=== PATIENT | male | born 1950 | race Caucasian/White ===

== ENCOUNTER → 2017-11-30 10:54 | Outpatient (CLI) | payer MEDICARE, SELFPAY ==
[2017-11-30 12:38] LABS: Valproic Acid (Depakene) Level 74 ug/mL (50-100)
[2017-12-01 11:38] LABS: Hep C Antibodies <0.1 s/co ratio (0.0-0.9)
== END ==
PROVIDERS: Family Provider Internal Medicine; PCP Internal Medicine; Visit Provider Internal Medicine
DX: Z11.59 Encounter for screening for other viral diseases (principal); Z12.5 Encounter for screening for malignant neoplasm of prostate; R56.9 Unspecified convulsions
CPT/HCPCS: 36415; 80164; 84153; 86803; G0103

== ENCOUNTER → 2017-12-30 10:21 | Outpatient (CLI) | payer MEDICARE, SELFPAY ==
[2017-12-30 12:03] LABS: Absolute Neutrophil Count 4.6 X10^3/uL (2.0-7.7); Basophil# 0.04 X10^3/uL; Basophil% 0.5 % (0-1); Eosinophils% 2.7 % (0-5); Hematocrit 40.5 % (40-54); Hemoglobin 13.4 g/dl (13.0-16.5); Lymphocyte % 21.4 % (19-41); Mean Corp Hgb Conc 33.1 g/gl (32-36); Mean Corpuscular Hgb 27.5 pg (27.0-32.0); Mean Corpuscular Volume 83.2 fL (80-94); Mean Platelet Vol. 10.2 fl (6.2-12.0); Monocyte# 1.04 X10^3/uL; Monocyte% 13.9 % (0-10); Neutrophil # 4.55 X10^3/uL (2.7-7.7); Neutrophil % 61.1 % (47-70); Platelet Count 245 K/mm3 (150-450); RBC Distribution Width CV 16.3 % (11.6-14.6); RBC Distribution Width SD 49.4 fl (35.1-43.9); Red Blood Count 4.87 M/mm3 (4.6-6.2); White Blood Count 7.5 K/mm3 (4.4-11.0)
[2017-12-30 12:06] LABS: ALB/GLOB Ratio 0.8 RATIO (0.9-2.4); AST(SGOT) 23 U/L (15-37); Alanine Aminotransfer ALT/SGPT 28 U/L (16-61); Albumin, Serum 3.4 g/dL (3.2-5.0); Alkaline Phosphatase 91 U/L (45-117); Anion Gap 9 (5-15); BUN 27 mg/dL (7-18); BUN/Creat Ratio 20.9 RATIO (10-20); Calcium,Total 8.9 mg/dL (8.5-10.1); Chloride 100 mmol/L (98-107); Creatinine, Serum 1.29 mg/dL (0.70-1.30); EST Glomerular Filtration Rate 59 mL/min (>60); Est Glom Filt Rate - Afr Amer 71 mL/min (>60); Globulin 4.1 g/dL (2.2-4.2); Glucose 94 mg/dL (74-106); Potassium 4.9 mmol/L (3.5-5.1); Protein, Total 7.5 g/dL (6.4-8.2); Sodium Level 136 mmol/L (136-145)
[2017-12-30 12:16] LABS: POSITIVE COUNT NO; POSITIVE DIFFERENTIAL NO; POSITIVE MORPHOLOGY NO; Valproic Acid (Depakene) Level 68 ug/mL (50-100)
== END ==
PROVIDERS: Family Provider Internal Medicine; PCP Internal Medicine; Visit Provider Psychiatry & Neurology Neurology
DX: G40.009 Localization-related (focal) (partial) idiopathic epilepsy and epileptic syndromes with seizures of localized onset, not intractable, without status epilepticus (principal)
CPT/HCPCS: 36415; 80053; 80164; 85025

== ENCOUNTER → 2018-08-25 08:40 | Outpatient (CLI) | payer MEDICARE, BC, SELFPAY ==
[2018-08-25 10:27] LABS: Hematocrit 43.7 % (40-54); Hemoglobin 14.5 g/dl (13.0-16.5); Mean Corp Hgb Conc 33.2 g/gl (32-36); Mean Corpuscular Hgb 27.7 pg (27.0-32.0); Mean Corpuscular Volume 83.4 fL (80-94); Mean Platelet Vol. 10.2 fl (6.2-12.0); Platelet Count 207 K/mm3 (150-450); RBC Distribution Width CV 15.9 % (11.6-14.6); RBC Distribution Width SD 48.8 fl (35.1-43.9); Red Blood Count 5.24 M/mm3 (4.6-6.2); Scan Indicated on CBC? Y/N NO; White Blood Count 8.3 K/mm3 (4.4-11.0)
[2018-08-25 10:57] LABS: Vitamin D,25 Hydroxy 34.8 ng/mL (29.95-100.01)
[2018-08-25 11:00] LABS: ALB/GLOB Ratio 0.8 RATIO (0.9-2.4); AST(SGOT) 13 U/L (15-37); Alanine Aminotransfer ALT/SGPT 22 U/L (16-61); Albumin, Serum 3.4 g/dL (3.2-5.0); Alkaline Phosphatase 87 U/L (45-117); Anion Gap 11 (5-15); BUN 30 mg/dL (7-18); BUN/Creat Ratio 22.1 RATIO (10-20); Bilirubin, Direct 0.07 mg/dL (0.00-0.30); Calcium,Total 9.2 mg/dL (8.5-10.1); Chloride 103 mmol/L (98-107); Creatinine, Serum 1.36 mg/dL (0.70-1.30); EST Glomerular Filtration Rate 55 mL/min (>60); Est Glom Filt Rate - Afr Amer 67 mL/min (>60); Glucose 98 mg/dL (74-106); Phosphorus 4.1 mg/dL (2.5-4.9); Protein, Total 7.4 g/dL (6.4-8.2); Sodium Level 138 mmol/L (136-145)
[2018-08-27 12:07] LABS: CHOLESTEROL TOTAL 165 mg/dL (100-199); HDL-C 40 mg/dL (>39); HDL-P TOTAL 30.3 umol/L (>=30.5); SMALL LDL-P 463 nmol/L (<=527); TRIGLYCERIDES 179 mg/dL (0-149)
[2018-08-27 20:28] LABS: LDL SIZE 20.5 nm (>20.5); LDL-C 89 mg/dL (0-99); LDL-P 1038 nmol/L (<1000); LP-IR SCORE ** 56 (<=45)
== END ==
PROVIDERS: Family Provider Internal Medicine; PCP Internal Medicine; Referring Provider Internal Medicine; Visit Provider Internal Medicine
DX: N18.3 Chronic kidney disease, stage 3 (moderate) (principal); E55.9 Vitamin D deficiency, unspecified
CPT/HCPCS: 36415; 80053; 80061; 82248; 82306; 83704; 84100; 85027

== ENCOUNTER → 2018-10-17 08:42 | Outpatient (CLI) | payer MEDICARE, BC, SELFPAY ==
[2018-10-17 10:09] LABS: Absolute Lymphocyte Count 2.21 X10^3/ul (0.83-4.51); Absolute Neutrophil Count 4.5 X10^3/uL (2.0-7.7); Basophil# 0.03 X10^3/uL; Basophil% 0.4 % (0-1); Eosinophil# 0.14 X10^3/uL; Eosinophils% 1.8 % (0-5); Hematocrit 44.3 % (40-54); Lymphocyte # 2.21 X10^3/ul (4.0); Lymphocyte % 28.2 % (19-41); Mean Corp Hgb Conc 31.6 g/gl (32-36); Mean Corpuscular Hgb 27.1 pg (27.0-32.0); Mean Corpuscular Volume 85.7 fL (80-94); Mean Platelet Vol. 10.1 fl (6.2-12.0); Monocyte# 0.96 X10^3/uL; Monocyte% 12.2 % (0-10); Neutrophil # 4.48 X10^3/uL (2.7-7.7); Platelet Count 208 K/mm3 (150-450); RBC Distribution Width CV 15.8 % (11.6-14.6); RBC Distribution Width SD 49.4 fl (35.1-43.9); Red Blood Count 5.17 M/mm3 (4.6-6.2); White Blood Count 7.9 K/mm3 (4.4-11.0)
[2018-10-17 10:10] LABS: POSITIVE COUNT NO; POSITIVE DIFFERENTIAL NO; POSITIVE MORPHOLOGY NO
[2018-10-17 10:39] LABS: Valproic Acid (Depakene) Level 78 ug/mL (50-100)
[2018-10-17 10:59] LABS: ALB/GLOB Ratio 0.9 RATIO (0.9-2.4); AST(SGOT) 18 U/L (15-37); Alanine Aminotransfer ALT/SGPT 25 U/L (16-61); Albumin, Serum 3.5 g/dL (3.2-5.0); Alkaline Phosphatase 90 U/L (45-117); Anion Gap 10 (5-15); BUN 30 mg/dL (7-18); Calcium,Total 9.1 mg/dL (8.5-10.1); Chloride 106 mmol/L (98-107); Creatinine, Serum 1.43 mg/dL (0.70-1.30); EST Glomerular Filtration Rate 52 mL/min (>60); Est Glom Filt Rate - Afr Amer 63 mL/min (>60); Glucose 106 mg/dL (74-106); Potassium 4.7 mmol/L (3.5-5.1); Protein, Total 7.5 g/dL (6.4-8.2); Sodium Level 139 mmol/L (136-145)
== END ==
PROVIDERS: Family Provider Internal Medicine; PCP Internal Medicine; Referring Provider Psychiatry & Neurology Neurology; Visit Provider Psychiatry & Neurology Neurology
DX: G40.009 Localization-related (focal) (partial) idiopathic epilepsy and epileptic syndromes with seizures of localized onset, not intractable, without status epilepticus (principal)
CPT/HCPCS: 36415; 80053; 80164; 85025

== ENCOUNTER → 2019-06-08 08:43 | Outpatient (CLI) | payer MEDICARE, BC, SELFPAY ==
[2019-06-08 08:51] VITALS: BP 135/70; PULSE 71; RESP 18; TEMP 36.2; O2SAT 95; BMI 30.8
[2019-06-08] MEDS: Cosyntropin 0.25 MG Vial IM (09:20)
== END ==
PROVIDERS: Family Provider Internal Medicine; PCP Internal Medicine; Referring Provider Internal Medicine; Visit Provider Internal Medicine
DX: E87.1 Hypo-osmolality and hyponatremia (principal); E87.5 Hyperkalemia
CPT/HCPCS: 36415; 82533; 96372; J0834

== ENCOUNTER → 2019-08-17 08:51 | Outpatient (CLI) | payer MEDICARE, BC, SELFPAY ==
[2019-06-08 08:51] VITALS: BMI 30.8
[2019-08-17 10:16] LABS: Anion Gap 5 (5-15); BUN 42 mg/dL (7-18); BUN/Creat Ratio 23.9 RATIO (10-20); Calcium,Total 9.3 mg/dL (8.5-10.1); Chloride 103 mmol/L (98-107); Creatinine, Serum 1.76 mg/dL (0.70-1.30); EST Glomerular Filtration Rate 41 mL/min (>60); Est Glom Filt Rate - Afr Amer 49 mL/min (>60); Glucose 106 mg/dL (74-106); Potassium 4.5 mmol/L (3.5-5.1); Sodium Level 137 mmol/L (136-145)
== END ==
PROVIDERS: Family Provider Internal Medicine; PCP Internal Medicine; Referring Provider Internal Medicine; Visit Provider Internal Medicine
DX: N18.3 Chronic kidney disease, stage 3 (moderate) (principal)
CPT/HCPCS: 36415; 80048

== ENCOUNTER → 2019-11-08 07:43 | Outpatient (CLI) | payer MEDICARE, BC, SELFPAY ==
[2019-06-08 08:51] VITALS: BMI 30.8
--- NOTE | 2019-11-08 07:45 | CT_ITS ---
STUDY: CT LUMBAR SPINE WITHOUT CONTRAST REASON FOR EXAM: Male, 69 years old. PT STATED LOW BACK PAIN, HX OF MULTIPLE SURGISET WITH HARDWARE RADIATION DOSAGE (If Supplied By Facility): CTDIvol = ( 16.79 ) mGy, DLP = ( 576.25 ) mGycm TECHNIQUE: The patient was scanned in a multi detector CT scanner. High resolution transaxial imaging was performed. Images were obtained from T12 vertebrae to S1 vertebrae. Sagittal and coronal images were reconstructed. Individualized dose optimization techniques were used for this CT. COMPARISON: Comparison is made with prior examination in May 30, 2014. FINDINGS: Normal lumbar lordosis. Mild levoscoliosis. The patient is status post laminectomy and interpedicular screw fixation at the L2-L3, L3-L4, L4 4 L5 and L5-S1. L1-2: Moderate degree of disc space narrowing and spondylosis. There is retrolisthesis of L1 on L2 of approximately 7.1 mm. Mild degree of diffuse posterior disc bulge. There is a moderate degree of bilateral neural foraminal stenosis. L2-3: Status post laminectomy and interpedicular screw fixation on the right side. Anterior spondylosis. No significant stenosis seen. There is a 6 mm retrolisthesis of L2 on L3. Diffuse posterior disc bulge. Hypertrophy of the ligamenta flava. Moderate degree of bilateral neural foraminal stenosis. L3-4: The patient is status post laminectomy and intertubercular screw fixation bilaterally. There is evidence of spondylolysis. No evidence of a spinal stenosis. Mild to moderate degree of bilateral neural foraminal stenosis. L4-5: Status post laminectomy and interpedicular screw fixation bilaterally. Spondylosis. Minimal anterior listhesis of L4 on L5. Mild narrowing of the intervertebral foramen bilaterally slightly worse on the right side. L5-S1: Grade 2 anterolisthesis of L5 on S1 measuring 12.6 mm. The patient is status post laminectomy and interpedicular screw fixation. There is evidence of a disc space narrowing and disc degeneration. No stenosis is seen. Moderate narrowing of the intervertebral foramen bilaterally. Normal visualized paraspinous soft tissue structures. CT/Spine Lumbar without Contrast IMPRESSION: Multilevel degenerative changes, as described above. Status post posterior laminectomy and interpedicular screw fixation. Multiple levels of neural foraminal stenosis as well as anterior and posterior listhesis. Electronically Signed: Farhan Veliz, at 8:35 EDT , Service support ,
== END ==
PROVIDERS: PCP Internal Medicine; Referring Provider Psychiatry & Neurology Neurology; Visit Provider Psychiatry & Neurology Neurology
DX: M48.062 Spinal stenosis, lumbar region with neurogenic claudication (principal)
CPT/HCPCS: 72131

== ENCOUNTER → 2020-01-03 09:26 | Outpatient (CLI) | payer MEDICARE, BC, SELFPAY ==
[2019-06-08 08:51] VITALS: BMI 30.8
[2020-01-03 10:43] LABS: Absolute Lymphocyte Count 2.03 X10^3/uL (0.83-4.51); Basophil# 0.04 X10^3/uL; Basophil% 0.5 % (0-1); Eosinophil# 0.15 X10^3/uL; Eosinophils% 1.8 % (0-5); Hematocrit 40.8 % (40-54); Lymphocyte # 2.03 X10^3/ul (4.0); Lymphocyte % 24.5 % (19-41); Mean Corp Hgb Conc 31.9 g/dL (32-36); Mean Corpuscular Hgb 27.3 pg (27.0-32.0); Mean Corpuscular Volume 85.5 fL (80-94); Mean Platelet Vol. 10.2 fl (6.2-12.0); Monocyte# 1.01 X10^3/uL; Monocyte% 12.2 % (0-10); NRBC Flagged by Analyzer 0 % (0-5); Neutrophil # 5.01 X10^3/uL (2.7-7.7); Neutrophil % 60.4 % (47-70); Platelet Count 260 K/mm3 (150-450); RBC Distribution Width CV 15.3 % (11.6-14.6); RBC Distribution Width SD 47.3 fl (35.1-43.9); Red Blood Count 4.77 M/mm3 (4.6-6.2); White Blood Count 8.3 K/mm3 (4.4-11.0)
[2020-01-03 11:16] LABS: Valproic Acid (Depakene) Level 70 ug/mL (50-100)
[2020-01-03 11:17] LABS: ALB/GLOB Ratio 0.7 RATIO (0.9-2.4); AST(SGOT) 15 U/L (15-37); Alanine Aminotransfer ALT/SGPT 17 U/L (16-61); Albumin, Serum 3.2 g/dL (3.2-5.0); Alkaline Phosphatase 92 U/L (45-117); Anion Gap 4 (5-15); BUN 36 mg/dL (7-18); BUN/Creat Ratio 23.8 RATIO (10-20); Calcium,Total 9.5 mg/dL (8.5-10.1); Chloride 100 mmol/L (98-107); Creatinine, Serum 1.51 mg/dL (0.70-1.30); EST Glomerular Filtration Rate 49 mL/min (>60); Est Glom Filt Rate - Afr Amer 59 mL/min (>60); Globulin 4.3 g/dL (2.2-4.2); Glucose 101 mg/dL (74-106); Protein, Total 7.5 g/dL (6.4-8.2); Sodium Level 133 mmol/L (136-145)
== END ==
PROVIDERS: PCP Internal Medicine; Referring Provider Psychiatry & Neurology Neurology; Visit Provider Psychiatry & Neurology Neurology
DX: G40.009 Localization-related (focal) (partial) idiopathic epilepsy and epileptic syndromes with seizures of localized onset, not intractable, without status epilepticus (principal)
CPT/HCPCS: 36415; 80053; 80164; 85025

== ENCOUNTER 2020-01-05 11:30 | Outpatient (RCR) | payer MEDICARE, BC, SELFPAY ==
[2019-06-08 08:51] VITALS: BMI 30.8
--- NOTE | 2019-10-31 09:57 | HP.PTEVAL_ITS ---
Patient's Visit Information KATIE HOLMAN is a 69 year old M referred to Physical Therapy by Buck Babb MD with a diagnosis of SPINAL STENOSIS WITH NEUROGENIC CLAUDICATION. Date of Evaluation: 10/31/19 Physical Therapist: Ivet Kahn PT, Cert MDT - Visit Plan Frequency: 2x /Week Duration: 2 Months Plan: LOW BACK US. MH/CP NEEDED. POSTURE CORRECTION/STRENGTHENING, INSTRUCTION IN APPROPRIATE BODY MECHANICS AND ACTIVITY MODIFICATIONS. DLS WITH A NEUTRAL SPINE TOLERATED. DOMO LE ROM, STRETCHING AND STRENGTHENING. HEP INSTRUCTION. - Subjective Subjective: Work/Leisure: RETIRED. Present symptoms: MY LEGS GET REAL WEAK ON ME. BACK WEAKNESS. BACK ACHE. DOMO LE PAIN, NUMBNESS AND TINGLING. Present since: YEARS. Pain Scale: WORST 9/10, LEAST 0/10. Currently: 09/25. Commenced as a result of: PATIENT RELATES HIS BACK CONDITION TO WORK - OTHERWISE - NO APPARENT REASON. Symptoms at onset: BENT OVER AND COULDN'T STRAIGHTEN BACK UP ONE DAY - AT HOME. 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 Better: SITTING, TYLONOL, LYING DOWN. Disturbed sleep: NO. Previous history/Previous treatment: 4 BACK SURGERIES STARTING IN 1997 WITH A DISKECTOMY FOR SCIATICA. NOW HAS A EDNA IN HIS BACK. SOME INJECTIONS BEFORE SURGERY. PT SEVERAL TIMES. PATIENT REPORTS HE TOLD DR. BABB ABOUT HIS LEGS GETTING WEAKER AND HIS FEET GOING NUMB AND HE REFERRED HIM TO PT. Coughing/sneezing/straining: NEGATIVE. Gait: PATIENT REPORTS THAT WHEN HE WALKS HIS THIGHS GET TO ACHING AND HE STARTS TO LIMP ON HIS RIGHT LEG BECAUSE THAT ONE IS THE WORST. NO ASSISTIVE DEVICES. Difficulty initiating urinatin: NO. Accidents: NO. Unexplained weight loss: NO. Imaging: NONE RECENT. CAT SCAN PENDING 11/08/19. PMH: SIEZURES, HTN, HIGH CHOLESTEROL. Recent major surgery: 4 BACK SURGERIES, R CTR - Objective Sitting/Standing Posture: POOR. DECREASED LORDOSIS. INCREASED KYPHOSIS. FORWARD HEAD AND ROUNDED SHOULDERS. Active Correction of posture: WORSE. Other Observations: THIS PATIENT AMBULATES INDEP'LY INTO PT WITHOUT ANY ASSISTIVE DEVICES. DECREASED CADANCE. DECREASED DOMO STRIDE LENGTH. INDEP TRANSFER SIT TO STAND WITHOUT UE ASSIST. Motor deficit: DOMO LE STRENGTH 5/5 WITH MMT'ING EXCEPT HIPS 4/5. Sensory deficit: DOMO LE LIGHT TOUCH SENSATION INTACT AND SYMMETRICAL (FEET NT). ROM deficit: VERY TIGHT DOMO HIP EXT ROTATORS, HIP FLEXORS, HS'S AND GASTROC SOLEUS COMPLEX'S. Reflexes: UNABLE TO ELICIT DOMO LE DTR'S. Dural Signs: NEGATIVE DOMO LE'S. Lumbar mvmt loss: flex - MOD - INCREASES THE PAIN. ext - NIMO - RELIEVES THE PAIN. R SG - NIMO. L SG - NIMO - PUTS STRAIN ON LOWER BACK. Core strength: POOR. Palpation: NO ACUTE LUMBAR TENDERNESS. TREATMENT: NEUROMUSCULAR REEDUCATION - RETRAINING OF MVMT AND POSTURE FOR SITTING, LYING AND STANDING ACTIVITIES. - Goals Goal 1:: DECREASE C/O BACK AND DOMO LE SX'S. Goal Time Frame: 4-6 Weeks Goal 2:: IMPROVE STANDING, WALKING, LIFTING, SOCIAL LIFE AND HOMEMAKING FUNCTION Goal Time Frame: 4-6 Weeks Goal 3:: INSTRUCT IN PROPHYLAXIS Goal Time Frame: 4-6 Weeks - Rehabilitation Potential Rehabilitation Potential: Fair - Anticipated Interventions Patient/Client Instruction: Educate patient on: Condition, Plan of Care, Risk Factors, Benefits of Fitness Program For the Purpose of:: To improve self management Therapeutic Exercise to Include: Strength training, Body mechanics, Postural training, Flexibilty training, Dynamic Lumbar Stabilization For the Purpose of:: To decrease pain, To increase ROM, To improve muscle performance and motor function, To increase tolerance to activity/condition/position, To improve ability of physical actions for home/community/work/leisure, To improve gait and locomotor functions Cryotherapy (ice pack, ice massage): Yes Thermo therapy (hot pack): Yes Ultrasound (thermal/non thermal): Yes For the Purpose of:: To decrease pain, To improve nutrient delivery to tissue Thank you for the opportunity to evaluate your patient. For Medicare and Medicare HMO plans, please review the plan of care and approve it. It will need to be FAXED BACK to us at [phone] for Medicare purposes. For Medicare only, by signing this I certify the plan of care. Please let me know if there are questions or concerns regarding this plan of care. Physician Signature: Date:
--- NOTE | 2019-12-11 10:42 | HP.PTREVAL_ITS ---
Buck Babb MD, It has been my pleasure to treat KATIE HOLMAN over the last 10 visits for SPINAL STENOSIS WITH NEUROGENIC CLAUDICATION. Please see the progress note below for an update on the physical therapy plan of care! Subjective: PATIENT REPORTS HE CAN DO MORE NOW THAN BEFORE HE STARTED THERAPY BUT HIS LOW BACK PAIN AND LEG WEAKNESS IS STILL THERE. PATIENT REPORTS HE HAS RIDE MOWED HIS 2 ACERS TWICE NOW. STATES HE HASN'T STARTED A HOME EX PROGRAM. PATIENT REPORTS HE HAD THE CAT SCAN (SEE RESULTS BELOW) AND FOLLOW UP IS SCHEDULED WITH DR. BABB 12/24/19. CAT SCAN FINDINGS: Normal lumbar lordosis. Mild levoscoliosis. The patient is status post laminectomy and interpedicular screw fixation at. the L2-L3, L3-L4, L4 4 L5 and L5-S1. L1-2: Moderate degree of disc space narrowing and spondylosis. There is. retrolisthesis of L1 on L2 of approximately 7.1 mm. Mild degree of diffuse. posterior disc bulge. There is a moderate degree of bilateral neural. foraminal stenosis. L2-3: Status post laminectomy and interpedicular screw fixation on the. right side. Anterior spondylosis. No significant stenosis seen. There is. a 6 mm retrolisthesis of L2 on L3. Diffuse posterior disc bulge. Hypertrophy of the ligamenta flava. Moderate degree of bilateral neural. foraminal stenosis. L3- 4: The patient is status post laminectomy and intertubercular screw. fixation bilaterally. There is evidence of spondylolysis. No evidence of. a spinal stenosis. Mild to moderate degree of bilateral neural foraminal. stenosis. L4-5: Status post laminectomy and interpedicular screw fixation. bilaterally. Spondylosis. Minimal anterior listhesis of L4 on L5. Mild. narrowing of the intervertebral foramen bilaterally slightly worse on the. right side. L5-S1: Grade 2 anterolisthesis of L5 on S1 measuring 12.6 mm. The patient. is status post laminectomy and interpedicular screw fixation. There is. evidence of a disc space narrowing and disc degeneration. No stenosis is. seen. Moderate narrowing of the intervertebral foramen bilaterally. Normal visualized paraspinous soft tissue structures. . CT/Spine Lumbar without Contrast. IMPRESSION: Multilevel degenerative changes, as described above. . Status post posterior laminectomy and interpedicular screw fixation. Multiple levels of neural foraminal stenosis as well as anterior and. posterior listhesis. . Electronically Signed: Farhan Bertinchididoris,. at 8:35 EDT Objective/Function: PATIENT WAS SEEN TODAY FOR RE-ASSESSMENT OF PROGRESS TOWARD THE SET PT GOALS AND THE NEED FOR FURTHER PHYSICAL THERAPY VS READINESS FOR DISCHARGE. UPON EXAM TODAY: PATIENT HAS MADE A. LITTLE BIT OF IMPROVEMENT WITH INCREASED EX VOLUME OVER THE LAST MONTH AND IS A GOOD CANDIDATE TO CONTINUE TO TRY TO PROGRESS. HE IS AGREEABLE. UPON EXAM TODAY: THIS PATIENT AMBULATES INDEP'LY INTO PT WITHOUT ANY ASSISTIVE DEVICES. DECREASED CADANCE. DECREASED DOMO STRIDE LENGTH. INDEP TRANSFER SIT TO STAND WITHOUT UE ASSIST. Motor deficit: DOMO LE STRENGTH 5/5 WITH MMT. Sensory deficit: DOMO LE LIGHT TOUCH SENSATION INTACT AND SYMMETRICAL (FEET NT). ROM deficit: VERY TIGHT DOMO HIP EXT ROTATORS, HIP FLEXORS, HS'S AND GASTROC SOLEUS COMPLEX'S. Dural Signs: NEGATIVE DOMO LE'S. Lumbar mvmt loss: flex - MOD - INCREASES LBP. ext - NIMO - RELIEVES THE PAIN - I DO THAT A LOT. R SG - NIMO - INCREASES RIGHT THIGH PAIN. L SG - NIMO - INCREASES RIGHT LBP. Core strength: POOR. Palpation: NO ACUTE LUMBAR TENDERNESS. PATIENT DID GOOD WITH HEP INST TODAY. INCREASED COMMUNICATION DIFFICULTY TODAY WITH PATIENT DUE TO HIM REMOVING HIS HEARING AIDS TO ACCOMODATE MASK USE. Plan Plan: ADD ONE TO TWO EX'S TO HEP PER VISIT WITH WRITTEN INSTRUCTIONS. MH/CP NEEDED. POSTURE CORRECTION/STRENGTHENING, INSTRUCTION IN APPROPRIATE BODY MECHANICS AND ACTIVITY MODIFICATIONS. DLS WITH A NEUTRAL SPINE TOLERATED. DOMO LE ROM, STRETCHING AND STRENGTHENING. HEP INSTRUCTION. Goals Goal 1:: DECREASE C/O BACK AND DOMO LE SX'S. Goal Time Frame: 4-6 Weeks Goal Progress: Not Progressing Goal 2:: IMPROVE STANDING, WALKING, LIFTING, SOCIAL LIFE AND HOMEMAKING FUNCTION Goal Time Frame: 4-6 Weeks Goal Progress: Progressing Goal 3:: INSTRUCT IN PROPHYLAXIS Goal Time Frame: 4-6 Weeks Goal Progress: Progressing Anticipated Interventions Patient/Client Instruction: Educate patient on: Condition, Plan of Care, Risk Factors, Benefits of Fitness Program For the Purpose of:: To improve self management Therapeutic Exercise to Include: Strength training, Body mechanics, Postural training, Flexibilty training, Dynamic Lumbar Stabilization For the Purpose of:: To decrease pain, To increase ROM, To improve muscle performance and motor function, To increase tolerance to activity/condition/position, To improve ability of physical actions for home/community/work/leisure, To improve gait and locomotor functions Cryotherapy (ice pack, ice massage): Yes Thermo therapy (hot pack): Yes Ultrasound (thermal/non thermal): Yes For the Purpose of:: To decrease pain, To improve nutrient delivery to tissue Please do not hesitate to contact me at [phone] by phone or if you have questions or concerns regarding this new plan of care! Sincerely, Ivet Kahn, PT, Cert MDT
--- NOTE | 2020-01-05 12:00 | HP.PTDCSUM ---
It has been my pleasure to treat KATIE HOLMAN referred by Dr. Buck Babb MD, with the diagnosis of SPINAL STENOSIS WITH NEUROGENIC CLAUDICATION for a total of 16 visit(s). Discharge Date: Please see the following information for a summary of their discharge status. Subjective: PATIENT REPORTS HIS BACK HURTS, HIS LEGS GET WEAK AND HIS FEET GET NUMB. THE MORE HE DOES THE MORE SX'S HE GETS. STATES HE TRIES TO DO THE HOME EX'S WHEN HE CAN REMEMBER. BACK Pain Intensity (Out of 10): 4 LEGS Pain Intensity (Out of 10): 0 FEET Pain Intensity (Out of 10): 0 % Improvement: 0 Objective/Function: PATIENT WAS SEEN TODAY FOR RE-ASSESSMENT OF PROGRESS TOWARD THE SET PT GOALS AND THE NEED FOR FURTHER PHYSICAL THERAPY VS READINESS FOR DISCHARGE. UPON EXAM TODAY: PATIENT HAS MADE A. LITTLE BIT OF IMPROVEMENT WITH INCREASED EX VOLUME OVER THE LAST 2 MONTH BUT HE DOES NOT WANT TO CONTINUE PT. HE IS REALLY NOT COMPLIANT WITH HOME EX'S. UPON EXAM TODAY: THIS PATIENT AMBULATES INDEP'LY INTO PT WITHOUT ANY ASSISTIVE DEVICES. DECREASED CADANCE. DECREASED DOMO STRIDE LENGTH. INDEP TRANSFER SIT TO STAND WITHOUT UE ASSIST. Motor deficit: DOMO LE STRENGTH 5/5 WITH MMT. Sensory deficit: DOMO LE LIGHT TOUCH SENSATION INTACT AND SYMMETRICAL (FEET NT). ROM deficit: VERY TIGHT DOMO HIP EXT ROTATORS, HIP FLEXORS, HS'S AND GASTROC SOLEUS COMPLEX'S. Dural Signs: NEGATIVE DOMO LE'S. Lumbar mvmt loss: flex - MOD - INCREASES LBP. ext - NIMO - RELIEVES THE PAIN - I DO THAT A LOT. R SG - NIMO. L SG - NIMO. Core strength: POOR Goal 1:: DECREASE C/O BACK AND DOMO LE SX'S. Goal Progress: Not Progressing Goal 2:: IMPROVE STANDING, WALKING, LIFTING, SOCIAL LIFE AND HOMEMAKING FUNCTION Goal Progress: Not Progressing Goal 3:: INSTRUCT IN PROPHYLAXIS Goal Progress: Not Progressing Plan: D/C. PATIENT AGREEABLE. If there are questions or concerns regarding this patient's physical therapy, please feel free to call me at [phone]. Thank you for the referral of this patient. Sincerely, Ivet Kahn, PT, Cert MDT
== END 2020-01-05 19:00 | disposition home or self-care (01) ==
LOC: PT 11:30
PROVIDERS: PCP Internal Medicine; Referring Provider Psychiatry & Neurology Neurology; Visit Provider Psychiatry & Neurology Neurology
DX: M48.00 Spinal stenosis, site unspecified (principal)
CPT/HCPCS: 97035; 97110; 97112; 97162; 97164; 97530

== ENCOUNTER → 2020-02-27 08:46 | Outpatient (CLI) | payer MEDICARE, BC, SELFPAY ==
[2019-06-08 08:51] VITALS: BMI 30.8
--- NOTE | 2020-02-27 08:57 | RAD_ITS ---
STUDY: X-RAY CHEST REASON FOR EXAM: Male, 69 years old. patient complains of chronic cough TECHNIQUE: PA and lateral views of the chest. COMPARISON: Prior study 02/07/2017 FINDINGS: There are streaky fibrotic changes of the upper lobes, not previously seen. There is no demonstrated pleural abnormality. Normal size heart. Normal mediastinum and tawanda. Normal visualized pulmonary arteries. There are calcified plaques of the aortic arch. There are diffuse degenerative changes of the visualized thoracic spine. Normal visualized ribs, clavicles, and shoulders. There is no demonstrated abnormality of the visualized soft tissue structures of the upper abdomen. RAD/Chest PA and Lateral IMPRESSION: Mild streaky fibrotic changes of the upper lobes, new in the interval. Calcified plaques of the aortic arch. Degenerative changes of the thoracic spine. Electronically Signed: Sohan Ford MD at 18:18 EDT , Service support ,
== END ==
PROVIDERS: PCP Internal Medicine; Referring Provider Internal Medicine; Visit Provider Internal Medicine
DX: R05 Cough (principal)
CPT/HCPCS: 71046

== ENCOUNTER → 2020-03-06 14:12 | Outpatient (CLI) | payer MEDICARE, BC, SELFPAY ==
[2019-06-08 08:51] VITALS: BMI 30.8
--- NOTE | 2020-03-06 14:17 | CT_ITS ---
STUDY: CT CHEST WITHOUT CONTRAST REASON FOR EXAM: Male, 69 years old. ABN CXR. Hx of emphysema and HTN-rx controlled. RADIATION DOSAGE (If Supplied By Facility): CTDIvol = ( 15.52 ) mGy, DLP = ( 581.68 ) mGycm TECHNIQUE: Transaxial imaging was performed without the administration of intravenous contrast material. Individualized dose optimization techniques were used for this CT. COMPARISON: Chest x-ray 02/27/2020, CT scan 02/07/2017. FINDINGS: Marked hyperexpansion of the lungs, severe centrilobular emphysema. Widespread interstitial and septal thickening. Mild fibrotic changes along the periphery of both lungs especially in the posterior lung bases. No infiltrates. No effusions. Normal heart and pericardium. There are calcifications of the coronary arteries. Normal mediastinum. Normal hilar regions. Normal unenhanced pulmonary arteries. There is atherosclerotic calcification of the aortic arch with tortuosity and elongation of the aortic arch and descending thoracic aorta. There are multi-level degenerative changes of the thoracic spine. Several partial compression fractures, stable. There is no demonstrated abnormality of the visualized upper abdomen. CT/Chest without Contrast IMPRESSION: Marked COPD with no definite acute chest disease. Electronically Signed: Simon Varela MD at 20:08 EDT , Service support ,
== END ==
PROVIDERS: PCP Internal Medicine; Referring Provider Internal Medicine; Visit Provider Internal Medicine
DX: R93.89 Abnormal findings on diagnostic imaging of other specified body structures (principal)
CPT/HCPCS: 71250

== ENCOUNTER 2021-09-07 10:55 | Emergency (ER) | payer OTHER, MEDICARE, BC, SELFPAY ==
[2021-09-07 10:56] VITALS: BP 129/75; PULSE 74; RESP 18; TEMP 36.6; O2SAT 99; BMI 30.8
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
--- NOTE | 2021-09-07 11:17 | RAD_ITS ---
STUDY: X-RAY - RIGHT FOOT CLINICAL: Male, 71 years old. injury TECHNIQUE: 3 view(s) of the foot. COMPARISON: None. FINDINGS: Normal talus, calcaneus, and tarsal bones. Normal visualized subtalar, talonavicular, calcaneocuboid, tarsal and tarsometatarsal articulations. Normal metatarsi. Normal metatarsophalangeal joint of the great toe. Normal tibial and fibular sesamoid bones. Normal interphalangeal joint of the great toe. Normal phalanges of the great toe. Normal second through fifth metatarsophalangeal joints. Normal interphalangeal joints and phalanges of the lesser toes. The soft tissue structures are unremarkable. RAD/Foot min 3 Views IMPRESSION: Normal x-ray examination of the foot. Electronically Signed: Khai Bartlett MD at 11:56 EST Tel , Service support ,
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
[2021-09-07 12:12] VITALS: BP 131/76; PULSE 80; RESP 16; TEMP 36.7; O2SAT 96
[2021-09-07] MEDS: Ondansetron ODT 4 MG Tablet PO (12:57)
[2021-09-07] MEDS: HYDROcodone Bitartrate/Apap 5/325 Tablet PO (12:57)
[2021-09-07 13:00] VITALS: BP 138/72; PULSE 711; RESP 14; O2SAT 92
[2021-09-07 14:06] VITALS: BP 145/100; PULSE 71; RESP 16; O2SAT 96
== END 2021-09-07 14:15 | disposition home or self-care (01) ==
PROVIDERS: Emergency Provider Emergency Medicine; PCP Internal Medicine; Visit Provider Emergency Medicine
DX: S40.012A Contusion of left shoulder, initial encounter (principal); F17.210 Nicotine dependence, cigarettes, uncomplicated; I10 Essential (primary) hypertension; N40.0 Benign prostatic hyperplasia without lower urinary tract symptoms; K21.9 Gastro-esophageal reflux disease without esophagitis; V43.52XA Car driver injured in collision with other type car in traffic accident, initial encounter; Y92.410 Unspecified street and highway as the place of occurrence of the external cause; Z79.82 Long term (current) use of aspirin; Z79.899 Other long term (current) drug therapy
CPT/HCPCS: 70450; 71045; 72125; 73030; 73630; 99284

== ENCOUNTER 2021-09-16 16:30 | Outpatient (CLI) | payer MEDICARE, BC, SELFPAY ==
--- NOTE | 2021-09-16 16:33 | RAD_ITS ---
STUDY: X-RAY - THORACIC SPINE REASON FOR EXAM: Male, 71 years old. Spine pain TECHNIQUE: 3 view(s) of the thoracic spine were obtained. COMPARISON: CT chest 02/05/2020 FINDINGS: Normal kyphosis of the thoracic spine. There is no substantial scoliosis. There is multilevel endplate spondylosis of the thoracic vertebrae. There is multilevel disc space narrowing of the thoracic spine. Stable compression deformity thoracic spine. There are atherosclerotic vascular calcifications. RAD/Thoracic Spine 3 Views IMPRESSION: There are degenerative changes as noted above. Electronically Signed: Dom Yao MD at 20:23 EST ,
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
== END 2021-09-16 23:59 | disposition short-term general hospital (02) ==
LOC: MTRAD 16:32
PROVIDERS: PCP Internal Medicine; Referring Provider Internal Medicine; Visit Provider Internal Medicine
DX: M79.671 Pain in right foot (principal); M54.6 Pain in thoracic spine
CPT/HCPCS: 72072; 73630

== ENCOUNTER 2022-09-23 01:28 | Inpatient (IN) | payer MEDICARE, BC, SELFPAY ==
[2022-09-23] VITALS (32 sets, daily range): BP systolic 56–165; BP diastolic 39–107; PULSE 31–100; RESP 15–27; TEMP 35.7–37.5; O2SAT 88–100; BMI 26.7; BMI 26.2
--- NOTE | 2022-09-23 01:41 | RAD_ITS ---
INDICATION: chest pain EXAMINATION/TECHNIQUE: X-RAY - XR Chest 1 View COMPARISON: 09/07/2021. FINDINGS: LINES/DEVICES: None. LUNGS: No consolidation, edema or effusion. No pneumothorax. MEDIASTINUM AND CARDIOVASCULAR STRUCTURES: Cardiac silhouette not enlarged. Mild aortic atherosclerosis. BONES AND SOFT TISSUES: Unremarkable. RAD/Chest 1 View (Portable) IMPRESSION: No radiographic evidence of acute cardiopulmonary disease. Electronically Signed: Rosales Ferrell MD at 2:19 EST ,
--- NOTE | 2022-09-23 01:41 | EKG12_ITS ---
Test Reason : CP Blood Pressure : / mmHG Vent. Rate : 044 BPM Atrial Rate : 125 BPM P-R Int : 000 ms QRS Dur : 136 ms QT Int : 476 ms P-R-T Axes : 000 094 270 degrees QTc Int : 406 ms Atrial tachycardia with AV block Non-specific intra-ventricular conduction block Marked T-wave abnormality, consider inferolateral ischemia Abnormal ECG Confirmed by ANGELA TAVAREZ, LISET ([id number]), continuity editor BIB VUONG ([id number]) on 09/25/2022 10:04:33 AM Referred By: BB Confirmed By:LISET MILLER MD
--- NOTE | 2022-09-23 01:42 | EDS_ITS ---
HPI History of Present Illness Chief Complaint: Chest Pain Informant: patient Onset/Context/Timing Onset: Hours (8 or so) Timing: Intermittent Quality: Positive for Aching Location: Substernal Current Severity: Mild Maximum Severity: Moderate Worsened By: Exertion (And light activity) Relieved By: Rest Associated Symptoms: Positive for Dyspnea and Lightheadedness; Negative for Nausea, Vomiting, Diaphoresis, Cough, Fever or Palpitations Narrative Narrative: Past afternoon and all evening patient has been feeling lightheaded whenever he would stand up or do light activity, intermittent chest discomfort with dyspnea, checking his blood pressure it was low, he called EMS tonight. They detected bradycardia and hypotension with the patient awake, they tried atropine 1 mg x 2, it did not affect his heart rate at all, but blood his blood pressure up a little. He does not have a known cardiac history nor does he see a combat systems engineer for any reason. He is on medications, he did not bring a list and does not know them, and refers us to the EMR. He states he has been taking his medicines as prescribed lately and has not accidentally overdosed on any of them. PFSH PFS Medical History Back pain with history of spinal surgery BPH (benign prostatic hyperplasia) Cataract Emphysema lung GERD (gastroesophageal reflux disease) Hypertension Neuropathy Seizures Smoker Home Medications Omeprazole [Prilosec] 40 mg PO DAILY 05/28/16 [History Last Taken 08/31/16 07:00] atorvastatin 10 mg tablet 10 mg PO QHS 05/28/16 [History Last Taken Unknown] budesonide-formoterol HFA 160 mcg-4.5 mcg/actuation aerosol inhaler (Symbicort) 1 puff inhalation BID 05/28/16 [History Last Taken 08/31/16 07:00] divalproex 250 mg tablet,extended release 24 hr 500 mg PO BID 05/28/16 [History Last Taken 07/06/16 08:30] losartan 50 mg tablet 50 mg PO QHS 05/28/16 [History Last Taken 08/31/16 07:00] tamsulosin 0.4 mg capsule 0.8 mg PO QHS 05/28/16 [History Last Taken Unknown] tiotropium bromide 18 mcg capsule with inhalation device (Spiriva with HandiHaler) 1 puff inhalation QHS 05/28/16 [History Last Taken 06/01/16 08:00] aspirin 81 mg chewable tablet 81 mg PO DAILY@0800 07/06/16 [History Last Taken Unknown] cholecalciferol (vitamin D3) 25 mcg (1,000 unit) tablet (Vitamin D3) 2,000 unit PO DAILY 07/06/16 [History Last Taken Unknown] L.acidoph, paracasei,B. lactis 10 billion cell capsule 1 ea PO DAILY 02/07/17 [History Last Taken Unknown] carvedilol 6.25 mg tablet 6.25 mg PO BID #60 tabs 02/08/17 [Rx Last Taken Unknown] Allergy/AdvReac Type Severity Reaction Status Date / Time ethotoin [From Peganone] Allergy Mild Rash Verified 09/07/21 11:01 Family History Other Cancer Heart disease Osteoporosis Surgical History History of appendectomy History of back surgery S/P appy Social History Smoking Status: Current every day smoker tobacco type: cigarettes ROS ROS ED Constitutional Constitutional ED: Reports malaise; Denies chills or fever(s) Eyes Eyes: Denies change in vision or diplopia ENT ENT ED: Denies rhinorrhea or sore throat Cardiovascular Cardiovascular: Reports chest pain and lightheadedness; Denies palpitations or syncope Respiratory/Chest Respiratory/Chest: Reports dyspnea; Denies cough Gastrointestinal Gastrointestinal: Denies abdominal pain, diarrhea, nausea or vomiting Genitourinary Genitourinary ED: Denies dysuria or hematuria Musculoskeletal Musculoskeletal: Denies back pain or neck pain Integumentary Denies abscess or rash Neurologic Neurologic: Denies headache(s), paresthesias or weakness Psychiatric Psychiatric: Denies anxiety or suicidal thoughts EXAM Physical Exam Const Vital Signs: 09/23/22 01:30 09/23/22 01:41 09/23/22 01:55 Temperature 96.2 F L Temperature Source Temporal Pulse Rate 36 L Respiratory Rate 15 Respiratory Effort Non-Labored Respiratory Pattern Blood Pressure 113/57 L Blood Pressure Mean 75 Pulse Ox 94 95 Oxygen Delivery Method Room Air Room Air Oxygen Flow Rate (L/min) 09/23/22 02:38 09/23/22 02:46 09/23/22 03:00 Temperature Temperature Source Pulse Rate 47 L 34 L 31 L Respiratory Rate 25 H 26 H 19 H Respiratory Effort Respiratory Pattern Tachypnea Blood Pressure 88/61 L 106/48 L Blood Pressure Mean 70 67 Pulse Ox 98 88 Oxygen Delivery Method Room Air Nasal Cannula Oxygen Flow Rate (L/min) 6 Positive well nourished and well developed General Appearance ED: well developed and NAD HEENT Reports moist mucous membranes normocephalic and atraumatic Eyes PERRL and EOMs intact bilaterally Neck full ROM and supple Resp normal respiratory effort and clear to auscultation bilaterally Effort and Inspection: able to speak in complete sentences Cardio regular rate, regular rhythm and peripheral pulses 2+ throughout Cardio Narrative: Very faint heart sounds Rate: bradycardia GI non-tender and non-distended Auscultation: normoactive bowel sounds Palpation: soft Back/Spine no CVA tenderness General Back: other FROM Extremity normal to inspection General Extremety ED: Negative for edema, pulses abnormal or tenderness General Extremity: Negative for edema or pulses abnormal Neuro oriented x3, CN's II-XII intact bilaterally and no sensory deficits noted Sensorium / Orientation: awake and alert Motor Exam: strength 5/5 throughout Psych mental status grossly normal Skin no rashes or lesions noted and no wounds Heart Score History: Highly Suspicious ECG: Nonspecific Repolarization Age: >/= 65 years Risk Factors: >/= 3 Risk Factors or History of CAD (smoking, htn, hyperlipid) Score: 7 MDM MDM MDM Narrative Medical decision making narrative: Patient appears to be in a complete heart block, with a ventricular escape rhythm in the high 30s. He is keenly alert, his blood pressure is good, he was given fluids and this maintained. He tolerates this at rest, pacer pads are on his chest as a backup but I am not using them currently. His labs show acute kidney injury and hyperkalemia. This is a big change for him on his EKG, but he does not have a STEMI/acute injury pattern. His troponin is elevated. Aspirin was given. He is clinically and hemodynamically stable. I am treating the hyperkalemia, I discussed with cardiology Dr. Bui and we we can admit him to this hospital. We will also discussed with hospitalist Dr. Ríos. While in the ED, he did drop his BP, so we bolused him w/ IVF and I applied demand transthoracic pacing, both of which helped his blood pressure. Will admit to the ICU. I repeated his potassium after the hyperkalemia treatments he received, and his level is now down to the normal range, 4.7. Seen by hospitalist but subsequently, patient started dropping his pressure again, and despite giving the patient fentanyl for the pacing, and turning up the amperage, there was no capture and he was still hypotensive. I then made the decision to place a transvenous pacemaker, the patient was conscious/awake and able to make a decision concerning benefits and risks here, and he consented to it verbally. However, he was getting disoriented and grabbing at things and had trouble staying still so he was given Versed 3 mg for anxiolysis, which he tolerated well without complication and made is able to provide the needed care. See the procedure note. As we were finishing up, discussed again with cardiology, and they took him up to the Chiropractic Doctor. Lab Data Attestation: I reviewed the patient's lab results. Labs: Laboratory Results - last 24 hr 09/23/22 09/23/22 09/23/22 01:52 01:52 03:50 WBC 12.6 H RBC 4.07 L Hgb 11.5 L Hct 38.1 L MCV 93.6 MCH 28.3 MCHC 30.2 L RDW Std Deviation 52.8 H RDW Coeff of Edinson 15.4 H Plt Count 168 MPV 11.1 Immature Gran % (Auto) 1.800 H Neut % (Auto) 61.2 Lymph % (Auto) 23.4 [place] % (Auto) 12.2 H Eos % (Auto) 0.8 Baso % (Auto) 0.6 Absolute Neuts (auto) 7.7 Absolute Lymphs (auto) 2.94 Nucleated RBC % 0 Diff Path Review May foll Anisocytosis 1+ Sodium 139 Potassium 5.9 H 4.7 Chloride 107 Carbon Dioxide 19.0 L Anion Gap 13 BUN 41 H Creatinine 2.49 H Estim Creat Clear Calc 26.03 Est GFR (MDRD) Af Amer 33 L Est GFR (MDRD) Non-Af 27 L BUN/Creatinine Ratio 16.5 Glucose 107 H Calcium 8.9 Magnesium Troponin I High Sens 197 H* 09/23/22 09/23/22 03:50 03:50 WBC RBC Hgb Hct MCV MCH MCHC RDW Std Deviation RDW Coeff of Edinson Plt Count MPV Immature Gran % (Auto) Neut % (Auto) Lymph % (Auto) [place] % (Auto) Eos % (Auto) Baso % (Auto) Absolute Neuts (auto) Absolute Lymphs (auto) Nucleated RBC % Diff Path Review Anisocytosis Sodium Potassium Chloride Carbon Dioxide Anion Gap BUN Creatinine Estim Creat Clear Calc Est GFR (MDRD) Af Amer Est GFR (MDRD) Non-Af BUN/Creatinine Ratio Glucose Calcium Magnesium 1.9 Troponin I High Sens 184 H* Radiography Chest X-Ray - ED: 1 View, Read by ED Physician, No Acute Disease and No Infiltrates Diagnostic Testing: Clinical Impression(s) from Imaging Studies Chest X-Ray 09/23/22 01:41 IMPRESSION: No radiographic evidence of acute cardiopulmonary disease. Electronically Signed: Rosales Ferrell MD at 2:19 EST Reading Location ID and State: On license of [facility] / [place] Tel , Service support , Rhythm Strip Rhythm Strip: wide-complex bradycardia Rate: 38 Ectopy: None EKG Initial EKG: Interpretation: No Acute Injury Pattern Comments: Suspect third-degree heart block with ventricular escape rhythm Prior EKG tracings: available for review (2017) Prior: Changed Follow-up EKG: Attestation: I personally reviewed and interpreted this EKG as follows: Interpretation: No Acute Injury Pattern Comments: ? accelerated idioventricular rhythm w/ complete heart block Procedures Other Procedures Procedure(s): Transvenous pacemaker placement: Initially right IJ introducer line placed under sterile prep and drape, 2 cc plain 1% lidocaine locally, ultrasound guidance visualized the internal jugular vein and the nearby pulsatile carotid, using finder needle at the internal jugular under guidance, visualizing the needle entering the vein and drawing back dark red nonpulsatile blood, the introducer was placed via modified Seldinger technique without complication. Both the introducer port and the sideport chris back dark red nonpulsatile blood and flushed easily. It was sutured in place with a chlorhexidine disc and Tegaderm dressing. The transvenous pacemaker distance was estimated outside of the patient, and then placed within the introducer with the cuff maintaining sterility. The 1.5 cc balloon patency was verified prior to introducing it into the introducer. We were getting intermittent pacing with floating the balloon into the heart, so I obtained a portable chest x-ray, showing that it was beyond the ventricle. Then with the balloon down, the pacemaker was withdrawn about 5 cm, at which point it began pacing reliably, and I dialed down the voltage as well as a sensitivity, maintaining a heart rate of about 100, repeat x-ray shows good placement of the end of the pacemaker within the RV. Tolerated well with no complications. Critical Care Time Critical Care Time: Yes Critical care time (excluding procedures): 30-74 minutes (50 min, not including procedures), Including time spent:, Discussing w/Patient &/or Family/Jewelry Technician, Discussing w/Consultants, Arranging Admission or Transfer and Performing Direct Patient Care at Bedside Discharge Plan Dx/Rx/DC Orders Clinical Impression: Third degree heart block, PENELOPE (acute kidney injury), Hyperkalemia, Chest pain, Elevated troponin, Acute hypotension Disposition Disposition: Acute Care [facility] Discharge Date/Time: 09/23/22 07:27
[2022-09-23] MEDS: 0.9% Normal Saline 1,000 ML 1000 ML IV (01:50)
[2022-09-23] MEDS: Aspirin 81 MG TAB.CHEW 162 MG PO (01:52)
[2022-09-23 01:54] LABS: Absolute Lymphocyte Count 2.94 X10^3/uL (0.83-4.51); Absolute Neutrophil Count 7.7 X10^3/uL (2.0-7.7); Basophil# 0.07 X10^3/uL; Basophil% 0.6 % (0-1); Eosinophils% 0.8 % (0-5); Hematocrit 38.1 % (40-54); Hemoglobin 11.5 g/dL (13.0-16.5); Lymphocyte # 2.94 X10^3/ul (0.83-4.51); Lymphocyte % 23.4 % (19-41); Mean Corp Hgb Conc 30.2 g/dL (32-36); Mean Corpuscular Hgb 28.3 pg (27.0-32.0); Mean Corpuscular Volume 93.6 fL (80-94); Mean Platelet Vol. 11.1 fl (6.2-12.0); Monocyte# 1.53 X10^3/uL; Monocyte% 12.2 % (0-10); NRBC Flagged by Analyzer 0 % (0-5); Neutrophil # 7.71 X10^3/uL (2.7-7.7); Neutrophil % 61.2 % (47-70); POSITIVE DIFFERENTIAL YES; Platelet Count 168 K/mm3 (150-450); RBC Distribution Width CV 15.4 % (11.6-14.6); RBC Distribution Width SD 52.8 fl (35.1-43.9); Red Blood Count 4.07 M/mm3 (4.6-6.2); White Blood Count 12.6 K/mm3 (4.4-11.0)
[2022-09-23 01:59] LABS: Differential Indicated SCAN CRITERIA MET
[2022-09-23 02:08] LABS: Anisocytosis 1+
[2022-09-23 02:22] LABS: Anion Gap 13 (5-15); BUN 41 mg/dL (7-18); BUN/Creat Ratio 16.5 RATIO (10-20); Calcium,Total 8.9 mg/dL (8.5-10.1); Chloride 107 mmol/L (98-107); Creatinine, Serum 2.49 mg/dL (0.70-1.30); EST Glomerular Filtration Rate 27 mL/min (>60); Est Glom Filt Rate - Afr Amer 33 mL/min (>60); Estimated Creatinine Clearance 26.03 ml/min; Glucose 107 mg/dL (74-106); Potassium 5.9 mmol/L (3.5-5.1); Sodium Level 139 mmol/L (136-145); Troponin-I HS (w/2H Reflex) 197 pg/mL (3.0-78.0)
[2022-09-23] MEDS: Albuterol 2.5 MG/3 ML VIAL.NEB. INHALATION ×4 (02:46→03:00)
[2022-09-23] MEDS: Insulin Lispro 10 UNIT in Syringe 0 ML 6 UNIT IV (02:51)
[2022-09-23] MEDS: Dextrose 50%-Water 25 GM/50 ML DISP.SYRIN IV (02:51)
[2022-09-23] MEDS: Calcium Gluconate IV 3 GM in Syringe 1 EACH IV (02:57)
--- NOTE | 2022-09-23 03:12 | CPS ---
x4 Albuterol given to pt. (Hyperkalemia)
--- NOTE | 2022-09-23 03:43 | EKG12_ITS ---
Test Reason : REPEAT EKG Blood Pressure : / mmHG Vent. Rate : 064 BPM Atrial Rate : 062 BPM P-R Int : 000 ms QRS Dur : 152 ms QT Int : 420 ms P-R-T Axes : 000 093 267 degrees QTc Int : 433 ms Atrial fibrillation with ventricular pacing Non-specific intra-ventricular conduction block Abnormal ECG Confirmed by ANGELA TAVAREZ, LISET ([id number]), electronic news gathering editor BIB VUONG ([id number]) on 09/25/2022 11:17:04 AM Referred By: BB Confirmed By:LISET MILLER MD
[2022-09-23 03:52] LABS: Reflex Troponin-HS? (from REC) Y
[2022-09-23 04:14] LABS: Potassium 4.7 mmol/L (3.5-5.1)
--- NOTE | 2022-09-23 04:25 | HP.PCM.HOS_ITS ---
HPI - General General Date of Admission: 09/23/22 Date of Service: 09/23/22 Chief Complaint: Lightheadedness HPI Narrative KATIE HOLMAN, is a 72 M with a significant history of hypertension; COPD; BPH and tobacco abuse who presents to the emergency department with lightheaded that started several hours before presentation. Patient was too lightheaded that he fell. Associated with his symptoms is substernal dull chest pain. He admits to poor fluid intake. Patient's systolic blood pressure was in the 70s and his heart rate was in the 30s so patient received atropine from the paramedics. EKG showed complete heart block. [facility] Medical History Back pain with history of spinal surgery BPH (benign prostatic hyperplasia) Cataract Emphysema lung GERD (gastroesophageal reflux disease) Hypertension Neuropathy Seizures Smoker Home Medications Omeprazole [Prilosec] 40 mg PO DAILY 05/28/16 [History Last Taken 08/31/16 07:00] atorvastatin 10 mg tablet 10 mg PO QHS 05/28/16 [History Last Taken Unknown] budesonide-formoterol HFA 160 mcg-4.5 mcg/actuation aerosol inhaler (Symbicort) 1 puff inhalation BID 05/28/16 [History Last Taken 08/31/16 07:00] divalproex 250 mg tablet,extended release 24 hr 500 mg PO BID 05/28/16 [History Last Taken 07/06/16 08:30] losartan 50 mg tablet 50 mg PO QHS 05/28/16 [History Last Taken 08/31/16 07:00] tamsulosin 0.4 mg capsule 0.8 mg PO QHS 05/28/16 [History Last Taken Unknown] tiotropium bromide 18 mcg capsule with inhalation device (Spiriva with HandiHaler) 1 puff inhalation QHS 05/28/16 [History Last Taken 06/01/16 08:00] aspirin 81 mg chewable tablet 81 mg PO DAILY@0800 07/06/16 [History Last Taken Unknown] cholecalciferol (vitamin D3) 25 mcg (1,000 unit) tablet (Vitamin D3) 2,000 unit PO DAILY 07/06/16 [History Last Taken Unknown] L.acidoph, paracasei,B. lactis 10 billion cell capsule 1 ea PO DAILY 02/07/17 [History Last Taken Unknown] carvedilol 6.25 mg tablet 6.25 mg PO BID #60 tabs 02/08/17 [Rx Last Taken Unknown] Allergy/AdvReac Type Severity Reaction Status Date / Time ethotoin [From Peganone] Allergy Mild Rash Verified 09/07/21 11:01 Family History Other Cancer Heart disease Osteoporosis Surgical History History of appendectomy History of back surgery S/P appy Social History Smoking Status: Current every day smoker tobacco type: cigarettes ROS ROS Narrative Pertinent positives and pertinent negatives as noted in HPI. All other systems were reviewed and are negative Vital Signs Vital Signs Vital Signs: 09/23/22 01:30 09/23/22 01:41 09/23/22 01:55 Temperature 96.2 F L Temperature Source Temporal Pulse Rate 36 L Respiratory Rate 15 Respiratory Effort Non-Labored Respiratory Pattern Blood Pressure 113/57 L Blood Pressure Mean 75 Pulse Ox 94 95 Oxygen Delivery Method Room Air Room Air 09/23/22 02:38 09/23/22 02:46 Temperature Temperature Source Pulse Rate 47 L 34 L Respiratory Rate 25 H 26 H Respiratory Effort Respiratory Pattern Tachypnea Blood Pressure 88/61 L Blood Pressure Mean 70 Pulse Ox 98 Oxygen Delivery Method Room Air Weight Weight: 82.1 kg Body Mass Index (BMI) 26.7 Physical Exam Narrative Physical exam: General: Well-nourished, well-developed. Head: Normocephalic, atraumatic, no tenderness Eyes: Vision is grossly intact. EOMI ENT, no trauma, dry mucous membranes, no rhinorrhea Neck: Nontender, No thyromegaly. CVS: Bradycardia. S1-S2 present. Respiratory : Right basilar rales. Some audible wheezes. Abdomen: Soft, nontender, nondistended, normal bowel sounds, no masses : Deferred Back: Nontender, no CVA tenderness, no midline spinal tenderness, deformities, step-offs Extremities: Nontender full range of motion, no trauma Skin: Normal color, no trauma, abrasions Neuro: Alert, oriented, cranial nerves II through XII grossly intact. Psychiatry: Normal mood. Normal affect. Not depressed. Not anxious. Results Lab / Micro Data Result Diagrams: 09/23/22 01:52 09/23/22 03:50 Labs: Laboratory Results - last 24 hr 09/23/22 01:52: WBC 12.6 H, RBC 4.07 L, Hgb 11.5 L, Hct 38.1 L, MCV 93.6, MCH 28.3, MCHC 30.2 L, RDW Std Deviation 52.8 H, RDW Coeff of Edinson 15.4 H, Plt Count 168, MPV 11.1, Immature Gran % (Auto) 1.800 H, Neut % (Auto) 61.2, Lymph % (Auto) 23.4, [place] % (Auto) 12.2 H, Eos % (Auto) 0.8, Baso % (Auto) 0.6, Absolute Neuts (auto) 7.7, Absolute Lymphs (auto) 2.94, Nucleated RBC % 0, Diff Path Review May foll, Anisocytosis 1+ 09/23/22 01:52: Sodium 139, Potassium 5.9 H, Chloride 107, Carbon Dioxide 19.0 L , Anion Gap 13, BUN 41 H, Creatinine 2.49 H, Estim Creat Clear Calc 26.03, Est GFR (MDRD) Af Amer 33 L, Est GFR (MDRD) Non-Af 27 L, BUN/Creatinine Ratio 16.5, Glucose 107 H, Calcium 8.9, Troponin I High Sens 197 H* 09/23/22 03:50: Potassium 4.7 Rhythm Strip Rhythm Strip: wide-complex bradycardia Rate: 38 Ectopy: None Radiology Impression Chest X-Ray 09/23/22 01:41 IMPRESSION: No radiographic evidence of acute cardiopulmonary disease. Electronically Signed: Rosales Ferrell MD at 2:19 EST , Assessment & Plan Assessment/Plan (1) Complete heart block by electrocardiogram: (2) Hyperkalemia: PLAN: Plan Hyperkalemia and complete heart block Potassium of 5.9 presentation, bicarbonate of 19. EKG showed complete heart block. At the ED patient received temporal hyperkalemic treatment to shift potassium. Also calcium gluconate was given emergency department. Also patient received IV fluid bolus. Will give Kayexalate and MiraLAX. Normal saline and bicarbonate drip ordered. Trend BMP. Temporary pacemaker started at the emergency department, continued. Emergency department doctor discussed the case with cardiology. Cardiology consult. Type II [place] High sensitive troponin with troponin level of 197, likely demand ischemia. Repeat 184. Trend. History of hypertension Patient found to be hypotensive on presentation. Like secondary to hyperkalemia. Hold antihypertensive medications including losartan. Hyperkalemia treatment as above. Trend blood pressures. PENELOPE on CKD stage IIIa His creatinine presentation was 2.49. His creatinine on 01/03/2020 was 1.51 and on 08/17/2019 was 1.76. No other recent creatinine community records ([facility]). BUN presentation was 41. BUN over creatinine is 16.5. IV fluid hydration as above. Trend BMP. Avoid nephrotoxic's. Leukocytosis White count of 12.6 with 1.8% bandemia. Likely reactive. Trend CBC. Wheezes. As needed albuterol and [id number] DuoNeb ordered. DVT prophylaxis: Patient may be a candidate of permanent pacemaker so we hold off chemical thromboprophylaxis at this time. SCDs ordered. Charges/Coding Visit Charges Inpatient E&M: 48004 Init Hosp L3
[2022-09-23 04:39] LABS: Troponin-I HS 184 pg/mL (3.0-78.0)
[2022-09-23 04:43] LABS: Magnesium 1.9 mg/dL (1.6-2.6)
[2022-09-23] MEDS: fentaNYL 100 MCG/2 ML Ampul 50 MCG IV (05:16)
[2022-09-23] MEDS: Ipratropium/Albuterol Sulfate 3 ML AMPUL.NEB INHALATION ×3 (05:20→19:26)
--- NOTE | 2022-09-23 05:50 | NURSING ---
Called and went straight to but the mailbox was full
--- NOTE | 2022-09-23 05:52 | ED.RN ---
Working on contacting the family to update them and vm full - lmom with daughter to call and talk to the charge nurse for an update.
--- NOTE | 2022-09-23 05:58 | CCN.REFER ---
Daughter is at work and working on coming in. The has dementia and is home per the daughter - she will be here elli.
[2022-09-23] MEDS: Midazolam 5 MG/ML Syringe IV (06:25)
--- NOTE | 2022-09-23 06:40 | NURSING ---
CV ICU 202 AGYEPONG SYMPTOMATIC BRADYCARDIA, PENELOPE, HYPERKALEMIA
--- NOTE | 2022-09-23 07:00 | RAD_ITS ---
INDICATION: pacer placement EXAMINATION/TECHNIQUE: X-RAY - XR Chest 1 View COMPARISON: 09/23/22. FINDINGS: LINES/DEVICES: Right internal jugular line tip projects at the superior cavoatrial junction.. LUNGS: No consolidation or effusion. Mild bilateral interstitial thickening and interstitial coarsening. No pneumothorax. MEDIASTINUM AND CARDIOVASCULAR STRUCTURES: Cardiac silhouette not enlarged. Mild aortic atherosclerosis. BONES AND SOFT TISSUES: Unremarkable. RAD/Chest 1 View (Portable) IMPRESSION: Right internal jugular line placement with tip at the superior cavoatrial junction. Electronically Signed: Rosales Ferrell MD at 7:24 EST ,
--- NOTE | 2022-09-23 07:02 | PCM.PN.HOSP ---
Reason for Visit Reason for Visit: Diagnoses Hyperkalemia (09/23/22) Atrioventricular block, complete (09/23/22) Subjective Subjective Mr. Govea is a 72-year-old white male who presented to the emergency department early this morning complaining of lightheadedness that had been ongoing since the previous afternoon and all evening when he would stand up or do light activity he had he had associated chest discomfort and dyspnea. He checked his blood pressure and was found to be low so he called EMS. They detected bradycardia and hypotension with the patient awake. They gave him atropine 1 mg x 2 doses. There is really no effect on his heart rate. 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 He is on Coreg 6.25 mg daily and states he takes his medicines as prescribed and has not accidentally taken any surplus of them. On arrival his temperature was 96.2, heart rate was 36, blood pressure was 113/57, respiratory rate was 15 and his oxygen saturations were 94% on room air. His heart rate has maintained in the low 30s to 40 range throughout his entire hospital course. EKG was noted to have third-degree heart block with a ventricular escape rhythm. His chemistry panel showed hyperkalemia with potassium of 5.9 so he was treated for this thing then this would likely contribute to his bradycardia however I am not sure its the entire etiology. He does have an elevated BUN and creatinine from his baseline. BUN was 41 and creatinine was 2.49 on presentation (baseline serum creatinine appears to be between 1.4 and 1.7 however the most recent data we have is from 2019). His initial troponin was up at 197 with a subsequent troponin at 184. His chemistry panel showed a mild leukocytosis at 12.6 with no left shift and a very mild anemia with a hemoglobin of 11.5. He is currently being transvenously paced and cardiology has been consulted for further evaluation. Objective Data Objective Data Vital Signs: Vital Signs Temp Pulse Resp BP Pulse Ox O2 Del Method O2 Flow Rate 96.2 F L 37 L 20 H 73/46 L 91 Nasal Cannula 6 09/23/22 01:30 09/23/22 05:30 09/23/22 05:30 09/23/22 05:30 09/23/22 05:30 09/23/22 05:30 09/23/22 05:30 Oxygen Flow Rate (L/min) 6 Oxygen Delivery Method Nasal Cannula Weight: 82.1 kg Body Mass Index (BMI) 26.7 Intake & Output: Intake and Output for Last 24 Hours 09/21/22 09/22/22 09/23/22 23:59 23:59 23:59 Intake Total 2029 Balance 2029 Lab / Micro Data Result Diagrams: 09/23/22 01:52 09/23/22 03:50 Labs: Laboratory Results - last 24 hr 09/23/22 01:52: WBC 12.6 H, RBC 4.07 L, Hgb 11.5 L, Hct 38.1 L, MCV 93.6, MCH 28.3, MCHC 30.2 L, RDW Std Deviation 52.8 H, RDW Coeff of Edinson 15.4 H, Plt Count 168, MPV 11.1, Immature Gran % (Auto) 1.800 H, Neut % (Auto) 61.2, Lymph % (Auto) 23.4, [place] % (Auto) 12.2 H, Eos % (Auto) 0.8, Baso % (Auto) 0.6, Absolute Neuts (auto) 7.7, Absolute Lymphs (auto) 2.94, Nucleated RBC % 0, Diff Path Review May foll, Anisocytosis 1+ 09/23/22 01:52: Sodium 139, Potassium 5.9 H, Chloride 107, Carbon Dioxide 19.0 L, Anion Gap 13, BUN 41 H, Creatinine 2.49 H, Estim Creat Clear Calc 26.03, Est GFR (MDRD) Af Amer 33 L, Est GFR (MDRD) Non-Af 27 L, BUN/Creatinine Ratio 16.5, Glucose 107 H, Calcium 8.9, Troponin I High Sens 197 H* 09/23/22 03:50: Potassium 4.7 09/23/22 03:50: Troponin I High Sens 184 H* 09/23/22 03:50: Magnesium 1.9 Radiography Diagnostic Testing: Radiology Impression Chest X-Ray 09/23/22 01:41 IMPRESSION: No radiographic evidence of acute cardiopulmonary disease. Electronically Signed: Rosales Ferrell MD at 2:19 EST , Rhythm Strip Rhythm Strip: wide-complex bradycardia Rate: 38 Ectopy: None Assessment & Plan Assessment/Plan (1) Hyperkalemia: (2) Chest pain: (3) Elevated troponin: (4) Third degree heart block: (5) Elevated serum creatinine: PLAN: Plan Bradycardia with new third-degree heart block -Hold Coreg -Correct hyperkalemia -Continue transvenous pacing -Check TSH -Check echocardiogram -Consulted for ongoing management Hyperkalemia -5.9 on admission -Patient was treated the emergency department with calcium gluconate, insulin, D5W and sodium bicarb -He was also given 1 dose of Kayexalate -Repeat potassium this morning is 4.7 -Discontinue bicarb drip -Stop home losartan Troponin elevation -Etiology is unclear at this time -Cycle cardiac enzymes -Already trended down from initial -Check echocardiogram -Cardiology consult pending -Continue home aspirin -Check lipid panel Hypertension -Blood pressures are currently low -Hold carvedilol with bradycardia -Hold losartan with serum creatinine elevation -As needed hydralazine for systolic blood pressure greater than 160 Hyperlipidemia -Continue home statin with Lipitor 10 mg at bedtime -Check lipids COPD -Continue home inhalers Seizure disorder -Continue valproic acid 500 mg p.o. twice daily -No acute issues GERD -Continue PPI Tobacco abuse -Recommend cessation -Nicotine replacement if needed next DVT prophylaxis -Heparin twice daily -SCDs CODE STATUS -DNR CCA okay for intubation
--- NOTE | 2022-09-23 07:03 | NURSING ---
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
--- NOTE | 2022-09-23 08:15 | PCM.CONS.C ---
Assessment & Plan Assessment/Plan (1) Complete heart block by electrocardiogram: PLAN: He appears to have complete heart block by echocardiogram. There appears to be underlying atrial fibrillation. My recommendation at this time will be to put in a temporary pacemaker and correct his electrolyte abnormalities. We will continue to observe him and depending on the results further recommendations will be made. An echocardiogram to be performed to assess his ventricular function (2) Acute hypotension: PLAN: He does have a history of hypertension. He is however hypotensive at this time. The plan would be to hold his antihypertensive medications and correct his electrolyte abnormalities and then further recommendations made. HPI Consult Data Date of Consult: 09/23/22 HPI Narrative HPI Narrative: KATIE HOLMAN, is a 72 M who presents to the emergency room complaining of weakness and fatigue and was noted to have low blood pressure together with a slow heart rate. EKG was done which determined that the patient was in atrial fibrillation with complete heart block with rates in the 30s. Transcutaneous pacing was started then an IJ was placed with intravenous pacing started. Cardiology was consulted and the decision was made to bring him to the Client Development Manager and reposition the pacemaker. He appears to have a history of hypertension and hyperlipidemia and has been on a beta-kaycee as well as an ARB. FORMERLY [facility], [facility]1983 Medical History Back pain with history of spinal surgery BPH (benign prostatic hyperplasia) Cataract Emphysema lung GERD (gastroesophageal reflux disease) Hypertension Neuropathy Seizures Smoker Home Medications Omeprazole [Prilosec] 40 mg PO DAILY 05/28/16 [History Last Taken 08/31/16 07:00] atorvastatin 10 mg tablet 10 mg PO QHS 05/28/16 [History Last Taken Unknown] budesonide-formoterol HFA 160 mcg-4.5 mcg/actuation aerosol inhaler (Symbicort) 1 puff inhalation BID 05/28/16 [History Last Taken 08/31/16 07:00] divalproex 250 mg tablet,extended release 24 hr 500 mg PO BID 05/28/16 [History Last Taken 07/06/16 08:30] losartan 50 mg tablet 50 mg PO QHS 05/28/16 [History Last Taken 08/31/16 07:00] tamsulosin 0.4 mg capsule 0.8 mg PO QHS 05/28/16 [History Last Taken Unknown] tiotropium bromide 18 mcg capsule with inhalation device (Spiriva with HandiHaler) 1 puff inhalation QHS 05/28/16 [History Last Taken 06/01/16 08:00] aspirin 81 mg chewable tablet 81 mg PO DAILY@0800 07/06/16 [History Last Taken Unknown] cholecalciferol (vitamin D3) 25 mcg (1,000 unit) tablet (Vitamin D3) 2,000 unit PO DAILY 07/06/16 [History Last Taken Unknown] L.acidoph, paracasei,B. lactis 10 billion cell capsule 1 ea PO DAILY 02/07/17 [History Last Taken Unknown] carvedilol 6.25 mg tablet 6.25 mg PO BID #60 tabs 02/08/17 [Rx Last Taken Unknown] Allergy/AdvReac Type Severity Reaction Status Date / Time ethotoin [From Peganone] Allergy Mild Rash Verified 09/07/21 11:01 Family History Other Cancer Heart disease Osteoporosis Surgical History History of appendectomy History of back surgery S/P appy Social History Smoking Status: Current every day smoker tobacco type: cigarettes ROS Constitutional Constitutional: Denies fever(s) or weight loss Eyes Eyes: Reports systems reviewed and no addt'l complaints, except as documented ENT HEENT: Reports systems reviewed and no addt'l complaints, except as documented Cardiovascular Cardiovascular: Denies chest pain at rest, chest pain with activity, dyspnea at rest, dyspnea on exertion, edema, palpitations or paroxysmal nocturnal dyspnea Respiratory/Chest Respiratory/Chest: Reports shortness of breath at rest and shortness of breath with exertion; Denies dyspnea on exertion or productive cough Gastrointestinal Gastrointestinal: Denies change in bowel habits, nausea, vomiting or weight changes Genitourinary Genitourinary: Denies difficulty urinating Musculoskeletal Musculoskeletal: Denies joint stiffness or muscle weakness Integumentary Integumentary: Denies lesions Neurologic Neurologic: Denies dizziness or syncope Psychiatric Psychiatric: Denies anxiety Endocrine Endocrinology: Denies excessive sweating or fatigue Hematologic/Lymphatic Hematologic/Lymphatic: Denies anemia Allergic/Immunologic Allergic/Immunologic: Denies seasonal rhinorrhea Physical Exam Const alert, oriented x3 and no apparent distress General Appearance: cooperative HEENT hearing grossly normal bilaterally Head and Scalp: atraumatic Eyes EOMs intact bilaterally Neck General: normal visual inspection Chest inspection of chest normal and palpation of chest normal Resp normal respiratory effort Auscultation: clear to auscultation bilaterally Cardio regular rate, regular rhythm, S1 normal heart sound and S2 normal heart sound Jugular Venous Distention: JVD GI normal to inspection, nondistended, normoactive bowel sounds Extremity normal capillary refill and no pedal edema Peripheral Pulses: Yes pulses 2+ throughout and femoral pulses present Skin no rashes or lesions noted Neuro oriented x3 and CN's II-XII intact bilaterally Psych Appearance: grossly normal and appropriate Risk Stratification Risk Stratification Applicable: No Objective Data Vital Signs: Vital Signs Temp Pulse Resp BP Pulse Ox O2 Del Method O2 Flow Rate 97.6 F L 100 27 H 79/52 L 94 Nasal Cannula 6 09/23/22 07:25 09/23/22 07:25 09/23/22 07:25 09/23/22 07:25 09/23/22 07:25 09/23/22 07:25 09/23/22 07:25 Oxygen Flow Rate (L/min) 6 Oxygen Delivery Method Nasal Cannula Weight: 180 lb 15.992 oz Body Mass Index (BMI) 26.7 Intake & Output: Intake and Output for Last 24 Hours 09/21/22 09/22/22 09/23/22 23:59 23:59 23:59 Intake Total 2029 Balance 2029 Lab / Micro Data Result Diagrams: 09/23/22 01:52 09/23/22 03:50 Labs: Laboratory Results - last 24 hr 09/23/22 01:52: WBC 12.6 H, RBC 4.07 L, Hgb 11.5 L, Hct 38.1 L, MCV 93.6, MCH 28.3, MCHC 30.2 L, RDW Std Deviation 52.8 H, RDW Coeff of Edinson 15.4 H, Plt Count 168, MPV 11.1, Immature Gran % (Auto) 1.800 H, Neut % (Auto) 61.2, Lymph % (Auto) 23.4, [place] % (Auto) 12.2 H, Eos % (Auto) 0.8, Baso % (Auto) 0.6, Absolute Neuts (auto) 7.7, Absolute Lymphs (auto) 2.94, Nucleated RBC % 0, Diff Path Review May foll, Anisocytosis 1+ 09/23/22 01:52: Sodium 139, Potassium 5.9 H, Chloride 107, Carbon Dioxide 19.0 L, Anion Gap 13, BUN 41 H, Creatinine 2.49 H, Estim Creat Clear Calc 26.03, Est GFR (MDRD) Af Amer 33 L, Est GFR (MDRD) Non-Af 27 L, BUN/Creatinine Ratio 16.5, Glucose 107 H, Calcium 8.9, Troponin I High Sens 197 H* 09/23/22 03:50: Potassium 4.7 09/23/22 03:50: Troponin I High Sens 184 H* 09/23/22 03:50: Magnesium 1.9 Rhythm Strip Rhythm Strip: wide-complex bradycardia Rate: 38 Ectopy: None Cardiology Labs/Tests 09/23/22 01:52: WBC 12.6 H, RBC 4.07 L, Hgb 11.5 L, Hct 38.1 L, MCV 93.6, MCH 28.3, MCHC 30.2 L, Plt Count 168, MPV 11.1, Immature Gran % (Auto) 1.800 H, Neut % (Auto) 61.2, Lymph % (Auto) 23.4, [place] % (Auto) 12.2 H, Eos % (Auto) 0.8, Baso % (Auto) 0.6, Absolute Neuts (auto) 7.7, Nucleated RBC % 0 09/23/22 01:52: Sodium 139, Potassium 5.9 H, Chloride 107, Carbon Dioxide 19.0 L, Anion Gap 13, BUN 41 H, Creatinine 2.49 H, Est GFR (MDRD) Af Amer 33 L, Est GFR (MDRD) Non-Af 27 L, BUN/Creatinine Ratio 16.5, Glucose 107 H, Calcium 8.9 09/23/22 03:50: Potassium 4.7 09/23/22 03:50: Magnesium 1.9 Rhythm: EKG: ECHO: Stress Test: Cardiac Cath: PCI: CT Surgery: Holter monitor: EPS: PPM: CXR: Chest CT Scan: Radiography Diagnostic Testing: Radiology Impression Chest X-Ray 09/23/22 01:41 IMPRESSION: No radiographic evidence of acute cardiopulmonary disease. Electronically Signed: Rosales Ferrell MD at 2:19 EST , Chest X-Ray 09/23/22 07:00 IMPRESSION: Right internal jugular line placement with tip at the superior cavoatrial junction. Electronically Signed: Rosales Ferrell MD at 7:24 EST ,
--- NOTE | 2022-09-23 08:20 | CL.IE_ITS ---
Patient: KATIE HOLMAN Study Date: 09/23/2022 Performing: Andrew Bui MD : 1950 Age: 72 Gender: male PROCEDURES PERFORMED LP13-([id number])TEMPORARY INTRAVENTRICULAR PACING INDICATIONS Atrial fibrillation and complete heart block PROCEDURE DETAILS The patient was brought to the Catheterization Lab in the postabsorptive nonsedated state. Informed consent was obtained prior to the procedure. Temporary pacemaker was inserted into the right femoral vein and advanced to the RV apex, settings were placed at a rate of 80 ppm , 5 volts , demand mode, Temporary pacemaker turned on, Temporary pacemaker was secured and left in place. . The patient tolerated the procedure well. Estimated Blood Loss: < 10 mls IMPLANTED / EX-PLANTED DEVICES DEVICE PARAMETERS 80 ppm, 5volts. CONCLUSIONS / RECOMMENDATIONS Device Conclusions: Successful insertion of a temporary pacemaker PROCEDURE MEDICATIONS Versed 1 mg IV Versed 1 mg IV Oxygen: 6 L/min via nasal cannula Signed By Andrew Bui MD On 09/23/2022 08:19:58 Andrew Bui MD
--- NOTE | 2022-09-23 08:26 | ECHOD_ITS ---
Reason For Study: Arrhythmia Procedure This was a 2D Doppler, Color Flow transthoracic echocardiogram. Exam performed portable in ICU/CCU. Left Ventricle Normal left ventricle. Left ventricular systolic function is normal. The estimated ejection fraction is 70 %. No regional wall motion abnormalities noted. Right Ventricle Normal RV size. Normal systolic function. Atria Normal left atrium. Normal right atrium. Mitral Valve Normal mitral valve. Tricuspid Valve Normal tricuspid valve. Aortic Valve Trisinus/trileaflet aortic valve. Mild focal aortic valve thickening. Pulmonic Valve The pulmonic valve is not well visualized. Great Vessels Normal aortic root. The pulmonary artery is normal size. Normal inferior vena cava. Pericardium/Pleural No pericardial effusion. MMode/2D Measurements & Calculations LVIDd: 4.1 cm IVSd: 1.2 cm Ao root diam: 3.1 cm LVIDs: 2.2 cm LVPWd: 1.3 cm RVDd: 3.9 cm FS: 47.9 % LAV(MOD-bp): 28.3 ml LVAd ap4: 17.5 cm2 SV(MOD-sp4): 27.5 ml LAV(MOD-bp) Indexed: 14.3 ml/m2 LVLd ap4: 6.9 cm LAV(MOD-sp2): 28.6 ml EDV(MOD-sp4): 36.9 ml LAV(MOD-sp4): 27.4 ml EDV(sp4-el): 37.8 ml LVAs ap4: 8.3 cm2 LVLs ap4: 6.1 cm ESV(MOD-sp4): 9.4 ml ESV(sp4-el): 9.6 ml EF(MOD-sp4): 74.6 % EF(sp4-el): 74.6 % SV(sp4-el): 28.2 ml LA A4 area: 12.6 cm2 LA dimension(2D): 4.4 cm RA A4 area: 14.7 cm2 Doppler Measurements & Calculations MV E max jadon: 75.4 cm/sec Lat Peak E' Jadon: 6.0 cm/sec Med Peak E' Jadon: 5.4 cm/sec MV A max jadon: 80.8 cm/sec E/E' lat: 12.7 E/E' med: 13.9 MV E/A: 0.93 Ao V2 max: 144.6 cm/sec LV V1 max: 135.9 cm/sec PA V2 max: 105.2 cm/sec Ao max P.4 mmHg LV V1 max P.4 mmHg Ao V2 mean: 109.9 cm/sec Ao mean P.2 mmHg Ao V2 VTI: 28.5 cm ECHO/Echo Complete Interpretation Summary Normal left ventricle. Left ventricular systolic function is normal. The estimated ejection fraction is 70 %. The study was technically limited. Ordering Physician: Yecenia Clarke Referring Physician: Iris Clancy Performed By: Dee Schwartz, ANDRE, RVT
[2022-09-23 09:15] LABS: Allen Test Positive; Base Excess -8 mmol/L (-2 to +2); Bicarbonate 17.5 mmol/L (22-26); Blood Gas Specimen Type ART; FI02 100; O2 Delivery Device NRB; PO2 65 mmHG (75-100); SITE L Radial; SO2 92 % (95-99); Total Carbon Dioxide 18 mmol/L; pCO2 31.1 mmHg (35-45); pH 7.36 (7.35-7.45)
[2022-09-23] MEDS: 0.9% Normal Saline 1,000 ML 75 ML IV ×2 (09:20→19:20)
--- NOTE | 2022-09-23 09:24 | EX.PCM.CONCC ---
Assessment & Plan Assessment/Plan (1) Complete heart block by electrocardiogram: PLAN: Plan RECOMMENDATIONS: 1. Transition patient to Airvo heated high flow and wean FiO2 for saturations greater than 90%. 2. Stop continuous IV fluids. 3. Precedex to address sedation. 4. Continue bronchodilators as ordered. 5. Await results of echocardiogram. IMPRESSIONS: 1. Symptomatic bradycardia with complete heart block The patient is status post temporary pacemaker placement with further recommendations per cardiology. Echocardiogram is pending. Continues current supportive measures. 2. Acute hypoxemic respiratory failure Unclear precipitating etiology for the patient's respiratory failure. There is a possibility for fluid overload given the patient has received multiple liters of supplemental IV fluids. He does have mild obstructive lung disease noted on PFTs from 2017. Therefore, his acute presentation could have triggered an exacerbation. Accordingly, he will be continued on scheduled bronchodilators and inhaled corticosteroids. The patient will be placed on heated high flow oxygen with a goal to maintain oxygen saturations at or above 90%. 3. Acute on chronic kidney disease/hyperkalemia/nongap metabolic acidosis Most likely prerenal in etiology. Continue to monitor urine output for now. No current indication for renal replacement therapy. 4. Hypertension/hyperlipidemia/GERD Complicates care, management, recovery and prognosis. Continue to hold home beta-kaycee therapy. This note was generated with [employer] dictation software. It may contain incorrect words, spelling, and punctuation that were not noted in checking the note before signing. HPI Consult Data Date of Consult: 09/23/22 HPI Narrative Reason for Consultation: Respiratory failure HPI Narrative: The patient is a 72-year-old male, with a history as outlined below, who presented to the emergency department via EMS on September 23 with chest pain, dizziness and lightheadedness. The patient does have a history of mild obstructive lung disease noted on PFTs from 2017. The patient's daughter did confirm ongoing tobacco dependency. She reported that the patient does not utilize supplemental oxygen at his baseline. He is normally alert and oriented and not confused at his baseline. He does apparently utilize Symbicort on an outpatient basis. On presentation to the emergency department, the patient was noted to be bradycardic with tenuous hemodynamics. Initial laboratory evaluation revealed a white blood cell count of 12,000. Chemistry profile was notable for a potassium of 5.9, bicarbonate of 19 and creatinine of 2.49. Troponin was elevated at 197. Initial chest x-ray demonstrated no acute cardiopulmonary process. In the emergency department, the patient was noted to be in complete heart block. He was given supplemental IV fluid hydration. Attempts to pace the patient transcutaneously was unsuccessful. Therefore, the patient was taken by cardiology to the [facility], where he ultimately underwent temporary pacemaker insertion. Postprocedure, the patient was transferred to the medical intensive care unit for further management. [facility] Medical History Back pain with history of spinal surgery BPH (benign prostatic hyperplasia) Cataract Emphysema lung GERD (gastroesophageal reflux disease) Hypertension Neuropathy Seizures Smoker Home Medications Omeprazole [Prilosec] 40 mg PO DAILY 05/28/16 [History Last Taken 08/31/16 07:00] atorvastatin 10 mg tablet 10 mg PO QHS 05/28/16 [History Last Taken Unknown] budesonide-formoterol HFA 160 mcg-4.5 mcg/actuation aerosol inhaler (Symbicort) 1 puff inhalation BID 05/28/16 [History Last Taken 08/31/16 07:00] divalproex 250 mg tablet,extended release 24 hr 500 mg PO BID 05/28/16 [History Last Taken 07/06/16 08:30] losartan 50 mg tablet 50 mg PO QHS 05/28/16 [History Last Taken 08/31/16 07:00] tamsulosin 0.4 mg capsule 0.8 mg PO QHS 05/28/16 [History Last Taken Unknown] tiotropium bromide 18 mcg capsule with inhalation device (Spiriva with HandiHaler) 1 puff inhalation QHS 05/28/16 [History Last Taken 06/01/16 08:00] aspirin 81 mg chewable tablet 81 mg PO DAILY@0800 07/06/16 [History Last Taken Unknown] cholecalciferol (vitamin D3) 25 mcg (1,000 unit) tablet (Vitamin D3) 2,000 unit PO DAILY 07/06/16 [History Last Taken Unknown] L.acidoph, paracasei,B. lactis 10 billion cell capsule 1 ea PO DAILY 02/07/17 [History Last Taken Unknown] carvedilol 6.25 mg tablet 6.25 mg PO BID #60 tabs 02/08/17 [Rx Last Taken Unknown] Allergy/AdvReac Type Severity Reaction Status Date / Time ethotoin [From Peganone] Allergy Mild Rash Verified 09/07/21 11:01 Family History Other Cancer Heart disease Osteoporosis Surgical History History of appendectomy History of back surgery S/P appy Social History Smoking Status: Current every day smoker tobacco type: cigarettes ROS Review of Systems ROS Unobtainable: due to mental status Physical Exam Const alert General Appearance: ill appearing Orientation / Consciousness: confused and disoriented HEENT normocephalic and head/scalp atraumatic Eyes PERRL, EOMs intact bilaterally and conjunctivae normal Neck supple General: trachea midline Chest inspection of chest normal Resp Effort and Inspection: tachypneic; Negative for uses accessory muscles Auscultation: wheezes and diminished lung sounds Cardio regular rate, S1 normal heart sound and S2 normal heart sound Cardio Narrative: Paced rhythm. GI normal to inspection, nondistended, normoactive bowel sounds Extremity no clubbing, cyanosis or edema Skin no rashes or lesions noted Neuro moves all extremities and no focal motor deficits Psych Activity / Motor Behavior: restless Lab / Micro Data Result Diagrams: 09/23/22 01:52 09/23/22 12:20 Labs: Laboratory Results - last 24 hr 09/23/22 01:52: WBC 12.6 H, RBC 4.07 L, Hgb 11.5 L, Hct 38.1 L, MCV 93.6, MCH 28.3, MCHC 30.2 L, RDW Std Deviation 52.8 H, RDW Coeff of Edinson 15.4 H, Plt Count 168, MPV 11.1, Immature Gran % (Auto) 1.800 H, Neut % (Auto) 61.2, Lymph % (Auto) 23.4, [place] % (Auto) 12.2 H, Eos % (Auto) 0.8, Baso % (Auto) 0.6, Absolute Neuts (auto) 7.7, Absolute Lymphs (auto) 2.94, Nucleated RBC % 0, Diff Path Review May foll, Anisocytosis 1+ 09/23/22 01:52: Sodium 139, Potassium 5.9 H, Chloride 107, Carbon Dioxide 19.0 L, Anion Gap 13, BUN 41 H, Creatinine 2.49 H, Estim Creat Clear Calc 26.03, Est GFR (MDRD) Af Amer 33 L, Est GFR (MDRD) Non-Af 27 L, BUN/Creatinine Ratio 16.5, Glucose 107 H, Calcium 8.9, Troponin I High Sens 197 H* 09/23/22 03:50: Potassium 4.7 09/23/22 03:50: Troponin I High Sens 184 H* 09/23/22 03:50: Magnesium 1.9 ABG Data ABG results: ABG 09/23/22 09:10 Specimen Type ART Sample Site L Radial pH 7.36 Bicarbonate Actual 17.5 L Total CO2 18 Base Excess -8 L O2 Saturation 92 L O2 % 100 ABG pCO2 31.1 L ABG pO2 65 L Rosendo Test Positive O2 Delivery Device NRB Rhythm Strip Rhythm Strip: wide-complex bradycardia Rate: 38 Ectopy: None Radiology Impression Chest X-Ray 09/23/22 01:41 IMPRESSION: No radiographic evidence of acute cardiopulmonary disease. Electronically Signed: Rosales Ferrell MD at 2:19 EST , Chest X-Ray 09/23/22 07:00 IMPRESSION: Right internal jugular line placement with tip at the superior cavoatrial junction. Electronically Signed: Rosales Ferrell MD at 7:24 EST , Charges/Coding Visit Charges Inpatient E&M: 39423 Init Hosp L3
[2022-09-23 09:52] LABS: Anion Gap 10 (5-15); BUN 44 mg/dL (7-18); BUN/Creat Ratio 16.9 RATIO (10-20); Chloride 111 mmol/L (98-107); Cholesterol 129 mg/dL (200); EST Glomerular Filtration Rate 26 mL/min (>60); Est Glom Filt Rate - Afr Amer 31 mL/min (>60); Estimated Creatinine Clearance 24.93 ml/min; Glucose 98 mg/dL (74-106); High Density Lipoprotein 41 mg/dL; Potassium 5.4 mmol/L (3.5-5.1); Sodium Level 140 mmol/L (136-145); Thyroid Stim Hormone (TSH) 4.69 uIU/mL (0.358-3.74); Triglycerides 188 mg/dL; Very Low Density Lipoprotein 38 mg/dL (5-40)
[2022-09-23 09:55] LABS: Troponin-I HS 495 pg/mL (3.0-78.0)
[2022-09-23] MEDS: Cefazolin 1 GM/50 ML BAG IV ×2 (10:10→20:46)
[2022-09-23] MEDS: Budesonide Respules 0.5 MG/2 ML AMPUL.NEB. INHALATION ×2 (10:20→19:26)
[2022-09-23 10:41] LABS: BNP,B-Type NATRIURETIC PEPTIDE 210.4 pg/mL (0-100)
[2022-09-23 11:02] LABS: Amphetamine Urine VISTA NEGATIVE (<1000 ng/mL); Barbiturate Urine VISTA NEGATIVE (< 200 ng/mL); Benzodiazepine Urine VISTA POSITIVE (< 200 ng/mL); Cocaine Urine VISTA NEGATIVE (< 300 ng/mL); Ecstacy Urine VISTA NEGATIVE (< 500 ng/mL); Methadone Urine VISTA NEGATIVE (< 300 ng/mL); PCP Urine VISTA NEGATIVE (< 25 ng/mL); THC Urine VISTA NEGATIVE (< 50 ng/mL); Vista UDS pH Range 5
--- NOTE | 2022-09-23 11:41 | NURSING ---
TPM reduced from rate of 80 BPM to 70BPM per Dr. Bui. Good electrical and mechanical captured obtained. ICU nurse aware of changes made to TPM.
[2022-09-23] MEDS: Heparin Injection (Vial) 5,000 UNIT/ML VIAL 5000 UNIT SC ×2 (12:10→20:48)
[2022-09-23] MEDS: 0.9% Saline Lock 10 ML Syringe IV (12:10)
[2022-09-23 12:51] LABS: Anion Gap 7 (5-15); BUN 45 mg/dL (7-18); Calcium,Total 8.7 mg/dL (8.5-10.1); Chloride 112 mmol/L (98-107); Creatinine, Serum 2.37 mg/dL (0.70-1.30); EST Glomerular Filtration Rate 29 mL/min (>60); Est Glom Filt Rate - Afr Amer 35 mL/min (>60); Estimated Creatinine Clearance 28.23 ml/min; Glucose 105 mg/dL (74-106); Potassium 5.8 mmol/L (3.5-5.1); Sodium Level 139 mmol/L (136-145)
[2022-09-23 13:00] LABS: T4 Free Direct 0.94 ng/dL (0.76-1.46)
[2022-09-23] MEDS: Sodium Polystyrene Sulfonate 15 GM/60 ML UDC 30 GM RC ×2 (15:13→19:49)
[2022-09-23 18:04] LABS: Anion Gap 6 (5-15); BUN 45 mg/dL (7-18); BUN/Creat Ratio 20.2 RATIO (10-20); Calcium,Total 8.9 mg/dL (8.5-10.1); Chloride 113 mmol/L (98-107); Creatinine, Serum 2.23 mg/dL (0.70-1.30); EST Glomerular Filtration Rate 31 mL/min (>60); Est Glom Filt Rate - Afr Amer 37 mL/min (>60); Estimated Creatinine Clearance 30.01 ml/min; Glucose 111 mg/dL (74-106); Potassium 5.8 mmol/L (3.5-5.1); Sodium Level 140 mmol/L (136-145)
[2022-09-23] MEDS: Tamsulosin HCl 0.4 MG Capsule 0.8 MG PO (20:49)
[2022-09-23] MEDS: Atorvastatin Calcium 10 MG Tablet PO (20:49)
[2022-09-24] VITALS (30 sets, daily range): BP systolic 95–157; BP diastolic 41–125; PULSE 50–102; RESP 16–29; TEMP 37.1–38.1; O2SAT 90–99
[2022-09-24 03:28] LABS: Absolute Lymphocyte Count 1.19 X10^3/uL (0.83-4.51); Absolute Neutrophil Count 9.5 X10^3/uL (2.0-7.7); Basophil# 0.03 X10^3/uL; Basophil% 0.2 % (0-1); Hematocrit 35.6 % (40-54); Hemoglobin 11.3 g/dL (13.0-16.5); Lymphocyte # 1.19 X10^3/ul (0.83-4.51); Lymphocyte % 9.6 % (19-41); Mean Corp Hgb Conc 31.7 g/dL (32-36); Mean Corpuscular Hgb 28.5 pg (27.0-32.0); Mean Corpuscular Volume 89.9 fL (80-94); Monocyte# 1.67 X10^3/uL; Monocyte% 13.4 % (0-10); NRBC Flagged by Analyzer 0 % (0-5); Neutrophil # 9.53 X10^3/uL (2.7-7.7); Neutrophil % 76.5 % (47-70); POSITIVE DIFFERENTIAL YES; Platelet Count 129 K/mm3 (150-450); RBC Distribution Width CV 15.4 % (11.6-14.6); RBC Distribution Width SD 51.1 fl (35.1-43.9); Red Blood Count 3.96 M/mm3 (4.6-6.2); White Blood Count 12.5 K/mm3 (4.4-11.0)
[2022-09-24 03:29] LABS: Differential Indicated SCAN CRITERIA MET
[2022-09-24 03:41] LABS: Anion Gap 8 (5-15); BUN 45 mg/dL (7-18); BUN/Creat Ratio 25.9 RATIO (10-20); Calcium,Total 8.4 mg/dL (8.5-10.1); Chloride 113 mmol/L (98-107); Creatinine, Serum 1.74 mg/dL (0.70-1.30); EST Glomerular Filtration Rate 41 mL/min (>60); Est Glom Filt Rate - Afr Amer 50 mL/min (>60); Estimated Creatinine Clearance 38.46 ml/min; Glucose 125 mg/dL (74-106); Potassium 4.3 mmol/L (3.5-5.1); Sodium Level 142 mmol/L (136-145)
[2022-09-24 03:51] LABS: Anisocytosis 1+; Platelet Estimate SLT DEC (ADEQ)
--- NOTE | 2022-09-24 05:51 | PCM.PN.INT ---
Assessment & Plan Assessment/Plan (1) Complete heart block by electrocardiogram: PLAN: Plan RECOMMENDATIONS: 1. Continue to wean supplemental oxygen to maintain saturations at or above 90%. 2. Continue scheduled bronchodilators and inhaled corticosteroid. 3. Encourage incentive spirometer use and mobilize patient as tolerated. 4. Tentative plans for permanent pacemaker placement. IMPRESSIONS: 1. Symptomatic bradycardia with complete heart block The patient is status post temporary pacemaker placement with tentative plans for permanent pacemaker placement per cardiology. Echocardiogram was unrevealing. Continue current supportive measures. 2. Acute hypoxemic respiratory failure Suspect that this was related to increased metabolic demand in the setting of #1. Although the patient did receive supplemental IV fluid hydration, he did not appear to be significantly volume overloaded. He does have mild obstructive lung disease noted on PFTs from 2017. Therefore, his acute presentation could have triggered an exacerbation. Accordingly, he will be continued on scheduled bronchodilators and inhaled corticosteroids. The patient's oxygenation status has improved over the last 24 hours. Plan to continue to wean supplemental oxygen to maintain saturations at or above 90%. 3. Acute on chronic kidney disease/hyperkalemia/nongap metabolic acidosis Most likely prerenal in etiology. Continue to monitor urine output for now. No current indication for renal replacement therapy. 4. Hypertension/hyperlipidemia/GERD Complicates care, management, recovery and prognosis. Continue to hold home beta-kaycee therapy. This note was generated with [employer] dictation software. It may contain incorrect words, spelling, and punctuation that were not noted in checking the note before signing. Subjective Subjective The patient was seen and examined at the bedside this morning. Events from the last 24 hours have been reviewed. The patient is currently afebrile, hemodynamically stable and maintaining appropriate oxygen saturations on 4 L/min via nasal cannula the patient is currently documented to be overall net +2.2 L for the hospitalization. Creatinine has improved to 1.74. The patient is much improved from a clinical and respiratory perspective this morning. Objective Data Objective Data The patient's most recent lab work, culture data and imaging studies have all been personally reviewed. Surface echocardiogram demonstrated normal LV size and function with an ejection fraction of 70%. Vital Signs: Vital Signs Temp Pulse Resp BP Pulse Ox O2 Del Method O2 Flow Rate 99.4 F H 71 21 H 112/62 95 Airvo 50 09/24/22 05:00 09/24/22 05:00 09/24/22 05:00 09/24/22 05:00 09/24/22 05:00 09/24/22 05:00 09/24/22 05:00 FiO2 40 09/24/22 05:00 Oxygen Flow Rate (L/min) 50 Oxygen Delivery Method Airvo Weight: 182 lb 8.684 oz Body Mass Index (BMI) 26.2 Intake & Output: Intake and Output for Last 24 Hours 09/22/22 09/23/22 09/24/22 23:59 23:59 23:59 Intake Total 3333.11 / 3339.31 32.07 / 32.07 Output Total 730 / 730 350 / 350 Balance 2603.11 / 2609.31 -317.93 / -317.93 Lab / Micro Data Attestation: I reviewed the patient's lab results. Result Diagrams: 09/24/22 03:20 09/24/22 03:20 Labs: Laboratory Results - last 24 hr 09/23/22 01:52: B-Natriuretic Peptide 210.4 H 09/23/22 09:05: Sodium 140, Potassium 5.4 H, Chloride 111 H, Carbon Dioxide 19.0 L, Anion Gap 10, BUN 44 H, Creatinine 2.60 H, Estim Creat Clear Calc 24.93, Est GFR (MDRD) Af Amer 31 L, Est GFR (MDRD) Non-Af 26 L, BUN/Creatinine Ratio 16.9, Glucose 98, Calcium 9.0, Triglycerides 188, Cholesterol 129, LDL Cholesterol 50, VLDL Cholesterol 38, HDL Cholesterol 41, TSH 4.69 H 09/23/22 09:05: Troponin I High Sens 495 H* 09/23/22 09:05: Free T4 0.94 09/23/22 10:40: Urine Opiates Screen NEGATIVE, Urine Methadone Screen NEGATIVE, Ur Barbiturates Screen NEGATIVE, Ur Phencyclidine Scrn NEGATIVE, Ur Amphetamines Screen NEGATIVE, MDMA (Ecstasy) Screen NEGATIVE, U Benzodiazepines Scrn POSITIVE H, Urine Cocaine Screen NEGATIVE, U Cannabinoids Screen NEGATIVE, Ur Drug Screen Comment 09/23/22 12:20: Sodium 139, Potassium 5.8 H, Chloride 112 H, Carbon Dioxide 20.0 L, Anion Gap 7, BUN 45 H, Creatinine 2.37 H, Estim Creat Clear Calc 28.23, Est GFR (MDRD) Af Amer 35 L, Est GFR (MDRD) Non-Af 29 L, BUN/Creatinine Ratio 19.0, Glucose 105, Calcium 8.7 09/23/22 17:35: Sodium 140, Potassium 5.8 H, Chloride 113 H, Carbon Dioxide 21.0, Anion Gap 6, BUN 45 H, Creatinine 2.23 H, Estim Creat Clear Calc 30.01, Est GFR (MDRD) Af Amer 37 L, Est GFR (MDRD) Non-Af 31 L, BUN/Creatinine Ratio 20.2 H, Glucose 111 H, Calcium 8.9 09/24/22 03:20: WBC 12.5 H, RBC 3.96 L, Hgb 11.3 L, Hct 35.6 L, MCV 89.9, MCH 28.5, MCHC 31.7 L, RDW Std Deviation 51.1 H, RDW Coeff of Edinson 15.4 H, Plt Count 129 L, MPV 11.0, Immature Gran % (Auto) 0.300, Neut % (Auto) 76.5 H, Lymph % (Auto) 9.6 L, [place] % (Auto) 13.4 H, Eos % (Auto) 0.0, Baso % (Auto) 0.2, Absolute Neuts (auto) 9.5 H, Absolute Lymphs (auto) 1.19, Nucleated RBC % 0, Diff Path Review December, Platelet Estimate SLT DEC, Anisocytosis 1+ 09/24/22 03:20: Sodium 142, Potassium 4.3, Chloride 113 H, Carbon Dioxide 21.0, Anion Gap 8, BUN 45 H, Creatinine 1.74 H, Estim Creat Clear Calc 38.46, Est GFR (MDRD) Af Amer 50 L, Est GFR (MDRD) Non-Af 41 L, BUN/Creatinine Ratio 25.9 H, Glucose 125 H, Calcium 8.4 L Micro: Microbiology 09/23/22 Unknown Mucosa - Nasopharyngeal Respiratory Panel (PCR) - Final 09/23/22 16:05 Nasal Secretion SARS-CoV-2 & FLU Antigen (Rapid) - Final ABG Data ABG results: ABG 09/23/22 09:10 Specimen Type ART Sample Site L Radial pH 7.36 Bicarbonate Actual 17.5 L Total CO2 18 Base Excess -8 L O2 Saturation 92 L O2 % 100 ABG pCO2 31.1 L ABG pO2 65 L Rosendo Test Positive O2 Delivery Device NRB Radiography Diagnostic Testing: Radiology Impression Chest X-Ray 09/23/22 07:00 IMPRESSION: Right internal jugular line placement with tip at the superior cavoatrial junction. Electronically Signed: Rosales Ferrell MD at 7:24 EST Reading Location ID and State: [facility] / [place] Tel , Service support , Echocardiogram 09/23/22 08:26 Interpretation Summary Normal left ventricle. Left ventricular systolic function is normal. The estimated ejection fraction is 70 %. The study was technically limited. Ordering Physician: Yecenia Clarke Referring Physician: Iris Clancy Performed By: Dee Schwartz, ANDRE, RVT Rhythm Strip Rhythm Strip: wide-complex bradycardia Rate: 38 Ectopy: None Physical Exam Const alert and no apparent distress General Appearance: cooperative HEENT normocephalic and head/scalp atraumatic Eyes PERRL, EOMs intact bilaterally and conjunctivae normal Neck supple General: trachea midline Chest inspection of chest normal Resp Effort and Inspection: tachypneic; Negative for uses accessory muscles Auscultation: diminished lung sounds; Negative for rales, rhonchi or wheezes Cardio S1 normal heart sound and S2 normal heart sound Cardio Narrative: Paced rhythm. Rate: bradycardia GI normal to inspection, nondistended, normoactive bowel sounds Extremity no clubbing, cyanosis or edema Skin no rashes or lesions noted Neuro moves all extremities and no focal motor deficits Psych cooperative and affect normal Charges/Coding Visit Charges Inpatient E&M: 42858 Subs Hosp L2
[2022-09-24] MEDS: Budesonide Respules 0.5 MG/2 ML AMPUL.NEB. INHALATION ×2 (07:27→19:29)
[2022-09-24] MEDS: Ipratropium/Albuterol Sulfate 3 ML AMPUL.NEB INHALATION ×2 (07:27→19:29)
[2022-09-24] MEDS: 0.9% Normal Saline 1,000 ML 75 ML IV ×2 (07:56→23:19)
[2022-09-24] MEDS: Aspirin 81 MG TAB.CHEW PO (07:57)
[2022-09-24] MEDS: Pantoprazole Sodium 40 MG Tablet PO (07:57)
[2022-09-24] MEDS: Cholecalciferol (VIT D3) 25 MCG TABLET (1,000 UNITS) 50 MCG PO (07:57)
[2022-09-24] MEDS: Cefazolin 1 GM/50 ML BAG IV ×2 (09:47→21:20)
--- NOTE | 2022-09-24 10:30 | CASEMGMT ---
JERRY TRIMBLE Face to Face with patient for initial transition planning/care coordination assessment. RN CM introduced self and role at [facility]. Patient lying in bed, alert and oriented. Patient willing to participate in assessment and is able to answer all questions appropriately. Care providers, pharmacy, and demographics verified. Patient wishes to discharge home will monitor progress with therapy for needs at discharge. Patient states he has no further needs or concerns at this time. CM to follow for discharge planning needs that may arise. PCP: [facility] Specialists: None Preferred Pharmacy: [facility] Insurance: [place] [employer] Prescription Benefit: yes Living Will/HPOA: none LNOK: , daughter Living Arrangements: Patient lives with in a single story home with 2 steps and railing to enter the home. Patient states he is independent at home and care for his who has suffered a stroke and dementia. Daughter is currently caring for patient's Transportation: self, daughter DME/HHC: Patient has walker and shower chair at home. No previous HHC or SNF. Will monitor progress with therapy for safe discharge. Disposition Plan: TBD by course of treatment and progress with therapy. Anticipate HHC vs SNF Inna OAKLEY, RN, CM
--- NOTE | 2022-09-24 10:35 | PN.HOSP_ITS ---
Reason for Visit Reason for Visit: Diagnoses Hyperkalemia (09/23/22) Atrioventricular block, complete (09/23/22) Hypotension, unspecified (09/23/22) Chest pain, unspecified (09/23/22) Other specified abnormalities of plasma proteins (09/23/22) Other specified abnormal findings of blood chemistry (09/23/22) Subjective Subjective Mental status is much better and patient is off Precedex. He is also off Airvo and down to nasal cannula at 4 L. Patient remains bradycardic despite being off beta-kaycee and correction of his potassium. Per discussion with cardiology the plan is for pacemaker placement probably tomorrow but possibly later today depending on the [facility] schedule. Patient has no complaints at this time. States he is feeling much better overall. Objective Data Objective Data Vital Signs: Vital Signs Temp Pulse Resp BP Pulse Ox O2 Del Method O2 Flow Rate 99.8 F H 53 L 26 H 105/41 L 93 Nasal Cannula 4 09/24/22 10:00 09/24/22 10:00 09/24/22 10:00 09/24/22 10:00 09/24/22 10:00 09/24/22 10:00 09/24/22 10:00 FiO2 40 09/24/22 07:24 Oxygen Flow Rate (L/min) 4 Oxygen Delivery Method Nasal Cannula Weight: 82.8 kg Body Mass Index (BMI) 26.2 Intake & Output: Intake and Output for Last 24 Hours 09/22/22 09/23/22 09/24/22 23:59 23:59 23:59 Intake Total 3333.11 / 3339.31 1027.07 / 1027.07 Output Total 730 / 730 350 / 350 Balance 2603.11 / 2609.31 677.07 / 677.07 Lab / Micro Data Result Diagrams: 09/24/22 03:20 09/24/22 03:20 Labs: Laboratory Results - last 24 hr 09/23/22 01:52: B-Natriuretic Peptide 210.4 H 09/23/22 09:05: Free T4 0.94 09/23/22 10:40: Urine Opiates Screen NEGATIVE, Urine Methadone Screen NEGATIVE, Ur Barbiturates Screen NEGATIVE, Ur Phencyclidine Scrn NEGATIVE, Ur Amphetamines Screen NEGATIVE, MDMA (Ecstasy) Screen NEGATIVE, U Benzodiazepines Scrn POSITIVE H, Urine Cocaine Screen NEGATIVE, U Cannabinoids Screen NEGATIVE, Ur Drug Screen Comment 09/23/22 12:20: Sodium 139, Potassium 5.8 H, Chloride 112 H, Carbon Dioxide 20.0 L, Anion Gap 7, BUN 45 H, Creatinine 2.37 H, Estim Creat Clear Calc 28.23, Est GFR (MDRD) Af Amer 35 L, Est GFR (MDRD) Non-Af 29 L, BUN/Creatinine Ratio 19.0, Glucose 105, Calcium 8.7 09/23/22 17:35: Sodium 140, Potassium 5.8 H, Chloride 113 H, Carbon Dioxide 21.0, Anion Gap 6, BUN 45 H, Creatinine 2.23 H, Estim Creat Clear Calc 30.01, Est GFR (MDRD) Af Amer 37 L, Est GFR (MDRD) Non-Af 31 L, BUN/Creatinine Ratio 20.2 H, Glucose 111 H, Calcium 8.9 09/24/22 03:20: WBC 12.5 H, RBC 3.96 L, Hgb 11.3 L, Hct 35.6 L, MCV 89.9, MCH 28.5, MCHC 31.7 L, RDW Std Deviation 51.1 H, RDW Coeff of Edinson 15.4 H, Plt Count 129 L, MPV 11.0, Immature Gran % (Auto) 0.300, Neut % (Auto) 76.5 H, Lymph % (Auto) 9.6 L, [place] % (Auto) 13.4 H, Eos % (Auto) 0.0, Baso % (Auto) 0.2, Absolute Neuts (auto) 9.5 H, Absolute Lymphs (auto) 1.19, Nucleated RBC % 0, Diff Path Review May foll, Platelet Estimate SLT DEC, Anisocytosis 1+ 09/24/22 03:20: Sodium 142, Potassium 4.3, Chloride 113 H, Carbon Dioxide 21.0, Anion Gap 8, BUN 45 H, Creatinine 1.74 H, Estim Creat Clear Calc 38.46, Est GFR (MDRD) Af Amer 50 L, Est GFR (MDRD) Non-Af 41 L, BUN/Creatinine Ratio 25.9 H, Glucose 125 H, Calcium 8.4 L Micro: Microbiology 09/23/22 Unknown Mucosa - Nasopharyngeal Respiratory Panel (PCR) - Final 09/23/22 16:05 Nasal Secretion SARS-CoV-2 & FLU Antigen (Rapid) - Final Radiography Diagnostic Testing: Radiology Impression Echocardiogram 09/23/22 08:26 Interpretation Summary Normal left ventricle. Left ventricular systolic function is normal. The estimated ejection fraction is 70 %. The study was technically limited. Ordering Physician: Yecenia Clarke Referring Physician: Iris Clancy Performed By: Dee Schwartz, ANDRE, RVT Rhythm Strip Rhythm Strip: wide-complex bradycardia Rate: 38 Ectopy: None Physical Exam Narrative Physical exam: General: Well-nourished, well-developed. Head: Normocephalic, atraumatic, no tenderness Eyes: Vision is grossly intact. EOMI ENT, no trauma, dry mucous membranes, no rhinorrhea Neck: Nontender, No thyromegaly. CVS: Bradycardia. S1-S2 present. Respiratory : Right basilar rales. Some audible wheezes. Abdomen: Soft, nontender, nondistended, normal bowel sounds, no masses : Deferred Back: Nontender, no CVA tenderness, no midline spinal tenderness, deformities, step-offs Extremities: Nontender full range of motion, no trauma Skin: Normal color, no trauma, abrasions Neuro: Alert, oriented, cranial nerves II through XII grossly intact. Psychiatry: Normal mood. Normal affect. Not depressed. Not anxious. Const alert, oriented x3, no apparent distress and well nourished Constitutional Narrative: Older white male sitting up in bed on nasal cannula, appears comfortable and nontoxic, watching television, and appears nontoxic HEENT head/scalp atraumatic and moist oral mucous membranes Head and Scalp: normocephalic Resp no retractions and no use of accessory muscles Resp Narrative: Diffusely diminished with few scattered wheezes, mild tachypnea Auscultation: wheezes; Negative for rales or rhonchi Cardio S1 normal heart sound, S2 normal heart sound, no murmurs, no rub, no gallops, no clicks and no JVD Cardio Narrative: Paced and bradycardic with the pacer set at 50 GI normal to inspection, nondistended, normoactive bowel sounds, soft to palpation and non-tender Extremity no clubbing, cyanosis or edema Extremity Narrative: 2+ pedal pulses/2+ radial pulses Skin Skin Narrative: Transvenous pacer in right groin area is soft without any significant ecchymosis Neuro oriented x3, moves all extremities and no focal motor deficits Neuro Narrative: Decreased mobility right lower extremity secondary to venous pacer placement however no focal deficits Speech: speech normal Psych Psych Narrative: Affect is slightly flat however eye contact is good and mood seems stable Assessment & Plan Assessment/Plan (1) Hyperkalemia: (2) Chest pain: (3) Elevated troponin: (4) Third degree heart block: (5) Elevated serum creatinine: (6) Acute respiratory failure with hypoxia: (7) Acute hypotension: (8) PENELOPE (acute kidney injury): PLAN: Plan Bradycardia with new third-degree heart block -Continue to hold Coreg -Potassium is now corrected -Continue transvenous pacing--> rate was turned down to 50 and patient is still pacer dependent -TSH was 4.69 being slightly elevated however free T4 is normal indicating euthyroid sick syndrome -Echo--> EF 70% with no valvular abnormalities -Consulted for ongoing management Acute hypoxic respiratory failure -Patient ended up requiring Airvo yesterday and Precedex for sedation as he was dramatically confused -Suspect this was related to decreased perfusion with his arrest and his COPD at baseline -Has been weaned to 4 L nasal cannula today -Continue to wean -Continue scheduled bronchodilators -Continue inhaled steroids -I-S and Acapella -Patient does have PFTs that noted mild obstructive lung disease from 2017 -No need for systemic steroids at this point PENELOPE on CKD stage IIIb -Baseline serum creatinine previously appears to be between 1.5 and 1.8--> the data I have available is from 2019 and 2020 -Serum creatinine does continue improved from admission and is down to 2.37 with a peak of 2.6 -Continue IV fluids and continue to hold losartan -It is unclear what his current baseline it is and he may have CKD stage IV however I will be better determine exact stage closer to discharge Hyperkalemia -resolved -Continue to hold losartan Troponin elevation -Likely related to acute events -Echocardiogram is unremarkable -Cardiology is following -Continue home aspirin Hypertension -Blood pressures are still tenuous however improved with the most recent being 105/41 -Continue to hold carvedilol -Continue to hold losartan with serum creatinine elevation -As needed hydralazine for systolic blood pressure greater than 160 Hyperlipidemia -Continue home statin with Lipitor 10 mg at bedtime -Lipid panel shows a total cholesterol 129/LDL of 50/HDL 41 COPD -Continue home inhalers Seizure disorder -Continue valproic acid 500 mg p.o. twice daily -No acute issues GERD -Continue PPI Tobacco abuse -Recommend cessation -Nicotine replacement if needed next DVT prophylaxis -Heparin twice daily -SCDs CODE STATUS -DNR CCA okay for intubation Charges/Coding Visit Charges Inpatient E&M: 87146 Subs Hosp L2
[2022-09-24 14:07] LABS: Pathologist Review Reviewed
[2022-09-24 14:10] LABS: Pathologist Review Reviewed
--- NOTE | 2022-09-24 15:17 | CL.IE_ITS ---
Patient: KATIE HOLMAN Study Date: 09/24/2022 Performing: Andrew Bui MD : 1950 Age: 72 Gender: male PROCEDURES PERFORMED LP04-([id number])INITIAL PACER INSERT+DUAL LEADS INDICATIONS Atrioventricular (AV) block PROCEDURE DETAILS The patient was brought to the Catheterization Lab in the postabsorptive nonsedated state. Informed consent was obtained prior to the procedure. Local anesthetic was given subcutaneously to the right upper chest area with Lidocaine 2%. Access was achieved and a guidewire was advanced into the right subclavian vein. Incision was made to the left upper chest. PPM ventricular lead was inserted / positioned to right ventricular apex. PPM ventricular lead testing performed. PPM ventricular lead testing performed. PPM atrial lead was inserted / positioned to the right atrial appendage. PPM atrial lead testing performed. Device pocket was irrigated with antibiotic. PPM generator was attached to the lead(s) and inserted into the pocket. Subcutaneous closure was completed. Skin closure was completed. Steri-strips applied to Lt chest area. Instrument, sponge, and needle counts were noted to be normal. The patient tolerated the procedure well. Estimated Blood Loss: < 10 mls IMPLANTED / EX-PLANTED DEVICES IMPLANTED DEVICE(S): PPM Ventricular lead - Supervisor [employer]: [employer], Model # [id number] , Serial # [id number] PPM Generator - Supervisor [employer]: [employer], Model # [id number] , Serial # [id number] PPM Generator - Supervisor [employer]: [employer], Model # [id number] , Serial # [id number] DEVICE PARAMETERS ATRIAL LEAD PARAMETERS: P wave (mV) - 3.3 Current (mA) - 2.9 threshold (V) - 1.0 impedence (OHMS) - 656 VENTRICULAR LEAD PARAMETERS: R wave (mV) - 11.4 current (mA) - 1.4 threshold (V) - 1.2 impedence (OHMS) - 710 DEVICE PARAMETERS: Mode - ddd lower rate - 60 upper rate - 120 rate response off CONCLUSIONS / RECOMMENDATIONS Device Conclusions: Successful implantation of a dual chamber pacemaker Device Recommendations: Follow up with Primary Care Physician PROCEDURE MEDICATIONS Versed 1 mg IV Oxygen: 10 L/min via nasal cannula Ancef 2 Gm IV @ 09/24/2022 13:21:41 Signed By Andrew Bui MD On 09/24/2022 15:17:09 Andrew Bui MD
[2022-09-24] MEDS: Acetaminophen 325 MG Tablet 650 MG PO (15:59)
[2022-09-24] MEDS: Tamsulosin HCl 0.4 MG Capsule 0.8 MG PO (21:20)
[2022-09-24] MEDS: Atorvastatin Calcium 10 MG Tablet PO (21:20)
[2022-09-24] MEDS: Heparin Injection (Vial) 5,000 UNIT/ML VIAL 5000 UNIT SC (21:20)
[2022-09-25] VITALS (18 sets, daily range): BP systolic 108–170; BP diastolic 58–96; PULSE 69–91; RESP 18–26; TEMP 36.6–37.3; O2SAT 90–96
[2022-09-25] MEDS: Acetaminophen 325 MG Tablet 650 MG PO (03:26)
[2022-09-25 03:30] LABS: Absolute Lymphocyte Count 1.63 X10^3/uL (0.83-4.51); Absolute Neutrophil Count 7.1 X10^3/uL (2.0-7.7); Basophil# 0.04 X10^3/uL; Basophil% 0.4 % (0-1); Eosinophil# 0.04 X10^3/uL; Eosinophils% 0.4 % (0-5); Hematocrit 31.9 % (40-54); Hemoglobin 10.1 g/dL (13.0-16.5); Lymphocyte # 1.63 X10^3/ul (0.83-4.51); Lymphocyte % 15.8 % (19-41); Mean Corp Hgb Conc 31.7 g/dL (32-36); Mean Corpuscular Hgb 28.2 pg (27.0-32.0); Mean Corpuscular Volume 89.1 fL (80-94); Mean Platelet Vol. 11.6 fl (6.2-12.0); Monocyte% 14.5 % (0-10); NRBC Flagged by Analyzer 0 % (0-5); Neutrophil # 7.05 X10^3/uL (2.7-7.7); Neutrophil % 68.2 % (47-70); Platelet Count 105 K/mm3 (150-450); RBC Distribution Width CV 15.6 % (11.6-14.6); RBC Distribution Width SD 51.2 fl (35.1-43.9); Red Blood Count 3.58 M/mm3 (4.6-6.2); White Blood Count 10.3 K/mm3 (4.4-11.0)
[2022-09-25 03:49] LABS: Anion Gap 8 (5-15); BUN 40 mg/dL (7-18); BUN/Creat Ratio 30.1 RATIO (10-20); Calcium,Total 8.3 mg/dL (8.5-10.1); Chloride 108 mmol/L (98-107); Creatinine, Serum 1.33 mg/dL (0.70-1.30); EST Glomerular Filtration Rate 56 mL/min (>60); Est Glom Filt Rate - Afr Amer 68 mL/min (>60); Estimated Creatinine Clearance 50.31 ml/min; Glucose 93 mg/dL (74-106); Magnesium 1.8 mg/dL (1.6-2.6); Phosphorus 2.7 mg/dL (2.5-4.9); Potassium 3.5 mmol/L (3.5-5.1); Sodium Level 139 mmol/L (136-145)
--- NOTE | 2022-09-25 05:55 | RAD_ITS ---
INDICATION: Post permanant ICD/Pacemaker -- inspiration/expiration. Arms Down. Wet read to MD EXAMINATION/TECHNIQUE: X-RAY - frontal views of chest during inspiration and expiration, including lateral view. COMPARISON: Chest x-ray from 09/23/2022 FINDINGS: LINES/DEVICES: Left AICD in place. LUNGS: Multifocal scattered, hazy bilateral pulmonary opacities again noted. No sizable pleural effusion. No detectable pneumothorax. MEDIASTINUM AND CARDIOVASCULAR STRUCTURES: Heart size within normal limits for imaging technique. Atherosclerotic calcifications along aorta. BONES AND SOFT TISSUES: Skeletal degenerative changes with incompletely imaged lumbar spinal hardware. RAD/Chest 3 View IMPRESSION: Bilateral pulmonary opacity changes with no detectable pneumothorax. Electronically Signed: Daniel Arias MD at 5:11 EST ,
--- NOTE | 2022-09-25 07:32 | PCM.PN.INT ---
Assessment & Plan Assessment/Plan (1) COPD (chronic obstructive pulmonary disease): QUALIFIERS: COPD type: unspecified COPD Qualified Code(s): J44.9 - Chronic obstructive pulmonary disease, unspecified (2) Acute respiratory failure with hypoxia: PLAN: Plan Symptomatic bradycardia, status post successful dual-chamber pacemaker placement yesterday with paced rhythm by Dr. Bui. Echocardiogram 2 8 showed normal LV RV and ejection fraction of 70%. Acute CHF was likely due to the patient's arrhythmia. - Managed by cardiology, patient is stepdown status today. COPD, hypoxic respiratory failure secondary to CHF from symptomatic bradycardia, improved after permanent pacemaker placement yesterday. He is not on his home inhaled medications for COPD, and his wheezing The patient had worsening respiratory failure on admission due to his CHF from bradycardia. This is improved radiographically but he still has hand edema and wheezing with rales on exam today. -Lasix 20 mg IV x1 to help with leg edema and crackles on exam, and help him wean off oxygen prior to discharge -Restart Breztri and Spiriva as soon as possible, preferably prior to discharge - chest x-ray improved, oxygen weaned from 4 L to 2 L/min. Reassessment for home O2 prior to discharge, and instituted if necessary, recommend considering outpatient pulmonary consultation CKD 3, BUN 40 creatinine 1.3 today, other electrolytes normal except calcium 8.3 - Monitor, avoid nephrotoxins, maintain MAP greater than 65 - Consider diuresis to his baseline weight, monitor BUN/creatinine Altered mental status - Expect improvement with uatsdin of paced rhythm at normal rate Current smoker, - smoking cessation counseling of less than 10 minutes was done today, the patient declined smoking cessation medications but is ready to quit for good. He wishes to quit cold turkey. Recommended. Other stable, chronic and inactive medical problems include BPH, cataract, chronic back pain, GERD, hypertension, neuropathy, history of seizure. The patient is transferring to the floor, therefore the floriculture professor team will sign off at this time. Please call for further questions. Thank you for referring him to [facility]. Subjective Subjective Patient feels better after dual chamber PPM placement yesterday. He has minimal cough productive of scant sputum, which he swallows. Has occasional wheezing, improved leg edema, no chest pains, palpitations or dizziness. We discussed his COPD, his last cigarette was last week, and he currently smokes a half a pack a day of cigarettes. However, he is interested in quitting for good, when asked whether he needs help to quit, he declined medications and stated he quit successfully for 4 years cold turkey. He is on 2 L/min oxygen with saturation in the 90s. He uses Spiriva and Breztri at home, thinks that his albuterol nebulizer has helped. He has not received Spiriva or Breztri here. Objective Data Objective Data Vital Signs: Vital Signs Temp Pulse Resp BP Pulse Ox O2 Del Method O2 Flow Rate 99.1 F 69 20 H 129/59 H 94 Nasal Cannula 2 09/25/22 04:00 09/25/22 06:00 09/25/22 06:00 09/25/22 06:00 09/25/22 06:00 09/25/22 06:00 09/25/22 06:00 FiO2 40 09/24/22 07:24 Oxygen Flow Rate (L/min) 2 Oxygen Delivery Method Nasal Cannula Weight: 182 lb 8.684 oz Body Mass Index (BMI) 26.2 COVID PCR and respiratory PCR were negative. Echo September 23 showed ejection fraction of 70%, normal left ventricle, right ventricle, I's and O's yesterday were +1760. His ABG on admission had a PCO2 of 31 and a PO2 of 65. His weight is 182. His chest x-ray images were personally reviewed, has bilateral interstitial infiltrates consistent with CHF, improved on the follow-up chest x-ray. Intake & Output: Intake and Output for Last 24 Hours 09/23/22 09/24/22 09/25/22 23:59 23:59 23:59 Intake Total 3333.11 / 3339.31 2527.07 / 2527.07 240 / 240 Output Total 730 / 730 900 / 900 425 / 425 Balance 2603.11 / 2609.31 1627.07 / 1627.07 -185 / -185 Lab / Micro Data Attestation: I reviewed the patient's lab results. Result Diagrams: 09/25/22 03:20 09/25/22 03:20 Labs: Laboratory Results - last 24 hr 09/23/22 01:52: Diff Path Review Reviewed 09/24/22 03:20: Diff Path Review Reviewed 09/25/22 03:20: WBC 10.3, RBC 3.58 L, Hgb 10.1 L, Hct 31.9 L, MCV 89.1, MCH 28.2, MCHC 31.7 L, RDW Std Deviation 51.2 H, RDW Coeff of [place] 15.6 H, Plt Count 105 L, MPV 11.6, Immature Gran % (Auto) 0.700, Neut % (Auto) 68.2, Lymph % (Auto) 15.8 L, [place] % (Auto) 14.5 H, Eos % (Auto) 0.4, Baso % (Auto) 0.4, Absolute Neuts (auto) 7.1, Absolute Lymphs (auto) 1.63, Nucleated RBC % 0 09/25/22 03:20: Sodium 139, Potassium 3.5, Chloride 108 H, Carbon Dioxide 23.0, Anion Gap 8, BUN 40 H, Creatinine 1.33 H, Estim Creat Clear Calc 50.31, Est GFR (MDRD) Af Amer 68, Est GFR (MDRD) Non-Af 56 L, BUN/Creatinine Ratio 30.1 H, Glucose 93, Calcium 8.3 L, Phosphorus 2.7, Magnesium 1.8 Micro: Microbiology 09/23/22 Unknown Mucosa - Nasopharyngeal Respiratory Panel (PCR) - Final 09/23/22 16:05 Nasal Secretion SARS-CoV-2 & FLU Antigen (Rapid) - Final ABG Data Interpretation: Adequate oxygenation, no CO2 retention. Radiography Diagnostic Testing: Radiology Impression Chest X-Ray 09/25/22 05:55 IMPRESSION: Bilateral pulmonary opacity changes with no detectable pneumothorax. Electronically Signed: Daniel Arias MD at 5:11 EST , Image personally reviewed, improved CHF compared to 09/23/2022. Rhythm Strip Rhythm Strip: wide-complex bradycardia Rate: 38 Ectopy: None Physical Exam Const alert, oriented x3 and no apparent distress General Appearance: cooperative and well developed HEENT normocephalic HEENT Narrative: Oxygen cannula is on at 2 L/min General Ear: hearing grossly impaired Eyes EOMs intact bilaterally Chest inspection of chest normal Chest Narrative: No use of accessory muscles Resp Resp Narrative: Patient has bibasilar crackles, bilateral wheezes on expiration which are faint but present in all lung huerta. He did not cough during today's visit. Effort and Inspection: able to speak in complete sentences Cardio regular rate, regular rhythm, S1 normal heart sound and S2 normal heart sound Cardio Narrative: Paced rhythm on monitor, complete capture. GI GI Narrative: Nondistended Extremity Extremity Narrative: Patient has bilateral edema of the hands, which she does not have at home. Ankles, which are in bed and elevated, have trace edema. Neuro no focal motor deficits Psych affect normal Psych Narrative: Good insight, is motivated to quit smoking, understands the consequences of smoking on his cardiac condition and COPD. Charges/Coding Visit Charges Inpatient E&M: 59296 Subs Hosp L3
[2022-09-25] MEDS: Budesonide Respules 0.5 MG/2 ML AMPUL.NEB. INHALATION (07:37)
[2022-09-25] MEDS: Ipratropium/Albuterol Sulfate 3 ML AMPUL.NEB INHALATION ×3 (07:37→19:46)
--- NOTE | 2022-09-25 07:55 | PN.CARD_ITS ---
Subjective Subjective Patient seen and evaluated. Appears to be doing well. Objective Data Vital Signs: Vital Signs Temp Pulse Resp BP Pulse Ox O2 Del Method O2 Flow Rate 99.1 F 69 20 H 129/59 H 94 Nasal Cannula 2 09/25/22 04:00 09/25/22 06:00 09/25/22 06:00 09/25/22 06:00 09/25/22 06:00 09/25/22 06:00 09/25/22 06:00 FiO2 40 09/24/22 07:24 Oxygen Flow Rate (L/min) 2 Oxygen Delivery Method Nasal Cannula Weight: 182 lb 8.684 oz Body Mass Index (BMI) 26.2 Intake & Output: Intake and Output for Last 24 Hours 09/23/22 09/24/22 09/25/22 23:59 23:59 23:59 Intake Total 3333.11 / 3339.31 2527.07 / 2527.07 240 / 240 Output Total 730 / 730 900 / 900 425 / 425 Balance 2603.11 / 2609.31 1627.07 / 1627.07 -185 / -185 Lab / Micro Data Result Diagrams: 09/25/22 03:20 09/25/22 03:20 Labs: Laboratory Results - last 24 hr 09/23/22 01:52: Diff Path Review Reviewed 09/24/22 03:20: Diff Path Review Reviewed 09/25/22 03:20: WBC 10.3, RBC 3.58 L, Hgb 10.1 L, Hct 31.9 L, MCV 89.1, MCH 28.2, MCHC 31.7 L, RDW Std Deviation 51.2 H, RDW Coeff of [place] 15.6 H, Plt Count 105 L, MPV 11.6, Immature Gran % (Auto) 0.700, Neut % (Auto) 68.2, Lymph % (Auto) 15.8 L, [place] % (Auto) 14.5 H, Eos % (Auto) 0.4, Baso % (Auto) 0.4, Absolute Neuts (auto) 7.1, Absolute Lymphs (auto) 1.63, Nucleated RBC % 0 09/25/22 03:20: Sodium 139, Potassium 3.5, Chloride 108 H, Carbon Dioxide 23.0, Anion Gap 8, BUN 40 H, Creatinine 1.33 H, Estim Creat Clear Calc 50.31, Est GFR (MDRD) Af Amer 68, Est GFR (MDRD) Non-Af 56 L, BUN/Creatinine Ratio 30.1 H, Glucose 93, Calcium 8.3 L, Phosphorus 2.7, Magnesium 1.8 Rhythm Strip Rhythm Strip: wide-complex bradycardia Rate: 38 Ectopy: None Cardiology Labs/Tests 09/25/22 03:20: WBC 10.3, RBC 3.58 L, Hgb 10.1 L, Hct 31.9 L, MCV 89.1, MCH 28.2, MCHC 31.7 L, Plt Count 105 L, MPV 11.6, Immature Gran % (Auto) 0.700, Neut % (Auto) 68.2, Lymph % (Auto) 15.8 L, [place] % (Auto) 14.5 H, Eos % (Auto) 0.4, Baso % (Auto) 0.4, Absolute Neuts (auto) 7.1, Nucleated RBC % 0 09/25/22 03:20: Sodium 139, Potassium 3.5, Chloride 108 H, Carbon Dioxide 23.0, Anion Gap 8, BUN 40 H, Creatinine 1.33 H, Est GFR (MDRD) Af Amer 68, Est GFR (MDRD) Non-Af 56 L, BUN/Creatinine Ratio 30.1 H, Glucose 93, Calcium 8.3 L, Phosphorus 2.7, Magnesium 1.8 Rhythm: EKG: ECHO: Stress Test: Cardiac Cath: PCI: CT Surgery: Holter monitor: EPS: PPM: CXR: Chest CT Scan: Radiography Diagnostic Testing: Radiology Impression Chest X-Ray 09/25/22 05:55 IMPRESSION: Bilateral pulmonary opacity changes with no detectable pneumothorax. Electronically Signed: Daniel Arias MD at 5:11 EST , Physical Exam Const alert, oriented x3 and no apparent distress General Appearance: cooperative HEENT hearing grossly normal bilaterally Head and Scalp: atraumatic Eyes EOMs intact bilaterally Neck General: normal visual inspection Chest inspection of chest normal and palpation of chest normal Resp normal respiratory effort Auscultation: clear to auscultation bilaterally Cardio regular rate, regular rhythm, S1 normal heart sound and S2 normal heart sound Jugular Venous Distention: JVD GI normal to inspection, nondistended, normoactive bowel sounds Extremity normal capillary refill and no pedal edema Peripheral Pulses: Yes pulses 2+ throughout and femoral pulses present Skin no rashes or lesions noted Neuro oriented x3 and CN's II-XII intact bilaterally Psych Appearance: grossly normal and appropriate Assessment & Plan Assessment/Plan (1) Complete heart block by electrocardiogram: PLAN: He appears to have complete heart block by electro cardiogram. He underwent implantation of a dual-chamber permanent pacemaker yesterday. Chest x-ray demonstrates adequate placement. Will be interrogated this morning and if stable will recommend discharge for outpatient follow-up. (2) Acute hypotension: PLAN: He does have a history of hypertension. The plan to be to continue current antihypertensive medications. Thank you for allowing me to participate in the care of your patient. Please don't hesitate to call if any issues arise.
--- NOTE | 2022-09-25 08:14 | DCINST_ITS ---
Discharge Instructions Diet Discharge Diet: No restrictions Activity Discharge Activity: May Not Drive Additional Activity Instructions:: May shower or bathe on [day 3]. Do not scrub the incision or soak in the tub. Just wash with soap and let the water run over the incision. Gently pat dry with towel. Medications: Take your pain medication as directed. Refer to your discharge instruction sheet for a list of medications you are to take. Dressing / Incision Call your doctor if your incision/area has: Continuous Slow Oozing, Sudden Increased Bleeding, Increased Pain/ Swelling, Increased Redness, Foul Smelling Discharge and Swelling at the incision site Call your doctor if you observe: Fever of 101 or Higher, Shortness of breath, Dizziness, Fainting spells, Swelling in the ankles, Chest pain, Prolonged hiccupping and Increased palpitations (irregular heartbeat) Suture Line Care: Avoid Pulling/Pushing and Avoid Pinching/Bending Change Dressing in: 3 days Remove Dressing in: 3 days Additional Dressing/Incision Instructions:: When dressing is removed, wash and dry incision. Keep covered with a light bandage if it is rubbing against your clothing. Do not cover the incision with an airtight bandage. Change the bandage daily. Do not remove steri strips. The strips will fall off on their own. Follow Up Care Please Follow Up With: Andrew Bui MD When: Pacer follow up on October 01 at 10 AM [facility] Test Results: Test results from this visit will be discussed in further detail at your follow- up appointment, if applicable. Discharge Plan Admission Admit Date/Time: 09/23/22 03:57 Attending Provider: Yecenia Clarke Primary Care Provider: Iris Clancy Consulting Providers: Luís Leslie ; nAdrew Bui ; Humberto Rahman ; Jesus Lawrence ; Vince Albright ; Castillo Singh ; Disha Marinelli NP Discharge Orders/Prescriptions Prescriptions: No Action losartan 50 MG tablet 50 mg PO QHS atorvastatin 10 MG tablet 10 mg PO QHS tamsulosin 0.4 MG capsule 0.8 mg PO QHS divalproex 250 MG tablet 500 mg PO BID Spiriva with HandiHaler 1 PUFF inhaler 1 puff inhalation QHS budesonide-formoterol [Symbicort] 1 INHALER inhaler 1 puff inhalation BID Omeprazole [Prilosec] 40 MG capsule 40 mg PO DAILY aspirin 81 MG tablet,chewable 81 mg PO DAILY@0800 cholecalciferol (vitamin D3) [Vitamin D3] 1,000 UNIT tablet 2,000 unit PO DAILY Brandonacidjoanne, emre,B. lactis 1 EACH capsule 1 ea PO DAILY carvedilol 6.25 MG tablet 6.25 mg PO BID Qty: 60 0RF Referrals / Follow Up: Iris Clancy MD [Primary Care Provider] -
[2022-09-25] MEDS: Cholecalciferol (VIT D3) 25 MCG TABLET (1,000 UNITS) 50 MCG PO (08:28)
[2022-09-25] MEDS: Aspirin 81 MG TAB.CHEW PO (08:28)
[2022-09-25] MEDS: Divalproex Sodium 250 MG Tablet 500 MG PO ×2 (08:28→16:48)
[2022-09-25] MEDS: Pantoprazole Sodium 40 MG Tablet PO (09:39)
[2022-09-25] MEDS: Carvedilol 6.25 MG Tablet PO ×2 (09:39→22:12)
[2022-09-25] MEDS: Furosemide 20 MG/2 ML VIAL IV ×2 (09:39→15:29)
[2022-09-25] MEDS: Cefazolin 1 GM/50 ML BAG IV ×2 (09:39→22:13)
[2022-09-25] MEDS: Heparin Injection (Vial) 5,000 UNIT/ML VIAL 5000 UNIT SC ×2 (09:39→22:13)
--- NOTE | 2022-09-25 10:49 | PCM.PN.HOSP ---
Reason for Visit Reason for Visit: Diagnoses Hyperkalemia (09/23/22) Atrioventricular block, complete (09/23/22) Hypotension, unspecified (09/23/22) Acute respiratory failure with hypoxia (09/23/22) Acute kidney failure, unspecified (09/23/22) Chest pain, unspecified (09/23/22) Other specified abnormalities of plasma proteins (09/23/22) Other specified abnormal findings of blood chemistry (09/23/22) Subjective Subjective Patient has yet to get out of bed at the time of my evaluation however he did following with physical and Occupational Therapy and was quite wobbly on his legs. He also was requiring 2 L of oxygen with exertion which is not his baseline. We do suspect that his overall presentation precipitated an acute exacerbation of COPD. From a cardiology standpoint he has been cleared for discharge and okay to restart Coreg. Objective Data Objective Data Vital Signs: Vital Signs Temp Pulse Resp BP Pulse Ox O2 Del Method O2 Flow Rate 98.1 F 76 19 H 170/69 H 95 Nasal Cannula 1 09/25/22 08:29 09/25/22 08:29 09/25/22 08:29 09/25/22 08:29 09/25/22 08:29 09/25/22 08:29 09/25/22 08:29 FiO2 40 09/24/22 07:24 Oxygen Flow Rate (L/min) 1 Oxygen Delivery Method Nasal Cannula Weight: 82.8 kg Body Mass Index (BMI) 26.2 Intake & Output: Intake and Output for Last 24 Hours 09/23/22 09/24/22 09/25/22 23:59 23:59 23:59 Intake Total 3333.11 / 3339.31 2527.07 / 2527.07 1027.5 / 1027.5 Output Total 730 / 730 900 / 900 625 / 625 Balance 2603.11 / 2609.31 1627.07 / 1627.07 402.5 / 402.5 Lab / Micro Data Result Diagrams: 09/25/22 03:20 09/25/22 03:20 Labs: Laboratory Results - last 24 hr 09/23/22 01:52: Diff Path Review Reviewed 09/24/22 03:20: Diff Path Review Reviewed 09/25/22 03:20: WBC 10.3, RBC 3.58 L, Hgb 10.1 L, Hct 31.9 L, MCV 89.1, MCH 28.2, MCHC 31.7 L, RDW Std Deviation 51.2 H, RDW Coeff of Edinson 15.6 H, Plt Count 105 L, MPV 11.6, Immature Gran % (Auto) 0.700, Neut % (Auto) 68.2, Lymph % (Auto) 15.8 L, [place] % (Auto) 14.5 H, Eos % (Auto) 0.4, Baso % (Auto) 0.4, Absolute Neuts (auto) 7.1, Absolute Lymphs (auto) 1.63, Nucleated RBC % 0 09/25/22 03:20: Sodium 139, Potassium 3.5, Chloride 108 H, Carbon Dioxide 23.0, Anion Gap 8, BUN 40 H, Creatinine 1.33 H, Estim Creat Clear Calc 50.31, Est GFR (MDRD) Af Amer 68, Est GFR (MDRD) Non-Af 56 L, BUN/Creatinine Ratio 30.1 H, Glucose 93, Calcium 8.3 L, Phosphorus 2.7, Magnesium 1.8 Micro: Microbiology 09/23/22 Unknown Mucosa - Nasopharyngeal Respiratory Panel (PCR) - Final 09/23/22 16:05 Nasal Secretion SARS-CoV-2 & FLU Antigen (Rapid) - Final Radiography Diagnostic Testing: Radiology Impression Chest X-Ray 09/25/22 05:55 IMPRESSION: Bilateral pulmonary opacity changes with no detectable pneumothorax. Electronically Signed: Daniel Arias MD at 5:11 EST , Rhythm Strip Rhythm Strip: wide-complex bradycardia Rate: 38 Ectopy: None Physical Exam Const alert, oriented x3, no apparent distress and well nourished Constitutional Narrative: Older white male, sitting up in bed on nasal cannula-2 L, appears comfortable and nontoxic HEENT head/scalp atraumatic and moist oral mucous membranes HEENT Narrative: Mallampati 2, no thrush Resp normal respiratory effort, no retractions and no use of accessory muscles Resp Narrative: Diminished with scattered end expiratory wheezes, no tachypnea at rest Auscultation: wheezes; Negative for rales or rhonchi Cardio regular rate, regular rhythm, S1 normal heart sound, S2 normal heart sound, no murmurs, no rub, no gallops, no clicks and no JVD Cardio Narrative: Paced GI normal to inspection, nondistended, normoactive bowel sounds, soft to palpation and non-tender Extremity no clubbing, cyanosis or edema Extremity Narrative: 2+ pedal pulses/2+ radial pulses Neuro oriented x3, moves all extremities and no focal motor deficits Neuro Narrative: Kniffen generalized weakness noted at this time of physical therapy evaluation which I returned to bedside to observe and requiring at least standby assist x2 Speech: speech normal Psych affect normal Psych Narrative: Very pleasant, appropriately interactive Assessment & Plan Assessment/Plan (1) Hyperkalemia: (2) Chest pain: (3) Elevated troponin: (4) Third degree heart block: (5) Elevated serum creatinine: (6) Acute respiratory failure with hypoxia: (7) Acute hypotension: (8) PENELOPE (acute kidney injury): PLAN: Plan Third-degree heart block -Pacer placed on 09/24/2022 -Checked this morning and okay from cardiology standpoint for discharge -Restart home Coreg 6.25 mg twice daily -TSH was 4.69 being slightly elevated however free T4 is normal indicating euthyroid sick syndrome -Echo--> EF 70% with no valvular abnormalities -Cardiology following-appreciate input Acute hypoxic respiratory failure secondary to acute exacerbation of COPD -Patient ended up requiring Airvo yesterday and Precedex for sedation as he was dramatically confused at the time of admission -Suspect this was related to decreased perfusion with his arrest and his COPD at baseline -Has been weaned to 2 L nasal cannula today -Continue to wean -Continue scheduled bronchodilators -Discontinue inhaled steroids -Start systemic steroids with Solu-Medrol 40 every 8 today transitioning to 40 of prednisone tomorrow -I-S and Acapella-> discussed importance of use with patient -Patient does have PFTs that noted mild obstructive lung disease from 2017 -We will give low-dose Lasix x1 dose 20 mg PENELOPE on CKD stage IIIb -Baseline serum creatinine previously appears to be between 1.3 and 1.7--> I discussed with Dr. Clancy -PENELOPE has now resolved -Serum creatinine does continue improved from admission and is down to 1.33 with a peak of 2.6 -Discontinue IV fluids -Repeat BMP in a.m. Hyperkalemia -resolved -Continue to hold losartan with possible reinitiation at discharge now that PENELOPE is resolved Troponin elevation -Likely related to acute events -Echocardiogram is unremarkable -Cardiology is following -Continue home aspirin Hypertension -Restart home Coreg per discussion with cardiology -Continue to hold losartan--> for now but reconsider reinitiating prior to discharge depending on blood pressures and serum creatinine -As needed hydralazine for systolic blood pressure greater than 160 Hyperlipidemia -Continue home statin with Lipitor 10 mg at bedtime -Lipid panel shows a total cholesterol 129/LDL of 50/HDL 41 COPD -Hold home steroid inhaler -Continue the rest of his home inhalers -See above Seizure disorder -Continue valproic acid 500 mg p.o. twice daily -No acute issues GERD -Continue PPI Tobacco abuse -Recommend cessation -Nicotine replacement if needed next DVT prophylaxis -Heparin twice daily -SCDs CODE STATUS -DNR CCA okay for intubation Charges/Coding Visit Charges Inpatient E&M: 57720 Subs Hosp L2
--- NOTE | 2022-09-25 14:51 | CASEMGMT ---
JERRY TRIMBLE in to discuss discharge planning with patient. Son and at bedside. JERRY TRIMBLE reviewed progress with therapy. Son states his sister lives next door and is able to assist at home. Discussed HHC with patient and family, patient agreeable. A list of HHC providers including quality and resource use data and consistent with the patient?s preferred geographical region, medical needs, and insurance network were provided from the [employer] Guide. Patient prefers [facility]. Patient is currently requiring oxygen, not on at home. Review DME agencies with patient and prefers [employer] if needed. Patient and family had no further questions or concerns. JERRY TRIMBLE made referral to [facility] and awaiting acceptance. CM will continue to follow this patient and plan for a safe discharge.
[2022-09-25] MEDS: 0.9% Saline Lock 10 ML Syringe IV ×2 (15:29→22:17)
[2022-09-25] MEDS: Tamsulosin HCl 0.4 MG Capsule 0.8 MG PO (22:12)
[2022-09-25] MEDS: Atorvastatin Calcium 10 MG Tablet PO (22:12)
[2022-09-26] VITALS (7 sets, daily range): BP systolic 142–150; BP diastolic 71–73; PULSE 65–74; RESP 16–20; TEMP 36.7; O2SAT 86–95
[2022-09-26] MEDS: 0.9% Saline Lock 10 ML Syringe IV (05:42)
[2022-09-26 06:27] LABS: Absolute Lymphocyte Count 0.65 X10^3/uL (0.83-4.51); Absolute Neutrophil Count 6.9 X10^3/uL (2.0-7.7); Basophil# 0.01 X10^3/uL; Basophil% 0.1 % (0-1); Hematocrit 32.4 % (40-54); Hemoglobin 10.4 g/dL (13.0-16.5); Lymphocyte # 0.65 X10^3/ul (0.83-4.51); Lymphocyte % 8.1 % (19-41); Mean Corp Hgb Conc 32.1 g/dL (32-36); Mean Corpuscular Hgb 28.2 pg (27.0-32.0); Mean Corpuscular Volume 87.8 fL (80-94); Mean Platelet Vol. 11.5 fl (6.2-12.0); NRBC Flagged by Analyzer 0 % (0-5); Neutrophil # 6.89 X10^3/uL (2.7-7.7); Neutrophil % 85.7 % (47-70); Platelet Count 113 K/mm3 (150-450); RBC Distribution Width CV 15.3 % (11.6-14.6); Red Blood Count 3.69 M/mm3 (4.6-6.2)
[2022-09-26 06:55] LABS: Anion Gap 8 (5-15); BUN 47 mg/dL (7-18); BUN/Creat Ratio 36.4 RATIO (10-20); Calcium,Total 8.8 mg/dL (8.5-10.1); Chloride 102 mmol/L (98-107); Creatinine, Serum 1.29 mg/dL (0.70-1.30); EST Glomerular Filtration Rate 58 mL/min (>60); Est Glom Filt Rate - Afr Amer 70 mL/min (>60); Estimated Creatinine Clearance 51.87 ml/min; Glucose 136 mg/dL (74-106); Potassium 3.6 mmol/L (3.5-5.1); Sodium Level 136 mmol/L (136-145)
[2022-09-26] MEDS: Ipratropium/Albuterol Sulfate 3 ML AMPUL.NEB INHALATION ×2 (07:49→14:00)
[2022-09-26] MEDS: Heparin Injection (Vial) 5,000 UNIT/ML VIAL 5000 UNIT SC (09:18)
[2022-09-26] MEDS: Aspirin 81 MG TAB.CHEW PO (09:18)
[2022-09-26] MEDS: Carvedilol 6.25 MG Tablet PO (09:18)
[2022-09-26] MEDS: Divalproex Sodium 250 MG Tablet 500 MG PO (09:18)
[2022-09-26] MEDS: Cholecalciferol (VIT D3) 25 MCG TABLET (1,000 UNITS) 50 MCG PO (09:18)
[2022-09-26] MEDS: Pantoprazole Sodium 40 MG Tablet PO (09:18)
[2022-09-26] MEDS: Cefazolin 1 GM/50 ML BAG IV (10:21)
--- NOTE | 2022-09-26 10:23 | DCINST_ITS ---
Discharge Instructions Diet Discharge Diet: No restrictions Activity Discharge Activity: Return to Normal Activity Weight Bearing Status: Weight bearing as tolerated Additional Activity Instructions:: May shower or bathe on [day 3]. Do not scrub the incision or soak in the tub. Just wash with soap and let the water run over the incision. Gently pat dry with towel. Medications: Take your pain medication as directed. Refer to your discharge instruction sheet for a list of medications you are to take. Dressing / Incision Call your doctor if your incision/area has: Continuous Slow Oozing, Sudden Increased Bleeding, Increased Pain/ Swelling, Increased Redness, Foul Smelling Discharge and Swelling at the incision site Call your doctor if you observe: Fever of 101 or Higher, Coldness, Increased Pain, Numbness or Tingling, Inability to urinate, Inability to have a bowel movement, Shortness of breath, Dizziness, Fainting spells, Swelling in the ankles, Chest pain, Prolonged hiccupping and Increased palpitations (irregular heartbeat) Suture Line Care: Avoid Pulling/Pushing and Avoid Pinching/Bending Additional Dressing/Incision Instructions:: When dressing is removed, wash and dry incision. Keep covered with a light bandage if it is rubbing against your clothing. Do not cover the incision with an airtight bandage. Change the bandage daily. Do not remove steri strips. The strips will fall off on their own. Follow Up Care Please Follow Up With: Andrew Bui MD When: IN 2 WEEKS Test Results: Test results from this visit will be discussed in further detail at your follow- up appointment, if applicable. Discharge Plan Admission Admit Date/Time: 09/23/22 03:57 Primary Reason for Your Visit: Hypotension, bradycardia status post pacemaker. COPD exacerbation Attending Provider: Gabriele Tran Primary Care Provider: Iris Clancy Consulting Providers: Luís Leslie ; Andrew Bui ; Humberto Rahman ; Jesus Lawrence ; Vince Albright ; Castillo Singh ; Disha Marinelli NP ; Yecenia Clarke Discharge Orders/Prescriptions Prescriptions: New prednisone 20 mg Tablet 40 mg PO BREAKFAST 5 Days Qty: 10 0RF dextromethorphan-guaifenesin [Mucinex DM] 60-1,200 mg tablet extended release 12 hr 1 tab PO Q12H 7 Days Qty: 14 0RF Continued atorvastatin 10 MG tablet 10 mg PO QHS tamsulosin 0.4 MG capsule 0.8 mg PO QHS divalproex 250 MG tablet 500 mg PO BID Spiriva with HandiHaler 1 PUFF inhaler 1 puff inhalation QHS budesonide-formoterol [Symbicort] 1 INHALER inhaler 1 puff inhalation BID Omeprazole [Prilosec] 40 MG capsule 40 mg PO DAILY aspirin 81 MG tablet,chewable 81 mg PO DAILY@0800 cholecalciferol (vitamin D3) [Vitamin D3] 1,000 UNIT tablet 2,000 unit PO DAILY L.acidoph, paracasei,B. lactis 1 EACH capsule 1 ea PO DAILY carvedilol 6.25 MG tablet 6.25 mg PO BID Qty: 60 0RF Held losartan 50 MG tablet 50 mg PO QHS Hold Instructions: Hold for 2 days and resume 25 mg daily for 3 days and then increase to 50 mg daily. Referrals / Follow Up: Iris Clancy MD [Primary Care Provider] - Disposition Disposition (needs filled in before D/C Order can be placed): Home Health Service
--- NOTE | 2022-09-26 11:37 | DS.PCM_ITS ---
Providers Date of Admission: 09/23/22 Date of Discharge: 09/26/22 Primary Care Physician: Dr. Iris Clancy MD Consultations 09/23/22 08:26 Consult: Cardiology Routine Consulting Provider: Andrew Bui Reason for Consult: Symptomatic bradycardia EMERGENT Consult: No Notified: Yes Date Notified: 09/23/22 Time Notified: 04:13 Method of Notification: Verbal Method of Consult:: In-Person 09/23/22 08:53 Consult: Yarding Supervisor / Pulmonary Medicine Routine Consulting Provider: Pulmonary Medicine jaylin Otero Reason for Consult: acute respiratory failure EMERGENT Consult: No Notified: Yes Date Notified: 09/23/22 Time Notified: 08:53 Method of Notification: Verbal Reason For Visit: SYMPTOMATIC BRADYCARDIA Diagnosis Discharge Diagnosis (1) COPD (chronic obstructive pulmonary disease): Status: Chronic Code(s): J44.9 - Chronic obstructive pulmonary disease, unspecified Qualifiers: COPD type: unspecified COPD Qualified Code(s): J44.9 - Chronic obstructive pulmonary disease, unspecified (2) Acute respiratory failure with hypoxia: Status: Acute Code(s): J96.01 - Acute respiratory failure with hypoxia Medications at Discharge Home Medications Omeprazole [Prilosec] 40 mg PO DAILY 05/28/16 atorvastatin 10 mg tablet 10 mg PO QHS 05/28/16 budesonide-formoterol HFA 160 mcg-4.5 mcg/actuation aerosol inhaler (Symbicort) 1 puff inhalation BID 05/28/16 divalproex 250 mg tablet,extended release 24 hr 500 mg PO BID 05/28/16 losartan 50 mg tablet 50 mg PO QHS 05/28/16 tamsulosin 0.4 mg capsule 0.8 mg PO QHS 05/28/16 tiotropium bromide 18 mcg capsule with inhalation device (Spiriva with HandiHaler) 1 puff inhalation QHS 05/28/16 aspirin 81 mg chewable tablet 81 mg PO DAILY@0800 07/06/16 cholecalciferol (vitamin D3) 25 mcg (1,000 unit) tablet (Vitamin D3) 2,000 unit PO DAILY 07/06/16 L.acidoph, paracasei,B. lactis 10 billion cell capsule 1 ea PO DAILY 02/07/17 carvedilol 6.25 mg tablet 6.25 mg PO BID #60 tabs 02/08/17 dextromethorphan-guaifenesin ER 60 mg-1,200 mg tab,extend release,12hr (Mucinex DM) 1 tab PO Q12H 7 days #14 tabs 09/26/22 prednisone 20 mg tablet 40 mg PO BREAKFAST 5 days #10 tabs 09/26/22 Hospital Course Summary of Care Provided Hospital Course: This is 72-year-old male with significant history of hypertension, COPD was admitted with lightheadedness for several hours and then fall along with substernal dull chest heaviness/pressure. He is SBP was in 70s and heart rate in 30s and had a troponin from paramedics. Patient was also hyperkalemic K5.9, bicarbonate 19. EKG showed complete heart block. Patient was further admitted in ICU. Third-degree heart block: Research Development Manager was consulted. Pacemaker was inserted on 09/24/2022. Okay from cardiology standpoint for discharge. On Coreg 6.25 mg twi ce daily. -TSH was 4.69 being slightly elevated however free T4 is normal indicating euthyroid sick syndrome -Echo--> EF 70% with no valvular abnormalities Follow-up recreational therapy technician as an outpatient. Acute hypoxic respiratory failure secondary to acute exacerbation of COPD -Patient required Airvo and Precedex for sedation as he was dramatically confused at the time of admission. Patient was seen by fitting room maintenance mechanic. -Suspect this was related to decreased perfusion with his arrest and his COPD at baseline -Has been weaned to 2 to 3 L oxygen. Home qualification oxygen ordered. Patient be discharged on oxygen. Patient also treated with bronchodilator, IV Solu-Medrol, incentive spirometry and PEP. Follow-up in pulmonary clinic with creatinine normal in 2 weeks.Patient does have PFTs that noted mild obstructive lung disease from 2017 Discharged on burst therapy of prednisone, Mucinex DM. Patient has inhalers at home. PENELOPE on CKD stage IIIb -Baseline serum creatinine previously appears to be between 1.3 and 1.7--> I discussed with Dr. Clancy -PENELOPE has now resolved -Serum creatinine does continue improved from admission peaked at 2.6, today 1.29. Advised to hold losartan for 2 days and resume at lower dose 25 mg daily for 3 more days and then resume full dose. BMP in 1 week and follow-up with PCP -PENELOPE resolved. Hyperkalemia -resolved -Continue to hold losartan. Troponin elevation likely related to bradycardia and hypotension, due to acute myocardial injury -Echocardiogram is unremarkable. Continue aspirin and follow-up in the cardiology clinic. Hypertension On home Coreg per discussion with cardiology. BP is 142/71, in acceptable range. Hyperlipidemia -Continue home statin with Lipitor 10 mg at bedtime -Lipid panel shows a total cholesterol 129/LDL of 50/HDL 41 Seizure disorder -Continue valproic acid 500 mg p.o. twice daily -No acute issues GERD -Continue PPI Tobacco abuse -Recommend cessation -Nicotine replacement if needed next DVT prophylaxis -Heparin twice daily -SCDs CODE STATUS -DNR CCA okay for intubation Physical Exam Narrative Seen and examined. Patient on 3 L of oxygen. Mild occasional cough but well controlled. No fever. Physical exam General: Alert, Oriented x3, Cooperative HEENT: Atraumatic, PERRLA, EOMI, Normocephalic Oral: No Gingival or Mucosal Lesions/ Ulcerations Neck: Supple, No JVD, Negative Carotid Bruits Lungs: Air entry diminished in bilateral lung bases. Mild bilateral expiratory rhonchi Cardiovascular: Paced rhythm on classroom monitor, S1-S2 regular, no murmurs Abdomen: Bowel Sounds Present, Soft, Non Tender, Non-Distended : No renal angle tenderness. No suprapubic tenderness. Extremities: No edema, Capillary Refill Less than 3 Seconds Skin: No rashes, No breakdown Musculoskeletal: No Tenderness to Palpation of Joints or Extremities. ROM intact. Neurological: Cranial nerves II-XII grossly intact, DTR 2+/4 and Symmetrical Psych/Mental Status: Flat affect. Weight / BMI Weight Weight: 182 lb 12.211 oz Body Mass Index (BMI) 26.2 ABG / Lab / Microbiology Data Result Diagrams: 09/26/22 06:00 09/26/22 06:00 Laboratory: Laboratory Results - last 24 hr 09/26/22 06:00: WBC 8.0, RBC 3.69 L, Hgb 10.4 L, Hct 32.4 L, MCV 87.8, MCH 28.2, MCHC 32.1, RDW Std Deviation 49.0 H, RDW Coeff of Edinson 15.3 H, Plt Count 113 L, MPV 11.5, Immature Gran % (Auto) 1.100 H, Neut % (Auto) 85.7 H, Lymph % (Auto) 8.1 L, [place] % (Auto) 5.0, Eos % (Auto) 0.0, Baso % (Auto) 0.1, Absolute Neuts (auto) 6.9, Absolute Lymphs (auto) 0.65 L, Nucleated RBC % 0 09/26/22 06:00: Sodium 136, Potassium 3.6, Chloride 102, Carbon Dioxide 26.0, Anion Gap 8, BUN 47 H, Creatinine 1.29, Estim Creat Clear Calc 51.87, Est GFR (MDRD) Af Amer 70, Est GFR (MDRD) Non-Af 58 L, BUN/Creatinine Ratio 36.4 H, Glucose 136 H, Calcium 8.8 Microbiology: Microbiology 09/23/22 Unknown Mucosa - Nasopharyngeal Respiratory Panel (PCR) - Final 09/23/22 16:05 Nasal Secretion SARS-CoV-2 & FLU Antigen (Rapid) - Final D/C Instructions Discharge Diet: No restrictions Weight Bearing Status: Weight bearing as tolerated Additional Activity Instructions: May shower or bathe on [day 3]. Do not scrub the incision or soak in the tub. Just wash with soap and let the water run over the incision. Gently pat dry with towel. Medications: Take your pain medication as directed. Refer to your discharge instruction sheet for a list of medications you are to take. Call your doctor if your incision/area has: Continuous Slow Oozing, Sudden Increased Bleeding, Increased Pain/ Swelling, Increased Redness, Foul Smelling Discharge and Swelling at the incision site Call your doctor if you observe: Fever of 101 or Higher, Coldness, Increased Pain, Numbness or Tingling, Inability to urinate, Inability to have a bowel movement, Shortness of breath, Dizziness, Fainting spells, Swelling in the ankles, Chest pain, Prolonged hiccupping and Increased palpitations (irregular heartbeat) Suture Line Care: Avoid Pulling/Pushing and Avoid Pinching/Bending Additional Dressing/Incision Instructions: When dressing is removed, wash and dry incision. Keep covered with a light bandage if it is rubbing against your clothing. Do not cover the incision with an airtight bandage. Change the bandage daily. Do not remove steri strips. The strips will fall off on their own. Please Follow Up With: Andrew Bui MD When: IN 2 WEEKS Meaningful Use Info Meaningful Use Diagnoses (Choose all that apply): None applicable Discharge Plan Admission Admit Date/Time: 09/23/22 03:57 Primary Reason for Your Visit: Hypotension, bradycardia status post pacemaker. COPD exacerbation Attending Provider: Gabriele Tran Primary Care Provider: Iris Clancy Consulting Providers: Luís Leslie ; Andrew Bui ; Humberto Rahman ; Jesus Lawrence ; Vince Albright ; Castillo Singh ; Disha Marinelli NP ; Yecenia Clarke Discharge Orders/Prescriptions Prescriptions: New prednisone 20 mg Tablet 40 mg PO BREAKFAST 5 Days Qty: 10 0RF dextromethorphan-guaifenesin [Mucinex DM] 60-1,200 mg tablet extended release 12 hr 1 tab PO Q12H 7 Days Qty: 14 0RF Continued atorvastatin 10 MG tablet 10 mg PO QHS tamsulosin 0.4 MG capsule 0.8 mg PO QHS divalproex 250 MG tablet 500 mg PO BID Spiriva with HandiHaler 1 PUFF inhaler 1 puff inhalation QHS budesonide-formoterol [Symbicort] 1 INHALER inhaler 1 puff inhalation BID Omeprazole [Prilosec] 40 MG capsule 40 mg PO DAILY aspirin 81 MG tablet,chewable 81 mg PO DAILY@0800 cholecalciferol (vitamin D3) [Vitamin D3] 1,000 UNIT tablet 2,000 unit PO DAILY L.acidoph, paracasei,B. lactis 1 EACH capsule 1 ea PO DAILY carvedilol 6.25 MG tablet 6.25 mg PO BID Qty: 60 0RF Held losartan 50 MG tablet 50 mg PO QHS Hold Instructions: Hold for 2 days and resume 25 mg daily for 3 days and then increase to 50 mg daily. Referrals / Follow Up: Andrew Bui MD [Med Staff - Active Staff] - Within 1 Month Iris Clancy MD [Primary Care Provider] - Jesus Lawrence DO [Med Staff - Active Staff] - Within 2 Weeks Disposition Disposition (needs filled in before D/C Order can be placed): Home Health Service Charges/Coding Visit Charges Inpatient E&M: 53766 Disch Hosp >30min
[2022-09-26] MEDS: predniSONE 20 MG Tablet 40 MG PO (12:04)
--- NOTE | 2022-09-26 12:27 | NURSING ---
I spoke with Melany with [facility] to inform her of pt's d/c for today.
== END 2022-09-26 14:45 | disposition home health service (06) | DRG 242 ==
LOC: ED 02:37 → ICU 04:31 → PCU 09-25 14:48
PROVIDERS: Internal Medicine; Admitting Provider Hospitalist; Emergency Provider Emergency Medicine; PCP Internal Medicine; Visit Provider Internal Medicine
DX: I44.2 Atrioventricular block, complete (principal); J96.01 Acute respiratory failure with hypoxia; I21.9 Acute myocardial infarction, unspecified; N17.9 Acute kidney failure, unspecified; J44.1 Chronic obstructive pulmonary disease with (acute) exacerbation; I95.9 Hypotension, unspecified; E87.5 Hyperkalemia; G40.909 Epilepsy, unspecified, not intractable, without status epilepticus; N18.32 Chronic kidney disease, stage 3b; F17.210 Nicotine dependence, cigarettes, uncomplicated; K21.9 Gastro-esophageal reflux disease without esophagitis; E78.5 Hyperlipidemia, unspecified; I12.9 Hypertensive chronic kidney disease with stage 1 through stage 4 chronic kidney disease, or unspecified chronic kidney disease; E07.81 Sick-euthyroid syndrome; Z66 Do not resuscitate; Z79.82 Long term (current) use of aspirin; Z79.899 Other long term (current) drug therapy
CPT/HCPCS: 33208; 33210; 36415; 36600; 71045; 71047; 80048; 80061; 80307; 82803; 83735; 83880; 84100; 84132; 84439; 84443; 84484; 85025; 87428; 87633; 92953; 93005; 93306; 94640; 94660; 94668; 97110; 97162; 97166; 97535; 99152; 99153; 99252; 99285; J7030; J7040; J7050; A4216; C1751; C1894; G0463; J0610; J1940

== ENCOUNTER → 2022-10-07 | Outpatient (CLI) | payer MEDICARE, BC, SELFPAY | END | disposition home or self-care (01) | LOC: LAB 15:29 | PROVIDERS: PCP Internal Medicine; Visit Provider Internal Medicine | DX: E87.5 Hyperkalemia (principal) | CPT/HCPCS: 36415; 84132 ==

== ENCOUNTER → 2023-02-01 | Outpatient (CLI) | payer MEDICARE, BC, SELFPAY ==
--- NOTE | 2023-02-01 13:12 | MRI_ITS ---
HISTORY: Degeneration of intervertebral disc of lumbosacral region TECHNIQUE: Multiplanar and multisequence MR images of the lumbar spine were obtained before and after the intravenous administration of 15 cc Clariscan. 203 images. COMPARISON: XR 12/08/2022. FINDINGS: VERTEBRAE: Mild chronic compression fracture of T10. Lumbar vertebral heights maintained. Artifact from right L2-S1 and left L3-5 posterior spinal fusion hardware. Degenerative bone marrow endplate changes particularly at L1-2, L2-3, and L5-S1. Small postoperative defect in the left iliac bone. ALIGNMENT: Chronic mild retrolisthesis of L1-2 and L2-3. Chronic grade 2 spondylolisthesis of L5-S1. SPINAL CANAL: Normal morphology and position of the conus medullaris at L1. No gross epidural collection. Limited postcontrast images due to artifact from hardware but no gross enhancing extramedullary intradural mass. INTERVERTEBRAL DISCS: T12-L1: No significant posterior disc protrusion, central canal stenosis, or foraminal narrowing based on the sagittal images. L1-2: Moderate posterior disc bulge osteophyte complex eccentric to the right with facet arthropathy resulting in right L2 nerve root impingement, mild central canal stenosis, and moderate bilateral foraminal narrowing. L2-3: Decompressive laminectomy. Mild posterior disc bulge osteophyte complex and facet arthropathy. No significant central canal stenosis. Moderate bilateral foraminal narrowing with left L2 nerve root abutment. L3-4: Decompressive laminectomy. Mild posterior disc bulge osteophyte complex and facet arthropathy. No significant central canal stenosis. Mild bilateral foraminal narrowing. L4-5: Decompressive laminectomy. No significant posterior disc protrusion or central canal stenosis. Residual degenerative change with mild right foraminal narrowing. L5-S1: Decompressive laminectomy. Residual degenerative change without significant central canal stenosis. Moderate bilateral foraminal narrowing with bilateral L5 nerve root abutment. SOFT TISSUES: Posterior soft tissue edema. MRI/Spine Lumbar W/WO Contrast IMPRESSION: Postoperative and degenerative changes as above. Electronically Signed: Juli Flores MD at 8:16 EDT ,
[2023-02-01 14:28] VITALS: BP 139/73; PULSE 69; RESP 18; O2SAT 99
[2023-02-01 14:42] LABS: CREATININE FINGERSTICK 1.1 mg/dL (0.70-1.30); EGFR FINGERSTICK > 60.0000 mL/min (>60)
== END | disposition home or self-care (01) ==
LOC: MRI 13:05
PROVIDERS: PCP Internal Medicine; Referring Provider Internal Medicine; Visit Provider Internal Medicine
DX: M51.37 Other intervertebral disc degeneration, lumbosacral region (principal)
CPT/HCPCS: 72158; A9575

== ENCOUNTER → 2023-10-21 | Outpatient (CLI) | payer MEDICARE, BC, SELFPAY ==
--- NOTE | 2023-10-21 12:15 | US_ITS ---
INDICATION: symptoms of urinary tract infection EXAMINATION: Ultrasound US Post Void Residual Urine/Bladder TECHNIQUE: Lopez scale and color doppler imaging was performed of the urinary bladder. COMPARISON: No relevant prior comparison study available FINDINGS: No stones, masses, or wall thickening. Pre-void volume is 58 cc. Post-void volume is 23 cc. Post-void residual is 40%. Prostate volume was calculated to be 33 cc there is US/Post Void Residual Bladder IMPRESSION: Post void residue as described above. Electronically Signed: Kushal Mcclellan MD at 10:32 EST ,
== END | disposition home or self-care (01) ==
PROVIDERS: PCP Internal Medicine; Referring Provider Internal Medicine; Visit Provider Internal Medicine
DX: R33.9 Retention of urine, unspecified (principal)
CPT/HCPCS: 51798

== ENCOUNTER 2023-10-30 12:06 | Emergency (ER) | payer MEDICARE, BC, SELFPAY ==
[2023-10-30 12:08] VITALS: BP 90/61; PULSE 76; RESP 18; TEMP 35.5; O2SAT 98; BMI 25.4
[2023-10-30 12:17] VITALS: BP 133/74
--- NOTE | 2023-10-30 12:24 | EX.ED.GUMALE ---
HPI <BEATRIZ Diop - Last Filed: 10/30/23 13:31> History of Present Illness Chief Complaint: Complaint Narrative Narrative: 73-year-old male has not been able to urinate since waking up today. He has had intermittent issues with urinary retention over the last 3 weeks. He saw his PCP yesterday and was straight catheterized in the office but states nothing came out. He was prescribed Myrbetriq and took 2 doses without improvement. He has suprapubic discomfort. He states in the past he is only required a Joya catheter during surgery. 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 Seizures Smoker Stage 3b chronic kidney disease (CKD) Third degree heart block Home Medications Omeprazole [Prilosec] 40 mg PO DAILY 05/28/16 [History Last Taken 08/31/16 07:00] atorvastatin 10 mg tablet 10 mg PO QHS 05/28/16 [History Last Taken Unknown] budesonide-formoterol HFA 160 mcg-4.5 mcg/actuation aerosol inhaler (Symbicort) 1 puff inhalation BID 05/28/16 [History Last Taken 08/31/16 07:00] divalproex 250 mg tablet,extended release 24 hr 500 mg PO BID 05/28/16 [History Last Taken 07/06/16 08:30] tamsulosin 0.4 mg capsule 0.8 mg PO QHS 05/28/16 [History Last Taken Unknown] tiotropium bromide 18 mcg capsule with inhalation device (Spiriva with HandiHaler) 1 puff inhalation QHS 05/28/16 [History Last Taken 06/01/16 08:00] aspirin 81 mg chewable tablet 81 mg PO DAILY@0800 07/06/16 [History Last Taken Unknown] cholecalciferol (vitamin D3) 25 mcg (1,000 unit) tablet (Vitamin D3) 2,000 unit PO DAILY 07/06/16 [History Last Taken Unknown] L.acidoph, paracasei,B. lactis 10 billion cell capsule 1 ea PO DAILY 06/25/17 [History Last Taken Unknown] carvedilol 6.25 mg tablet 6.25 mg PO BID #60 tabs 02/08/17 [Rx Last Taken Unknown] dextromethorphan-guaifenesin ER 60 mg-1,200 mg tab,extend release,12hr (Mucinex DM) 1 tab PO Q12H 7 days #14 tabs 09/26/22 [Rx Last Taken Unknown] losartan 25 mg tablet 25 mg PO QHS #90 tabs 08/03/23 [Rx Last Taken Unknown] Allergy/AdvReac Type Severity Reaction Status Date / Time ethotoin [From Peganone] Allergy Mild Rash Verified 10/30/23 12:07 Family History Other Cancer Heart disease Osteoporosis Surgical History History of appendectomy History of back surgery S/P appy Social History Smoking Status: Current every day smoker tobacco type: cigarettes ROS <BEATRIZ Diop - Last Filed: 10/30/23 13:31> ROS ED ROS Narrative Constitutional: Negative for fever, chills, malaise. GI: Negative for nausea, vomiting. : Negative for dysuria, hematuria or frequency. EXAM <BEATRIZ Diop - Last Filed: 10/30/23 13:31> Physical Exam Narrative Exam Narrative: CONST: Patient sitting in no acute distress. EYES: Normal inspection. NECK: Normal inspection. RESP: No respiratory distress, CTAB. CVS: Regular rate and rhythm, no murmur, no gallop. ABD: Suprapubic fullness and tenderness, abdomen otherwise soft and nontender. SKIN: Color normal, no rash, warm, dry, intact. EXTREMITIES: Normal appearance, no pedal edema. NEURO: Oriented x4. PSYCH: Normal affect. Const Vital Signs: 10/30/23 12:08 10/30/23 12:17 10/30/23 13:07 Temperature 95.9 F L Temperature Source Temporal Pulse Rate 76 72 Respiratory Rate 18 16 Blood Pressure 90/61 133/74 H 146/72 H Blood Pressure Mean 70 93 96 Pulse Ox 98 96 Oxygen Delivery Method Room Air Room Air <Dr. Diony Burks DO - Last Filed: 10/30/23 13:35> Physical Exam Const Vital Signs: 10/30/23 12:08 10/30/23 12:17 10/30/23 13:07 Temperature 95.9 F L Temperature Source Temporal Pulse Rate 76 72 Respiratory Rate 18 16 Blood Pressure 90/61 133/74 H 146/72 H Blood Pressure Mean 70 93 96 Pulse Ox 98 96 Oxygen Delivery Method Room Air Room Air MDM <BEATRIZ Diop - Last Filed: 10/30/23 13:31> [facility] MDM Narrative Medical decision making narrative: Differential: Urinary retention, BPH, UTI, PENELOPE Patient has acute urinary retention. He appears well and nontoxic and is afebrile with normal vital signs. He is suprapubic fullness and tenderness. Joya catheter had over 800 cc output. CBC unremarkable. BMP shows BUN of 26, creatinine 1.54, sodium 123. His prior renal function has varied anywhere from 1.29 to 2.49. Patient will go home with an indwelling Joya catheter and was given care instructions and has follow-up with a urologist already scheduled in 3 weeks. He was advised on return precautions and discharged in stable condition. Lab Data Attestation: I reviewed the patient's lab results. Labs: Laboratory Results - last 24 hr 10/30/23 12:55 WBC 10.0 RBC 4.34 L Hgb 12.0 L Hct 36.3 L MCV 83.6 MCH 27.6 MCHC 33.1 RDW Std Deviation 42.8 RDW Coeff of [place] 14.0 Plt Count 191 MPV 9.7 Immature Gran % (Auto) 0.900 Neut % (Auto) 71.2 H Lymph % (Auto) 16.3 L [place] % (Auto) 10.1 H Eos % (Auto) 1.1 Baso % (Auto) 0.4 Absolute Neuts (auto) 7.1 Absolute Lymphs (auto) 1.63 Nucleated RBC % 0 Sodium 123 L Potassium 4.6 Chloride 91 L Carbon Dioxide 26.0 Anion Gap 6 BUN 26 H Creatinine 1.54 H Estim Creat Clear Calc 42.79 Est GFR (MDRD) Af Amer 57 L Est GFR (MDRD) Non-Af 47 L BUN/Creatinine Ratio 16.9 Glucose 93 Calcium 8.7 Urine Color Yellow Urine Clarity Clear Urine pH 6.5 Ur Specific [place] 1.010 Urine Protein 30 H Urine Glucose (UA) 50 H Urine Ketones Negative Urine Occult Blood Negative Urine Nitrite Negative Urine Bilirubin Negative Urine Urobilinogen 1 H Ur Leukocyte Esterase 25 H Urine RBC 0 SEEN Urine WBC 0-5 SEEN Ur Squamous Epith Cells 0 SEEN Urine Bacteria 0 SEEN Urine Mucus 0 SEEN <Dr. Diony Burks, DO - Last Filed: 10/30/23 13:35> [facility] Lab Data Labs: Laboratory Results - last 24 hr 10/30/23 12:55 WBC 10.0 RBC 4.34 L Hgb 12.0 L Hct 36.3 L MCV 83.6 MCH 27.6 MCHC 33.1 RDW Std Deviation 42.8 RDW Coeff of [place] 14.0 Plt Count 191 MPV 9.7 Immature Gran % (Auto) 0.900 Neut % (Auto) 71.2 H Lymph % (Auto) 16.3 L [place] % (Auto) 10.1 H Eos % (Auto) 1.1 Baso % (Auto) 0.4 Absolute Neuts (auto) 7.1 Absolute Lymphs (auto) 1.63 Nucleated RBC % 0 Sodium 123 L Potassium 4.6 Chloride 91 L Carbon Dioxide 26.0 Anion Gap 6 BUN 26 H Creatinine 1.54 H Estim Creat Clear Calc 42.79 Est GFR (MDRD) Af Amer 57 L Est GFR (MDRD) Non-Af 47 L BUN/Creatinine Ratio 16.9 Glucose 93 Calcium 8.7 Urine Color Yellow Urine Clarity Clear Urine pH 6.5 Ur Specific [place] 1.010 Urine Protein 30 H Urine Glucose (UA) 50 H Urine Ketones Negative Urine Occult Blood Negative Urine Nitrite Negative Urine Bilirubin Negative Urine Urobilinogen 1 H Ur Leukocyte Esterase 25 H Urine RBC 0 SEEN Urine WBC 0-5 SEEN Ur Squamous Epith Cells 0 SEEN Urine Bacteria 0 SEEN Urine Mucus 0 SEEN Treatment and Re-Evaluation Narrative: I have personally performed a face to face assessment of the patient and have reviewed the NANCY Note. I performed a substantive portion of the visit including all aspects of the following. My hannah findings include: History: Patient presents with urinary retention that became worse today. Patient states he is unable to urinate today. Patient denies any fevers or chills. Patient admits to some pressure over his lower abdomen. Patient denies any nausea or vomiting. Patient states he knows he has a history of prostatic hypertrophy. Exam: Vital signs are stable. Patient is afebrile. Patient is in no acute distress. Oral mucosa is pink and moist. Neck is supple. Trachea is midline. There is no JVD. Heart was regular rate and rhythm. Lungs are clear and equal bilaterally. Abdomen is soft. Bowel sounds are normal. There is distended bladder with some mild suprapubic tenderness. There is no rebound or guarding noted. Cranial nerves II through XII are intact. There are no focal motor or sensory deficits noted. Medical Decision Making: Differential diagnosis includes urinary retention, urinary tract infection, and electrolyte abnormality. CBC will be obtained to assess for leukocytosis and anemia. Basic metabolic profile will be obtained to assess for electrolyte abnormality and renal function. Urinalysis will be obtained to assess for urinary tract infection. Joya catheter was inserted. There is large amount of urine returned. Patient is feeling better. CBC was reviewed. There is a mild anemia with a hemoglobin of 12.0 and hematocrit 36.3. Basic metabolic profile was reviewed. Sodium was slightly low at 123 and chloride was 91. BUN was 26 and creatinine was 1.54. These are consistent with prior results. Urinalysis was reviewed. There is no evidence of urinary tract infection or hematuria. Patient will be discharged with the Joya catheter in place. Patient was instructed to follow-up with his primary care physician in 2 days. Patient was also instructed to return to the emergency department if he is unable to follow-up with his primary care physician in 2 days. Patient understood and was agreeable with the plan. All questions were answered. Discharge Plan Triage Chief Complaint: Complaint ED Midlevel Provider: Bhumi Mcneill ED Provider: Diony Burks Dx/Rx/DC Orders Clinical Impression: Acute urinary retention Instructions: ED Joya Catheter, Care Prescriptions: No Action losartan 25 mg tablet 25 mg PO QHS Qty: 90 3RF Hold Instructions: Hold for 2 days and resume 25 mg daily for 3 days and then increase to 50 mg daily. atorvastatin 10 MG tablet 10 mg PO QHS tamsulosin 0.4 MG capsule 0.8 mg PO QHS divalproex 250 MG tablet 500 mg PO BID Spiriva with HandiHaler 1 PUFF inhaler 1 puff inhalation QHS budesonide-formoterol [Symbicort] 1 INHALER inhaler 1 puff inhalation BID Omeprazole [Prilosec] 40 MG capsule 40 mg PO DAILY aspirin 81 MG tablet,chewable 81 mg PO DAILY@0800 cholecalciferol (vitamin D3) [Vitamin D3] 1,000 UNIT tablet 2,000 unit PO DAILY L.acidoph, paracasei,B. lactis 1 EACH capsule 1 ea PO DAILY carvedilol 6.25 MG tablet 6.25 mg PO BID Qty: 60 0RF dextromethorphan-guaifenesin [Mucinex DM] 60-1,200 mg tablet extended release 12 hr 1 tab PO Q12H 7 Days Qty: 14 0RF Primary Care Provider: Iris Clancy Referrals: Iris Clancy MD [Primary Care Provider] - Activity Restrictions/Additional Instructions: Your bladder is not draining on its own so a Joya catheter was placed. This will stay in until you follow-up with urology. You should call their office and tell them you had a catheter placed. Disposition Disposition: Home, Self Care
[2023-10-30 13:05] LABS: Bacteria 0 SEEN /hpf (None Seen); Mucous, Urine 0 SEEN /hpf (<or=2+); Red Blood Cells-Urine 0 SEEN /hpf (0-5); Squamous Epithelial Cells - UA 0 SEEN /hpf (0-5)
[2023-10-30 13:07] VITALS: BP 146/72; PULSE 72; RESP 16; O2SAT 96
[2023-10-30 13:08] LABS: Absolute Lymphocyte Count 1.63 X10^3/uL (0.83-4.51); Absolute Neutrophil Count 7.1 X10^3/uL (2.0-7.7); Basophil# 0.04 X10^3/uL; Basophil% 0.4 % (0-1); Eosinophil# 0.11 X10^3/uL; Eosinophils% 1.1 % (0-5); Hematocrit 36.3 % (40-54); Lymphocyte # 1.63 X10^3/ul (0.83-4.51); Lymphocyte % 16.3 % (19-41); Mean Corp Hgb Conc 33.1 g/dL (32-36); Mean Corpuscular Hgb 27.6 pg (27.0-32.0); Mean Corpuscular Volume 83.6 fL (80-94); Mean Platelet Vol. 9.7 fl (6.2-12.0); Monocyte# 1.01 X10^3/uL; Monocyte% 10.1 % (0-10); NRBC Flagged by Analyzer 0 % (0-5); Neutrophil # 7.09 X10^3/uL (2.7-7.7); Neutrophil % 71.2 % (47-70); Platelet Count 191 K/mm3 (150-450); RBC Distribution Width SD 42.8 fl (35.1-43.9); Red Blood Count 4.34 M/mm3 (4.6-6.2)
[2023-10-30 13:09] LABS: Color, Urine Yellow (Yellow); Glucose, Dipstick 50 mg/dl (Normal); Ketone-Dipstick Negative (Negative); Leukocyte Esterase-Dipstick 25 /ul (Negative); Nitrite-Dipstick Negative (Negative); Occult Blood-Urine Negative /ul (Negative); Protein-Dipstick 30 mg/dl (Negative); Urine Bilirubin Dipstick Negative (Negative); Urine Clarity Clear (Clear); Urine Urobilinogen 1 mg/dl (Normal); Urine pH 6.5 (5.0 - 8.0)
[2023-10-30 13:16] LABS: White Blood Cells 0-5 SEEN /hpf (0-5)
[2023-10-30 13:19] LABS: Anion Gap 6 (5-15); BUN 26 mg/dL (7-18); BUN/Creat Ratio 16.9 RATIO (10-20); Calcium,Total 8.7 mg/dL (8.5-10.1); Chloride 91 mmol/L (98-107); Creatinine, Serum 1.54 mg/dL (0.70-1.30); EST Glomerular Filtration Rate 47 mL/min (>60); Est Glom Filt Rate - Afr Amer 57 mL/min (>60); Estimated Creatinine Clearance 42.79 ml/min; Glucose 93 mg/dL (74-106); Potassium 4.6 mmol/L (3.5-5.1); Sodium Level 123 mmol/L (136-145)
[2023-10-30 14:08] VITALS: BP 167/71; PULSE 72; RESP 14; TEMP 36.2; O2SAT 96
--- NOTE | 2023-10-30 14:09 | ED.RN ---
Extensive agee teaching with pt and daughter along with hands on demonstration. Both voice understanding.
== END 2023-10-30 14:10 | disposition home or self-care (01) ==
PROVIDERS: Physician Assistant; Emergency Provider Emergency Medicine; PCP Internal Medicine; Visit Provider Emergency Medicine
DX: R33.9 Retention of urine, unspecified (principal); N18.32 Chronic kidney disease, stage 3b; F17.210 Nicotine dependence, cigarettes, uncomplicated
CPT/HCPCS: 51702; 80048; 81001; 85025; 99284; A4216

== ENCOUNTER 2023-11-13 11:06 | Emergency (ER) | payer MEDICARE, BC, SELFPAY ==
[2023-11-13 11:08] VITALS: BP 123/77; PULSE 90; RESP 16; TEMP 36.9; O2SAT 95
--- NOTE | 2023-11-13 11:22 | EDS_ITS ---
HPI HPI - Fall History of Present Illness Chief Complaint: Fall Informant: patient Occured/Mechanism Occurred: Today Mechanism/Context: Yes same level fall and Yes trip Pain/Injury Pain Location: back and lower extremity (Bilateral hips) Quality of Pain: Stabbing Worsened by: Movement Relieved by: Rest Associated Symptoms Associated Symptoms: Negative for Parasthesias, Weakness, Loss of function, Loss of consciousness or Amnesia Narrative Narrative: Patient presents with pain in his back and hips that began after a fall today. Patient states he tripped over a suitcase. Patient states he got up to turn the light out. Patient states that after he turned out the light, it became dark and he went to turn the light back on again. Patient states he tripped over a suitcase at that time. Patient fell onto his back. Patient describes the pain as sharp and stabbing. Patient states it is worse with movement. Patient states it is better with rest. Patient denies any head injury or loss of consciousness. 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 Seizures Smoker Stage 3b chronic kidney disease (CKD) Third degree heart block Home Medications Omeprazole [Prilosec] 40 mg PO DAILY 05/28/16 [History Last Taken 08/31/16 07:00] atorvastatin 10 mg tablet 10 mg PO QHS 05/28/16 [History Last Taken Unknown] budesonide-formoterol HFA 160 mcg-4.5 mcg/actuation aerosol inhaler (Symbicort) 1 puff inhalation BID 05/28/16 [History Last Taken 08/31/16 07:00] divalproex 250 mg tablet,extended release 24 hr 500 mg PO BID 05/28/16 [History Last Taken 07/06/16 08:30] tamsulosin 0.4 mg capsule 0.8 mg PO QHS 05/28/16 [History Last Taken Unknown] tiotropium bromide 18 mcg capsule with inhalation device (Spiriva with HandiHaler) 1 puff inhalation QHS 05/28/16 [History Last Taken 06/01/16 08:00] aspirin 81 mg chewable tablet 81 mg PO DAILY@0800 07/06/16 [History Last Taken Unknown] cholecalciferol (vitamin D3) 25 mcg (1,000 unit) tablet (Vitamin D3) 2,000 unit PO DAILY 07/06/16 [History Last Taken Unknown] L.acidoph, paracasei,B. lactis 10 billion cell capsule 1 ea PO DAILY 02/07/17 [History Last Taken Unknown] carvedilol 6.25 mg tablet 6.25 mg PO BID #60 tabs 02/08/17 [Rx Last Taken Unknown] dextromethorphan-guaifenesin ER 60 mg-1,200 mg tab,extend release,12hr (Mucinex DM) 1 tab PO Q12H 7 days #14 tabs 09/26/22 [Rx Last Taken Unknown] losartan 25 mg tablet 25 mg PO QHS #90 tabs 08/03/23 [Rx Last Taken Unknown] hydrocodone-acetaminophen 5-325mg 5mg-325mg 1 tab PO Q6H PRN PRN Pain 3 days #10 TABLETS 11/13/23 [Rx Last Taken Unknown] Allergy/AdvReac Type Severity Reaction Status Date / Time ethotoin [From Peganone] Allergy Mild Rash Verified 10/30/23 12:07 Family History Other Cancer Heart disease Osteoporosis Surgical History History of appendectomy History of back surgery S/P appy Social History Smoking Status: Light Smoker (<10/day) ROS ROS ED Constitutional Constitutional ED: Denies chills or fever(s) Eyes Eyes: Denies blurry vision or change in vision ENT ENT ED: Denies rhinorrhea or sore throat Cardiovascular Cardiovascular: Denies chest pain or palpitations Respiratory/Chest Respiratory/Chest: Denies cough or dyspnea Gastrointestinal Gastrointestinal: Denies nausea or vomiting Genitourinary Genitourinary ED: Denies dysuria or hematuria Musculoskeletal Musculoskeletal: Reports back pain; Denies neck pain Integumentary Denies abscess or rash Neurologic Neurologic: Denies headache(s) or weakness Allergic/Immunologic Allergic/Immunologic ED: Denies mouth swelling or urticaria EXAM Physical Exam Const Vital Signs: 11/13/23 11:08 11/13/23 11:08 Temperature 98.4 F Temperature Source Temporal Pulse Rate 90 Respiratory Rate 16 Respiratory Effort Normal Blood Pressure 123/77 H Blood Pressure Mean 92 Pulse Ox 95 Oxygen Delivery Method Room Air Room Air Positive well nourished and well developed General Appearance ED: well developed and NAD HEENT Reports normocephalic atraumatic Neck full ROM and supple Back/Spine Back/Spine Narrative: There is tenderness over the lumbar spine, sacrum, and paraspinal muscles. There is no bony crepitance or step-off noted. Range of motion was limited in all motions of the lumbar spine secondary to pain. Lumbar Spine / Lower Back: lumbar spinal tenderness, paraspinal muscle tenderness and straight leg raise negative bilaterally Extremity Extremity Narrative: There is mild tenderness over the hips bilaterally. There is no obvious deformity noted. Range of motion was limited in all motions of the bilateral hip secondary to pain. Neuro oriented x3, CN's II-XII intact bilaterally, moves all extremities, no focal motor deficits and no sensory deficits noted Garrison Coma Scale: document GCS findings Spontaneous Obeys Commands Oriented 15 Sensorium / Orientation: alert Motor Exam: strength 5/5 throughout Psych mental status grossly normal MDM MDM MDM Narrative Medical decision making narrative: Differential diagnosis includes lumbar compression fracture, hip fracture, lum bosacral strain, and contusion. X-rays of the lumbar spine will be obtained to assess for lumbar compression fracture. X-rays of the pelvis will be obtained to assess for hip and pelvis fracture. Radiography X-Ray: LS SPine, DJD and Spurring Diagnostic Testing: Clinical Impression(s) from Imaging Studies Pelvis X-Ray 11/13/23 11:53 IMPRESSION: 1. No acute fracture 2. Moderate left hip joint space narrowing Electronically Signed: Morales Reed MD at 12:52 EDT , Lumbar Spine X-Ray 11/13/23 11:54 IMPRESSION: 1. Degenerative changes of the spine, as detailed above. Electronically Signed: Morales Reed MD at 12:32 EDT , X-rays of the lumbar spine were obtained. There are 2 views. On my independent interpretation, there is no acute fracture or spondylolisthesis noted. The pedicle screws are in place. Radiologist also interpreted the x-rays and agrees. X-rays of the pelvis were obtained. There is 1 view. On my independent interpretation, there is no acute fracture. There are some degenerative changes noted. There is some joint space narrowing in the left hip. Radiologist also interpreted the x-rays and agrees. Treatment and Re-Evaluation Narrative: Patient was given a dose of morphine and Zofran here. Patient was given a repeat dose of morphine and Zofran. Patient was able to ambulate with a walker. Patient states he does not want to be admitted and get physical therapy and possibly go to a care home. Patient would prefer to go home. Patient was given a prescription for a short course of [place]. Patient states he has a walker at home. Daughter states that she lives nearby and will be able to help him as needed. Patient was instructed to follow-up with his primary care physician in 3 to 5 days. Patient was instructed to return if worse in any way. Patient and family understood and were agreeable with the plan. All questions were answered. Discharge Plan Triage Chief Complaint: Fall ED Provider: Diony Burks Dx/Rx/DC Orders Clinical Impression: Lumbar contusion, Fall Instructions: ED Back Contusion Prescriptions: New hydrocodone-acetaminophen [hydrocodone-acetaminophen] 5-325 mg tablet 1 tab PO Q6H PRN PRN (Reason: Pain) 3 Days Qty: 10 0RF No Action losartan 25 mg tablet 25 mg PO QHS Qty: 90 3RF Hold Instructions: Hold for 2 days and resume 25 mg daily for 3 days and then increase to 50 mg daily. atorvastatin 10 MG tablet 10 mg PO QHS tamsulosin 0.4 MG capsule 0.8 mg PO QHS divalproex 250 MG tablet 500 mg PO BID Spiriva with HandiHaler 1 PUFF inhaler 1 puff inhalation QHS budesonide-formoterol [Symbicort] 1 INHALER inhaler 1 puff inhalation BID Omeprazole [Prilosec] 40 MG capsule 40 mg PO DAILY aspirin 81 MG tablet,chewable 81 mg PO DAILY@0800 cholecalciferol (vitamin D3) [Vitamin D3] 1,000 UNIT tablet 2,000 unit PO DAILY L.acidjoanne, emre,B. lactis 1 EACH capsule 1 ea PO DAILY carvedilol 6.25 MG tablet 6.25 mg PO BID Qty: 60 0RF dextromethorphan-guaifenesin [Mucinex DM] 60-1,200 mg tablet extended release 12 hr 1 tab PO Q12H 7 Days Qty: 14 0RF Primary Care Provider: Iris Clancy Referrals: Iris Clancy MD [Primary Care Provider] - 3-5 Days Disposition Disposition: Home, Self Care
[2023-11-13 11:42] VITALS: BMI 25.9
[2023-11-13] MEDS: Ondansetron 4 MG/2 ML Vial IV (11:42)
[2023-11-13] MEDS: Morphine 4 MG/ML Syringe IV ×2 (11:43→13:24)
--- NOTE | 2023-11-13 11:53 | RAD_ITS ---
STUDY: X-RAY - PELVIS REASON FOR EXAM: Male, 73 years old. Injury/Pain TECHNIQUE: One view of the pelvis was obtained. COMPARISON: Lumbar spine x-ray dated December 08, 2022 FINDINGS: There is a non-specific bowel gas pattern. Normal visualized soft tissue structures. Normal bilateral iliac wings, sacroiliac joints and visualized sacrum. Normal visualized bilateral superior and inferior pubic rami. Normal pubic symphysis. Normal ischial tuberosities. Normal visualized right femoral head. Normal right acetabulum. Normal right hip joint. Normal visualized left femoral head. Normal left acetabulum. There is moderate articular joint space narrowing of the left hip. No fracture is seen in either hip or in the pelvic bony structures. There is no evidence of avascular necrosis. Stable lumbar spine hardware and chronic postoperative changes. Atherosclerotic calcifications are present. RAD/Pelvis 1 or 2 Views IMPRESSION: 1. No acute fracture 2. Moderate left hip joint space narrowing Electronically Signed: Morales Reed MD at 12:52 EDT ,
--- NOTE | 2023-11-13 11:54 | RAD_ITS ---
STUDY: X-RAY - LUMBAR SPINE REASON FOR EXAM: Male, 73 years old. Injury/Pain TECHNIQUE: 2 view(s) of the lumbar spine were obtained. COMPARISON: December 08, 2022 Lumbar Spine x-ray FINDINGS: Stable posterior fusion rods and pedicle screws from L2 down to S1. No demonstrated hardware displacement or abnormal lucency at the bone hardware interface. No acute fracture or compression deformity is present. No lytic or blastic lesion is seen. Redemonstration of anterolisthesis of L5 on S1 of 1.3 cm. Redemonstration of multilevel degenerative changes, which are severe at L1-L2 and L2-L3. Normal lumbar lordosis. There is no substantial scoliosis. The soft tissue structures are unremarkable. RAD/Lumbar Spine 2 or 3 Views IMPRESSION: 1. Degenerative changes of the spine, as detailed above. Electronically Signed: Morales Reed MD at 12:32 EDT ,
[2023-11-13 15:05] VITALS: BP 137/73; PULSE 83; RESP 18; TEMP 36.8; O2SAT 92
== END 2023-11-13 15:06 | disposition home or self-care (01) ==
PROVIDERS: Emergency Provider Emergency Medicine; PCP Internal Medicine; Visit Provider Emergency Medicine
DX: S30.0XXA Contusion of lower back and pelvis, initial encounter (principal); N18.32 Chronic kidney disease, stage 3b; F17.200 Nicotine dependence, unspecified, uncomplicated; W18.30XA Fall on same level, unspecified, initial encounter
CPT/HCPCS: 72100; 72170; 96374; 96375; 96376; 99282; A4216; J2405

== ENCOUNTER 2023-11-17 07:42 | Day surgery (SDC) | payer MEDICARE, BC, SELFPAY ==
[2023-11-17] VITALS (15 sets, daily range): BP systolic 117–182; BP diastolic 60–99; PULSE 62–76; RESP 14–18; TEMP 35.9–37.2; O2SAT 90–99; BMI 25.0; BMI 25.1
--- NOTE | 2023-11-17 07:56 | EKG12_ITS ---
Test Reason : pre op Blood Pressure : / mmHG Vent. Rate : 079 BPM Atrial Rate : 079 BPM P-R Int : 156 ms QRS Dur : 152 ms QT Int : 400 ms P-R-T Axes : 032 054 006 degrees QTc Int : 458 ms Atrial-sensed ventricular-paced rhythm Abnormal ECG When compared with ECG of 23-SEP-2022 03:49, Electronic ventricular pacemaker has replaced Atrial fibrillation Confirmed by ANGELA TAVAREZ, LISET ([id number]), editorial assistant BIB VUONG ([id number]) on 11/18/2023 1:38:09 PM Referred By: Alex Zhao Confirmed By:LISET MILLER MD
[2023-11-17] MEDS: Lactated Ringers 1,000 ML 15 ML IV (08:34)
[2023-11-17] MEDS: Ipratropium/Albuterol Sulfate 3 ML AMPUL.NEB INHALATION ×2 (08:47→20:02)
[2023-11-17 09:01] LABS: Partial Thromboplast Time 32.8 Seconds (24.1-36.2)
--- NOTE | 2023-11-17 09:45 | PROS_PTH ---
PATIENT: KATIE HOLMAN LOC: [facility] [place] U#:[id number] AGE/SX: 73/M ROOM: RE11/17/[address]: Dr. Alex Zhao MD : 1950 BED: DIS: 11/18/2023 SPEC #: [id number] RECD: 11/17/23 13:14 STATUS: SLIME HERNANDEZ #: [id number] CLAIRE: 11/17/23 09:[address]: Alex Zhao DEPT: SURGICAL PATHOLOGY RECD BY: Bee Borden ENTERED: 11/17/23 14:00 SP TYPE: TURP OTHR DR: Dr. Iris Clancy MD Tissues: Prostate, NOS Procedures: Surgery Specimen Level IV HEADER OPERATION: Cysto, Transurethral resection, Prostate, Olympus PRE-OP DIAGNOSIS: BPH with obstruction and retention TISSUE SUBMITTED: Prostate chips MICROSCOPIC DIAGNOSIS Prostate, transurethral resection: Acute and chronic prostatitis. Benign nodular hyperplasia, glandular and stromal types. AM: 11/18/23 MICROSCOPIC DESCRIPTION Slides are reviewed. GROSS DESCRIPTION Received is one container labeled with the patient's name and designated prostate tissue. The specimen consists of multiple irregular fragments of pink-mosquera, rubbery, soft tissue that in aggregate weigh 9.9 gm and measure in aggregate 4.5 x 4.0 x 1.5 cm. The entire specimen is submitted in ten cassettes. COLE/ 11/17/23 TC:2 CPT: 61607
[2023-11-17] MEDS: Cefazolin 2 GM in 0.9% Normal Saline (100mL Bag) 100 ML IV (10:24)
--- NOTE | 2023-11-17 10:38 | PCM.HP.STD ---
[facility] - General General Date of Service: 11/17/23 Chief Complaint: BPH with retention of urine [facility] Narrative KATIE HOLMAN, is a 73 M who presents for transurethral resection of prostate patient has retention of urine discussed with the patient as possible surgery may fail and he still may not be able to urinate afterwards and he may need to learn how to do management with a catheter [facility] Medical History (Updated 11/15/23 @ 17:05 by Lissy Mcgarry) Back pain with history of spinal surgery BPH (benign prostatic hyperplasia) Cardiology follow-up encounter Cataract Emphysema lung GERD (gastroesophageal reflux disease) History of echocardiogram Hypertension Indwelling urethral catheter present Neuropathy 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 Seizures Smoker Stage 3b chronic kidney disease (CKD) Third degree heart block Walker as ambulation aid Wears dentures Wears glasses Wears hearing aid Home Medications Omeprazole [Prilosec] 40 mg PO DAILY 05/28/16 [History Last Taken 11/17/23] atorvastatin 10 mg tablet 10 mg PO QHS 05/28/16 [History Last Taken 11/16/23] budesonide-formoterol HFA 160 mcg-4.5 mcg/actuation aerosol inhaler (Symbicort) 1 puff inhalation BID 05/28/16 [History Last Taken 11/17/23] divalproex 250 mg tablet,extended release 24 hr 500 mg PO BID 05/28/16 [History Last Taken 11/17/23] tamsulosin 0.4 mg capsule 0.8 mg PO QHS 05/28/16 [History Last Taken 11/16/23] tiotropium bromide 18 mcg capsule with inhalation device (Spiriva with HandiHaler) 1 puff inhalation QHS 05/28/16 [History Last Taken 11/16/23] aspirin 81 mg chewable tablet 81 mg PO DAILY@0800 07/06/16 [History Last Taken 11/09/23] cholecalciferol (vitamin D3) 25 mcg (1,000 unit) tablet (Vitamin D3) 2,000 unit PO DAILY 07/06/16 [History Last Taken 11/16/23] L.acidoph, paracasei,B. lactis 10 billion cell capsule 1 ea PO DAILY 02/07/17 [History Last Taken 11/16/23] carvedilol 6.25 mg tablet 6.25 mg PO BID #60 tabs 02/08/17 [Rx Last Taken 11/17/23] losartan 25 mg tablet 25 mg PO QHS #90 tabs 08/03/23 [Rx Last Taken 11/16/23] ciprofloxacin HCl 500 mg tablet (Cipro) 500 mg PO BID #10 tabs 11/17/23 [Rx Last Taken Unknown] Allergy/AdvReac Type Severity Reaction Status Date / Time ethotoin [From Peganone] Allergy Mild Rash Verified 11/17/23 08:25 Family History Other Cancer Heart disease Osteoporosis Surgical History (Updated 11/15/23 @ 16:50 by Lissy Mcgarry) History of appendectomy History of back surgery History of colonoscopy History of selective injection of anesthetic agent around lumbar nerve root History of surgery Social History Smoking Status: Light Smoker (<10/day) Vital Signs Vital Signs Vital Signs: 11/17/23 08:28 11/17/23 08:28 11/17/23 08:48 Temperature 97.1 F L Temperature Source Temporal Pulse Rate 76 75 Respiratory Rate 18 18 Respiratory Pattern Normal Normal Blood Pressure 117/60 Blood Pressure Mean 79 Blood Pressure Source Monitor Blood Pressure Position Semi-Fowlers Blood Pressure Location Left Arm Pulse Ox 98 Oxygen Delivery Method Room Air Weight Weight: 77 kg Body Mass Index (BMI) 25.0 Results Lab / Micro Data Labs: Laboratory Results - last 24 hr 11/17/23 08:16: APTT 32.8
--- NOTE | 2023-11-17 10:39 | DCINST_ITS ---
Discharge Instructions Diet Discharge Diet: No restrictions Activity Discharge Activity: Return to Normal Activity and May Not Drive (while taking narcotic pain medications.) Dressing / Incision Call your doctor if you observe: Fever of 101 or Higher Follow Up Care Please Follow Up With: Alex Zhao MD When: Call [phone] for an appointment Test Results: Test results from this visit will be discussed in further detail at your follow- up appointment, if applicable. Discharge Plan Admission Primary Reason for Your Visit: turp Attending Provider: Alex Zhao Primary Care Provider: Iris Clancy Discharge Orders/Prescriptions Prescriptions: New ciprofloxacin HCl [Cipro] 500 mg tablet 500 mg PO BID Qty: 10 0RF Continued losartan 25 mg tablet 25 mg PO QHS Qty: 90 3RF Hold Instructions: Hold for 2 days and resume 25 mg daily for 3 days and then increase to 50 mg daily. atorvastatin 10 MG tablet 10 mg PO QHS tamsulosin 0.4 MG capsule 0.8 mg PO QHS divalproex 250 MG tablet 500 mg PO BID tiotropium bromide [Spiriva with HandiHaler] 1 PUFF inhaler 1 puff inhalation QHS budesonide-formoterol [Symbicort] 1 INHALER inhaler 1 puff inhalation BID Omeprazole [Prilosec] 40 MG capsule 40 mg PO DAILY cholecalciferol (vitamin D3) [Vitamin D3] 1,000 UNIT tablet 2,000 unit PO DAILY L.acidoph, paracasei,B. lactis 1 EACH capsule 1 ea PO DAILY carvedilol 6.25 MG tablet 6.25 mg PO BID Qty: 60 0RF Held aspirin 81 MG tablet,chewable 81 mg PO DAILY@0800 Hold Instructions: Resume on 12/01/23. Referrals / Follow Up: Iris Clancy MD [Primary Care Provider] - Alex Zhao MD [Med Staff - Active Staff] - Disposition Disposition (needs filled in before D/C Order can be placed): Home, Self Care
--- NOTE | 2023-11-17 11:18 | PCM.OPRPT ---
Report of Operation Date of Procedure: 11/17/23 Pre-Operative Diagnosis: BPH with obstruction retention of urine Post-Operative Diagnosis: The same Surgery/Procedure Performed:: Transurethral section of prostate Description of Surgical Findings:: In the preoperative setting I discussed with the patient how the surgery would be done with expect afterwards. We discussed how a prostate resection is done and we discussed the risk of the surgery including, bleeding, infection, retrograde ejaculation, changes with ejaculation or intercourse,. We discussed the possibility that the resection of the prostate may not alleviate his urinary symptoms. We discussed the small risk of developing scar tissue along the urethral channel and strictures. We also discussed the chance of the prostate could grow back and he may need further surgery or treatment in the future for prostate problems. Patient was taken back to the operating room, timeout procedure was performed, he was identified and marked and placed on the operating room table. He underwent general anesthesia. He was placed in dorsolithotomy position. Penis and testicles were prepped and draped in usual sterile fashion. Went into the bladder using the visual obturator with a resectoscope. Once inside the bladder identified the right and left ureteral orifice. I then identified the prostate and the anatomy of the prostate. I marked out the area of the sphincter and the verumontanum was identified. I then proceeded with the prostate resection first resected the median lobe. And then resected the right lobe of the prostate. Then to resect the left lobe of the prostate. I then resected the apical tissue of the prostate. This was a complete resection of all obstructive tissue to improve voiding and relieve obstruction. I then made sure that there was no injury to the sphincter or the verumontanum was still intact. At the end of the resection all the chips were Ellik out of the bladder. I then identified the left and right ureteral orifice and these were confirmed to be in good position and effluxing and not injured. The resectoscope was removed, a 22 Sinhala catheter was placed into the bladder on continuous irrigation. And the urine was fairly light pink color and draining normally. He was taken back to the PACU in good condition. CPT 43322 Surgeon: Alex Zhao
[2023-11-17] MEDS: Ketorolac 15 MG/ML Vial IV (12:25)
[2023-11-17] MEDS: Acetaminophen 325 MG Tablet PO (13:27)
[2023-11-17] MEDS: Lactated Ringers 1,000 ML 125 ML IV ×2 (13:32→21:48)
[2023-11-17] MEDS: Budesonide Respules 0.5 MG/2 ML AMPUL.NEB. INHALATION (20:02)
[2023-11-17] MEDS: Carvedilol 6.25 MG Tablet PO (21:43)
[2023-11-17] MEDS: Docusate Sodium 100 MG Capsule 200 MG PO (21:43)
[2023-11-17] MEDS: Losartan Potassium 25 MG Tablet PO (21:43)
[2023-11-17] MEDS: Atorvastatin Calcium 10 MG Tablet PO (21:44)
[2023-11-17] MEDS: Divalproex (ER) 250 MG Tablet 500 MG PO (21:44)
[2023-11-17] MEDS: Tamsulosin HCl 0.4 MG Capsule 0.8 MG PO (21:44)
[2023-11-17] MEDS: Ciprofloxacin 400 MG/200 ML BAG 200 MG IV (21:48)
[2023-11-18 02:27] VITALS: BP 151/76; PULSE 72; RESP 16; TEMP 36.5; O2SAT 94; BMI 25.1
[2023-11-18] MEDS: Lactated Ringers 1,000 ML 125 ML IV (05:55)
[2023-11-18 06:22] VITALS: BP 150/55; PULSE 89; RESP 16; TEMP 37; O2SAT 94; BMI 25.1
[2023-11-18] MEDS: Ipratropium/Albuterol Sulfate 3 ML AMPUL.NEB INHALATION (07:35)
[2023-11-18] MEDS: Budesonide Respules 0.5 MG/2 ML AMPUL.NEB. INHALATION (07:35)
[2023-11-18 07:36] VITALS: PULSE 74; RESP 16; O2SAT 97
--- NOTE | 2023-11-18 07:38 | PCM.PN.GU ---
Subjective Subjective 73-year-old male status post TURP, urine is clear DC Joya and he can go home after is able to urinate Objective Data Objective Data Vital Signs: Vital Signs Temp Pulse Resp BP Pulse Ox O2 Del Method O2 Flow Rate 98.6 F 74 16 150/55 H 97 Room Air 2 11/18/23 06:22 11/18/23 07:36 11/18/23 07:36 11/18/23 06:22 11/18/23 07:36 11/18/23 07:36 11/17/23 12:10 Oxygen Flow Rate (L/min) 2 Oxygen Delivery Method Room Air Weight: 77 kg Body Mass Index (BMI) 25.0 Intake & Output: Intake and Output for Last 24 Hours 11/16/23 11/17/23 11/18/23 23:59 23:59 23:59 Intake Total 2384.17 / 2384.17 877.08 / 877.08 Output Total 42244 / 68223 Balance -8815.83 / -8815.83 877.08 / 877.08 Lab / Micro Data Labs: Laboratory Results - last 24 hr 11/17/23 08:16: APTT 32.8
[2023-11-18 08:00] VITALS: RESP 18
[2023-11-18] MEDS: Docusate Sodium 100 MG Capsule 200 MG PO (10:15)
[2023-11-18] MEDS: Pantoprazole Sodium 40 MG Tablet PO (10:15)
[2023-11-18] MEDS: Ciprofloxacin 400 MG/200 ML BAG 200 MG IV (10:15)
[2023-11-18] MEDS: Carvedilol 6.25 MG Tablet PO (10:15)
[2023-11-18] MEDS: Divalproex (ER) 250 MG Tablet 500 MG PO (10:15)
[2023-11-18 10:38] VITALS: BMI 25.1
--- NOTE | 2023-11-18 11:05 | CASEMGMT ---
JERRY TRIMBLE NOTE: Pt being discharged. JERRY TRIMBLE to room. Introduced self and role. Pt sitting up in chair. Pt states he is , but his is currently @ a SNF and he is not sure how long she will be there. He states he is @ home alone and states he feels he will be safe discharging home alone. He states he is able to care for himself and drives and states he does not have difficulty getting out of his home and does his own grocery shopping. He states he has 3 adult children that are involved/supportive. He states he has fallen twice in the past couple of weeks but states one was when he got his feet tangled and the 2nd time was when his nightlight wasn't working and he couldn't find the light switch. He has a walker and denies needing other DME. Discussed HHC and OP therapy, but he declines both. He states he has had HHC in the past and does feel that he needs it again. He was made aware if he changes his mind once he returns home that he can f/u with his PCP. He voices understanding. He states his brother is planning on taking him home today and he thinks he'll be here around 2 PM. RNShelia, made aware. Pt denies having any discharge needs/concerns. Cat OAKLEY RN, CM
[2023-11-18 14:48] VITALS: BP 134/70; PULSE 70; RESP 18; TEMP 36.8; O2SAT 98
== END 2023-11-18 07:39 | disposition home or self-care (01) ==
LOC: SDC 07:43 → AC 07:44 → MS3 13:52
PROVIDERS: Anesthesiology; PCP Internal Medicine; Referring Provider Urology; Visit Provider Urology
PROC: (CPT 52601; principal; 2023-11-17 09:35)
DX: N41.1 Chronic prostatitis (principal); N18.32 Chronic kidney disease, stage 3b; N41.0 Acute prostatitis; N40.1 Benign prostatic hyperplasia with lower urinary tract symptoms; I12.9 Hypertensive chronic kidney disease with stage 1 through stage 4 chronic kidney disease, or unspecified chronic kidney disease; R33.9 Retention of urine, unspecified; F17.210 Nicotine dependence, cigarettes, uncomplicated; K21.9 Gastro-esophageal reflux disease without esophagitis; Z79.82 Long term (current) use of aspirin; Z79.899 Other long term (current) drug therapy; Z79.51 Long term (current) use of inhaled steroids; Z95.0 Presence of cardiac pacemaker
CPT/HCPCS: 52601; 00914; 85730; 88305; 93005; 94640; 94668; 97161; 97166; 99252; 99406; J7120; G0463; J0744; J2405

== ENCOUNTER → 2023-12-22 | Outpatient (CLI) | payer MEDICARE, BC, SELFPAY ==
--- NOTE | 2023-12-22 14:07 | NEURO ---
NCS and/or EMG Patient Report Ordering Doctor: Iris Clancy DATE OF SERVICE: 12/22/23 Bunny presents with complaints of left leg pain and foot numbness. He has a history of low back pain with multiple surgeries. Electrodiagnostic Findings: Left peroneal motor nerve demonstrates normal distal latency with reduced amplitude and reduced conduction velocity. Left tibial motor response demonstrates normal distal latency with reduced amplitude and reduced conduction velocity. Prolonged left tibial and peroneal F waves. Prolonged H reflex noted bilaterally. Absent left sural response. Prolonged left superficial peroneal latency. Needle EMG was in the left lower limb. All muscles tested showed no evidence of denervation with normal motor unit action potentials. Electrodiagnostic Impression: This is an abnormal study in the left lower limb. 1. Electrodiagnostic findings suggestive of left-sided peroneal, tibial and sural neuropathies. 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 Would recommend testing of the right lower limb in the future to more accurately evaluate for this. 2. There is no electrodiagnostic evidence for lumbosacral radiculopathy. Multi Select Codes Neurology Neurology Interp Codes: 96554-15 Musc test done w/n test comp (interp) and 39937-76 Nrv cndj tst 5-6 studies (interp)
== END | disposition home or self-care (01) ==
LOC: PSN 12:18
PROVIDERS: PCP Internal Medicine; Referring Provider Internal Medicine; Visit Provider Internal Medicine
DX: M48.07 Spinal stenosis, lumbosacral region (principal)
CPT/HCPCS: 95886; 95909

== ENCOUNTER 2023-12-25 16:41 | Inpatient (IN) | payer MEDICARE, BC, SELFPAY ==
[2023-12-25 16:42] VITALS: BP 103/78; PULSE 96; RESP 19; TEMP 36.4; O2SAT 97
[2023-12-25 16:44] VITALS: BMI 22.1
--- NOTE | 2023-12-25 16:58 | RAD_ITS ---
INDICATION: injury EXAMINATION/TECHNIQUE: X-RAY - XR Hip Unilateral with Pelvis when performed; Min 4 Views COMPARISON: FINDINGS: PELVIC BONES: No displaced fracture, destructive or sclerotic lesions. Note that overlapping bowel shadows may however obscure fine detail. Sacroiliac joints are unremarkable. No widening of the pubic symphysis. Surgical fusion at the visualized lower lumbar levels. HIPS: The articular structures are unremarkable. No displaced fracture seen in this frontal view. SOFT TISSUES: No soft tissue swelling or gas. RAD/HIP, UNI W/ Pelvis 2-3 Views IMPRESSION: No evidence of displaced pelvic or hip fracture. Electronically Signed: Asher Brooks DO at 18:53 EDT Reading Location ID and State: [facility] / [place] Tel [phone], Service support ,
--- NOTE | 2023-12-25 17:02 | EX.ED.GENINJ ---
HPI <BEATRIZ Sharma - Last Filed: 12/25/23 19:38> History of Present Illness Chief Complaint: Fall Narrative Narrative: Patient presenting today due to a fall that occurred this morning. He reports that he was going to the bathroom that he may have tripped or lost his balance but is not entirely sure, he was not able to get up off the ground. Daughter reports that he has had increased falls over the past few weeks. He was on the floor for about 7 hours until his daughter came over and found him laying on his right side. He denies hitting his head or any LOC. He denies having any pain in his head, neck, chest, or abdomen. He is not on any blood thinners. <Dr. 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 Seizures Smoker Stage 3b chronic kidney disease (CKD) Third degree heart block Walker as ambulation aid Wears dentures Wears glasses Wears hearing aid Home Medications atorvastatin 10 mg tablet 10 mg PO QHS 05/28/16 [History Last Taken 11/16/23] budesonide-formoterol HFA 160 mcg-4.5 mcg/actuation aerosol inhaler (Symbicort) 1 puff inhalation BID 05/28/16 [History Last Taken 11/17/23] tamsulosin 0.4 mg capsule 0.8 mg PO QHS 05/28/16 [History Last Taken 11/16/23] tiotropium bromide 18 mcg capsule with inhalation device (Spiriva with HandiHaler) 1 puff inhalation QHS 05/28/16 [History Last Taken 11/16/23] aspirin 81 mg chewable tablet 81 mg PO DAILY@0800 07/06/16 [History Last Taken 11/09/23] cholecalciferol (vitamin D3) 25 mcg (1,000 unit) tablet (Vitamin D3) 2,000 unit PO DAILY 07/06/16 [History Last Taken 11/16/23] L.acidoph, paracasei,B. lactis 10 billion cell capsule 1 ea PO DAILY 02/07/17 [History Last Taken 11/16/23] carvedilol 6.25 mg tablet 6.25 mg PO BID #60 tabs 02/08/17 [Rx Last Taken 11/17/23] losartan 25 mg tablet 25 mg PO QHS #90 tabs 08/03/23 [Rx Last Taken 11/16/23] divalproex 500 mg tablet,delayed release 500 mg PO BID 12/25/23 [History Last Taken Unknown] omeprazole 40 mg capsule,delayed release 40 mg PO DAILY 12/25/23 [History Last Taken Unknown] Allergy/AdvReac Type Severity Reaction Status Date / Time ethotoin [From Peganone] Allergy Mild Rash Verified 12/25/23 16:45 Family History Other Cancer Heart disease Osteoporosis Surgical History History of appendectomy History of back surgery History of colonoscopy History of selective injection of anesthetic agent around lumbar nerve root History of surgery Social History Smoking Status: Light Smoker (<10/day) ROS <BEATRIZ Sharma - Last Filed: 12/25/23 19:38> ROS ED Constitutional Constitutional ED: Denies chills or fever(s) Cardiovascular Cardiovascular: Denies chest pain or palpitations Respiratory/Chest Respiratory/Chest: Denies cough or dyspnea Gastrointestinal Gastrointestinal: Denies abdominal pain, nausea or vomiting Genitourinary Genitourinary ED: Denies dysuria, hematuria or urinary urgency Musculoskeletal Musculoskeletal: Reports arthralgias and myalgias Integumentary Reports Abrasions Neurologic Neurologic: Reports weakness; Denies headache(s) or paresthesias EXAM <BEATRIZ Sharma - Last Filed: 12/25/23 19:38> Physical Exam Const Vital Signs: 12/25/23 16:42 12/25/23 16:56 12/25/23 18:41 Temperature 97.6 F L Temperature Source Oral Pulse Rate 96 84 Respiratory Rate 19 H 15 Respiratory Effort Normal Respiratory Depth Normal Respiratory Pattern Tachypnea Blood Pressure 103/78 191/170 H Blood Pressure Mean 86 177 Pulse Ox 97 96 Oxygen Delivery Method Room Air Room Air Room Air Oxygen Flow Rate (L/min) 98 Positive well nourished, well developed and no apparent distress General Appearance ED: well developed HEENT Reports normocephalic and head/scalp atraumatic Mouth ED: Yes moist mucous membranes normal Eyes PERRL and EOMs intact bilaterally Neck full ROM and supple General: Negative for tenderness Chest Wall inspection of chest normal Resp normal respiratory effort and clear to auscultation bilaterally Cardio regular rate and regular rhythm GI soft to palpation, non-tender, non-distended and no masses Back/Spine normal ROM and normal to inspection Extremity normal to inspection Extremity Narrative: Pain to palpation to the right greater trochanter, positive logroll on the right, bilateral DP pulse 2+, good capillary refill, sensation intact. Neuro oriented x3, CN's II-XII intact bilaterally, moves all extremities, no focal motor deficits and no sensory deficits noted Sensorium / Orientation: awake and alert Psych mental status grossly normal and thought process normal Skin Skin Narrative: Small abrasion to the right lateral rib cage and right knee <Dr. Lazaro Davis MD - Last Filed: 12/25/23 17:37> Physical Exam Const Vital Signs: 12/25/23 16:42 12/25/23 16:56 12/25/23 18:41 Temperature 97.6 F L Temperature Source Oral Pulse Rate 96 84 Respiratory Rate 19 H 15 Respiratory Effort Normal Respiratory Depth Normal Respiratory Pattern Tachypnea Blood Pressure 103/78 191/170 H Blood Pressure Mean 86 177 Pulse Ox 97 96 Oxygen Delivery Method Room Air Room Air Room Air Oxygen Flow Rate (L/min) 98 MDM <BEATRIZ Sharma - Last Filed: 12/25/23 19:38> [facility] Narrative Medical decision making narrative: Patient presenting due to a fall that occurred this morning. He thinks he may have lost his balance or tripped as he has been having increased falls over the past few weeks. His daughter reports that his recently was admitted into a [facility] the patient has had a difficult time living on his own and she also has concerns because he has very stressed, has not been eating regularly, and is losing weight. On exam he does have pain to the right hip, x-ray will be obtained to rule out fracture. Labs will be obtained to rule out leukocytosis, anemia, electrode abnormality, PENELOPE, UTI, and rhabdomyolysis. Chest x-ray will be obtained to rule out infiltrate and other cardiopulmonary abnormality. He does appear to be dehydrated and has hyponatremia with a sodium of 121. CPK elevated at 833. UA consistent with UTI, urinary culture obtained, he was treated with Rocephin. He has gotten IV fluids. X-rays are negative for fracture. I spoke with the hospitalist and he will be admitted in stable condition. I have personally performed a face to face assessment of the patient and have reviewed the NANCY Note. I performed a substantive portion of the visit including all aspects of the following. My hannah findings include: History is 73-year-old male with a generalized weakness and falls at home. Patient is but his the last several months with her [facility] as he currently lives alone at home. He was brought in today by his daughter. Exam is [73-year-old male sitting upright in bed. Vital signs are stable. He is afebrile. He does not look septic or toxic. H EENT exam pupils round react to light. No facial or scalp trauma. No hematoma. Neck nontender. Back nontender. Lungs clear to auscultation bilaterally. Heart regular rhythm rate about 90. Chest wall and ribs nontender. No crepitance or subcu air. No bruising. Abdomen soft nontender. Left chest wall he does have a pacemaker. Moves all 4 extremities. Normal grocery supervisor strength. Normal dorsi plantarflexion. He has mild tenderness of the right hip. There is no shortening or rotation. He is able to flex his right knee. Back nontender. Neurologically he is awake alert. Answering questions following commands.] Medical Decision Making [73-year-old male failing to thrive at home with multiple falls. Today he has a hyponatremia with a sodium of 121. He also fell and was found on the floor after about 7 hours. He will be treated with IV fluids both for his hyponatremia, mild dehydration and to prevent rhabdomyolysis. He will be admitted to the hospitalist. X-rays and labs are being obtained.] Other additions or changes: [None] Lab Data Attestation: I reviewed the patient's lab results. Lab results narrative: WBC 15.2, H&H 12 and 36.1, sodium 121, chloride 86, BUN 25, CPK 843 Labs: Laboratory Results - last 24 hr 12/25/23 12/25/23 12/25/23 16:52 17:12 17:38 WBC 15.2 H RBC 4.37 L Hgb 12.0 L Hct 36.1 L MCV 82.6 MCH 27.5 MCHC 33.2 RDW Std Deviation 44.9 H RDW Coeff of Edinson 14.8 H Plt Count 190 MPV 10.0 Immature Gran % (Auto) 0.900 Neut % (Auto) 79.8 H Lymph % (Auto) 8.3 L Dooly % (Auto) 10.5 H Eos % (Auto) 0.2 Baso % (Auto) 0.3 Absolute Neuts (auto) 12.1 H Absolute Lymphs (auto) 1.26 Nucleated RBC % 0 Differential Comment SEE COMMENT Diff Path Review May foll Platelet Estimate ADEQUATE RBC Morphology N CHROM Anisocytosis RARE Sodium 121 L Potassium 4.1 Chloride 86 L Carbon Dioxide 25.0 Anion Gap 10 BUN 25 H Creatinine 1.24 Est GFR (MDRD) Af Amer 73 Est GFR (MDRD) Non-Af 60 BUN/Creatinine Ratio 20.2 H Glucose 118 H Calcium 9.2 Total Creatine Kinase 843 H Urine Color Yellow Urine Clarity Sl. Cloudy Urine pH 6.5 Ur Specific [place] 1.015 Urine Protein 30 H Urine Glucose (UA) 1000 H Urine Ketones 5 H Urine Occult Blood 25 H Urine Nitrite Negative Urine Bilirubin Negative Urine Urobilinogen 4 H Ur Leukocyte Esterase 500 H Urine RBC 0 SEEN Urine WBC 25-50 SEEN Ur Squamous Epith Cells 0 SEEN Urine Bacteria 2+ Urine Mucus 0 SEEN Ur Random Sodium 38 Radiography X-Ray: Read by ED Physician Diagnostic Testing: Clinical Impression(s) from Imaging Studies Hip/Pelvis X-Ray 12/25/23 16:58 IMPRESSION: No evidence of displaced pelvic or hip fracture. Electronically Signed: Asher Brooks DO at 18:53 EDT , Chest X-Ray 12/25/23 17:40 IMPRESSION: Basilar atelectasis. Electronically Signed: Asher Brooks DO at 18:37 EDT Reading Location ID and State: [facility] / [place] Tel [phone], Service support , EKG Initial EKG: Comments: 92 bpm, ventricular paced rhythm, no ST elevation, reviewed and interpreted by attending ED physician <Dr. Lazaro Davis MD - Last Filed: 12/25/23 17:37> [facility] MDM Narrative Medical decision making narrative: Patient presenting due to a fall that occurred this morning. He thinks he may have lost his balance or tripped as he has been having increased falls over the past few weeks. His daughter reports that his recently was admitted into a [facility] the patient has had a difficult time living on his own and she also has concerns because he has very stressed, has not been eating regularly, and is losing weight. On exam he does have pain to the right hip, x-ray will be obtained to rule out fracture. Labs will be obtained to rule out leukocytosis, anemia, electrode abnormality, PENELOPE, UTI, and rhabdomyolysis. Chest x-ray will be obtained to rule out infiltrate and other cardiopulmonary abnormality. He does appear to be dehydrated, he has hyponatremia with a sodium of 121. I have personally performed a face to face assessment of the patient and have reviewed the NANCY Note. I performed a substantive portion of the visit including all aspects of the following. My hannah findings include: History is 73-year-old male with a generalized weakness and falls at home. Patient is but his the last several months with her [facility] as he currently lives alone at home. He was brought in today by his daughter. Exam is [73-year-old male sitting upright in bed. Vital signs are stable. He is afebrile. He does not look septic or toxic. H EENT exam pupils round react to light. No facial or scalp trauma. No hematoma. Neck nontender. Back nontender. Lungs clear to auscultation bilaterally. Heart regular rhythm rate about 90. Chest wall and ribs nontender. No crepitance or subcu air. No bruising. Abdomen soft nontender. Left chest wall he does have a pacemaker. Moves all 4 extremities. Normal grocery supervisor strength. Normal dorsi plantarflexion. He has mild tenderness of the right hip. There is no shortening or rotation. He is able to flex his right knee. Back nontender. Neurologically he is awake alert. Answering questions following commands.] Medical Decision Making [73-year-old male failing to thrive at home with multiple falls. Today he has a hyponatremia with a sodium of 121. He also fell and was found on the floor after about 7 hours. He will be treated with IV fluids both for his hyponatremia, mild dehydration and to prevent rhabdomyolysis. He will be admitted to the hospitalist. X-rays and labs are being obtained.] Other additions or changes: [None] Lab Data Labs: Laboratory Results - last 24 hr 12/25/23 12/25/23 12/25/23 16:52 17:12 17:38 WBC 15.2 H RBC 4.37 L Hgb 12.0 L Hct 36.1 L MCV 82.6 MCH 27.5 MCHC 33.2 RDW Std Deviation 44.9 H RDW Coeff of Edinson 14.8 H Plt Count 190 MPV 10.0 Immature Gran % (Auto) 0.900 Neut % (Auto) 79.8 H Lymph % (Auto) 8.3 L Dooly % (Auto) 10.5 H Eos % (Auto) 0.2 Baso % (Auto) 0.3 Absolute Neuts (auto) 12.1 H Absolute Lymphs (auto) 1.26 Nucleated RBC % 0 Differential Comment SEE COMMENT Diff Path Review May foll Platelet Estimate ADEQUATE RBC Morphology N CHROM Anisocytosis RARE Sodium 121 L Potassium 4.1 Chloride 86 L Carbon Dioxide 25.0 Anion Gap 10 BUN 25 H Creatinine 1.24 Est GFR (MDRD) Af Amer 73 Est GFR (MDRD) Non-Af 60 BUN/Creatinine Ratio 20.2 H Glucose 118 H Calcium 9.2 Total Creatine Kinase 843 H Urine Color Yellow Urine Clarity Sl. Cloudy Urine pH 6.5 Ur Specific [place] 1.015 Urine Protein 30 H Urine Glucose (UA) 1000 H Urine Ketones 5 H Urine Occult Blood 25 H Urine Nitrite Negative Urine Bilirubin Negative Urine Urobilinogen 4 H Ur Leukocyte Esterase 500 H Urine RBC 0 SEEN Urine WBC 25-50 SEEN Ur Squamous Epith Cells 0 SEEN Urine Bacteria 2+ Urine Mucus 0 SEEN Ur Random Sodium 38 Radiography Diagnostic Testing: Clinical Impression(s) from Imaging Studies Hip/Pelvis X-Ray 12/25/23 16:58 IMPRESSION: No evidence of displaced pelvic or hip fracture. Electronically Signed: Asher Brooks DO at 18:53 EDT , Chest X-Ray 12/25/23 17:40 IMPRESSION: Basilar atelectasis. Electronically Signed: Asher Brooks DO at 18:37 EDT , Discharge Plan Dx/Rx/DC Orders Clinical Impression: Contusion of hip, Generalized weakness, Unable to ambulate, Falls, Acute hyponatremia Disposition Disposition: Acute Care Hospital [facility] Discharge Date/Time: 12/25/23 19:35
[2023-12-25 17:06] LABS: Absolute Lymphocyte Count 1.26 X10^3/uL (0.83-4.51); Absolute Neutrophil Count 12.1 X10^3/uL (2.0-7.7); Basophil# 0.04 X10^3/uL; Basophil% 0.3 % (0-1); Eosinophil# 0.03 X10^3/uL; Eosinophils% 0.2 % (0-5); Hematocrit 36.1 % (40-54); Lymphocyte # 1.26 X10^3/ul (0.83-4.51); Lymphocyte % 8.3 % (19-41); Mean Corp Hgb Conc 33.2 g/dL (32-36); Mean Corpuscular Hgb 27.5 pg (27.0-32.0); Mean Corpuscular Volume 82.6 fL (80-94); Monocyte% 10.5 % (0-10); NRBC Flagged by Analyzer 0 % (0-5); Neutrophil # 12.12 X10^3/uL (2.7-7.7); Neutrophil % 79.8 % (47-70); POSITIVE DIFFERENTIAL YES; Platelet Count 190 K/mm3 (150-450); RBC Distribution Width CV 14.8 % (11.6-14.6); RBC Distribution Width SD 44.9 fl (35.1-43.9); Red Blood Count 4.37 M/mm3 (4.6-6.2); White Blood Count 15.2 K/mm3 (4.4-11.0)
[2023-12-25 17:10] LABS: Differential Indicated SCAN CRITERIA MET
[2023-12-25] MEDS: 0.9% Normal Saline (1000mL) 1,000 ML 999 ML IV (17:15)
[2023-12-25 17:23] LABS: Anion Gap 10 (5-15); BUN 25 mg/dL (7-18); BUN/Creat Ratio 20.2 RATIO (10-20); CPK Total, Creatine Kinase 843 U/L (39-308); Calcium,Total 9.2 mg/dL (8.5-10.1); Chloride 86 mmol/L (98-107); Creatinine, Serum 1.24 mg/dL (0.70-1.30); EST Glomerular Filtration Rate 60 mL/min (>60); Est Glom Filt Rate - Afr Amer 73 mL/min (>60); Glucose 118 mg/dL (74-106); Potassium 4.1 mmol/L (3.5-5.1); Sodium Level 121 mmol/L (136-145)
[2023-12-25 17:37] LABS: Platelet Estimate ADEQUATE (ADEQ); Red Cell Morphology N CHROM NORMAL (NORM C&C)
[2023-12-25 17:38] LABS: Anisocytosis RARE
--- NOTE | 2023-12-25 17:40 | RAD_ITS ---
INDICATION: fall EXAMINATION/TECHNIQUE: X-RAY - XR Chest 2 Views COMPARISON: FINDINGS: LINES/DEVICES: There is a left-sided pacemaker. LUNGS: No consolidation, edema or effusion. Basilar atelectasis. No pneumothorax. MEDIASTINUM AND CARDIOVASCULAR STRUCTURES: Cardiac silhouette not enlarged. Calcified aortic arch. Central airways and mediastinal contour are unremarkable. BONES AND SOFT TISSUES: Unremarkable. RAD/Chest PA and Lateral IMPRESSION: Basilar atelectasis. Electronically Signed: Asher Brooks DO at 18:37 EDT ,
[2023-12-25 18:13] LABS: Mucous, Urine 0 SEEN /hpf (<or=2+); Red Blood Cells-Urine 0 SEEN /hpf (0-5); Squamous Epithelial Cells - UA 0 SEEN /hpf (0-5)
[2023-12-25 18:27] LABS: Color, Urine Yellow (Yellow); Glucose, Dipstick 1000 mg/dl (Normal); Ketone-Dipstick 5 mg/dl (Negative); Leukocyte Esterase-Dipstick 500 /ul (Negative); Nitrite-Dipstick Negative (Negative); Occult Blood-Urine 25 /ul (Negative); Protein-Dipstick 30 mg/dl (Negative); Specific Gravity, Urine 1.015 (1.002-1.030); Urine Bilirubin Dipstick Negative (Negative); Urine Clarity Sl. Cloudy (Clear); Urine Urobilinogen 4 mg/dl (Normal); Urine pH 6.5 (5.0 - 8.0)
[2023-12-25 18:38] LABS: Bacteria 2+ /hpf (None Seen); White Blood Cells 25-50 SEEN /hpf (0-5)
[2023-12-25 18:41] VITALS: BP 191/170; PULSE 84; RESP 15; O2SAT 96
--- NOTE | 2023-12-25 18:53 | HP.PCM.HOS_ITS ---
HPI - General General Date of Admission: 12/25/23 Date of Service: 12/25/23 Chief Complaint: Fall with worsening debility HPI Narrative KATIE HOLMAN, is a 73 M who presented to [facility] [place] ED on 12/25/2023 after a fall at home with inability to get up. Saw patient at bedside in the ED, daughter present. Patient lives at home alone but daughter lives about 10 minutes away. Patient previously lived with his , however she was recently placed in [facility] for skilled nursing care due to debility. Patient was making appropriate eye contact with me but appeared somewhat confused and was not answering all questions appropriately for me. Daughter provided most of the history. She states that patient has become more debilitated over the past several months and has had several episodes of falls. He uses a 4-point walker to ambulate around the home. Patient states he tripped and fell at home last night and was unable to get himself off the floor. He does report some dizziness and lightheadedness that may have contributed to the fall. Daughter got to the home early this morning and found him on the floor and brought him to the ED for further evaluation. Patient denies hitting his head or any loss of consciousness. He does report some right sided hip and shoulder pain. He otherwise denies any chest pain, shortness of breath, fevers or chills. Denies any other acute concerns currently. Daughter states that the patient has had fairly poor appetite over the past several months and has been losing some weight. She states he does appear somewhat more confused today than normal. Vitals in ED notable for mild hypotension, borderline sinus tachycardia with heart rate in the 90s, otherwise unremarkable. CBC with hemoglobin 12.0 (at baseline), WBC count 15, platelets 190. BMP with sodium 121, chloride 86, creatinine 1.24 (at baseline), potassium 4.1, otherwise unremarkable. CK level 843. UA with 500 leukocyte esterase, negative nitrites, 2+ bacteria, 1000 glucose, 5 ketones. Hip/pelvis x-ray with no evidence of fracture. Chest x-ray unremarkable. Will be admitted for further management. [facility] Medical History Back pain with history of spinal surgery BPH (benign prostatic hyperplasia) Cardiology follow-up encounter Cataract Emphysema lung GERD (gastroesophageal reflux disease) History of echocardiogram Hypertension Indwelling urethral catheter present Neuropathy 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 Seizures Smoker Stage 3b chronic kidney disease (CKD) Third degree heart block Walker as ambulation aid Wears dentures Wears glasses Wears hearing aid Home Medications atorvastatin 10 mg tablet 10 mg PO QHS 05/28/16 [History Last Taken 11/16/23] budesonide-formoterol HFA 160 mcg-4.5 mcg/actuation aerosol inhaler (Symbicort) 1 puff inhalation BID 05/28/16 [History Last Taken 11/17/23] tamsulosin 0.4 mg capsule 0.8 mg PO QHS 05/28/16 [History Last Taken 11/16/23] tiotropium bromide 18 mcg capsule with inhalation device (Spiriva with HandiHaler) 1 puff inhalation QHS 05/28/16 [History Last Taken 11/16/23] aspirin 81 mg chewable tablet 81 mg PO DAILY@0800 07/06/16 [History Last Taken 11/09/23] cholecalciferol (vitamin D3) 25 mcg (1,000 unit) tablet (Vitamin D3) 2,000 unit PO DAILY 07/06/16 [History Last Taken 11/16/23] L.acidoph, paracasei,B. lactis 10 billion cell capsule 1 ea PO DAILY 02/07/17 [History Last Taken 11/16/23] carvedilol 6.25 mg tablet 6.25 mg PO BID #60 tabs 02/08/17 [Rx Last Taken 11/17/23] losartan 25 mg tablet 25 mg PO QHS #90 tabs 08/03/23 [Rx Last Taken 11/16/23] divalproex 500 mg tablet,delayed release 500 mg PO BID 12/25/23 [History Last Taken Unknown] omeprazole 40 mg capsule,delayed release 40 mg PO DAILY 12/25/23 [History Last Taken Unknown] Allergy/AdvReac Type Severity Reaction Status Date / Time ethotoin [From Peganone] Allergy Mild Rash Verified 12/25/23 16:45 Family History Other Cancer Heart disease Osteoporosis Surgical History History of appendectomy History of back surgery History of colonoscopy History of selective injection of anesthetic agent around lumbar nerve root History of surgery Social History Smoking Status: Light Smoker (<10/day) ROS Constitutional Constitutional: Reports weakness; Denies chills, fatigue or fever(s) Cardiovascular Cardiovascular: Reports lightheadedness; Denies chest pain, edema or palpitations Respiratory/Chest Respiratory/Chest: Denies shortness of breath at rest Gastrointestinal Gastrointestinal: Denies abdominal pain Genitourinary Genitourinary: Denies dysuria Musculoskeletal Musculoskeletal: Reports arthralgias and joint pain; Denies myalgias Neurologic Neurologic: Reports confusion and dizziness; Denies focal weakness or headache(s) Vital Signs Vital Signs Vital Signs: 12/25/23 16:42 12/25/23 16:56 12/25/23 18:41 Temperature 97.6 F L Temperature Source Oral Pulse Rate 96 84 Respiratory Rate 19 H 15 Respiratory Effort Normal Respiratory Depth Normal Respiratory Pattern Tachypnea Blood Pressure 103/78 191/170 H Blood Pressure Mean 86 177 Pulse Ox 97 96 Oxygen Delivery Method Room Air Room Air Room Air Oxygen Flow Rate (L/min) 98 Physical Exam Const alert and no apparent distress Constitutional Narrative: Elderly male, somewhat thin and chronically ill-appearing, sitting up comfortably bed, alert and making appropriate eye contact but not answering all questions appropriately, otherwise in no acute distress. General Appearance: cooperative and comfortable HEENT normocephalic, head/scalp atraumatic, hearing grossly normal bilaterally and nasal mucous membranes and turbinates normal HEENT Narrative: Dry mucous membranes. Eyes PERRL, EOMs intact bilaterally and conjunctivae normal Neck full ROM Chest inspection of chest normal Resp normal respiratory effort, normal air movement, no use of accessory muscles and clear to auscultation bilaterally Cardio regular rate, regular rhythm, no murmurs and peripheral pulses 2+ throughout GI normal to inspection, nondistended, normoactive bowel sounds, soft to palpation, non-tender and non-distended Back/Spine normal ROM Extremity normal to inspection and no pedal edema Skin no rashes or lesions noted Neuro moves all extremities and no focal motor deficits Speech: speech normal Results Lab / Micro Data 12/25/23 16:52 12/25/23 20:22 Labs: Laboratory Results - last 24 hr 12/25/23 16:52: WBC 15.2 H, RBC 4.37 L, Hgb 12.0 L, Hct 36.1 L, MCV 82.6, MCH 27.5, MCHC 33.2, RDW Std Deviation 44.9 H, RDW Coeff of Edinson 14.8 H, Plt Count 190, MPV 10.0, Immature Gran % (Auto) 0.900, Neut % (Auto) 79.8 H, Lymph % (Auto) 8.3 L, [place] % (Auto) 10.5 H, Eos % (Auto) 0.2, Baso % (Auto) 0.3, Absolute Neuts (auto) 12.1 H, Absolute Lymphs (auto) 1.26, Nucleated RBC % 0, Differential Comment SEE COMMENT, Diff Path Review December foll, Platelet Estimate ADEQUATE, RBC Morphology N CHROM, Anisocytosis RARE, Sodium 121 L, Potassium 4.1, Chloride 86 L, Carbon Dioxide 25.0, Anion Gap 10, BUN 25 H, Creatinine 1.24, Est GFR (MDRD) Af Amer 73, Est GFR (MDRD) Non-Af 60, BUN/Creatinine Ratio 20.2 H, Glucose 118 H, Calcium 9.2, Total Creatine Kinase 843 H 12/25/23 17:38: Urine Color Yellow, Urine Clarity Sl. Cloudy, Urine pH 6.5, Ur Specific [place] 1.015, Urine Protein 30 H, Urine Glucose (UA) 1000 H, Urine Ketones 5 H, Urine Occult Blood 25 H, Urine Nitrite Negative, Urine Bilirubin Negative, Urine Urobilinogen 4 H, Ur Leukocyte Esterase 500 H, Urine RBC 0 SEEN, Urine WBC 25-50 SEEN, Ur Squamous Epith Cells 0 SEEN, Urine Bacteria 2+, Urine Mucus 0 SEEN Imaging Radiology Impression Chest X-Ray 12/25/23 17:40 IMPRESSION: Basilar atelectasis. Electronically Signed: Asher Brooks DO at 18:37 EDT Reading Location ID and State: [facility] / [place] Tel [phone], Service support , Assessment & Plan Assessment/Plan (1) Acute hyponatremia: (2) Falls: (3) Generalized weakness: PLAN: Plan Patient is a 73-year-old male who presented [facility] ED on 12/25/2023 with a fall at home and worsening debility. 1. Hyponatremia ? Admit under inpatient status to PCU. Nephrology consulted. Sodium 121, chloride 86 on admit. Serum osm low at 261, urine osm elevated at 325, urine sodium low at 38. These labs are most consistent with hypovolemic hyponatremia. Was given 1 L normal saline in the ED, repeat BMP with only mild improvement to sodium 123 and chloride 86. Did have sodium of 123 on 10/30/2023, otherwise previous sodium values from back in 2022 were within normal range. Home med list reviewed, is on valproate for seizures but has been on this since 2016. Will give LR maintenance IV fluids overnight with hope for slow increase in sodium level, follow-up a.m. BMP. 2. Recurrent falls, acute on chronic debility ? PT/OT/case management consulted. Uses 4-point walker at home, suspect worsening chronic debility with hyponatremia and possible UTI contributing. Fall precautions in place. 3. Mild rhabdomyolysis ? CK level 837 on admit. No PENELOPE noted. Giving IV fluids as above, follow-up a.m. CK level. 4. Concern for UTI, history of BPH s/p recent TURP procedure ? Follows with Dr. Zhao, had TURP procedure done here on 11/16. Reportedly tolerated procedure well, Joya was removed on 11/17 and patient voided without issue, was discharged home on 11/17. Has tamsulosin 0.8 mg at night listed on med list but apparently felt like this was too high a dose, unclear if he has been taking at lower dose or at all. Patient and daughter note she has had continued BPH type symptoms with difficulty starting stream and feeling like he has completely voided since the TURP procedure. Denies any UTI symptoms. UA mildly infectious appearing on admit. Will treat with ceftriaxone for now, follow-up urine culture. Renal/bladder ultrasound ordered. 5. Chronic anemia ? Hemoglobin 12.0 on admit, baseline 10-12. Iron studies with mildly low iron and iron saturation but normal ferritin. Folate normal, vitamin B12 pending. Follow-up a.m. CBC. 6. CKD stage III ? Creatinine 1.24 on admit, baseline 1.2-1.5. Follow-up a.m. BMP and urine output. Chronic medical conditions: ? History of complete heart block s/p pacemaker placement ? Hypertension: Continue home carvedilol, holding home losartan for now. ? Hyperlipidemia: Continue home statin. ? COPD: Stable on room air, not in acute exacerbation. Continue home inhalers. ? GERD: Continue home PPI. ? History of seizures: Continue home divalproex. ? Tobacco abuse: Smoking around 4 to 5 cigarettes/day at this point. Encouraged cessation. Nicotine replacement therapy available as needed. DVT prophylaxis: Lovenox CODE STATUS: DNR CCA, DNI Expected disposition: SNF, TBD Total clinical time spent by myself addressing the patient's medical issues, reviewing all the data, and collaborating with patient's care team: 75 minutes. Charges/Coding Visit Charges Inpatient E&M: 37106 Init Hosp L3
[2023-12-25 19:00] VITALS: BP 123/83; BP 154/80; BP 98/62; PULSE 85; PULSE 96; PULSE 98; RESP 25; TEMP 36.4; O2SAT 99
[2023-12-25] MEDS: Ceftriaxone 1 GM/50 ML BAG IV (19:01)
[2023-12-25 19:28] LABS: Urine Sodium 38 mmol/L (Not Establ.)
[2023-12-25 19:45] LABS: Osmolality, Urine 325 mOsm/KG
[2023-12-25 19:45] LABS: Osmolality, Serum 261 mOsm/KG (280-301)
[2023-12-25 19:56] VITALS: BMI 22.1
[2023-12-25 19:56] LABS: Hemoglobin A1c 5.7 % (3.8-5.6)
[2023-12-25 20:04] LABS: Ferritin 238 ng/mL (26-388); Iron 35 ug/dL (65-175); Iron Binding Capacity,Total 298 ug/dL (250-450); PERCENT IRON SATURATION 11.7 % (15.0-55.0); Thyroid Stim Hormone (TSH) 2.12 uIU/mL (0.358-3.74)
[2023-12-25 20:07] VITALS: BP 123/83; PULSE 96; RESP 18; TEMP 36.6; O2SAT 96
[2023-12-25] MEDS: Acetaminophen 325 MG Tablet 650 MG PO (20:46)
[2023-12-25] MEDS: Divalproex Sodium 250 MG Tablet 500 MG PO (20:46)
[2023-12-25] MEDS: Atorvastatin Calcium 10 MG Tablet PO (20:46)
[2023-12-25] MEDS: Lactated Ringers 1,000 ML 75 ML IV (20:46)
[2023-12-25] MEDS: Carvedilol 6.25 MG Tablet PO (20:46)
[2023-12-25 20:50] LABS: Anion Gap 9 (5-15); BUN 24 mg/dL (7-18); BUN/Creat Ratio 18.3 RATIO (10-20); Calcium,Total 9.1 mg/dL (8.5-10.1); Chloride 89 mmol/L (98-107); Creatinine, Serum 1.31 mg/dL (0.70-1.30); EST Glomerular Filtration Rate 57 mL/min (>60); Est Glom Filt Rate - Afr Amer 69 mL/min (>60); Estimated Creatinine Clearance 48.38 ml/min; Glucose 135 mg/dL (74-106); Potassium 4.2 mmol/L (3.5-5.1); Sodium Level 123 mmol/L (136-145)
[2023-12-25 22:45] VITALS: O2SAT 96
[2023-12-26 02:40] VITALS: BP 115/63; PULSE 69; RESP 18; TEMP 36.4; O2SAT 95
[2023-12-26 05:34] LABS: Hematocrit 30.3 % (40-54); Hemoglobin 10.1 g/dL (13.0-16.5); Mean Corp Hgb Conc 33.3 g/dL (32-36); Mean Corpuscular Hgb 27.2 pg (27.0-32.0); Mean Corpuscular Volume 81.5 fL (80-94); Mean Platelet Vol. 9.9 fl (6.2-12.0); Platelet Count 141 K/mm3 (150-450); RBC Distribution Width CV 15.1 % (11.6-14.6); RBC Distribution Width SD 45.2 fl (35.1-43.9); Red Blood Count 3.72 M/mm3 (4.6-6.2); White Blood Count 8.3 K/mm3 (4.4-11.0)
[2023-12-26 06:10] LABS: Anion Gap 8 (5-15); BUN 22 mg/dL (7-18); BUN/Creat Ratio 20.2 RATIO (10-20); CPK Total, Creatine Kinase 552 U/L (39-308); Calcium,Total 8.6 mg/dL (8.5-10.1); Chloride 92 mmol/L (98-107); Creatinine, Serum 1.09 mg/dL (0.70-1.30); EST Glomerular Filtration Rate 70 mL/min (>60); Est Glom Filt Rate - Afr Amer 85 mL/min (>60); Estimated Creatinine Clearance 58.14 ml/min; Glucose 87 mg/dL (74-106); Potassium 4.7 mmol/L (3.5-5.1); Sodium Level 123 mmol/L (136-145)
[2023-12-26 07:06] VITALS: PULSE 72; RESP 16; O2SAT 94
[2023-12-26] MEDS: Budesonide Respules 0.5 MG/2 ML AMPUL.NEB. INHALATION ×2 (07:06→19:26)
[2023-12-26] MEDS: Ipratropium/Albuterol Sulfate 3 ML AMPUL.NEB INHALATION ×2 (07:06→19:26)
--- NOTE | 2023-12-26 08:11 | PN.HOSP_ITS ---
Reason for Visit Reason for Visit: Diagnoses Hypo-osmolality and hyponatremia (12/25/23) Weakness (12/25/23) Unspecified fall, initial encounter (12/25/23) Objective Data Objective Data Vital Signs: Vital Signs Temp Pulse Resp BP Pulse Ox O2 Del Method O2 Flow Rate 97.5 F L 69 18 115/63 95 Room Air 98 12/26/23 02:40 12/26/23 02:40 12/26/23 02:40 12/26/23 02:40 12/26/23 02:40 12/26/23 02:40 12/25/23 16:56 Oxygen Flow Rate (L/min) 98 Oxygen Delivery Method Room Air Weight: 154 lb 12.232 oz Body Mass Index (BMI) 22.1 Intake & Output: Intake and Output for Last 24 Hours 12/24/23 12/25/23 12/26/23 23:59 23:59 23:59 Intake Total 1650 / 1650 Output Total 400 / 400 Balance 1650 / 1650 -400 / -400 Lab / Micro Data 12/26/23 05:17 12/26/23 05:17 Labs: Laboratory Results - last 24 hr 12/25/23 16:52: WBC 15.2 H, RBC 4.37 L, Hgb 12.0 L, Hct 36.1 L, MCV 82.6, MCH 27.5, MCHC 33.2, RDW Std Deviation 44.9 H, RDW Coeff of Edinson 14.8 H, Plt Count 190, MPV 10.0, Immature Gran % (Auto) 0.900, Neut % (Auto) 79.8 H, Lymph % (Auto) 8.3 L, [place] % (Auto) 10.5 H, Eos % (Auto) 0.2, Baso % (Auto) 0.3, Absolute Neuts (auto) 12.1 H, Absolute Lymphs (auto) 1.26, Nucleated RBC % 0, Differential Comment SEE COMMENT, Diff Path Review May foll, Platelet Estimate ADEQUATE, RBC Morphology N CHROM, Anisocytosis RARE, Sodium 121 L, Potassium 4.1, Chloride 86 L, Carbon Dioxide 25.0, Anion Gap 10, BUN 25 H, Creatinine 1.24, Est GFR (MDRD) Af Amer 73, Est GFR (MDRD) Non-Af 60, BUN/Creatinine Ratio 20.2 H, Glucose 118 H, Hemoglobin A1c 5.7 H, Calcium 9.2, Iron 35 L, TIBC 298, Iron Saturation 11.7 L, Ferritin 238, Total Creatine Kinase 843 H, Folate 5.30, TSH 2.12 12/25/23 17:12: Urine Osmolality 325, Ur Random Sodium 38 12/25/23 17:38: Urine Color Yellow, Urine Clarity Sl. Cloudy, Urine pH 6.5, Ur Specific [place] 1.015, Urine Protein 30 H, Urine Glucose (UA) 1000 H, Urine Ketones 5 H, Urine Occult Blood 25 H, Urine Nitrite Negative, Urine Bilirubin Negative, Urine Urobilinogen 4 H, Ur Leukocyte Esterase 500 H, Urine RBC 0 SEEN, Urine WBC 25-50 SEEN, Ur Squamous Epith Cells 0 SEEN, Urine Bacteria 2+, Urine Mucus 0 SEEN 12/25/23 19:13: Serum Osmolality 261 L 12/25/23 20:22: Sodium 123 L, Potassium 4.2, Chloride 89 L, Carbon Dioxide 25.0, Anion Gap 9, BUN 24 H, Creatinine 1.31 H, Estim Creat Clear Calc 48.38, Est GFR (MDRD) Af Amer 69, Est GFR (MDRD) Non-Af 57 L, BUN/Creatinine Ratio 18.3, Glucose 135 H, Calcium 9.1 12/26/23 05:17: WBC 8.3, RBC 3.72 L, Hgb 10.1 L, Hct 30.3 L, MCV 81.5, MCH 27.2, MCHC 33.3, RDW Std Deviation 45.2 H, RDW Coeff of [place]inson 15.1 H, Plt Count 141 L, MPV 9.9, Sodium 123 L, Potassium 4.7, Chloride 92 L, Carbon Dioxide 23.0, Anion Gap 8, BUN 22 H, Creatinine 1.09, Estim Creat Clear Calc 58.14, Est GFR (MDRD) Af Amer 85, Est GFR (MDRD) Non-Af 70, BUN/Creatinine Ratio 20.2 H, Glucose 87, Calcium 8.6, Total Creatine Kinase 552 H Radiography Diagnostic Testing: Radiology Impression Hip/Pelvis X-Ray 12/25/23 16:58 IMPRESSION: No evidence of displaced pelvic or hip fracture. Electronically Signed: Asher Brooks DO at 18:53 EDT , Chest X-Ray 12/25/23 17:40 IMPRESSION: Basilar atelectasis. Electronically Signed: Asher DO Todd at 18:37 EDT Reading Location ID and State: [place] / [place] Tel [phone], Service support , Physical Exam Narrative Patient looks tired and fatigued. Had 2-3 falls a week prior to admission. He had burning pain which is resolved 1 week prior to coming hospital. Denies any change in urine frequency or amount but has mild urinary obstructive symptoms, chronic on tamsulosin. On a stool softener. Not on diuretic Physical exam General: Alert, Oriented x3, Cooperative HEENT: Atraumatic, PERRLA, EOMI, Normocephalic Oral: No Gingival or Mucosal Lesions/ Ulcerations Neck: Supple, No JVD, Negative Carotid Bruits Chest wall/Lungs: Air entry diminished in bilateral lung bases. No crepitation/rhonchi Cardiovascular: Regular rate, Regular Rhythm, Normal S1, Normal S2, soft systolic murmur present Abdomen: Bowel Sounds Present, Soft, Non Tender, Non-Distended : No dysuria. No renal angle tenderness. No suprapubic tenderness. Extremities: No edema, Capillary Refill Less than 3 Seconds Skin: No rashes, No breakdown Musculoskeletal: No Tenderness to Palpation of Joints or Extremities Neurological: Cranial nerves II-XII grossly intact, DTR 2+/4. No acute focal neurological deficit. Psych/Mental Status: Flat affect. Difficult to recall/ register, MCI/early dementia Assessment & Plan Assessment/Plan (1) Acute hyponatremia: (2) Falls: (3) Generalized weakness: PLAN: Plan Patient is a 73-year-old male who presented [facility] ED on 12/25/2023 with a fall at home and worsening debility. 1. Hypotonic hypovolemic hyponatremia ? Admit under inpatient status to PCU. Nephrology consulted. Sodium 121, chloride 86 on admit. Serum osm low at 261, urine osm elevated at 325, urine sodium at 38. These labs are most consistent with hypovolemic hyponatremia. Was given 1 L normal saline in the ED, repeat BMP with only mild improvement to sodium 123 and chloride 86. Did have sodium of 123 on 10/30/2023, otherwise previous sodium values from back in 2022 were within normal range. Home med list reviewed, is on valproate for seizures but has been on this since 2016. 12/25: Normal saline ordered. [employer] consult Will give LR maintenance IV fluids overnight with hope for slow increase in sodium level, follow-up a.m. BMP. 2. Recurrent falls, acute on chronic debility ? PT/OT/case management consulted. Uses 4-point walker at home, suspect worsening chronic debility with hyponatremia and possible UTI contributing. Fall precautions in place. 3. Mild rhabdomyolysis ? CK level 837 on admit. No PENELOPE noted. Giving IV fluids as above, follow-up a.m. CK level. 4. Concern for UTI, history of BPH s/p recent TURP procedure ? Follows with Dr. Zhao, had TURP procedure done here on 11/16. Reportedly tolerated procedure well, Joya was removed on 11/17 and patient voided without issue, was discharged home on 11/17. Has tamsulosin 0.8 mg at night listed on med list but apparently felt like this was too high a dose, unclear if he has been taking at lower dose or at all. Patient and daughter note she has had continued BPH type symptoms with difficulty starting stream and feeling like he has completely voided since the TURP procedure. Denies any UTI symptoms. UA mildly infectious appearing on admit. On ceftriaxone and follow-up urine culture. Renal/bladder ultrasound ordered. 5. Chronic anemia ? Hemoglobin 12.0 on admit, baseline 10-12. Iron studies with mildly low iron and iron saturation but normal ferritin. Folate normal, vitamin B12 pending. Follow-up a.m. CBC. 6. CKD stage III ? Creatinine 1.24 on admit, baseline 1.2-1.5. Follow-up a.m. BMP and urine output. Chronic medical conditions: ? History of complete heart block s/p pacemaker placement ? Hypertension: Continue home carvedilol, holding home losartan for now. ? Hyperlipidemia: Continue home statin. ? COPD: Stable on room air, not in acute exacerbation. Continue home inhalers. ? GERD: Continue home PPI. ? History of seizures: Continue home divalproex. ? Tobacco abuse: Smoking around 4 to 5 cigarettes/day at this point. Encouraged cessation. Nicotine replacement therapy available as needed. DVT prophylaxis: Lovenox CODE STATUS: DNR CCA, DNI Expected disposition: SNF, TBD Charges/Coding Visit Charges Inpatient E&M: 94469 Subs Hosp L2
[2023-12-26 08:54] VITALS: BP 130/71; PULSE 75; RESP 16; TEMP 36.7; O2SAT 94
[2023-12-26] MEDS: 0.9% Normal Saline (1000mL) 1,000 ML 75 ML IV ×2 (08:57→21:00)
[2023-12-26] MEDS: Divalproex Sodium 250 MG Tablet 500 MG PO ×2 (09:03→21:00)
[2023-12-26] MEDS: Pantoprazole Sodium 40 MG Tablet PO (09:03)
[2023-12-26] MEDS: Carvedilol 6.25 MG Tablet PO ×2 (09:03→21:00)
[2023-12-26] MEDS: Aspirin 81 MG TAB.CHEW PO (09:03)
[2023-12-26] MEDS: Enoxaparin 40 MG/0.4 ML Syringe SC (09:03)
[2023-12-26] MEDS: Cholecalciferol (VIT D3) 25 MCG TABLET (1,000 UNITS) 50 MCG PO (09:04)
[2023-12-26] MEDS: Ceftriaxone 1 GM/50 ML BAG IV (09:05)
--- NOTE | 2023-12-26 09:59 | CON.PCM.RE_ITS ---
Assessment & Plan Assessment/Plan (1) Hyponatremia: PLAN: Based on a previous value of 123, I suspect that hyponatremia is not at that acute. He definitely appears to be hypovolemic and volume expansion is a must. He is asymptomatic, he is awake, alert, oriented and appropriate. There was no witnessed seizures. I think that expanding his volume is a must at this point. Monitoring sodium level every 4-6 hours and adjust fluid as needed. Continuing his oral food/protein and salt intake is marginal, may add salt tablets if sodium does not improve with normal saline IV HPI Consult Data Date of Consult: 12/26/23 HPI Narrative Reason for Consultation: Hyponatremia HPI Narrative: KATIE HOLMAN, is a 73 M who presents to emergency room after falling down at home. Patient was found to have sodium of 121. Review of his records revealed that is not new. Back in October his sodium was as low as 123, and over the last several years he had intermittent hyponatremia. Apparently patient lives alone, does not cook, sometimes orders online from [employer], sometimes eating from [employer]. Urine sodium was on the low side at 34, urine osmolality was 324. Airam ent has a history of mild chronic kidney insufficiency with baseline creatinine around 1.3. He has received 1000 cc of normal saline, sodium today is 123. He is doing better at this morning, he is oriented, he communicates and sounds appropriate. He admits to some weight loss over the last several months. He has been admitted several times with acute urinary retention. Creatinine admission appears to be at the baseline. He is not on diuretics. He has no edema, he has no history of thyroid, liver, or heart disease. 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 Seizures Smoker Stage 3b chronic kidney disease (CKD) Third degree heart block Walker as ambulation aid Wears dentures Wears glasses Wears hearing aid Home Medications atorvastatin 10 mg tablet 10 mg PO QHS 05/28/16 [History Last Taken 11/16/23] budesonide-formoterol HFA 160 mcg-4.5 mcg/actuation aerosol inhaler (Symbicort) 1 puff inhalation BID 05/28/16 [History Last Taken 11/17/23] tamsulosin 0.4 mg capsule 0.8 mg PO QHS 05/28/16 [History Last Taken 11/16/23] tiotropium bromide 18 mcg capsule with inhalation device (Spiriva with HandiHaler) 1 puff inhalation QHS 05/28/16 [History Last Taken 11/16/23] aspirin 81 mg chewable tablet 81 mg PO DAILY@0800 07/06/16 [History Last Taken 11/09/23] cholecalciferol (vitamin D3) 25 mcg (1,000 unit) tablet (Vitamin D3) 2,000 unit PO DAILY 07/06/16 [History Last Taken 11/16/23] L.acidoph, paracasei,B. lactis 10 billion cell capsule 1 ea PO DAILY 02/07/17 [History Last Taken 11/16/23] carvedilol 6.25 mg tablet 6.25 mg PO BID #60 tabs 02/08/17 [Rx Last Taken 11/17/23] losartan 25 mg tablet 25 mg PO QHS #90 tabs 08/03/23 [Rx Last Taken 11/16/23] divalproex 500 mg tablet,delayed release 500 mg PO BID 12/25/23 [History Last Taken Unknown] omeprazole 40 mg capsule,delayed release 40 mg PO DAILY 12/25/23 [History Last Taken Unknown] Allergy/AdvReac Type Severity Reaction Status Date / Time ethotoin [From Peganone] Allergy Mild Rash Verified 12/25/23 16:45 Family History Other Cancer Heart disease Osteoporosis Surgical History History of appendectomy History of back surgery History of colonoscopy History of selective injection of anesthetic agent around lumbar nerve root History of surgery Social History Smoking Status: Light Smoker (<10/day) ROS Constitutional Constitutional: Reports weakness and weight loss Eyes Eyes: Denies blindness, blurry vision, change in vision, discongugate gaze, double vision, dry eyes or loss of vision ENT HEENT: Denies dry mouth, epistaxis, hoarseness, loss taste/smell or nasal congestion Cardiovascular Cardiovascular: Denies chest pain, claudication, diaphoresis, dyspnea on exertion, edema, irregular heart rhythm, leg edema, orthopnea, palpitations or syncope Respiratory/Chest Respiratory/Chest: Denies dry cough, dyspnea on exertion, hemoptysis, portable oxygen @ home, productive cough, shortness of breath at rest or wheezing Gastrointestinal Gastrointestinal: Reports weight changes; Denies abdominal pain, anorexia, diarrhea, dry heaves, hematemesis, hematochezia, melena, nausea, rectal bleeding or vomiting Genitourinary Genitourinary: Reports change in urinary stream, difficulty urinating and urinary hesitancy Musculoskeletal Musculoskeletal: Denies abnormal gait, arthralgias, joint stiffness, joint swelling, muscle cramps or myalgias Integumentary Integumentary: Denies dry skin, erythema, jaundice, lesions, pruritus, rash or skin ulcer Neurologic Neurologic: Reports frequent falls and weakness Psychiatric Psychiatric: Denies anxiety, confusion, depression or hallucinations Endocrine Endocrinology: Reports fatigue Hematologic/Lymphatic Hematologic/Lymphatic: Denies anemia, easy bleeding or easy bruising Physical Exam Const alert, no apparent distress and average body habitus General Appearance: well developed Orientation / Consciousness: oriented to person, oriented to place and oriented to time HEENT normocephalic Head and Scalp: atraumatic Eyes no scleral icterus Neck no lymphadenopathy Resp no use of accessory muscles and clear to auscultation bilaterally Cardio regular rate, no murmurs and no rub GI non-tender and non-distended Auscultation: normoactive bowel sounds Palpation: soft Extremity full ROM Skin no rashes or lesions noted Neuro CN's II-XII intact bilaterally Sensorium / Orientation: awake and alert Psych cooperative Lab / Micro Data Attestation: I reviewed the patient's lab results. 12/26/23 05:17 12/26/23 05:17 Labs: Laboratory Results - last 24 hr 12/25/23 16:52: WBC 15.2 H, RBC 4.37 L, Hgb 12.0 L, Hct 36.1 L, MCV 82.6, MCH 27.5, MCHC 33.2, RDW Std Deviation 44.9 H, RDW Coeff of Edinson 14.8 H, Plt Count 190, MPV 10.0, Immature Gran % (Auto) 0.900, Neut % (Auto) 79.8 H, Lymph % (Auto) 8.3 L, [place] % (Auto) 10.5 H, Eos % (Auto) 0.2, Baso % (Auto) 0.3, Absolute Neuts (auto) 12.1 H, Absolute Lymphs (auto) 1.26, Nucleated RBC % 0, Differential Comment SEE COMMENT, Diff Path Review May foll, Platelet Estimate ADEQUATE, RBC Morphology N CHROM, Anisocytosis RARE, Sodium 121 L, Potassium 4.1, Chloride 86 L, Carbon Dioxide 25.0, Anion Gap 10, BUN 25 H, Creatinine 1.24, Est GFR (MDRD) Af Amer 73, Est GFR (MDRD) Non-Af 60, BUN/Creatinine Ratio 20.2 H, Glucose 118 H, Hemoglobin A1c 5.7 H, Calcium 9.2, Iron 35 L, TIBC 298, Iron Saturation 11.7 L, Ferritin 238, Total Creatine Kinase 843 H, Folate 5.30, TSH 2.12 12/25/23 17:12: Urine Osmolality 325, Ur Random Sodium 38 12/25/23 17:38: Urine Color Yellow, Urine Clarity Sl. Cloudy, Urine pH 6.5, Ur Specific [place] 1.015, Urine Protein 30 H, Urine Glucose (UA) 1000 H, Urine Ketones 5 H, Urine Occult Blood 25 H, Urine Nitrite Negative, Urine Bilirubin Negative, Urine Urobilinogen 4 H, Ur Leukocyte Esterase 500 H, Urine RBC 0 SEEN, Urine WBC 25-50 SEEN, Ur Squamous Epith Cells 0 SEEN, Urine Bacteria 2+, Urine Mucus 0 SEEN 12/25/23 19:13: Serum Osmolality 261 L 12/25/23 20:22: Sodium 123 L, Potassium 4.2, Chloride 89 L, Carbon Dioxide 25.0, Anion Gap 9, BUN 24 H, Creatinine 1.31 H, Estim Creat Clear Calc 48.38, Est GFR (MDRD) Af Amer 69, Est GFR (MDRD) Non-Af 57 L, BUN/Creatinine Ratio 18.3, Glucose 135 H, Calcium 9.1 12/26/23 05:17: WBC 8.3, RBC 3.72 L, Hgb 10.1 L, Hct 30.3 L, MCV 81.5, MCH 27.2, MCHC 33.3, RDW Std Deviation 45.2 H, RDW Coeff of Edinson 15.1 H, Plt Count 141 L, MPV 9.9, Sodium 123 L, Potassium 4.7, Chloride 92 L, Carbon Dioxide 23.0, Anion Gap 8, BUN 22 H, Creatinine 1.09, Estim Creat Clear Calc 58.14, Est GFR (MDRD) Af Amer 85, Est GFR (MDRD) Non-Af 70, BUN/Creatinine Ratio 20.2 H, Glucose 87, Calcium 8.6, Total Creatine Kinase 552 H Micro: Microbiology 12/25/23 17:35 Urine, Clean Catch Urine Culture - Preliminary Culture exhibits no growth. Imaging Radiology Impression Hip/Pelvis X-Ray 12/25/23 16:58 IMPRESSION: No evidence of displaced pelvic or hip fracture. Electronically Signed: Asher Brooks DO at 18:53 EDT , Chest X-Ray 12/25/23 17:40 IMPRESSION: Basilar atelectasis. Electronically Signed: Asher Brooks DO at 18:37 EDT ,
[2023-12-26 16:56] VITALS: BP 139/65; PULSE 70; RESP 16; TEMP 36.4; O2SAT 100
[2023-12-26 19:26] VITALS: PULSE 82; RESP 18
[2023-12-26 20:50] VITALS: BP 137/62; PULSE 77; RESP 18; TEMP 36.6; O2SAT 97
[2023-12-26 20:52] LABS: Sodium Level 127 mmol/L (136-145)
[2023-12-26] MEDS: Atorvastatin Calcium 10 MG Tablet PO (21:00)
[2023-12-26 23:17] LABS: Urine Chloride 61 mmol/L (Not Establ.); Urine Sodium 52 mmol/L (Not Establ.)
[2023-12-27] VITALS (8 sets, daily range): BP systolic 91–141; BP diastolic 57–70; PULSE 68–89; RESP 16–20; TEMP 36.2–36.7; O2SAT 96–100
[2023-12-27] MEDS: Ipratropium/Albuterol Sulfate 3 ML AMPUL.NEB INHALATION ×3 (07:22→20:26)
[2023-12-27] MEDS: Budesonide Respules 0.5 MG/2 ML AMPUL.NEB. INHALATION ×2 (07:22→20:26)
[2023-12-27 07:26] LABS: Thyroid Stim Hormone (TSH) 1.09 uIU/mL (0.358-3.74)
--- NOTE | 2023-12-27 08:13 | PN.HOSP_ITS ---
Reason for Visit Reason for Visit: Diagnoses Hypo-osmolality and hyponatremia (12/25/23) Weakness (12/25/23) Unspecified fall, initial encounter (12/25/23) Objective Data Objective Data Vital Signs: Vital Signs Temp Pulse Resp BP Pulse Ox O2 Del Method O2 Flow Rate 97.8 F 77 18 137/62 H 97 Room Air 98 12/27/23 03:15 12/27/23 03:15 12/27/23 03:15 12/27/23 03:15 12/27/23 03:15 12/27/23 03:15 12/25/23 16:56 Oxygen Flow Rate (L/min) 98 Oxygen Delivery Method Room Air Weight: 154 lb 12.232 oz Body Mass Index (BMI) 22.1 Intake & Output: Intake and Output for Last 24 Hours 12/25/23 12/26/23 12/27/23 23:59 23:59 23:59 Intake Total 1650 / 1650 1867.50 / 2107.50 240 / 240 Output Total 400 / 900 900 / 900 Balance 1650 / 1650 1467.50 / 1207.50 -660 / -660 Lab / Micro Data 12/27/23 05:30 12/27/23 05:30 Labs: Laboratory Results - last 24 hr 12/26/23 20:10: Sodium 127 L 12/26/23 22:30: Ur Random Sodium 52, Urine Creatinine 104.00, Urine Potassium 19.0, Urine Chloride 61 12/27/23 05:30: TSH 1.09 Micro: Microbiology 12/25/23 17:35 Urine, Clean Catch Urine Culture - Preliminary Culture exhibits no growth. Physical Exam Narrative Patient looks more stronger alert. Sitting up in the chair.Had multiple back surgery in the lumbar area x 4. Had 2-3 falls a week prior to admission. He had burning pain which is resolved 1 week prior to coming hospital. Denies any change in urine frequency or amount but has mild urinary obstructive symptoms, chronic on tamsulosin. On a stool softener. Not on diuretic Physical exam General: Alert, Oriented x3, Cooperative HEENT: Atraumatic, PERRLA, EOMI, Normocephalic Oral: No Gingival or Mucosal Lesions/ Ulcerations Neck: Supple, No JVD, Negative Carotid Bruits Chest wall/Lungs: Air entry diminished in bilateral lung bases. No crepitation/rhonchi Cardiovascular: Regular rate, Regular Rhythm, Normal S1, Normal S2, soft systoli c murmur present Abdomen: Bowel Sounds Present, Soft, Non Tender, Non-Distended : No dysuria. No renal angle tenderness. No suprapubic tenderness. Extremities: No edema, Capillary Refill Less than 3 Seconds Skin: No rashes, No breakdown Musculoskeletal: Multiple surgeries on the back, surgical scar well-healed. Mild paraspinal tenderness on lumbar area. Peripheral no Tenderness to peripheral joints or Extremities Neurological: Cranial nerves II-XII grossly intact, DTR 2+/4. No acute focal neurological deficit. Psych/Mental Status: Flat affect. Difficult to recall/ register, MCI/early d ementia Assessment & Plan Assessment/Plan (1) Acute hyponatremia: (2) Falls: (3) Generalized weakness: PLAN: Plan Patient is a 73-year-old male who presented [facility] ED on 12/25/2023 with a fall at home and worsening debility. 1. Hypotonic hypovolemic hyponatremia ? Admit under inpatient status to PCU. Nephrology consulted. Sodium 121, chloride 86 on admit. Serum osm low at 261, urine osm elevated at 325, urine sodium at 38. These labs are most consistent with hypovolemic hyponatremia. Was given 1 L normal saline in the ED, repeat BMP with only mild improvement to sodium 123 and chloride 86. Did have sodium of 123 on 10/30/2023, otherwise previous sodium values from back in 2022 were within normal range. Home med list reviewed, is on valproate for seizures but has been on this since 2016. 12/25: Normal saline ordered. Farm Management Teacher consult 12/26: Patient was evaluated by chemist water purification. Serum sodium increased to 126. Slow and appropriate increase in the sodium. Farm Management Teacher recommended to hold off sodium tablet and see how the sodium tomorrow. 2. Recurrent falls, acute on chronic debility ? PT/OT/case management consulted. Uses 4-point walker at home, suspect worsening chronic debility with hyponatremia and possible UTI contributing. Fall precautions in place. Patient had multiple back surgeries x 4. Has mild paraspinal tenderness. 3. Mild rhabdomyolysis ? CK level 837 on admit. No PENELOPE noted. Giving IV fluids as above, follow-up a.m. CK level. 4. Concern for UTI, history of BPH s/p recent TURP procedure ? Follows with Dr. Zhao, had TURP procedure done here on 11/16. Reportedly tolerated procedure well, Joya was removed on 11/17 and patient voided without issue, was discharged home on 11/17. Has tamsulosin 0.8 mg at night listed on med list but apparently felt like this was too high a dose, unclear if he has been taking at lower dose or at all. Patient and daughter note she has had continued BPH type symptoms with difficulty starting stream and feeling like he has completely voided since the TURP procedure. Denies any UTI symptoms. UA mildly infectious appearing on admit. On ceftriaxone and follow-up urine culture. Renal/bladder ultrasound ordered. 5. Chronic anemia ? Hemoglobin 12.0 on admit, baseline 10-12. Iron studies with mildly low iron and iron saturation but normal ferritin. Folate normal, vitamin B12 pending. Follow-up a.m. CBC. 6. CKD stage III ? Creatinine 1.24 on admit, baseline 1.2-1.5. Follow-up a.m. BMP and urine output. Chronic medical conditions: ? History of complete heart block s/p pacemaker placement ? Hypertension: Continue home carvedilol, holding home losartan for now. ? Hyperlipidemia: Continue home statin. ? COPD: Stable on room air, not in acute exacerbation. Continue home inhalers. ? GERD: Continue home PPI. ? History of seizures: Continue home divalproex. ? Tobacco abuse: Smoking around 4 to 5 cigarettes/day at this point. Encouraged cessation. Nicotine replacement therapy available as needed. DVT prophylaxis: Lovenox CODE STATUS: DNR CCA, DNI Expected disposition: SNF, TBD Charges/Coding Visit Charges Inpatient E&M: 61106 Subs Hosp L2
[2023-12-27 08:43] LABS: Absolute Neutrophil Count 5.3 X10^3/uL (2.0-7.7); Basophil# 0.04 X10^3/uL; Basophil% 0.5 % (0-1); Eosinophil# 0.07 X10^3/uL; Eosinophils% 0.9 % (0-5); Hematocrit 29.6 % (40-54); Hemoglobin 9.8 g/dL (13.0-16.5); Lymphocyte % 16.8 % (19-41); Mean Corp Hgb Conc 33.1 g/dL (32-36); Mean Corpuscular Hgb 27.6 pg (27.0-32.0); Mean Corpuscular Volume 83.4 fL (80-94); Mean Platelet Vol. 10.1 fl (6.2-12.0); Monocyte# 0.96 X10^3/uL; Monocyte% 12.4 % (0-10); NRBC Flagged by Analyzer 0 % (0-5); Neutrophil # 5.29 X10^3/uL (2.7-7.7); Neutrophil % 68.2 % (47-70); Platelet Count 149 K/mm3 (150-450); RBC Distribution Width CV 15.5 % (11.6-14.6); RBC Distribution Width SD 47.5 fl (35.1-43.9); Red Blood Count 3.55 M/mm3 (4.6-6.2); White Blood Count 7.8 K/mm3 (4.4-11.0)
[2023-12-27] MEDS: Ceftriaxone 1 GM/50 ML BAG IV (09:13)
[2023-12-27] MEDS: Aspirin 81 MG TAB.CHEW PO (09:15)
[2023-12-27] MEDS: Divalproex Sodium 250 MG Tablet 500 MG PO ×2 (09:15→22:07)
[2023-12-27] MEDS: Enoxaparin 40 MG/0.4 ML Syringe SC (09:15)
[2023-12-27] MEDS: Cholecalciferol (VIT D3) 25 MCG TABLET (1,000 UNITS) 50 MCG PO (09:16)
[2023-12-27 09:19] LABS: Anion Gap 7 (5-15); BUN 22 mg/dL (7-18); BUN/Creat Ratio 20.8 RATIO (10-20); Calcium,Total 8.7 mg/dL (8.5-10.1); Chloride 95 mmol/L (98-107); Creatinine, Serum 1.06 mg/dL (0.70-1.30); EST Glomerular Filtration Rate 72 mL/min (>60); Est Glom Filt Rate - Afr Amer 88 mL/min (>60); Estimated Creatinine Clearance 59.79 ml/min; Glucose 87 mg/dL (74-106); Potassium 4.1 mmol/L (3.5-5.1); Sodium Level 126 mmol/L (136-145)
[2023-12-27] MEDS: Pantoprazole Sodium 40 MG Tablet PO (09:21)
--- NOTE | 2023-12-27 11:59 | CASEMGMT ---
JERRY TRIMBLE Assessment Face to Face with patient for initial transition planning/care coordination assessment. JERRY TRIMBLE introduced self and role at [facility], pt voices understanding. Pt is A&Ox4 and is resting comfortably in bed and is calm. Care providers, pharmacy, and demographics verified. Admitting dx: Recurrent Falls with mild Rhabdo, Hyponatremia PCP: Iris Clancy Specialists: Denies Preferred Pharmacy: [facility] Insurance: [facility] A/B, [place] Prescription Benefit: Yes LNOK: Mansi Govea (W), Negarorlando Davis ([place]) Living Arrangements: Pt lives with his in a single story home with 2 steps to enter. Pt states that his is currently in a half-way and is unsure if she will be able to come back home d/t her dementia and care demands. ADLs/IADLs: Pt states that he is ind most of the time but his daughter and son come to help when needed. Pt states that his daughter comes to his home 3-4x/week. Pt states that his son can come anytime he needs assistance. Transportation: Self DME: [employer]. Shower chair and GB. BP Cuff. HHC/SNF: States HHC history but unsure of the agency. Pt states that a PT came to the home but he quickly was DC from their services a the time Pt?s goal: Return to PLOF Plan: TBD. Anticipate SNF vs HH. PT is recommending SNF. Pt states that it is too early to tell what I'll need. CM/SW to follow pt progression in the hospital and see what he best qualifies for moving forward. Orville Mascorro RN, CM
[2023-12-27] MEDS: Carvedilol 6.25 MG Tablet PO ×2 (12:10→22:06)
--- NOTE | 2023-12-27 13:46 | CASEMGMT ---
Discharge Planning A list of? SNF & HH providers including quality and resource use data and consistent with the patient's preferred geographic region, medical needs, and insurance network was created in CarePort Guide.? This list was provided to the RN CM. Rosina Rivera, Discharge Planning Asst.
--- NOTE | 2023-12-27 14:28 | PN.RENAL_ITS ---
Subjective Subjective Resting in bed. Denies any complaints. Denies any nausea or vomiting today. Objective Data Objective Data Vital Signs: Vital Signs Temp Pulse Resp BP Pulse Ox O2 Del Method O2 Flow Rate 97.2 F L 88 20 H 91/57 L 100 Room Air 98 12/27/23 09:12 12/27/23 13:11 12/27/23 13:11 12/27/23 09:12 12/27/23 09:12 12/27/23 09:12 12/25/23 16:56 Oxygen Flow Rate (L/min) 98 Oxygen Delivery Method Room Air Weight: 70.2 kg Body Mass Index (BMI) 22.1 Intake & Output: Intake and Output for Last 24 Hours 12/25/23 12/26/23 12/27/23 23:59 23:59 23:59 Intake Total 1650 / 1650 1867.50 / 2107.50 1290 / 1290 Output Total 400 / 900 900 / 900 Balance 1650 / 1650 1467.50 / 1207.50 390 / 390 Lab / Micro Data 12/27/23 05:30 12/27/23 05:30 Labs: Laboratory Results - last 24 hr 12/26/23 20:10: Sodium 127 L 12/26/23 22:30: Ur Random Sodium 52, Urine Creatinine 104.00, Urine Potassium 19.0, Urine Chloride 61 12/27/23 05:30: WBC 7.8, RBC 3.55 L, Hgb 9.8 L, Hct 29.6 L, MCV 83.4, MCH 27.6, MCHC 33.1, RDW Std Deviation 47.5 H, RDW Coeff of Edinson 15.5 H, Plt Count 149 L, MPV 10.1, Immature Gran % (Auto) 1.200 H, Neut % (Auto) 68.2, Lymph % (Auto) 16.8 L, [place] % (Auto) 12.4 H, Eos % (Auto) 0.9, Baso % (Auto) 0.5, Absolute Neuts (auto) 5.3, Absolute Lymphs (auto) 1.30, Nucleated RBC % 0, Sodium 126 L, Potassium 4.1, Chloride 95 L, Carbon Dioxide 24.0, Anion Gap 7, BUN 22 H, Creatinine 1.06, Estim Creat Clear Calc 59.79, Est GFR (MDRD) Af Amer 88, Est GFR (MDRD) Non-Af 72, BUN/Creatinine Ratio 20.8 H, Glucose 87, Calcium 8.7, TSH 1.09 Micro: Microbiology 12/25/23 17:35 Urine, Clean Catch Urine Culture - Final Culture exhibits no growth. Physical Exam Narrative Alert and orient x 3, no apparent distress S1, S2, RRR Lung sounds clear anteriorly and posteriorly. No wheezes, rhonchi or rales noted Abdomen soft, nontender No edema Assessment & Plan Assessment/Plan (1) Hyponatremia: PLAN: - Acute on possible chronic hyponatremia. On 10/30/2023 sodium 123. On admission patient appeared to be hypovolemic and IV fluids started for volume expansion. He was asymptomatic with acute hyponatremia, he is awake, alert, oriented and appropriate, and no witnessed seizures. Sodium 121 on 12/24, today sodium is 126. Sodium has been slowly and appropriately improving/correcting. Recommend continuing encouraging increase oral food/protein intake. Will hold off on salt tablets for today and see how sodium level is tomorrow. Patient is currently off IV fluids. - PENELOPE on possible CKD. PENELOPE likely from hemodynamic changes. Patient's baseline creatinine possibly around 1.3 mg/dL however today creatinine is 1.0. Patient has had fluctuating serum creatinines levels (peaking over 2 mg/dL) dating back to 2011. Currently off losartan. - recurrent falls, chronic debility.
[2023-12-27] MEDS: Acetaminophen 325 MG Tablet 650 MG PO (14:52)
--- NOTE | 2023-12-27 16:05 | CASEMGMT ---
RN CM in to discuss needs at discharge. Therapy recommending SNF at discharge. RN CM discussed progress with therapy and recommendations. Patient somewhat resistant to SNF at discharge. RN CM provided HHC and SNF list to patient. RN CM encouraged patient to discuss discharge planning with daughter, Negar, when she visits. RN CM asked if this RN CM could call daughter regarding discharging planning. Patient gave permission. RN CM called daughter Negar and discuss progress with therapy. Daughter agreeable to SNF and will discuss with patient. RN CM asked daughter to nataly preferences on SNF list if patient is agreeable to SNF at discharge. Daughter voiced understanding and states she will be in later to visit patient. Daughter had no further questions or concerns.
[2023-12-27 20:36] LABS: Vitamin B12 764 pg/mL (211-911)
[2023-12-27] MEDS: Atorvastatin Calcium 10 MG Tablet PO (22:06)
[2023-12-27] MEDS: Tamsulosin HCl 0.4 MG Capsule PO (22:07)
[2023-12-28 04:12] VITALS: BP 146/76; PULSE 69; RESP 18; TEMP 36.8; O2SAT 97
[2023-12-28] MEDS: Budesonide Respules 0.5 MG/2 ML AMPUL.NEB. INHALATION (07:17)
[2023-12-28] MEDS: Ipratropium/Albuterol Sulfate 3 ML AMPUL.NEB INHALATION ×2 (07:17→12:56)
[2023-12-28 07:18] VITALS: PULSE 70; RESP 18; O2SAT 96
[2023-12-28 08:25] LABS: Absolute Lymphocyte Count 1.11 X10^3/uL (0.83-4.51); Basophil# 0.05 X10^3/uL; Basophil% 0.7 % (0-1); Eosinophil# 0.12 X10^3/uL; Eosinophils% 1.6 % (0-5); Hematocrit 31.2 % (40-54); Hemoglobin 10.3 g/dL (13.0-16.5); Lymphocyte # 1.11 X10^3/ul (0.83-4.51); Lymphocyte % 15.1 % (19-41); Mean Corpuscular Hgb 27.4 pg (27.0-32.0); Mean Platelet Vol. 9.8 fl (6.2-12.0); Monocyte# 0.95 X10^3/uL; NRBC Flagged by Analyzer 0 % (0-5); Neutrophil # 4.99 X10^3/uL (2.7-7.7); Neutrophil % 68.1 % (47-70); Platelet Count 162 K/mm3 (150-450); RBC Distribution Width CV 15.7 % (11.6-14.6); RBC Distribution Width SD 47.5 fl (35.1-43.9); Red Blood Count 3.76 M/mm3 (4.6-6.2); White Blood Count 7.3 K/mm3 (4.4-11.0)
[2023-12-28 08:54] LABS: Anion Gap 4 (5-15); BUN 23 mg/dL (7-18); BUN/Creat Ratio 23.8 RATIO (10-20); Chloride 93 mmol/L (98-107); Creatinine, Serum 0.97 mg/dL (0.70-1.30); EST Glomerular Filtration Rate 80 mL/min (>60); Est Glom Filt Rate - Afr Amer 97 mL/min (>60); Estimated Creatinine Clearance 65.34 ml/min; Glucose 83 mg/dL (74-106); Potassium 4.5 mmol/L (3.5-5.1); Sodium Level 125 mmol/L (136-145)
[2023-12-28 08:55] VITALS: BP 99/50; PULSE 62; RESP 16; TEMP 36.6; O2SAT 98
[2023-12-28] MEDS: Acetaminophen 325 MG Tablet 650 MG PO (09:12)
[2023-12-28] MEDS: Aspirin 81 MG TAB.CHEW PO (09:13)
[2023-12-28] MEDS: Pantoprazole Sodium 40 MG Tablet PO (09:13)
[2023-12-28] MEDS: Enoxaparin 40 MG/0.4 ML Syringe SC (09:13)
[2023-12-28] MEDS: Divalproex Sodium 250 MG Tablet 500 MG PO (09:13)
[2023-12-28] MEDS: Cholecalciferol (VIT D3) 25 MCG TABLET (1,000 UNITS) 50 MCG PO (09:14)
[2023-12-28] MEDS: Ceftriaxone 1 GM/50 ML BAG IV (09:21)
[2023-12-28] MEDS: 0.9 % NaCl (Sterile) Posiflush 10 mL IV (09:21)
--- NOTE | 2023-12-28 09:35 | CASEMGMT ---
SW met with patient. Introduced self and role at [facility]. Patient's list was on his bedside table with the top 3 preferences. The first choice is [facility], [facility], and [facility] [place]. SW asked Rosina to make a referral to [facility]. Await response. Marilu VELASQUEZ
--- NOTE | 2023-12-28 09:55 | CASEMGMT ---
Addendum entered by Rosina Rivera 12/28/23 10:47: [facility] has accepted. Rosina Rivera DC Planning Asst. Original Note: Discharge Planning Referral sent to [facility] via CarePort. Rosina Rivera, Discharge Planning Asst.
[2023-12-28 10:20] LABS: Pathologist Review Reviewed
--- NOTE | 2023-12-28 11:04 | CASEMGMT ---
SW notified physician that patient can be discharged to [facility] today. Plan: d/c to [facility] under skilled level of care. Marilu VELASQUEZ
--- NOTE | 2023-12-28 11:06 | PN.RENAL_ITS ---
Subjective Subjective Sitting up in chair, no complaints. No overnight events. Objective Data Objective Data Vital Signs: Vital Signs Temp Pulse Resp BP Pulse Ox O2 Del Method O2 Flow Rate 97.8 F 62 16 99/50 L 98 Room Air 98 12/28/23 08:55 12/28/23 08:55 12/28/23 08:55 12/28/23 08:55 12/28/23 08:55 12/28/23 08:55 12/25/23 16:56 Oxygen Flow Rate (L/min) 98 Oxygen Delivery Method Room Air Weight: 70.2 kg Body Mass Index (BMI) 22.1 Intake & Output: Intake and Output for Last 24 Hours 12/26/23 12/27/23 12/28/23 23:59 23:59 23:59 Intake Total 1867.50 / 2107.50 3140 / 3440 470 / 470 Output Total 400 / 900 1400 / 2150 1450 / 1450 Balance 1467.50 / 1207.50 1740 / 1290 -980 / -980 Lab / Micro Data 12/28/23 07:35 12/28/23 07:53 Labs: Laboratory Results - last 24 hr 12/25/23 16:52: Diff Path Review Reviewed 12/25/23 19:13: Vitamin B12 764 12/27/23 05:30: Cortisol 6.00 12/28/23 07:35: WBC 7.3, RBC 3.76 L, Hgb 10.3 L, Hct 31.2 L, MCV 83.0, MCH 27.4, MCHC 33.0, RDW Std Deviation 47.5 H, RDW Coeff of Edinson 15.7 H, Plt Count 162, MPV 9.8, Immature Gran % (Auto) 1.500 H, Neut % (Auto) 68.1, Lymph % (Auto) 15.1 L, [place] % (Auto) 13.0 H, Eos % (Auto) 1.6, Baso % (Auto) 0.7, Absolute Neuts (auto) 5.0, Absolute Lymphs (auto) 1.11, Nucleated RBC % 0 12/28/23 07:53: Sodium 125 L, Potassium 4.5, Chloride 93 L, Carbon Dioxide 28.0, Anion Gap 4 L, BUN 23 H, Creatinine 0.97, Estim Creat Clear Calc 65.34, Est GFR (MDRD) Af Amer 97, Est GFR (MDRD) Non-Af 80, BUN/Creatinine Ratio 23.8 H, Glucose 83, Calcium 9.0 Micro: Microbiology 12/25/23 17:35 Urine, Clean Catch Urine Culture - Final Culture exhibits no growth. Physical Exam Narrative Alert and orient x 3, no apparent distress Lung sounds clear S1, S2, RRR Abdomen soft, nontender No edema Assessment & Plan Assessment/Plan (1) Hyponatremia: PLAN: - Acute on possible chronic hyponatremia. On 10/30/2023 sodium 123. On admission patient appeared to be hypovolemic and IV fluids started for volume expansion. He was asymptomatic with acute hyponatremia, he is awake, alert, oriented and appropriate, and no witnessed seizures. Sodium 121 on 12/24--> sodium improved 127 on 12/25. Yesterday sodium 126. Today sodium 125, patient is off IV fluids. Will start sodium chloride tablets. Sodium has been slowly and appropriately improving/correcting. Recommend continuing encouraging increase oral food/protein intake. - PENELOPE on possible CKD. PENELOPE likely from hemodynamic changes. Patient's baseline creatinine possibly around 1.3 mg/dL. Today serum creatinine 0.97. Patient has had fluctuating serum creatinines levels (peaking over 2 mg/dL) dating back to 2011. Currently off losartan. - recurrent falls, chronic debility. -Discussed nephrology plan with Dr. Tran.
--- NOTE | 2023-12-28 11:21 | CASEMGMT ---
SW notified patient that [facility] can take him and that physician will likely send him today. Plan: d/c to [facility] under skilled level of care. Marilu VELASQUEZ
--- NOTE | 2023-12-28 12:34 | TREXTCAR_ITS ---
Diet Diet Order/Speech Therapy: 12/25/23 20:18 Diet: Regular - General Food consistency:: Regular Liquid Consistency:: Regular/Thin Is pt able to select menu?: Yes Diet Comments: 2 L fluid restriction Routine Orders/Code Status Suppository Type: Dulcolax 10mg Suppository Frequency: Daily PRN Routine Lab Work: BMP (Every week for the next 2 to 3 weeks) Wound(s) right lateral back: Wound Type: Abrasion Right knee: Wound Type: Abrasion Problem/Diagnosis (1) Hyponatremia: Status: Acute Code(s): E87.1 - Hypo-osmolality and hyponatremia Plan Patient is a 73-year-old male who presented [facility] ED on 12/25/2023 with a fall at home and worsening debility. 1. Hypotonic hypovolemic hyponatremia ? Admit under inpatient status to PCU. Nephrology consulted. Sodium 121, chloride 86 on admit. Serum osm low at 261, urine osm elevated at 325, urine sodium at 38. These labs are most consistent with hypovolemic hyponatremia. Was given 1 L normal saline in the ED, repeat BMP with only mild improvement to sodium 123 and chloride 86. Did have sodium of 123 on 10/30/2023, otherwise previous sodium values from back in 2022 were within normal range. Home med list reviewed, is on valproate for seizures but has been on this since 2016. 12/25: Normal saline ordered. Environmental Conservation Officer consult 12/26: Patient was evaluated by roller gold leaf. Serum sodium increased to 126. Slow and appropriate increase in the sodium. Environmental Conservation Officer recommended to hold off sodium tablet and see how the sodium tomorrow. 2. Recurrent falls, acute on chronic debility ? PT/OT/case management consulted. Uses 4-point walker at home, suspect worsening chronic debility with hyponatremia and possible UTI contributing. Fall precautions in place. Patient had multiple back surgeries x 4. Has mild paraspinal tenderness. 3. Mild rhabdomyolysis ? CK level 837 on admit. No PENELOPE noted. Giving IV fluids as above, follow-up a.m. CK level. 4. Concern for UTI, history of BPH s/p recent TURP procedure ? Follows with Dr. Zhao, had TURP procedure done here on 11/16. Reportedly tolerated procedure well, Joya was removed on 11/17 and patient voided without issue, was discharged home on 11/17. Has tamsulosin 0.8 mg at night listed on med list but apparently felt like this was too high a dose, unclear if he has been taking at lower dose or at all. Patient and daughter note she has had continued BPH type symptoms with difficulty starting stream and feeling like he has completely voided since the TURP procedure. Denies any UTI symptoms. UA mildly infectious appearing on admit. On ceftriaxone and follow-up urine culture. Renal/bladder ultrasound ordered. 5. Chronic anemia ? Hemoglobin 12.0 on admit, baseline 10-12. Iron studies with mildly low iron and iron saturation but normal ferritin. Folate normal, vitamin B12 pending. Follow-up a.m. CBC. 6. CKD stage III ? Creatinine 1.24 on admit, baseline 1.2-1.5. Follow-up a.m. BMP and urine output. Chronic medical conditions: ? History of complete heart block s/p pacemaker placement ? Hypertension: Continue home carvedilol, holding home losartan for now. ? Hyperlipidemia: Continue home statin. ? COPD: Stable on room air, not in acute exacerbation. Continue home inhalers. ? GERD: Continue home PPI. ? History of seizures: Continue home divalproex. ? Tobacco abuse: Smoking around 4 to 5 cigarettes/day at this point. Encouraged cessation. Nicotine replacement therapy available as needed. DVT prophylaxis: Lovenox CODE STATUS: DNR CCA, DNI Expected disposition: SNF, TBD Allergies/Procedures Done in Hospital Allergies ethotoin (From Peganone) Allergy (Mild, Verified 12/25/23 16:45) Rash Type of Care/Length of Stay Estimated LOS: Convalescent Care Less Than 30 days Type of Care Needed: Skilled Rehab Potential: Good Prognosis: Good Additional Orders/Day of Discharge Day of Discharge: 12/28/23 Dietary and Speech Recommendations Dietitian Recommendations/Changes: Continue liberal regular diet as ordered - consider liberalize / dc fluid restriction when medically albe Continue ensure compact tid w/ medpass for increased nutrition if consumed. Discharge Plan Admission Admit Date/Time: 12/25/23 18:53 Primary Reason for Your Visit: Recurrent fall. Hyponatremia Attending Provider: Gabriele Tran Primary Care Provider: Iris Clancy Consulting Providers: Jered Baron; Derek Gaspar Discharge Orders/Prescriptions Prescriptions: New sodium chloride 1,000 mg Tablet,Soluble 1,000 mg PO TID Qty: 0 0RF Rx Instructions: For 2 weeks Continued atorvastatin 10 MG tablet 10 mg PO QHS tamsulosin 0.4 MG capsule 0.8 mg PO QHS Patient Comments: patient unsure if still taking this one, states I was taking too much too fast tiotropium bromide [Spiriva with HandiHaler] 1 PUFF inhaler 1 puff inhalation QHS Patient Comments: if I run out of symbicort budesonide-formoterol [Symbicort] 1 INHALER inhaler 1 puff inhalation BID aspirin 81 MG tablet,chewable 81 mg PO DAILY@0800 cholecalciferol (vitamin D3) [Vitamin D3] 1,000 UNIT tablet 2,000 unit PO DAILY L.acidoph, bethanyasei,B. lactis 1 EACH capsule 1 ea PO DAILY carvedilol 6.25 MG tablet 6.25 mg PO BID Qty: 60 0RF divalproex 500 mg tablet,delayed release (DR/EC) 500 mg PO BID omeprazole 40 mg capsule,delayed release(DR/EC) 40 mg PO DAILY Held losartan 25 mg tablet 25 mg PO QHS Qty: 90 3RF Hold Instructions: Hold for 1 week Referrals / Follow Up: Iris Clancy MD [Primary Care Provider] - Within 2 Weeks (Follow-up BMP every week) Jered Baron MD [Med Staff - Consulting] - Within 2 Weeks Disposition Disposition (needs filled in before D/C Order can be placed): Shelter Facility
--- NOTE | 2023-12-28 12:40 | DS.PCM_ITS ---
Providers Date of Admission: 12/25/23 Date of Discharge: 12/28/23 Primary Care Physician: Dr. Iris Clancy MD Consultations 12/25/23 23:02 Consult: Nephrology Routine Consulting Provider: Jered Baron Reason for Consult: Acute hyponatremia EMERGENT Consult: No Notified: Yes Date Notified: 12/26/23 Time Notified: 06:39 Method of Notification: Answering Service 12/26/23 14:53 Consult: Nephrology Routine Consulting Provider: Jered Baron Reason for Consult: Hyponatemia, Na 121, 123 EMERGENT Consult: No Notified: Yes Date Notified: 12/26/23 Time Notified: 14:53 Method of Notification: Text Reason For Visit: RECURRENT FALLS WITH MILD RHABDO, HYPONATREMIA Diagnosis Discharge Diagnosis (1) Hyponatremia: Status: Acute Code(s): E87.1 - Hypo-osmolality and hyponatremia Plan Patient is a 73-year-old male who presented [facility] ED on 12/25/2023 with a fall at home and worsening debility. 1. Hypotonic hypovolemic hyponatremia ? Admit under inpatient status to PCU. Nephrology consulted. Sodium 121, chloride 86 on admit. Serum osm low at 261, urine osm elevated at 325, urine sodium at 38. These labs are most consistent with hypovolemic hyponatremia. Was given 1 L normal saline in the ED, repeat BMP with only mild improvement to sodium 123 and chloride 86. Did have sodium of 123 on 10/30/2023, otherwise previous sodium values from back in 2022 were within normal range. Home med list reviewed, is on valproate for seizures but has been on this since 2016. 12/25: Normal saline ordered. Dustless Operator consult 12/26: Patient was evaluated by billing and quality technician. Serum sodium increased to 126. Slow and appropriate increase in the sodium. Dustless Operator recommended to hold off sodium tablet and see how the sodium tomorrow. 12/27: Serum sodium was 127, decreased to 125 today. Followed by billing and quality technician. Started on sodium tablet 1 g 3 times daily. Follow-up nephrology office in 2 weeks. Need repeat BMP every week and follow with PCP. Hold losartan for 1 week. Blood pressure normal 2. Recurrent falls, acute on chronic debility ? PT/OT/case management consulted. Uses 4-point walker at home, suspect worsening chronic debility with hyponatremia and possible UTI contributing. Fall precautions in place. Patient had multiple back surgeries x 4. Has mild paraspinal tenderness. 3. Mild rhabdomyolysis ? CK level 837 on admit. No PENELOPE noted. Giving IV fluids as above, follow-up a.m. CK level. 4. UTI ruled out. History of BPH s/p recent TURP procedure ? Follows with Dr. Zhao, had TURP procedure done here on 11/16. Reportedly tolerated procedure well, Joya was removed on 11/17 and patient voided without issue, was discharged home on 11/17. Has tamsulosin 0.8 mg at night listed on med list but apparently felt like this was too high a dose, unclear if he has been taking at lower dose or at all. Patient and daughter note she has had continued BPH type symptoms with difficulty starting stream and feeling like he has completely voided since the TURP procedure. Denies any UTI symptoms. UA mildly infectious appearing on admit. On ceftriaxone and follow-up urine culture. Renal/bladder ultrasound ordered. 12/27: Urine culture shows no growth. UTI ruled out. No indication for antibiotic 5. Chronic anemia ? Hemoglobin 12.0 on admit, baseline 10-12. Iron studies with mildly low iron and iron saturation but normal ferritin. Folate normal, vitamin B12 pending. Follow-up a.m. CBC. 6. CKD stage III ? Creatinine 1.24 on admit, baseline 1.2-1.5. Follow-up a.m. BMP and urine output. Creatinine improved to 0.97. It is on baseline. PENELOPE ruled out. Chronic medical conditions: ? History of complete heart block s/p pacemaker placement ? Hypertension: Continue home carvedilol, holding home losartan for now. ? Hyperlipidemia: Continue home statin. ? COPD: Stable on room air, not in acute exacerbation. Continue home inhalers. ? GERD: Continue home PPI. ? History of seizures: Continue home divalproex. ? Tobacco abuse: Smoking around 4 to 5 cigarettes/day at this point. Encouraged cessation. Nicotine replacement therapy available as needed. DVT prophylaxis: Lovenox CODE STATUS: DNR CCA, DNI Expected disposition: SNF, TBD Discharge medication reconciliation done. Discharge follow-up instructions completed. Discharge process discussed with the patient and all questions were answered to patient's satisfaction. Follow with PCP in 1 to 2 weeks Total time spent, exact 35 minutes on discharge meds reconciliation, examination, coordination of care with nurses and ancillary staff, review of imaging and blood test and discussion with the patient on follow-up instructions. Medications at Discharge Home Medications atorvastatin 10 mg tablet 10 mg PO QHS 05/28/16 budesonide-formoterol HFA 160 mcg-4.5 mcg/actuation aerosol inhaler (Symbicort) 1 puff inhalation BID 05/28/16 tamsulosin 0.4 mg capsule 0.8 mg PO QHS urination 05/28/16 tiotropium bromide 18 mcg capsule with inhalation device (Spiriva with HandiHaler) 1 puff inhalation QHS 05/28/16 aspirin 81 mg chewable tablet 81 mg PO DAILY@0800 07/06/16 cholecalciferol (vitamin D3) 25 mcg (1,000 unit) tablet (Vitamin D3) 2,000 unit PO DAILY 07/06/16 L.acidoph, paracasei,B. lactis 10 billion cell capsule 1 ea PO DAILY pt unsure 02/07/17 carvedilol 6.25 mg tablet 6.25 mg PO BID #60 tabs 02/08/17 losartan 25 mg tablet 25 mg PO QHS #90 tabs 08/03/23 divalproex 500 mg tablet,delayed release 500 mg PO BID 12/25/23 omeprazole 40 mg capsule,delayed release 40 mg PO DAILY 12/25/23 sodium chloride 1,000 mg soluble tablet 1,000 mg PO TID #0 tabs 12/28/23 Physical Exam Narrative Patient looks more stronger alert. Sitting up in the chair.Had multiple back surgery in the lumbar area x 4. UTI ruled out. Started on sodium tablet for hyponatremia. Had 2-3 falls a week prior to admission. He had burning pain which is resolved 1 week prior to coming hospital. Denies any change in urine frequency or amount but has mild urinary obstructive symptoms, chronic on tamsulosin. On a stool softener. Not on diuretic Physical exam General: Alert, Oriented x3, Cooperative HEENT: Atraumatic, PERRLA, EOMI, Normocephalic Oral: No Gingival or Mucosal Lesions/ Ulcerations Neck: Supple, No JVD, Negative Carotid Bruits Chest wall/Lungs: Air entry diminished in bilateral lung bases. No crepitation/rhonchi Cardiovascular: Regular rate, Regular Rhythm, Normal S1, Normal S2, soft systolic murmur present Abdomen: Bowel Sounds Present, Soft, Non Tender, Non-Distended : No dysuria. No renal angle tenderness. No suprapubic tenderness. Extremities: No edema, Capillary Refill Less than 3 Seconds Skin: No rashes, No breakdown Musculoskeletal: Multiple surgeries on the back, surgical scar well-healed. Mild chronic paraspinal tenderness on lumbar area. No Tenderness to peripheral joints or Extremities Neurological: Cranial nerves II-XII grossly intact, DTR 2+/4. No acute focal neurological deficit. Psych/Mental Status: Flat affect. Difficult to recall/ register, MCI/early dementia Weight / BMI Weight Weight: 154 lb 12.232 oz Body Mass Index (BMI) 22.1 ABG / Lab / Microbiology Data 12/28/23 07:35 12/28/23 07:53 Laboratory: Laboratory Results - last 24 hr 12/25/23 16:52: Diff Path Review Reviewed 12/25/23 19:13: Vitamin B12 764 12/27/23 05:30: Cortisol 6.00 12/28/23 07:35: WBC 7.3, RBC 3.76 L, Hgb 10.3 L, Hct 31.2 L, MCV 83.0, MCH 27.4, MCHC 33.0, RDW Std Deviation 47.5 H, RDW Coeff of Edinson 15.7 H, Plt Count 162, MPV 9.8, Immature Gran % (Auto) 1.500 H, Neut % (Auto) 68.1, Lymph % (Auto) 15.1 L, [place] % (Auto) 13.0 H, Eos % (Auto) 1.6, Baso % (Auto) 0.7, Absolute Neuts (auto) 5.0, Absolute Lymphs (auto) 1.11, Nucleated RBC % 0 12/28/23 07:53: Sodium 125 L, Potassium 4.5, Chloride 93 L, Carbon Dioxide 28.0, Anion Gap 4 L, BUN 23 H, Creatinine 0.97, Estim Creat Clear Calc 65.34, Est GFR (MDRD) Af Amer 97, Est GFR (MDRD) Non-Af 80, BUN/Creatinine Ratio 23.8 H, Glucose 83, Calcium 9.0 Microbiology: Microbiology 12/25/23 17:35 Urine, Clean Catch Urine Culture - Final Culture exhibits no growth. Meaningful Use Info Meaningful Use Meaningful Use Diagnoses (Choose all that apply): None applicable Ischemic Stroke Statin Dosing Therapy Reference: STATIN DOSE THERAPY REFERENCE: * Patients > 75 years receive moderate or high dose statin therapy. * Patients 75 years or YOUNGER should receive HIGH intensity statin dose unless contraindicated. You will be required to document reason for non-treatment if statin daily dose does not meet guidelines. HIGH DOSE STATIN THERAPY DAILY Atorvastatin > than or = to 40 mg Rosuvastatin > than or = to 20 mg Amlodipine + Atorvastatin > than or = to 2.5/40 mg Ezetimibe + Simvastatin 10/80 mg Simvastatin 80mg Discharge Plan Admission Admit Date/Time: 12/25/23 18:53 Primary Reason for Your Visit: Recurrent fall. Hyponatremia Attending Provider: Gabriele Tran Primary Care Provider: Iris Clancy Consulting Providers: Jered Baron; Derek Gaspar Discharge Orders/Prescriptions Prescriptions: New sodium chloride 1,000 mg Tablet,Soluble 1,000 mg PO TID Qty: 0 0RF Rx Instructions: For 2 weeks Continued atorvastatin 10 MG tablet 10 mg PO QHS tamsulosin 0.4 MG capsule 0.8 mg PO QHS Patient Comments: patient unsure if still taking this one, states I was taking too much too fast tiotropium bromide [Spiriva with HandiHaler] 1 PUFF inhaler 1 puff inhalation QHS Patient Comments: if I run out of symbicort budesonide-formoterol [Symbicort] 1 INHALER inhaler 1 puff inhalation BID aspirin 81 MG tablet,chewable 81 mg PO DAILY@0800 cholecalciferol (vitamin D3) [Vitamin D3] 1,000 UNIT tablet 2,000 unit PO DAILY L.acidoph, paracasei,B. lactis 1 EACH capsule 1 ea PO DAILY carvedilol 6.25 MG tablet 6.25 mg PO BID Qty: 60 0RF divalproex 500 mg tablet,delayed release (DR/EC) 500 mg PO BID omeprazole 40 mg capsule,delayed release(DR/EC) 40 mg PO DAILY Held losartan 25 mg tablet 25 mg PO QHS Qty: 90 3RF Hold Instructions: Hold for 1 week Referrals / Follow Up: Iris Clancy MD [Primary Care Provider] - Within 2 Weeks (Follow-up BMP every week) Jered Baron MD [Med Staff - Consulting] - Within 2 Weeks Disposition Disposition (needs filled in before D/C Order can be placed): [facility] Charges/Coding Visit Charges Inpatient E&M: 76474 Disch Hosp >30min
[2023-12-28] MEDS: Sodium Chloride 1 GM Tablet PO (12:50)
[2023-12-28 12:57] VITALS: PULSE 74; RESP 18
--- NOTE | 2023-12-28 14:05 | CASEMGMT ---
Patient is ready for discharge to [facility]. SCOTT called patient's daughter Negar and let her know this information. Negar asked that someone call her when a time has been set up. SCOTT completed a 7000 in [facility] system. Plan: d/c to [facility] under skilled level of care on a convalescent stay. Physicians will transport patient via wheelchair van. Marilu Morgan ENVIRONMENTAL TECHNICIAN EVA
[2023-12-28 14:19] VITALS: BP 134/56; PULSE 72; RESP 16; TEMP 36.6; O2SAT 100
--- NOTE | 2023-12-28 14:29 | PHA.DC.MR.R ---
Pharmacy [place] Med Reconciliation Pharmacy Service has performed discharge medication reconciliation for this patient. The patient's discharge medication list was reviewed for discrepancies and discrepancies were resolved. Medications at Discharge Home Medications atorvastatin 10 mg tablet 10 mg PO QHS 05/28/16 budesonide-formoterol HFA 160 mcg-4.5 mcg/actuation aerosol inhaler (Symbicort) 1 puff inhalation BID 05/28/16 tamsulosin 0.4 mg capsule 0.8 mg PO QHS urination 05/28/16 tiotropium bromide 18 mcg capsule with inhalation device (Spiriva with HandiHaler) 1 puff inhalation QHS 05/28/16 aspirin 81 mg chewable tablet 81 mg PO DAILY@0800 07/06/16 cholecalciferol (vitamin D3) 25 mcg (1,000 unit) tablet (Vitamin D3) 2,000 unit PO DAILY 07/06/16 L.acidoph, paracasei,B. lactis 10 billion cell capsule 1 ea PO DAILY pt unsure 02/07/17 carvedilol 6.25 mg tablet 6.25 mg PO BID #60 tabs 02/08/17 losartan 25 mg tablet 25 mg PO QHS #90 tabs 08/03/23 divalproex 500 mg tablet,delayed release 500 mg PO BID 12/25/23 omeprazole 40 mg capsule,delayed release 40 mg PO DAILY 12/25/23 sodium chloride 1,000 mg soluble tablet 1,000 mg PO TID #0 tabs 12/28/23
--- NOTE | 2023-12-28 14:47 | CASEMGMT ---
Discharge Planning Discharge orders, signed med list, and transport time sent to [facility] via [facility]. Physicians will transport patient by wheelchair at 4p. Nursing, SW, and patients daughter updated. Rosina Rivera, Discharge Planning Asst.
--- NOTE | 2023-12-28 16:53 | NURSING ---
report called to Maria Aguilar at [facility]
== END 2023-12-28 18:09 | disposition skilled nursing facility (03) | DRG 641 ==
LOC: ED 18:34 → PCU 19:12
PROVIDERS: Physician Assistant; Admitting Provider Hospitalist; Emergency Provider Emergency Medicine; PCP Internal Medicine; Visit Provider Internal Medicine
DX: E87.1 Hypo-osmolality and hyponatremia (principal); N13.8 Other obstructive and reflux uropathy; D63.1 Anemia in chronic kidney disease; N18.30 Chronic kidney disease, stage 3 unspecified; J44.9 Chronic obstructive pulmonary disease, unspecified; I12.9 Hypertensive chronic kidney disease with stage 1 through stage 4 chronic kidney disease, or unspecified chronic kidney disease; T79.6XXA Traumatic ischemia of muscle, initial encounter; E86.1 Hypovolemia; F17.210 Nicotine dependence, cigarettes, uncomplicated; E78.5 Hyperlipidemia, unspecified; K21.9 Gastro-esophageal reflux disease without esophagitis; W01.0XXA Fall on same level from slipping, tripping and stumbling without subsequent striking against object, initial encounter; M48.07 Spinal stenosis, lumbosacral region; N40.1 Benign prostatic hyperplasia with lower urinary tract symptoms; R39.198 Other difficulties with micturition; R29.6 Repeated falls; R53.81 Other malaise; Z66 Do not resuscitate; Z95.0 Presence of cardiac pacemaker; Z79.51 Long term (current) use of inhaled steroids; Z79.82 Long term (current) use of aspirin; Z79.899 Other long term (current) drug therapy; Z86.69 Personal history of other diseases of the nervous system and sense organs
CPT/HCPCS: 36415; 71046; 73502; 80048; 81001; 82436; 82533; 82550; 82570; 82607; 82728; 82746; 83036; 83540; 83550; 83930; 83935; 84133; 84295; 84300; 84443; 85025; 85027; 87086; 93005; 94640; 94668; 95886; 95909; 97110; 97116; 97162; 97167; 97530; 97535; 97802; 99285; J7030; J7120; A4216

== ENCOUNTER 2024-02-12 11:27 | Inpatient (IN) | payer MEDICARE, BC, SELFPAY ==
[2024-02-12] VITALS (7 sets, daily range): BP systolic 80–141; BP diastolic 48–79; PULSE 68–89; RESP 16–20; TEMP 36.6–37; O2SAT 96–100; BMI 23.3; BMI 24.0
[2024-02-12] MEDS: 0.9% Normal Saline (1000mL) 1,000 ML 999 ML IV ×2 (11:30→12:19)
--- NOTE | 2024-02-12 11:45 | EKG12_ITS ---
Test Reason : HYPOTENSION Blood Pressure : / mmHG Vent. Rate : 067 BPM Atrial Rate : 067 BPM P-R Int : 186 ms QRS Dur : 152 ms QT Int : 412 ms P-R-T Axes : 013 018 -10 degrees QTc Int : 435 ms NSR, RBBB Abnormal ECG Confirmed by Cristian Sosa ([id number]), editor & co founder SUE HOBSON ([id number]) on 02/14/2024 8:18:03 AM Referred By: Confirmed By:Cristian Sosa
--- NOTE | 2024-02-12 11:46 | EX.ED.DYSGE1 ---
HPI <CHARITY Poole - Last Filed: 02/12/24 14:08> History of Present Illness Chief Complaint: Hypotension Narrative Narrative: Patient is a 73-year-old male with history of hypertension, COPD, BPH, GERD, hyperlipidemia who presents to the emergency department for hypotension, feeling of dizziness. Patient recently was out of the intermediate for the last 3 to 4 days. Patient now takes his own medication. He is supposed to take carvedilol 6.25 mg twice a day, as well as losartan 25 mg at night. Today, the patient knew he forgot to take the medication last evening, so he took 2 carvedilol as well as 1 losartan this morning. This was approximate 7:30 AM. Now the patient is dizzy, states he is having trouble getting up without falling down. He is also feeling short of breath. Patient is here via ambulance. COUNT INCLUDES THE [facility] <CHARITY Poole - Last Filed: 02/12/24 14:08> COUNT INCLUDES THE [facility] Medical History Hyponatremia Wears hearing aid Wears glasses Walker as ambulation aid Wears dentures Indwelling urethral catheter present History of echocardiogram Cardiology follow-up encounter 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 Stage 3b chronic kidney disease (CKD) Third degree heart block BPH (benign prostatic hyperplasia) GERD (gastroesophageal reflux disease) Seizures Cataract Back pain with history of spinal surgery Neuropathy Emphysema lung Smoker Hypertension Home Medications ?Medication ?Instructions ?Recorded ?Last Taken ?Type atorvastatin 10 mg tablet 10 mg PO QHS 05/28/16 11/16/23 History budesonide-formoterol HFA 160 1 puff inhalation BID 05/28/16 11/17/23 History mcg-4.5 mcg/actuation aerosol inhaler (Symbicort) tamsulosin 0.4 mg capsule 0.8 mg PO QHS urination 05/28/16 11/16/23 History tiotropium bromide 18 mcg capsule 1 puff inhalation QHS 05/28/16 11/16/23 History with inhalation device (Spiriva with HandiHaler) aspirin 81 mg chewable tablet 81 mg PO DAILY@0800 07/06/16 11/09/23 History cholecalciferol (vitamin D3) 25 2,000 unit PO DAILY 07/06/16 11/16/23 History mcg (1,000 unit) tablet (Vitamin D3) L.acidoph, paracasei,B. lactis 10 1 ea PO DAILY pt unsure 02/07/17 11/16/23 History billion cell capsule carvedilol 6.25 mg tablet 6.25 mg PO BID #60 tabs 02/08/17 11/17/23 Rx losartan 25 mg tablet 25 mg PO QHS #90 tabs 08/03/23 11/16/23 Rx divalproex 500 mg tablet,delayed 500 mg PO BID 12/25/23 Unknown History release omeprazole 40 mg capsule,delayed 40 mg PO DAILY 12/25/23 Unknown History release sodium chloride 1,000 mg soluble 1,000 mg PO TID #0 tabs 12/28/23 Unknown Rx tablet Allergy/AdvReac Type Severity Reaction Status Date / Time ethotoin (From Peganone) Allergy Mild Rash Verified 02/12/24 11:39 Family History Other Cancer Heart disease Osteoporosis Surgical History History of selective injection of anesthetic agent around lumbar nerve root History of colonoscopy History of surgery History of appendectomy History of back surgery Social History Smoking Status: Light Smoker (<10/day) ROS <CHARITY Poole - Last Filed: 02/12/24 14:08> ROS ED ROS Narrative Constitutional: Negative for fever, chills, weight loss. Positive for weakness Eyes: Negative for vision loss, vision change, double vision ENT: Negative for any sore throat, ear pain, congestion Cardiovascular: Negative for any chest pain, tightness, palpitations Respiratory: Negative for any cough, sputum production, hemoptysis, dyspnea, dyspnea on exertion, orthopnea Gastrointestinal: Negative for any abdominal pain, nausea, vomiting, diarrhea, constipation, blood in stool, blood in vomit : Negative for any urinary frequency, dysuria, retention, blood in urine Muscle skeletal: Negative for any neck pain, back pain Neurological: Negative for any headache. Positive for feeling of dizziness, lightheadedness, near syncope Skin: Negative for any rashes, itching, abrasions, lacerations Psychiatric: Negative for any depression, anxiety, stress, suicidal ideation, homicidal ideation Hematologic: Negative for any excessive bruising, easy bleeding EXAM <CHARITY Poole - Last Filed: 02/12/24 14:08> Physical Exam Narrative Exam Narrative: Vital signs reviewed. Patient's heart rate 67, patient is paced. Patient blood pressure 93 systolic. He is alert and orient x 4. HEET: Head normocephalic atraumatic, TMs clear bilaterally. Posterior pharynx is clear, dry mucous membranes. Nares clear bilaterally. Neck: Supple with no lymphadenopathy or tenderness. No signs of meningismus. Cardiac: Regular rate and rhythm no murmurs gallops or rubs, equal peripheral pulses bilaterally. Respiratory: Lungs clear to auscultation bilaterally. No chest tenderness. Abdomen: Soft, nontender, nondistended. No abdominal bruit or pulsatile masses. No hepatosplenomegaly Extremities: No peripheral edema, no signs of gross trauma or deformity. Active full range of motion of all extremities. Neuro: Cranial nerves II through XII intact, no focal neurological deficits. Skin: Clean dry and intact with no rash, purpura, petechiae, vesicles or pustules. Backs/flank: No CVA tenderness, no midline spinal tenderness, no deformity. Psych: Normal mood and affect. No SI, HI or acute psychosis. Const Vital Signs: 02/12/24 11:29 02/12/24 11:37 02/12/24 12:10 Temperature 98.6 F Temperature Source Oral Pulse Rate 89 Pulse Rate [Lying] 68 Respiratory Rate 20 H Respiratory Pattern Normal Blood Pressure 93/57 L Blood Pressure [Lying] 119/57 L Blood Pressure [Sitting (for 1 minute prior to obtaining)] 103/62 Blood Pressure [Standing (for 1 minute prior to obtaining)] 80/48 L Blood Pressure Mean 69 Blood Pressure Mean [Lying] 77 Blood Pressure Mean [Sitting (for 1 minute prior to obtaining)] 75 Blood Pressure Mean [Standing (for 1 minute prior to obtaining)] 58 Pulse Ox 97 Oxygen Delivery Method Room Air 02/12/24 13:28 Temperature Temperature Source Pulse Rate 71 Pulse Rate [Lying] Respiratory Rate 16 Respiratory Pattern Blood Pressure 141/79 H Blood Pressure [Lying] Blood Pressure [Sitting (for 1 minute prior to obtaining)] Blood Pressure [Standing (for 1 minute prior to obtaining)] Blood Pressure Mean 99 Blood Pressure Mean [Lying] Blood Pressure Mean [Sitting (for 1 minute prior to obtaining)] Blood Pressure Mean [Standing (for 1 minute prior to obtaining)] Pulse Ox 96 Oxygen Delivery Method Room Air <Dr. Ramin Nagel DO - Last Filed: 02/12/24 15:08> Physical Exam Const Vital Signs: 02/12/24 11:29 02/12/24 11:37 02/12/24 12:10 Temperature 98.6 F Temperature Source Oral Pulse Rate 89 Pulse Rate [Lying] 68 Respiratory Rate 20 H Respiratory Pattern Normal Blood Pressure 93/57 L Blood Pressure [Lying] 119/57 L Blood Pressure [Sitting (for 1 minute prior to obtaining)] 103/62 Blood Pressure [Standing (for 1 minute prior to obtaining)] 80/48 L Blood Pressure Mean 69 Blood Pressure Mean [Lying] 77 Blood Pressure Mean [Sitting (for 1 minute prior to obtaining)] 75 Blood Pressure Mean [Standing (for 1 minute prior to obtaining)] 58 Pulse Ox 97 Oxygen Delivery Method Room Air 02/12/24 13:28 Temperature Temperature Source Pulse Rate 71 Pulse Rate [Lying] Respiratory Rate 16 Respiratory Pattern Blood Pressure 141/79 H Blood Pressure [Lying] Blood Pressure [Sitting (for 1 minute prior to obtaining)] Blood Pressure [Standing (for 1 minute prior to obtaining)] Blood Pressure Mean 99 Blood Pressure Mean [Lying] Blood Pressure Mean [Sitting (for 1 minute prior to obtaining)] Blood Pressure Mean [Standing (for 1 minute prior to obtaining)] Pulse Ox 96 Oxygen Delivery Method Room Air [facility] <CHARITY Poole - Last Filed: 02/12/24 14:08> [facility] Lab Data Labs: Laboratory Results - last 24 hr 02/12/24 02/12/24 11:35 13:30 WBC 10.7 RBC 3.46 L Hgb 9.6 L Hct 28.9 L MCV 83.5 MCH 27.7 MCHC 33.2 RDW Std Deviation 46.1 H RDW Coeff of Edinson 15.2 H Plt Count 231 MPV 9.5 Immature Gran % (Auto) 1.000 H Neut % (Auto) 70.3 H Lymph % (Auto) 15.6 L Mason % (Auto) 11.9 H Eos % (Auto) 0.8 Baso % (Auto) 0.4 Absolute Neuts (auto) 7.5 Absolute Lymphs (auto) 1.68 Nucleated RBC % 0 Sodium 125 L Potassium 4.3 Chloride 93 L Carbon Dioxide 22.0 Anion Gap 10 BUN 35 H Creatinine 1.76 H Estim Creat Clear Calc 37.44 Est GFR (MDRD) Af Amer 49 L Est GFR (MDRD) Non-Af 40 L BUN/Creatinine Ratio 19.9 Glucose 85 Calcium 9.1 Troponin I High Sens 6 Urine Color Yellow Urine Clarity Clear Urine pH 7.0 Ur Specific [place] 1.005 Urine Protein 30 H Urine Glucose (UA) Normal Urine Ketones Negative Urine Occult Blood Negative Urine Nitrite Negative Urine Bilirubin Negative Urine Urobilinogen Normal Ur Leukocyte Esterase 25 H Urine RBC 0 SEEN Urine WBC 0-5 SEEN Ur Squamous Epith Cells 0 SEEN Urine Bacteria 0 SEEN Urine Mucus 0 SEEN Radiography Diagnostic Testing: Clinical Impression(s) from Imaging Studies Chest X-Ray 02/12/24 12:40 IMPRESSION: Left greater than right bibasilar pulmonary opacities may be scarring, atelectasis, or pneumonia. Electronically Signed: Paul Hoang DO at 12:52 EDT , EKG Atrial sensed ventricular paced rhythm: Attestation: I personally reviewed and interpreted this EKG as follows: Comments: 67 bpm, atrial/ventricle paced rhythm, TN interval 186 ms, QRS duration 52 ms, no acute ST elevation, no acute infarct noted. Treatment and Re-Evaluation :: Differential diagnosis includes however is not limited to: Beta-kaycee overdose, hyponatremia, acute kidney injury, dehydration, heatstroke Patient is in no obvious respiratory distress vital signs are stable. Patient slightly hypertensive the blood pressure 93/50. Patient will receive 1 L normal saline. EKG shows paced rhythm. He will receive a workup with CBC BMP, troponin as well as a chest x-ray. Patient will receive orthostatic vital signs. All radiologic examinations were read, reviewed by the emergency department attending. From these reads, a plan of care will be put in place. Patient was orthostatic positive, patient will be given his second liter of fluid. CBC did show some chronic anemia with a hemoglobin of 9.6, patient's chemistries did again show some hyponatremia with a sodium of 125, 5 days ago was 130. Patient's creatinine was 1.76, this is elevated, on 06 February, it was 1.19, troponin was negative. Patient's chest x-ray showed left greater than right bibasilar pulmonary opacities may be scarring. Patient has no coughing, fever or chills. Per the nurse, when the patient tried to stand up, he was very unsteady on his feet. Patient tried to get up again to urinate, patient was again orthostatic. Patient is unsteady on his feet. At this time, secondary to the patient having worsening lab functions, difficulty ambulating, living alone, I do believe the patient needs to be admitted to the hospital for reevaluation. He will be able to talk to social work, as well as have repeat laboratory values done. I spoke with the patient as well as the patient's daughter, they are in agreement. <Dr. Ramin Nagel, DO - Last Filed: 02/12/24 15:08> MDM History & Record Review Discussion w/independent historian: EMS personnel and Patient Lab Data Attestation: I reviewed the patient's lab results. Labs: Laboratory Results - last 24 hr 02/12/24 02/12/24 11:35 13:30 WBC 10.7 RBC 3.46 L Hgb 9.6 L Hct 28.9 L MCV 83.5 MCH 27.7 MCHC 33.2 RDW Std Deviation 46.1 H RDW Coeff of Edinson 15.2 H Plt Count 231 MPV 9.5 Immature Gran % (Auto) 1.000 H Neut % (Auto) 70.3 H Lymph % (Auto) 15.6 L Mason % (Auto) 11.9 H Eos % (Auto) 0.8 Baso % (Auto) 0.4 Absolute Neuts (auto) 7.5 Absolute Lymphs (auto) 1.68 Nucleated RBC % 0 Sodium 125 L Potassium 4.3 Chloride 93 L Carbon Dioxide 22.0 Anion Gap 10 BUN 35 H Creatinine 1.76 H Estim Creat Clear Calc 37.44 Est GFR (MDRD) Af Amer 49 L Est GFR (MDRD) Non-Af 40 L BUN/Creatinine Ratio 19.9 Glucose 85 Calcium 9.1 Troponin I High Sens 6 Urine Color Yellow Urine Clarity Clear Urine pH 7.0 Ur Specific [place] 1.005 Urine Protein 30 H Urine Glucose (UA) Normal Urine Ketones Negative Urine Occult Blood Negative Urine Nitrite Negative Urine Bilirubin Negative Urine Urobilinogen Normal Ur Leukocyte Esterase 25 H Urine RBC 0 SEEN Urine WBC 0-5 SEEN Ur Squamous Epith Cells 0 SEEN Urine Bacteria 0 SEEN Urine Mucus 0 SEEN Radiography Diagnostic Testing: Clinical Impression(s) from Imaging Studies Chest X-Ray 02/12/24 12:40 IMPRESSION: Left greater than right bibasilar pulmonary opacities may be scarring, atelectasis, or pneumonia. Electronically Signed: Paul VLisandra Fountainmagalis, at 12:52 EDT , Treatment and Re-Evaluation :: Differential diagnosis includes however is not limited to: Beta-kaycee overdose, hyponatremia, acute kidney injury, dehydration, heatstroke Patient is in no obvious respiratory distress vital signs are stable. Patient slightly hypertensive the blood pressure 93/50. Patient will receive 1 L normal saline. EKG shows paced rhythm. He will receive a workup with CBC BMP, troponin as well as a chest x-ray. Patient will receive orthostatic vital signs. All radiologic examinations were read, reviewed by the emergency department attending. From these reads, a plan of care will be put in place. Patient was orthostatic positive, patient will be given his second liter of fluid. CBC did show some chronic anemia with a hemoglobin of 9.6, patient's chemistries did again show some hyponatremia with a sodium of 125, 5 days ago was 130. Patient's creatinine was 1.76, this is elevated, on 06 February, it was 1.19, troponin was negative. Patient's chest x-ray showed left greater than right bibasilar pulmonary opacities may be scarring. Patient has no coughing, fever or chills. Per the nurse, when the patient tried to stand up, he was very unsteady on his feet. Patient tried to get up again to urinate, patient was again orthostatic. Patient is unsteady on his feet. At this time, secondary to the patient having worsening lab functions, difficulty ambulating, living alone, I do believe the patient needs to be admitted to the hospital for reevaluation. He will be able to talk to social work, as well as have repeat laboratory values done. I spoke with the patient as well as the patient's daughter, they are in agreement. I have personally performed a face to face assessment of the patient and have reviewed the NANCY Note. I performed a substantive portion of the visit including all aspects of the following. My hannah findings include: History is 73-year-old male arriving by EMS with hypotension. Patient missed his carvedilol and losartan dosing last night so he took them this morning in addition to his regular carvedilol dose. Feels very weak with standing. He was recently admitted with hyponatremia and has been home for about 4 days. Denies any fevers cough. No change in breathing. No urinary symptoms. Exam is disheveled 73-year-old male. He is orthostatic positive. I do not see any cellulitic changes. Patient not having any difficulty breathing at this time. Medical Decison Making basic blood work shows hyponatremia and PENELOPE. He remains orthostatic despite IV fluids. The patient is being paced currently. I think that he would benefit from observation in the hospital as his labs have worsened in just a few days that he has been home in addition to the accidental medication overdose. Discharge Plan Dx/Rx/DC Orders Clinical Impression: Adult failure to thrive, Orthostatic hypotension, PENELOPE (acute kidney injury), Acute hyponatremia Disposition Disposition: Acute Care [facility]
[2024-02-12 11:57] LABS: Absolute Lymphocyte Count 1.68 X10^3/uL (0.83-4.51); Absolute Neutrophil Count 7.5 X10^3/uL (2.0-7.7); Basophil# 0.04 X10^3/uL; Basophil% 0.4 % (0-1); Eosinophil# 0.09 X10^3/uL; Eosinophils% 0.8 % (0-5); Hematocrit 28.9 % (40-54); Hemoglobin 9.6 g/dL (13.0-16.5); Lymphocyte # 1.68 X10^3/ul (0.83-4.51); Lymphocyte % 15.6 % (19-41); Mean Corp Hgb Conc 33.2 g/dL (32-36); Mean Corpuscular Hgb 27.7 pg (27.0-32.0); Mean Corpuscular Volume 83.5 fL (80-94); Mean Platelet Vol. 9.5 fl (6.2-12.0); Monocyte# 1.28 X10^3/uL; Monocyte% 11.9 % (0-10); NRBC Flagged by Analyzer 0 % (0-5); Neutrophil # 7.54 X10^3/uL (2.7-7.7); Neutrophil % 70.3 % (47-70); Platelet Count 231 K/mm3 (150-450); RBC Distribution Width CV 15.2 % (11.6-14.6); RBC Distribution Width SD 46.1 fl (35.1-43.9); Red Blood Count 3.46 M/mm3 (4.6-6.2); White Blood Count 10.7 K/mm3 (4.4-11.0)
[2024-02-12] MEDS: Ondansetron 4 MG/2 ML Vial IV (12:06)
[2024-02-12 12:21] LABS: Anion Gap 10 (5-15); BUN 35 mg/dL (7-18); BUN/Creat Ratio 19.9 RATIO (10-20); Calcium,Total 9.1 mg/dL (8.5-10.1); Chloride 93 mmol/L (98-107); Creatinine, Serum 1.76 mg/dL (0.70-1.30); EST Glomerular Filtration Rate 40 mL/min (>60); Est Glom Filt Rate - Afr Amer 49 mL/min (>60); Estimated Creatinine Clearance 37.44 ml/min; Glucose 85 mg/dL (74-106); Potassium 4.3 mmol/L (3.5-5.1); Sodium Level 125 mmol/L (136-145); Troponin-I HS 6 pg/mL (3.0-78.0)
--- NOTE | 2024-02-12 12:40 | RAD_ITS ---
EXAM: XR CHEST, 1 VIEW CLINICAL INDICATION: sob TECHNIQUE: Frontal view of the chest. COMPARISON: 12/25/2023 FINDINGS: LUNGS AND PLEURAL SPACES: Left greater than right bibasilar pulmonary opacities may be scarring, atelectasis, or pneumonia. Mild interstitial prominence perhaps secondary to COPD associated with overall pulmonary hyperinflation. No pneumothorax. No effusion. HEART: No significant abnormality. Cardiac silhouette not enlarged. MEDIASTINUM: Central airways and mediastinal contour are unremarkable. BONES/JOINTS: No significant abnormality. No acute fracture. SOFT TISSUES: No significant abnormality. VASCULATURE: Atherosclerosis. TUBES, LINES AND DEVICES: Left-sided cardiac device. RAD/Chest 1 View (Portable) IMPRESSION: Left greater than right bibasilar pulmonary opacities may be scarring, atelectasis, or pneumonia. Electronically Signed: Paul Hoang DO at 12:52 EDT ,
[2024-02-12 13:35] LABS: Bacteria 0 SEEN /hpf (None Seen); Mucous, Urine 0 SEEN /hpf (<or=2+); Red Blood Cells-Urine 0 SEEN /hpf (0-5); Squamous Epithelial Cells - UA 0 SEEN /hpf (0-5)
[2024-02-12 13:36] LABS: Color, Urine Yellow (Yellow); Glucose, Dipstick Normal (Normal); Ketone-Dipstick Negative (Negative); Leukocyte Esterase-Dipstick 25 /ul (Negative); Nitrite-Dipstick Negative (Negative); Occult Blood-Urine Negative /ul (Negative); Protein-Dipstick 30 mg/dl (Negative); Specific Gravity, Urine 1.005 (1.002-1.030); Urine Bilirubin Dipstick Negative (Negative); Urine Clarity Clear (Clear); Urine Urobilinogen Normal (Normal)
[2024-02-12 13:42] LABS: White Blood Cells 0-5 SEEN /hpf (0-5)
--- NOTE | 2024-02-12 14:00 | PCM.HP.STD ---
HPI - General General Date of Admission: 02/12/24 Date of Service: 02/12/24 Chief Complaint: Hypotension HPI Narrative KATIE HOLMAN, is a 73 M with a significant history of hypertension, COPD, BPH with recent prostate surgery, GERD, and hyperlipidemia who was discharged from the detention 3 days ago presenting to the emergency department with hypotension. Patient's daughter, Negar, check on patient and found that Patient was unable to stand up and he was falling. Patient's daughter took her blood pressure and patient blood pressure was 65/40. Patient reports that because she missed his blood pressure medication the night before presentation he took extra doses of his hypertension medicine. Of note he took two carvedilol pills instead of one. And even though he supposed to take losartan at night he took losartan in the morning of the day of presentation. At the emergency department patient was orthostatic positive even after fluid boluses. Patient sodium was found to be low. Of note her daughter who was at the bedside reported that patient was recently at the hospital and at that time his sodium was 121. Patient recounts that he was put on sodium tablets but is unsure whether he is still taking sodium tablets. [facility] Medical History Hyponatremia Wears hearing aid Wears glasses Walker as ambulation aid Wears dentures Indwelling urethral catheter present History of echocardiogram Cardiology follow-up encounter 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 Stage 3b chronic kidney disease (CKD) Third degree heart block BPH (benign prostatic hyperplasia) GERD (gastroesophageal reflux disease) Seizures Cataract Back pain with history of spinal surgery Neuropathy Emphysema lung Smoker Hypertension Home Medications ?Medication ?Instructions ?Recorded ?Last Taken ?Type atorvastatin 10 mg tablet 10 mg PO QHS 05/28/16 11/16/23 History budesonide-formoterol HFA 160 1 puff inhalation BID 05/28/16 11/17/23 History mcg-4.5 mcg/actuation aerosol inhaler (Symbicort) tamsulosin 0.4 mg capsule 0.8 mg PO QHS urination 05/28/16 11/16/23 History tiotropium bromide 18 mcg capsule 1 puff inhalation QHS 05/28/16 11/16/23 History with inhalation device (Spiriva with HandiHaler) aspirin 81 mg chewable tablet 81 mg PO DAILY@0800 07/06/16 11/09/23 History cholecalciferol (vitamin D3) 25 2,000 unit PO DAILY 07/06/16 11/16/23 History mcg (1,000 unit) tablet (Vitamin D3) emre Devlin B. lactis 10 1 ea PO DAILY pt unsure 02/07/17 11/16/23 History billion cell capsule carvedilol 6.25 mg tablet 6.25 mg PO BID #60 tabs 02/08/17 11/17/23 Rx losartan 25 mg tablet 25 mg PO QHS #90 tabs 08/03/23 11/16/23 Rx divalproex 500 mg tablet,delayed 500 mg PO BID 12/25/23 Unknown History release omeprazole 40 mg capsule,delayed 40 mg PO DAILY 12/25/23 Unknown History release sodium chloride 1,000 mg soluble 1,000 mg PO TID #0 tabs 12/28/23 Unknown Rx tablet Allergy/AdvReac Type Severity Reaction Status Date / Time ethotoin (From Peganone) Allergy Mild Rash Verified 02/12/24 11:39 Family History Other Cancer Heart disease Osteoporosis Surgical History History of selective injection of anesthetic agent around lumbar nerve root History of colonoscopy History of surgery History of appendectomy History of back surgery Social History Smoking Status: Current some day smoker tobacco type: cigarettes ROS ROS Narrative Pertinent positives and pertinent negatives as noted in HPI. All other systems were reviewed and are negative Vital Signs Vital Signs Vital Signs: 02/12/24 11:29 02/12/24 11:37 02/12/24 12:10 Temperature 98.6 F Temperature Source Oral Pulse Rate 89 Pulse Rate [Lying] 68 Respiratory Rate 20 H Respiratory Pattern Normal Blood Pressure 93/57 L Blood Pressure [Lying] 119/57 L Blood Pressure [Sitting (for 1 minute prior to obtaining)] 103/62 Blood Pressure [Standing (for 1 minute prior to obtaining)] 80/48 L Blood Pressure Mean 69 Blood Pressure Mean [Lying] 77 Blood Pressure Mean [Sitting (for 1 minute prior to obtaining)] 75 Blood Pressure Mean [Standing (for 1 minute prior to obtaining)] 58 Pulse Ox 97 Oxygen Delivery Method Room Air 02/12/24 13:28 Temperature Temperature Source Pulse Rate 71 Pulse Rate [Lying] Respiratory Rate 16 Respiratory Pattern Blood Pressure 141/79 H Blood Pressure [Lying] Blood Pressure [Sitting (for 1 minute prior to obtaining)] Blood Pressure [Standing (for 1 minute prior to obtaining)] Blood Pressure Mean 99 Blood Pressure Mean [Lying] Blood Pressure Mean [Sitting (for 1 minute prior to obtaining)] Blood Pressure Mean [Standing (for 1 minute prior to obtaining)] Pulse Ox 96 Oxygen Delivery Method Room Air Weight Weight: 73.7 kg Body Mass Index (BMI) 23.3 Physical Exam Narrative Physical exam: General: Well-nourished, well-developed. Head: Normocephalic, atraumatic, no tenderness Eyes: Vision is grossly intact. EOMI ENT, no trauma, moist mucous membranes, no rhinorrhea Neck: Nontender, No thyromegaly. CVS: Regular rate and rhythm. S1-S2 present. No murmur, gallop or rub. Respiratory : clear to auscultation bilaterally, chest wall nontender Abdomen: Soft, nontender, nondistended, normal bowel sounds, no masses : Deferred Back: Nontender, no CVA tenderness, no midline spinal tenderness, deformities, step-offs Extremities: Nontender full range of motion, no trauma Skin: Normal color, no trauma, abrasions Neuro: Alert, oriented, cranial nerves II through XII grossly intact. Psychiatry: Normal mood. Normal affect. Not depressed. Not anxious. Results Lab / Micro Data 02/12/24 11:35 02/12/24 11:35 Labs: Laboratory Results - last 24 hr 02/12/24 11:35: WBC 10.7, RBC 3.46 L, Hgb 9.6 L, Hct 28.9 L, MCV 83.5, MCH 27.7, MCHC 33.2, RDW Std Deviation 46.1 H, RDW Coeff of Edinson 15.2 H, Plt Count 231, MPV 9.5, Immature Gran % (Auto) 1.000 H, Neut % (Auto) 70.3 H, Lymph % (Auto) 15.6 L, [place] % (Auto) 11.9 H, Eos % (Auto) 0.8, Baso % (Auto) 0.4, Absolute Neuts (auto) 7.5, Absolute Lymphs (auto) 1.68, Nucleated RBC % 0, Sodium 125 L, Potassium 4.3, Chloride 93 L, Carbon Dioxide 22.0, Anion Gap 10, BUN 35 H, Creatinine 1.76 H, Estim Creat Clear Calc 37.44, Est GFR (MDRD) Af Amer 49 L, Est GFR (MDRD) Non-Af 40 L, BUN/Creatinine Ratio 19.9, Glucose 85, Calcium 9.1, Troponin I High Sens 6 02/12/24 13:30: Urine Color Yellow, Urine Clarity Clear, Urine pH 7.0, Ur Specific [place] 1.005, Urine Protein 30 H, Urine Glucose (UA) Normal, Urine Ketones Negative, Urine Occult Blood Negative, Urine Nitrite Negative, Urine Bilirubin Negative, Urine Urobilinogen Normal, Ur Leukocyte Esterase 25 H, Urine RBC 0 SEEN, Urine WBC 0-5 SEEN, Ur Squamous Epith Cells 0 SEEN, Urine Bacteria 0 SEEN, Urine Mucus 0 SEEN Imaging Radiology Impression Chest X-Ray 02/12/24 12:40 IMPRESSION: Left greater than right bibasilar pulmonary opacities may be scarring, atelectasis, or pneumonia. Electronically Signed: Paul Hoang DO at 12:52 EDT , Assessment & Plan Assessment/Plan (1) Acute hyponatremia: (2) PENELOPE (acute kidney injury): (3) Orthostatic hypotension: (4) Adult failure to thrive: (5) Falls: QUALIFIERS: Encounter type: subsequent encounter Qualified Code(s): W19.XXXD - Unspecified fall, subsequent encounter (6) Unable to ambulate: (7) Generalized weakness: (8) Tobacco abuse: (9) Acute hypotension: PLAN: Elva HOLMAN, is a 73 M with a significant history of hypertension, COPD, BPH with recent prostate surgery, GERD, and hyperlipidemia who was discharged from the detention 3 days ago presented emergency department with hypotension; inability to ambulate; repeated falls; and found to be orthostatic hypotensive; has PENELOPE and has low sodium. Hypertension and orthostatic hypotension Hold home blood pressure medications although patient blood pressure is improving with IV fluids. As needed hydralazine ordered. Trend blood pressures. Repeated falls/weakness Like secondary to debility and low sodium; as well as hypotension PT and OT to work with patient. Current sodium level. Proper dosing of blood pressure medications. PENELOPE IV fluids as above Avoid nephrotoxic's Trend. Hyponatremia IV fluids ordered. Resume sodium tablets On patient's previous admission nephrology was consulted. Considered consulting nephrology. However will hold off at this time. Trend BMP. DVT prophylaxis Subcu heparin ordered Time spent in the patient's overall evaluation,decision-making process, review of diagnostic data, adjustment of management, discussion with other providers, nursing and ancillary staff involved in patient's care documentation, 70 minutes. Advance care planning: Discussed with patient and family advanced directives as well as CODE STATUS. Explained various CODE STATUS: FULL CODE, DNR CCA, DNR CCA with no intubation, and DNR CC- and what each meant. Patient elected to be a full code with CPR and intubation if warranted. Order was placed. Surrogate decision maker is the patient's daughter, Negar. Time spent on discussion 16 minutes. Charges/Coding Visit Charges Inpatient E&M: 67709 Init Hosp L3 Procedures Hospitalists Procedures: 26766 Advncd Care Plan 30 Min
[2024-02-12] MEDS: 0.9% Normal Saline (1000mL) 1,000 ML 75 ML IV (15:42)
[2024-02-12 16:48] LABS: Uric Acid 5.5 mg/dL (3.5-7.2)
[2024-02-12] MEDS: Acetaminophen 325 MG Tablet 650 MG PO (17:11)
[2024-02-12 18:35] LABS: Anion Gap 11 (5-15); BUN 31 mg/dL (7-18); BUN/Creat Ratio 21.7 RATIO (10-20); Calcium,Total 8.8 mg/dL (8.5-10.1); Chloride 95 mmol/L (98-107); Creatinine, Serum 1.43 mg/dL (0.70-1.30); EST Glomerular Filtration Rate 51 mL/min (>60); Est Glom Filt Rate - Afr Amer 62 mL/min (>60); Estimated Creatinine Clearance 44.63 ml/min; Glucose 103 mg/dL (74-106); Potassium 3.8 mmol/L (3.5-5.1); Sodium Level 127 mmol/L (136-145)
[2024-02-12 22:25] LABS: Anion Gap 8 (5-15); BUN 31 mg/dL (7-18); BUN/Creat Ratio 21.7 RATIO (10-20); Calcium,Total 8.7 mg/dL (8.5-10.1); Chloride 96 mmol/L (98-107); Creatinine, Serum 1.43 mg/dL (0.70-1.30); EST Glomerular Filtration Rate 51 mL/min (>60); Est Glom Filt Rate - Afr Amer 62 mL/min (>60); Estimated Creatinine Clearance 44.63 ml/min; Glucose 123 mg/dL (74-106); Potassium 4.2 mmol/L (3.5-5.1); Sodium Level 126 mmol/L (136-145)
[2024-02-12] MEDS: Heparin Injection (Vial) 5,000 UNIT/ML VIAL 5000 UNIT SC (23:21)
[2024-02-12] MEDS: Sodium Chloride 1 GM Tablet PO (23:21)
[2024-02-13 02:30] VITALS: BP 155/72; PULSE 75; RESP 18; TEMP 36.6; O2SAT 98
[2024-02-13 02:37] LABS: Anion Gap 9 (5-15); BUN 31 mg/dL (7-18); BUN/Creat Ratio 25.8 RATIO (10-20); Calcium,Total 8.7 mg/dL (8.5-10.1); Chloride 96 mmol/L (98-107); EST Glomerular Filtration Rate 63 mL/min (>60); Est Glom Filt Rate - Afr Amer 76 mL/min (>60); Estimated Creatinine Clearance 53.19 ml/min; Glucose 100 mg/dL (74-106); Potassium 4.2 mmol/L (3.5-5.1); Sodium Level 129 mmol/L (136-145)
[2024-02-13] MEDS: 0.9% Normal Saline (1000mL) 1,000 ML 75 ML IV ×2 (04:05→16:03)
[2024-02-13] MEDS: Sodium Chloride 1 GM Tablet PO ×3 (05:33→21:44)
[2024-02-13 06:35] LABS: Absolute Lymphocyte Count 1.36 X10^3/uL (0.83-4.51); Absolute Neutrophil Count 5.2 X10^3/uL (2.0-7.7); Basophil# 0.03 X10^3/uL; Basophil% 0.4 % (0-1); Eosinophil# 0.16 X10^3/uL; Eosinophils% 2.1 % (0-5); Hematocrit 31.3 % (40-54); Hemoglobin 10.3 g/dL (13.0-16.5); Lymphocyte # 1.36 X10^3/ul (0.83-4.51); Lymphocyte % 17.6 % (19-41); Mean Corp Hgb Conc 32.9 g/dL (32-36); Mean Corpuscular Hgb 27.9 pg (27.0-32.0); Mean Corpuscular Volume 84.8 fL (80-94); Mean Platelet Vol. 9.3 fl (6.2-12.0); Monocyte# 0.92 X10^3/uL; Monocyte% 11.9 % (0-10); NRBC Flagged by Analyzer 0 % (0-5); Neutrophil # 5.21 X10^3/uL (2.7-7.7); Neutrophil % 67.2 % (47-70); Platelet Count 240 K/mm3 (150-450); RBC Distribution Width CV 15.2 % (11.6-14.6); RBC Distribution Width SD 46.5 fl (35.1-43.9); Red Blood Count 3.69 M/mm3 (4.6-6.2); White Blood Count 7.7 K/mm3 (4.4-11.0)
[2024-02-13 07:10] LABS: Anion Gap 9 (5-15); BUN 30 mg/dL (7-18); BUN/Creat Ratio 25.4 RATIO (10-20); Calcium,Total 9.3 mg/dL (8.5-10.1); Chloride 97 mmol/L (98-107); Creatinine, Serum 1.18 mg/dL (0.70-1.30); EST Glomerular Filtration Rate 64 mL/min (>60); Est Glom Filt Rate - Afr Amer 77 mL/min (>60); Estimated Creatinine Clearance 54.09 ml/min; Glucose 93 mg/dL (74-106); Potassium 4.4 mmol/L (3.5-5.1); Sodium Level 128 mmol/L (136-145)
[2024-02-13 08:48] VITALS: BP 152/81; PULSE 77; RESP 18; TEMP 36.3; O2SAT 95
[2024-02-13] MEDS: Heparin Injection (Vial) 5,000 UNIT/ML VIAL 5000 UNIT SC ×2 (08:53→21:44)
--- NOTE | 2024-02-13 09:46 | NURSING ---
voided in toilet, unable to use urinal. PVR done
[2024-02-13 09:47] VITALS: BP 121/71; BP 154/79; BP 94/55; PULSE 83; PULSE 86; PULSE 97
--- NOTE | 2024-02-13 09:56 | NURSING ---
left daughter a voice mail regarding bringing in list of pt's home medications as pt unable to verify
[2024-02-13 10:13] VITALS: PULSE 84
--- NOTE | 2024-02-13 11:48 | PCM.PN.HOSP ---
Subjective Subjective Still little bit dizzy, orthostatic vital signs this morning were positive Objective Data Objective Data Vital Signs: Vital Signs Temp Pulse Resp BP Pulse Ox O2 Del Method 97.4 F L 84 18 154/79 H 95 Room Air 02/13/24 08:48 02/13/24 10:13 02/13/24 08:48 02/13/24 09:47 02/13/24 08:48 02/13/24 08:48 Oxygen Delivery Method Room Air Weight: 165 lb 4.8 oz Body Mass Index (BMI) 24.0 Intake & Output: Intake and Output for Last 24 Hours 02/12/24 02/13/24 02/14/24 03:59 03:59 03:59 Intake Total 3050 / 3050 1178.75 / 1178.75 Output Total 200 / 200 Balance 2850 / 2850 1178.75 / 1178.75 Lab / Micro Data 02/13/24 06:05 02/13/24 06:05 Labs: Laboratory Results - last 24 hr 02/12/24 11:35: WBC 10.7, RBC 3.46 L, Hgb 9.6 L, Hct 28.9 L, MCV 83.5, MCH 27.7, MCHC 33.2, RDW Std Deviation 46.1 H, RDW Coeff of Edinson 15.2 H, Plt Count 231, MPV 9.5, Immature Gran % (Auto) 1.000 H, Neut % (Auto) 70.3 H, Lymph % (Auto) 15.6 L, [place] % (Auto) 11.9 H, Eos % (Auto) 0.8, Baso % (Auto) 0.4, Absolute Neuts (auto) 7.5, Absolute Lymphs (auto) 1.68, Nucleated RBC % 0, Sodium 125 L, Potassium 4.3, Chloride 93 L, Carbon Dioxide 22.0, Anion Gap 10, BUN 35 H, Creatinine 1.76 H, Estim Creat Clear Calc 37.44, Est GFR (MDRD) Af Amer 49 L, Est GFR (MDRD) Non-Af 40 L, BUN/Creatinine Ratio 19.9, Glucose 85, Uric Acid 5.5, Calcium 9.1, Troponin I High Sens 6 02/12/24 13:30: Urine Color Yellow, Urine Clarity Clear, Urine pH 7.0, Ur Specific [place] 1.005, Urine Protein 30 H, Urine Glucose (UA) Normal, Urine Ketones Negative, Urine Occult Blood Negative, Urine Nitrite Negative, Urine Bilirubin Negative, Urine Urobilinogen Normal, Ur Leukocyte Esterase 25 H, Urine RBC 0 SEEN, Urine WBC 0-5 SEEN, Ur Squamous Epith Cells 0 SEEN, Urine Bacteria 0 SEEN, Urine Mucus 0 SEEN 02/12/24 18:12: Sodium 127 L, Potassium 3.8, Chloride 95 L, Carbon Dioxide 21.0, Anion Gap 11, BUN 31 H, Creatinine 1.43 H, Estim Creat Clear Calc 44.63, Est GFR (MDRD) Af Amer 62, Est GFR (MDRD) Non-Af 51 L, BUN/Creatinine Ratio 21.7 H, Glucose 103, Calcium 8.8 02/12/24 21:57: Sodium 126 L, Potassium 4.2, Chloride 96 L, Carbon Dioxide 22.0, Anion Gap 8, BUN 31 H, Creatinine 1.43 H, Estim Creat Clear Calc 44.63, Est GFR (MDRD) Af Amer 62, Est GFR (MDRD) Non-Af 51 L, BUN/Creatinine Ratio 21.7 H, Glucose 123 H, Calcium 8.7 02/13/24 02:05: Sodium 129 L, Potassium 4.2, Chloride 96 L, Carbon Dioxide 24.0, Anion Gap 9, BUN 31 H, Creatinine 1.20, Estim Creat Clear Calc 53.19, Est GFR (MDRD) Af Amer 76, Est GFR (MDRD) Non-Af 63, BUN/Creatinine Ratio 25.8 H, Glucose 100, Calcium 8.7 02/13/24 06:05: WBC 7.7, RBC 3.69 L, Hgb 10.3 L, Hct 31.3 L, MCV 84.8, MCH 27.9, MCHC 32.9, RDW Std Deviation 46.5 H, RDW Coeff of Edinson 15.2 H, Plt Count 240, MPV 9.3, Immature Gran % (Auto) 0.800, Neut % (Auto) 67.2, Lymph % (Auto) 17.6 L, [place] % (Auto) 11.9 H, Eos % (Auto) 2.1, Baso % (Auto) 0.4, Absolute Neuts (auto) 5.2, Absolute Lymphs (auto) 1.36, Nucleated RBC % 0, Sodium 128 L, Potassium 4.4, Chloride 97 L, Carbon Dioxide 22.0, Anion Gap 9, BUN 30 H, Creatinine 1.18, Estim Creat Clear Calc 54.09, Est GFR (MDRD) Af Amer 77, Est GFR (MDRD) Non-Af 64, BUN/Creatinine Ratio 25.4 H, Glucose 93, Calcium 9.3 Radiography Diagnostic Testing: Radiology Impression Chest X-Ray 02/12/24 12:40 IMPRESSION: Left greater than right bibasilar pulmonary opacities may be scarring, atelectasis, or pneumonia. Electronically Signed: Paul Hoang, DO at 12:52 EDT , Physical Exam Narrative General: Alert, Oriented x3, Cooperative, No apparent distress, fatigued HEENT: Atraumatic, PERRLA, EOMI, Normocephalic Oral: Moist Mucosa Neck: Supple, No JVD Lungs: Diminished, Normal air movement, No rhonchi, No wheeze, No rales Cardiovascular: Regular rate, Regular Rhythm, Normal S1, Normal S2, No murmurs Abdomen: Soft, Non Tender, Non-Distended, No Hepato-splenomegaly Extremities: No edema, Capillary Refill Less than 3 Seconds Skin: No rashes, No breakdown Musculoskeletal: No Tenderness to Palpation of Joints or Extremities Neurological: No focal neurological deficits, Motor Exam 5/5 strength throughout, Sensory exam intact to light touch and pain Psych/Mental Status: Flat Assessment & Plan Assessment/Plan (1) Acute hyponatremia: (2) PENELOPE (acute kidney injury): (3) Orthostatic hypotension: (4) Adult failure to thrive: (5) Falls: QUALIFIERS: Encounter type: subsequent encounter Qualified Code(s): W19.XXXD - Unspecified fall, subsequent encounter (6) Unable to ambulate: (7) Generalized weakness: (8) Tobacco abuse: (9) Acute hypotension: PLAN: Plan 1. Weakness and debility with orthostatic hypotension and PENELOPE/essential HTN/HLD ? Continue with IV fluids ? Will hold his home blood pressure medications can restart when able ? PT/OT ? Recently discharged from the residential ? His chronic hyponatremia is at baseline ? Continue with IV fluids, renal function is also back to baseline with a creatinine of 1.18 ? Continue with Lipitor 2. Seizure disorder ? Currently on Depakote ? This may contribute to hyponatremia ? Can continue once medications verified 3. GERD ? Stable ? Can resume omeprazole when verified DVT: Heparin Charges/Coding Visit Charges Inpatient E&M: 99007 Subs Hosp L2
[2024-02-13 14:19] VITALS: BP 177/82; PULSE 81; RESP 18; TEMP 36.6; O2SAT 100
[2024-02-13] MEDS: Acetaminophen 325 MG Tablet 650 MG PO ×2 (15:58→21:44)
[2024-02-13 21:40] VITALS: BP 157/68; PULSE 73; RESP 18; TEMP 36.9; O2SAT 97
[2024-02-13] MEDS: MELATONIN 3 MG TABLET PO (21:44)
[2024-02-14 00:27] VITALS: BP 148/81; PULSE 73; RESP 18; TEMP 36.6; O2SAT 98
[2024-02-14] MEDS: 0.9% Normal Saline (1000mL) 1,000 ML 75 ML IV (04:44)
[2024-02-14 04:47] VITALS: BP 149/54; PULSE 67; RESP 16; TEMP 37.2; O2SAT 97
[2024-02-14] MEDS: Sodium Chloride 1 GM Tablet PO ×3 (04:51→21:17)
[2024-02-14] MEDS: Senna/Docusate Sodium 1 Tablet 2 TABLET PO (04:51)
[2024-02-14] MEDS: Acetaminophen 325 MG Tablet 650 MG PO ×2 (04:51→21:16)
[2024-02-14 06:48] LABS: Absolute Neutrophil Count 4.1 X10^3/uL (2.0-7.7); Basophil# 0.04 X10^3/uL; Basophil% 0.6 % (0-1); Eosinophil# 0.17 X10^3/uL; Eosinophils% 2.5 % (0-5); Hematocrit 29.4 % (40-54); Hemoglobin 9.7 g/dL (13.0-16.5); Mean Corpuscular Hgb 27.8 pg (27.0-32.0); Mean Corpuscular Volume 84.2 fL (80-94); Mean Platelet Vol. 9.2 fl (6.2-12.0); Monocyte# 0.95 X10^3/uL; Monocyte% 14.2 % (0-10); NRBC Flagged by Analyzer 0 % (0-5); Neutrophil # 4.06 X10^3/uL (2.7-7.7); Platelet Count 235 K/mm3 (150-450); RBC Distribution Width CV 15.3 % (11.6-14.6); RBC Distribution Width SD 46.5 fl (35.1-43.9); Red Blood Count 3.49 M/mm3 (4.6-6.2); White Blood Count 6.7 K/mm3 (4.4-11.0)
[2024-02-14 07:24] LABS: Anion Gap 5 (5-15); BUN 21 mg/dL (7-18); BUN/Creat Ratio 23.7 RATIO (10-20); Calcium,Total 9.1 mg/dL (8.5-10.1); Chloride 97 mmol/L (98-107); Creatinine, Serum 0.89 mg/dL (0.70-1.30); EST Glomerular Filtration Rate 89 mL/min (>60); Est Glom Filt Rate - Afr Amer 108 mL/min (>60); Estimated Creatinine Clearance 71.72 ml/min; Glucose 94 mg/dL (74-106); Potassium 4.4 mmol/L (3.5-5.1); Sodium Level 127 mmol/L (136-145)
[2024-02-14 09:05] VITALS: BP 160/63; PULSE 72; RESP 16; TEMP 36.8; O2SAT 98
[2024-02-14] MEDS: Heparin Injection (Vial) 5,000 UNIT/ML VIAL 5000 UNIT SC ×2 (09:14→21:17)
--- NOTE | 2024-02-14 09:44 | PCM.PN.HOSP ---
Subjective Subjective Had some orthostasis yesterday, today says that he is not as dizzy but still feels weak Objective Data Objective Data Vital Signs: Vital Signs Temp Pulse Resp BP Pulse Ox O2 Del Method 98.2 F 72 16 160/63 H 98 Room Air 02/14/24 09:05 02/14/24 09:05 02/14/24 09:05 02/14/24 09:05 02/14/24 09:05 02/14/24 09:05 Oxygen Delivery Method Room Air Weight: 165 lb 4.8 oz Body Mass Index (BMI) 24.0 Intake & Output: Intake and Output for Last 24 Hours 02/13/24 02/14/24 02/15/24 03:59 03:59 03:59 Intake Total 3050 / 3050 2676.25 / 2676.25 1251.25 / 1251.25 Output Total 200 / 200 4375 / 4375 2200 / 2200 Balance 2850 / 2850 -1698.75 / -1698.75 -948.75 / -948.75 Lab / Micro Data 02/14/24 06:32 02/14/24 06:32 Labs: Laboratory Results - last 24 hr 02/14/24 06:32: WBC 6.7, RBC 3.49 L, Hgb 9.7 L, Hct 29.4 L, MCV 84.2, MCH 27.8, MCHC 33.0, RDW Std Deviation 46.5 H, RDW Coeff of Edinson 15.3 H, Plt Count 235, MPV 9.2, Immature Gran % (Auto) 0.700, Neut % (Auto) 61.0, Lymph % (Auto) 21.0, [place] % (Auto) 14.2 H, Eos % (Auto) 2.5, Baso % (Auto) 0.6, Absolute Neuts (auto) 4.1, Absolute Lymphs (auto) 1.40, Nucleated RBC % 0, Sodium 127 L, Potassium 4.4, Chloride 97 L, Carbon Dioxide 25.0, Anion Gap 5, BUN 21 H, Creatinine 0.89, Estim Creat Clear Calc 71.72, Est GFR (MDRD) Af Amer 108, Est GFR (MDRD) Non-Af 89, BUN/Creatinine Ratio 23.7 H, Glucose 94, Calcium 9.1 Physical Exam Narrative General: Alert, Oriented x3, Cooperative, No apparent distress, fatigued HEENT: Atraumatic, PERRLA, EOMI, Normocephalic Oral: Moist Mucosa Neck: Supple, No JVD Lungs: Diminished, Normal air movement, No rhonchi, No wheeze, No rales Cardiovascular: Regular rate, Regular Rhythm, Normal S1, Normal S2, No murmurs Abdomen: Soft, Non Tender, Non-Distended, No Hepato-splenomegaly Extremities: No edema, Capillary Refill Less than 3 Seconds Skin: No rashes, No breakdown Musculoskeletal: No Tenderness to Palpation of Joints or Extremities Neurological: No focal neurological deficits, Motor Exam 5/5 strength throughout, Sensory exam intact to light touch and pain Psych/Mental Status: Flat Assessment & Plan Assessment/Plan (1) Acute hyponatremia: (2) PENELOPE (acute kidney injury): (3) Orthostatic hypotension: (4) Adult failure to thrive: (5) Falls: QUALIFIERS: Encounter type: subsequent encounter Qualified Code(s): W19.XXXD - Unspecified fall, subsequent encounter (6) Unable to ambulate: (7) Generalized weakness: (8) Tobacco abuse: (9) Acute hypotension: PLAN: Plan 1. Weakness and debility with orthostatic hypotension and PENELOPE/essential HTN/HLD ? Continue with IV fluids ? Will hold his home blood pressure medications can restart when able ? PT/OT ? Recently discharged from the residential ? His chronic hyponatremia is at baseline ? Continue with IV fluids, renal function is also back to baseline ? Continue with Lipitor 2. Seizure disorder ? Currently on Depakote ? This may contribute to hyponatremia ? Can continue once medications verified 3. GERD ? Stable ? Can resume omeprazole when verified DVT: Heparin Charges/Coding Visit Charges Inpatient E&M: 97693 Subs Hosp L2
--- NOTE | 2024-02-14 12:52 | CASEMGMT ---
Addendum entered by Jenny Mascorro 02/14/24 13:28: Pamela emails this RN CM back stating that the pt was set up with home PT through [facility]. TC to [facility] and they confirm that the pt is active with their services. Will coordinate with the agency regarding disposition plans once appropriate. Original Note: RN CM Assessment Face to Face with patient for initial transition planning/care coordination assessment. RN CM introduced self and role at [facility], pt voices understanding. Pt is A&Ox4 and is resting comfortably in bed and is calm. Care providers, pharmacy, and demographics verified. Admitting dx: Dehydration LACE: 3 PCP: Iris Clancy Specialists: Cece ([place]) Preferred Pharmacy: [facility] [place] Insurance: [employer] A/B, [place] Prescription Benefit: Yes LNOK: Mansi Govea (W), Negar Davis ([place]) Living Arrangements: Pt lives with his in a single story home with 2 steps to enter. Pt states that his is currently in a skilled nursing ([facility]) and is unsure if she will be able to come back home d/t her dementia and care demands. ADLs/IADLs: Pt states that he is ind most of the time but his daughter and son come to help when needed. Pt states that his daughter comes to his home 3-4x/week. Pt states that his son can come anytime he needs assistance. Transportation: Self DME: [facility]. Walk-in shower with chair and GB. Grab bars for toilet. BP Cuff. HHC/SNF: Pt was recently discharged home from [facility]. Pt states that he is set up with [facility] but is unsure of the agency or who set this up. Pt states that the agency has not been to the pt house yet. Pt states that they are supposed to call me sometime this week with a time. This RN CM called [facility] to see if they set this up. No answer, VM left. Email sent to Pamela Pascual ([employer] [place]) to see if this can get verified. Will follow. Pt?s goal: Return to PLOF Plan: TBD. Anticipate SNF vs Home with HH. Pt states that he prefers not to return to a skilled nursing but may consider this if it is warranted. CM/SW to follow pt progression in the hospital and see what he best qualifies for moving forward. B Ludwin EDWARDS CM
--- NOTE | 2024-02-14 13:35 | CASEMGMT ---
Discharge Planning HH resumption referral sent to [facility] via [facility]. Rosina Rivera DC Planning Asst.
[2024-02-14 14:02] VITALS: BP 142/75; PULSE 87; RESP 16; TEMP 36.9; O2SAT 97
[2024-02-14] MEDS: MELATONIN 3 MG TABLET PO (21:16)
[2024-02-14 21:30] VITALS: BP 159/80; PULSE 88; RESP 18; TEMP 37; O2SAT 98
[2024-02-15 00:52] VITALS: BP 177/77; PULSE 84
[2024-02-15] MEDS: hydrALAZINE 20 MG/ML Vial 5 MG IV (00:52)
[2024-02-15] MEDS: Albuterol 2.5 MG/3 ML VIAL.NEB. INHALATION (01:01)
[2024-02-15 01:02] VITALS: PULSE 79; RESP 14; O2SAT 98
[2024-02-15 02:00] VITALS: BP 125/65; PULSE 80; RESP 18; TEMP 36.9; O2SAT 97
[2024-02-15] MEDS: Sodium Chloride 1 GM Tablet PO ×3 (06:34→20:55)
[2024-02-15 07:50] LABS: Absolute Lymphocyte Count 1.61 X10^3/uL (0.83-4.51); Absolute Neutrophil Count 5.3 X10^3/uL (2.0-7.7); Basophil# 0.05 X10^3/uL; Basophil% 0.6 % (0-1); Eosinophil# 0.21 X10^3/uL; Eosinophils% 2.5 % (0-5); Hematocrit 31.6 % (40-54); Hemoglobin 10.4 g/dL (13.0-16.5); Lymphocyte # 1.61 X10^3/ul (0.83-4.51); Lymphocyte % 19.2 % (19-41); Mean Corp Hgb Conc 32.9 g/dL (32-36); Mean Corpuscular Hgb 27.5 pg (27.0-32.0); Mean Corpuscular Volume 83.6 fL (80-94); Mean Platelet Vol. 9.2 fl (6.2-12.0); Monocyte# 1.16 X10^3/uL; Monocyte% 13.8 % (0-10); NRBC Flagged by Analyzer 0 % (0-5); Neutrophil % 63.2 % (47-70); Platelet Count 255 K/mm3 (150-450); RBC Distribution Width CV 15.1 % (11.6-14.6); RBC Distribution Width SD 46.2 fl (35.1-43.9); Red Blood Count 3.78 M/mm3 (4.6-6.2); White Blood Count 8.4 K/mm3 (4.4-11.0)
[2024-02-15 08:09] LABS: Anion Gap 7 (5-15); BUN 18 mg/dL (7-18); BUN/Creat Ratio 18.9 RATIO (10-20); Calcium,Total 9.4 mg/dL (8.5-10.1); Chloride 95 mmol/L (98-107); Creatinine, Serum 0.95 mg/dL (0.70-1.30); EST Glomerular Filtration Rate 82 mL/min (>60); Est Glom Filt Rate - Afr Amer 99 mL/min (>60); Estimated Creatinine Clearance 67.19 ml/min; Glucose 91 mg/dL (74-106); Potassium 4.1 mmol/L (3.5-5.1); Sodium Level 126 mmol/L (136-145)
[2024-02-15 09:17] VITALS: BP 121/70; PULSE 88; RESP 16; TEMP 36.8; O2SAT 96
[2024-02-15] MEDS: Heparin Injection (Vial) 5,000 UNIT/ML VIAL 5000 UNIT SC ×2 (09:28→20:55)
[2024-02-15] MEDS: 0.9% Saline Lock 10 ML Syringe IV (09:38)
[2024-02-15] MEDS: Ondansetron 4 MG/2 ML Vial IV (09:38)
--- NOTE | 2024-02-15 10:01 | CASEMGMT ---
Social Work SW spoke w/pt in regard to discharge plan. SW provided to pt a list of nursing home facilities from [facility] of facilities in pt's preferred geographic area, insurance network, and complete w/quality and resource use data. Pt explains that he just left [facility] after being there 6 weeks, left on the , and came in here on Wednesday. Pt's is at [facility] at present as well. Pt states if SNF needed, he would want to go back to [facility]. SW explained will follow up w/him once he has had PT/OT. SW will continue to follow. GREGORIO Sanchez
--- NOTE | 2024-02-15 10:44 | PN.HOSP_ITS ---
Subjective Subjective Doing well, no issues overnight Objective Data Objective Data Vital Signs: Vital Signs Temp Pulse Resp BP Pulse Ox O2 Del Method 98.3 F 88 16 121/70 H 96 Room Air 02/15/24 09:17 02/15/24 09:17 02/15/24 09:17 02/15/24 09:17 02/15/24 09:17 02/15/24 09:17 Oxygen Delivery Method Room Air Weight: 165 lb 4.8 oz Body Mass Index (BMI) 24.0 Intake & Output: Intake and Output for Last 24 Hours 02/14/24 02/15/24 02/16/24 03:59 03:59 03:59 Intake Total 2676.25 / 2676.25 2251.25 / 2251.25 Output Total 4375 / 4375 5300 / 5300 Balance -1698.75 / -1698.75 -3048.75 / -3048.75 Lab / Micro Data 02/15/24 07:04 02/15/24 07:04 Labs: Laboratory Results - last 24 hr 02/15/24 07:04: WBC 8.4, RBC 3.78 L, Hgb 10.4 L, Hct 31.6 L, MCV 83.6, MCH 27.5, MCHC 32.9, RDW Std Deviation 46.2 H, RDW Coeff of Edinson 15.1 H, Plt Count 255, MPV 9.2, Immature Gran % (Auto) 0.700, Neut % (Auto) 63.2, Lymph % (Auto) 19.2, [place] % (Auto) 13.8 H, Eos % (Auto) 2.5, Baso % (Auto) 0.6, Absolute Neuts (auto) 5.3, Absolute Lymphs (auto) 1.61, Nucleated RBC % 0, Sodium 126 L, Potassium 4.1, C hloride 95 L, Carbon Dioxide 24.0, Anion Gap 7, BUN 18, Creatinine 0.95, Estim Creat Clear Calc 67.19, Est GFR (MDRD) Af Amer 99, Est GFR (MDRD) Non-Af 82, BUN/Creatinine Ratio 18.9, Glucose 91, Calcium 9.4 Physical Exam Narrative General: Alert, Oriented x3, Cooperative, No apparent distress, fatigued HEENT: Atraumatic, PERRLA, EOMI, Normocephalic Oral: Moist Mucosa Neck: Supple, No JVD Lungs: Diminished, Normal air movement, No rhonchi, No wheeze, No rales Cardiovascular: Regular rate, Regular Rhythm, Normal S1, Normal S2, No murmurs Abdomen: Soft, Non Tender, Non-Distended, No Hepato-splenomegaly Extremities: No edema, Capillary Refill Less than 3 Seconds Skin: No rashes, No breakdown Musculoskeletal: No Tenderness to Palpation of Joints or Extremities Neurological: No focal neurological deficits, Motor Exam 5/5 strength throughout, Sensory exam intact to light touch and pain Psych/Mental Status: Flat Assessment & Plan Assessment/Plan (1) Acute hyponatremia: (2) PENELOPE (acute kidney injury): (3) Orthostatic hypotension: (4) Adult failure to thrive: (5) Falls: QUALIFIERS: Encounter type: subsequent encounter Qualified Code(s): W19.XXXD - Unspecified fall, subsequent encounter (6) Unable to ambulate: (7) Generalized weakness: (8) Tobacco abuse: (9) Acute hypotension: PLAN: Plan 1. Weakness and debility with orthostatic hypotension and PENELOEP/essential HTN/HLD ? Continue with IV fluids ? Will hold his home blood pressure medications can restart when able ? PT/OT ? Recently discharged from the group home ? His chronic hyponatremia is at baseline ?Renal function is also back to baseline, continue with salt tabs ? Continue with Lipitor 2. Seizure disorder ? Currently on Depakote ? This may contribute to hyponatremia ? Can continue once medications verified 3. GERD ? Stable ? Can resume omeprazole when verified DVT: Heparin Charges/Coding Visit Charges Inpatient E&M: 22691 Subs Hosp L2
[2024-02-15 15:01] VITALS: BP 156/78; PULSE 97; RESP 16; TEMP 37; O2SAT 97
--- NOTE | 2024-02-15 15:06 | CASEMGMT ---
Social Work SW met w/pt and daughter in room in regard to discharge plan. As per therapy, pt is moving better, however pt is not certain if he can go home. SW spoke w/pt about this. Pt is ambivalent about what to do. SW explained we can send the referral back to [facility] to see if they can take him again. Then at least we know if they are willing to take him back. SW explained if they do accept him back, that does not mean he has to go, we can see how things are tomorrow. Pt states understanding, agreeable to referral. Rosina, d/c system planning engineer, will send the referral to [facility]. SW will continue to follow. GREGORIO Sanchez
--- NOTE | 2024-02-15 15:21 | CASEMGMT ---
Addendum entered by Rosina Rivera 02/15/24 15:27: [facility] accepted. SW updated. Rosina Rivera DC Planning Asst. Original Note: Discharge Planning Referral sent to [facility] via [employer]. Rosina Rivera DC Planning Asst.
[2024-02-15] MEDS: Acetaminophen 325 MG Tablet 650 MG PO (15:29)
[2024-02-15 20:53] VITALS: BP 147/80; PULSE 81; RESP 16; TEMP 36.9; O2SAT 96
[2024-02-15] MEDS: MELATONIN 3 MG TABLET PO (20:55)
[2024-02-16 04:02] VITALS: BP 134/66; PULSE 84; RESP 18; TEMP 36.8; O2SAT 97
[2024-02-16] MEDS: Sodium Chloride 1 GM Tablet PO ×3 (04:06→20:20)
[2024-02-16] MEDS: Acetaminophen 325 MG Tablet 650 MG PO ×3 (04:06→20:19)
[2024-02-16 08:18] LABS: Anion Gap 7 (5-15); BUN 22 mg/dL (7-18); BUN/Creat Ratio 20.2 RATIO (10-20); Calcium,Total 9.5 mg/dL (8.5-10.1); Chloride 91 mmol/L (98-107); Creatinine, Serum 1.09 mg/dL (0.70-1.30); EST Glomerular Filtration Rate 70 mL/min (>60); Est Glom Filt Rate - Afr Amer 85 mL/min (>60); Estimated Creatinine Clearance 58.56 ml/min; Glucose 94 mg/dL (74-106); Potassium 4.6 mmol/L (3.5-5.1); Sodium Level 122 mmol/L (136-145)
--- NOTE | 2024-02-16 09:26 | EKG12_ITS ---
Test Reason : CP Blood Pressure : / mmHG Vent. Rate : 092 BPM Atrial Rate : 092 BPM P-R Int : 160 ms QRS Dur : 154 ms QT Int : 390 ms P-R-T Axes : 055 -58 045 degrees QTc Int : 482 ms Atrial-sensed ventricular-paced rhythm Abnormal ECG When compared with ECG of 12-FEB-2024 11:57, Previous ECG has undetermined rhythm, needs review Confirmed by ANGELA TAVAREZ, LISET ([id number]), assistant editor BIB VUONG ([id number]) on 02/21/2024 10:32:03 AM Referred By: ISAAC Confirmed By:LISET MILLER MD
[2024-02-16 09:31] VITALS: BP 130/83; PULSE 94; RESP 18; TEMP 36.8; O2SAT 98
--- NOTE | 2024-02-16 09:58 | PCM.PN.HOSP ---
Subjective Subjective Doing well, no issues overnight Objective Data Objective Data Vital Signs: Vital Signs Temp Pulse Resp BP Pulse Ox O2 Del Method 98.3 F 94 18 130/83 H 98 Room Air 02/16/24 09:31 02/16/24 09:31 02/16/24 09:31 02/16/24 09:31 02/16/24 09:31 02/16/24 09:31 Oxygen Delivery Method Room Air Weight: 165 lb 4.8 oz Body Mass Index (BMI) 24.0 Intake & Output: Intake and Output for Last 24 Hours 02/15/24 02/16/24 02/17/24 03:59 03:59 03:59 Intake Total 2251.25 / 2251.25 Output Total 5300 / 5300 1850 / 1850 600 / 600 Balance -3048.75 / -3048.75 -1850 / -1850 -600 / -600 Lab / Micro Data 02/15/24 07:04 02/16/24 06:00 Labs: Laboratory Results - last 24 hr 02/16/24 06:00: Sodium 122 L, Potassium 4.6, Chloride 91 L, Carbon Dioxide 24.0, Anion Gap 7, BUN 22 H, Creatinine 1.09, Estim Creat Clear Calc 58.56, Est GFR (MDRD) Af Amer 85, Est GFR (MDRD) Non-Af 70, BUN/Creatinine Ratio 20.2 H, Glucose 94, Calcium 9.5 Physical Exam Narrative General: Alert, Oriented x3, Cooperative, No apparent distress, fatigued HEENT: Atraumatic, PERRLA, EOMI, Normocephalic Oral: Moist Mucosa Neck: Supple, No JVD Lungs: Diminished, Normal air movement, No rhonchi, No wheeze, No rales Cardiovascular: Regular rate, Regular Rhythm, Normal S1, Normal S2, No murmurs Abdomen: Soft, Non Tender, Non-Distended, No Hepato-splenomegaly Extremities: No edema, Capillary Refill Less than 3 Seconds Skin: No rashes, No breakdown Musculoskeletal: No Tenderness to Palpation of Joints or Extremities Neurological: No focal neurological deficits, Motor Exam 5/5 strength throughout, Sensory exam intact to light touch and pain Psych/Mental Status: Flat Assessment & Plan Assessment/Plan (1) Acute hyponatremia: (2) PENELOPE (acute kidney injury): (3) Orthostatic hypotension: (4) Adult failure to thrive: PLAN: Plan 1. Weakness and debility with orthostatic hypotension and PENELOPE/essential HTN/HLD ? Continue with IV fluids ? Will hold his home blood pressure medications can restart when able ? PT/OT, awaiting pre-CERT ? [facility] ? His chronic hyponatremia is at baseline ?Renal function is also back to baseline, continue with salt tabs, his hyponatremia is worsening to 122 today we will start him on IV fluids ? Continue with Lipitor 2. Seizure disorder ? Currently on Depakote ? This may contribute to hyponatremia ? Can continue once medications verified 3. GERD ? Stable ? Can resume omeprazole when verified DVT: Heparin Charges/Coding Visit Charges Inpatient E&M: 39359 Subs Hosp L2
--- NOTE | 2024-02-16 10:05 | CASEMGMT ---
Social Work SW met with pt and introduced self and role of SW. SW spoke with pt regarding discharge plan and informed that [facility] can accept pt. Pt states that he does not feel he can return home at this time and choosing to go to [facility]. Physician notified and pt is not ready for dc today. [facility] updated. Plan: [facility], when medically ready CHRIS Page
--- NOTE | 2024-02-16 10:13 | CASEMGMT ---
Per SW, the plan is for the pt to DC to [facility] once he is medically ready. [facility]
[2024-02-16] MEDS: 0.9% Normal Saline (1000mL) 1,000 ML 125 ML IV ×2 (11:39→20:19)
[2024-02-16] MEDS: Heparin Injection (Vial) 5,000 UNIT/ML VIAL 5000 UNIT SC ×2 (11:40→20:20)
--- NOTE | 2024-02-16 14:00 | CASEMGMT ---
Social Work SW met with pt and discussed advance directives. Pt is uncertain if he has completed a health care POA and has not completed a living will. SW explained documents and pt chose to complete at this time. SW assisted pt in completing a living will and health care POA naming his daughter Negar Davis. Copy placed on pt chart and original given to pt. CHRIS Murillo
[2024-02-16 14:10] VITALS: BP 128/67; PULSE 86; RESP 20; TEMP 36.7; O2SAT 97
[2024-02-16 14:24] VITALS: PULSE 90
--- NOTE | 2024-02-16 15:43 | PCM.TXEXTCAR ---
Diet Diet Order/Speech Therapy: 02/12/24 15:28 Diet: Regular - General Food consistency:: Regular Liquid Consistency:: Regular/Thin Type of Dietary Supplement:: Ensure Compact Routine Orders/Code Status Routine Lab Work: CBC and BMP Code Status: Full Code Therapies Physical Therapy: Eval and Treat Occupational Therapy: Eval and Treat Problem/Diagnosis (1) Acute hyponatremia: Status: Acute Code(s): E87.1 - Hypo-osmolality and hyponatremia (2) PENELOPE (acute kidney injury): Status: Acute Code(s): N17.9 - Acute kidney failure, unspecified (3) Orthostatic hypotension: Status: Acute Code(s): I95.1 - Orthostatic hypotension (4) Adult failure to thrive: Status: Acute Code(s): R62.7 - Adult failure to thrive Plan 1. Weakness and debility with orthostatic hypotension and PENELOPE/essential HTN/HLD ? Continue with IV fluids ? Will hold his home blood pressure medications can restart when able ? PT/OT, awaiting pre-CERT ? [facility] [place] [facility] ? His chronic hyponatremia is at baseline ?Renal function is also back to baseline, continue with salt tabs, his hyponatremia is worsening to 122 today we will start him on IV fluids ? Continue with Lipitor 2. Seizure disorder ? Currently on Depakote ? This may contribute to hyponatremia ? Can continue once medications verified 3. GERD ? Stable ? Can resume omeprazole when verified DVT: Heparin Allergies/Procedures Done in Hospital Allergies ethotoin (From Peganone) Allergy (Mild, Verified 02/12/24 11:39) Rash Procedures: None Type of Care/Length of Stay Estimated LOS: Convalescent Care Less Than 30 days Type of Care Needed: Skilled Rehab Potential: Good Prognosis: Good Additional Orders/Day of Discharge Day of Discharge: 02/16/24 Dietary and Speech Recommendations Dietitian Recommendations/Changes: Continue with Regular diet for liberalization at this time. Not interested in ONS use at this time. Will continue to follow and modify nutrition interventions as needed. Discharge Plan Admission Admit Date/Time: 02/12/24 14:07 Attending Provider: Vicente Dougherty Primary Care Provider: Iris Clancy Consulting Providers: Luís Leslie Discharge Orders/Prescriptions Prescriptions: No Action losartan 25 mg tablet 25 mg PO QHS Qty: 90 3RF atorvastatin 10 MG tablet 10 mg PO QHS tamsulosin 0.4 MG capsule 0.4 mg PO QHS tiotropium bromide [Spiriva with HandiHaler] 1 PUFF inhaler 1 puff inhalation QHS Patient Comments: if I run out of symbicort aspirin 81 MG tablet,chewable 81 mg PO DAILY@0800 cholecalciferol (vitamin D3) [Vitamin D3] 1,000 UNIT tablet 2,000 unit PO DAILY L.acidoph, paracasei,B. lactis 1 EACH capsule 1 ea PO DAILY carvedilol 6.25 MG tablet 6.25 mg PO BID Qty: 60 0RF divalproex 500 mg tablet,delayed release (DR/EC) 500 mg PO BID omeprazole 40 mg capsule,delayed release(DR/EC) 40 mg PO DAILY sodium chloride 1,000 mg Tablet,Soluble 1,000 mg PO TID Qty: 0 0RF Rx Instructions: For 2 weeks fluticasone propion-salmeterol [Advair Diskus] 100-50 mcg/dose blister with device 1 inh inhalation BID Incruse Ellipta 62.5 mcg/actuation blister with device 1 inh inhalation DAILY docusate sodium [Colace] 100 mg capsule 100 mg PO QHS Referrals / Follow Up: Iris Clancy MD [Primary Care Provider] - Disposition Disposition (needs filled in before D/C Order can be placed): Long-Term Facility
--- NOTE | 2024-02-16 15:56 | CASEMGMT ---
Social Work Per physician, pt may be ready for discharge tomorrow. 7000 exemption form completed and Green Sheet placed on chart to facilitate discharge. Phone call to pt's dgt Negar and informed of pt's decision for discharge to [facility] and also that pt has completed Advance Directives. Dgt is agreeable. Plan: [facility], when medically ready CHRIS Page
[2024-02-16] MEDS: Benzonatate 100 MG Capsule PO (17:11)
[2024-02-16] MEDS: MELATONIN 3 MG TABLET PO (20:19)
[2024-02-16 20:21] VITALS: BP 157/73; PULSE 84; RESP 18; TEMP 37.1; O2SAT 98
[2024-02-17 03:00] VITALS: BP 152/78; PULSE 76; RESP 18; TEMP 36.8; O2SAT 96
[2024-02-17] MEDS: 0.9% Normal Saline (1000mL) 1,000 ML 125 ML IV ×2 (03:05→11:05)
[2024-02-17] MEDS: Sodium Chloride 1 GM Tablet PO ×2 (04:14→13:27)
[2024-02-17] MEDS: Acetaminophen 325 MG Tablet 650 MG PO ×2 (04:14→11:06)
[2024-02-17] MEDS: Senna/Docusate Sodium 1 Tablet 2 TABLET PO (04:15)
[2024-02-17 07:35] VITALS: PULSE 80
[2024-02-17 07:40] VITALS: BP 149/65; PULSE 72; RESP 16; TEMP 36.7; O2SAT 97
[2024-02-17 08:32] LABS: Absolute Lymphocyte Count 1.86 X10^3/uL (0.83-4.51); Absolute Neutrophil Count 5.6 X10^3/uL (2.0-7.7); Basophil# 0.08 X10^3/uL; Basophil% 0.9 % (0-1); Eosinophil# 0.23 X10^3/uL; Eosinophils% 2.5 % (0-5); Hematocrit 29.8 % (40-54); Hemoglobin 9.9 g/dL (13.0-16.5); Lymphocyte # 1.86 X10^3/ul (0.83-4.51); Lymphocyte % 20.2 % (19-41); Mean Corp Hgb Conc 33.2 g/dL (32-36); Mean Corpuscular Hgb 27.7 pg (27.0-32.0); Mean Corpuscular Volume 83.2 fL (80-94); Mean Platelet Vol. 9.5 fl (6.2-12.0); Monocyte# 1.28 X10^3/uL; Monocyte% 13.9 % (0-10); NRBC Flagged by Analyzer 0 % (0-5); Neutrophil # 5.64 X10^3/uL (2.7-7.7); Platelet Count 271 K/mm3 (150-450); RBC Distribution Width CV 15.2 % (11.6-14.6); RBC Distribution Width SD 45.9 fl (35.1-43.9); Red Blood Count 3.58 M/mm3 (4.6-6.2); White Blood Count 9.2 K/mm3 (4.4-11.0)
[2024-02-17 08:55] LABS: Anion Gap 8 (5-15); BUN 24 mg/dL (7-18); BUN/Creat Ratio 24.2 RATIO (10-20); Calcium,Total 9.2 mg/dL (8.5-10.1); Chloride 93 mmol/L (98-107); Creatinine, Serum 0.99 mg/dL (0.70-1.30); EST Glomerular Filtration Rate 78 mL/min (>60); Est Glom Filt Rate - Afr Amer 95 mL/min (>60); Estimated Creatinine Clearance 64.47 ml/min; Glucose 90 mg/dL (74-106); Potassium 4.3 mmol/L (3.5-5.1); Sodium Level 124 mmol/L (136-145)
[2024-02-17] MEDS: Heparin Injection (Vial) 5,000 UNIT/ML VIAL 5000 UNIT SC (09:46)
--- NOTE | 2024-02-17 12:32 | PCA ---
transfer summary and orders faxed to [facility], call placed to [facility] arranged for 130 pm via wheelchair, daughter Negar aware of pt DC
[2024-02-17 13:30] VITALS: BP 171/85; PULSE 82; RESP 18; TEMP 37; O2SAT 99
--- NOTE | 2024-02-17 13:50 | NURSING ---
report called to Inna the receiving nurse at [facility].
--- NOTE | 2024-02-17 14:52 | NURSING ---
sent a text to Dr Felder and requested that home meds would be reordered.
--- NOTE | 2024-02-18 17:17 | DS.PCM_ITS ---
Providers Date of Admission: 02/12/24 Date of Discharge: 02/17/24 Primary Care Physician: Dr. Iris Clancy MD Reason For Visit: DEHYDRATION Diagnosis Discharge Diagnosis (1) Acute hyponatremia: Status: Acute Code(s): E87.1 - Hypo-osmolality and hyponatremia (2) PENELOPE (acute kidney injury): Status: Acute Code(s): N17.9 - Acute kidney failure, unspecified (3) Orthostatic hypotension: Status: Acute Code(s): I95.1 - Orthostatic hypotension (4) Adult failure to thrive: Status: Acute Code(s): R62.7 - Adult failure to thrive Medications at Discharge Home Medications atorvastatin 10 mg tablet 10 mg PO QHS cholesterol 05/28/16 tamsulosin 0.4 mg capsule 0.4 mg PO QHS urination 05/28/16 tiotropium bromide 18 mcg capsule with inhalation device (Spiriva with HandiHaler) 1 puff inhalation QHS 05/28/16 aspirin 81 mg chewable tablet 81 mg PO DAILY@0800 heart 07/06/16 cholecalciferol (vitamin D3) 25 mcg (1,000 unit) tablet (Vitamin D3) 2,000 unit PO DAILY supplement 07/06/16 L.acidoph, paracasei,B. lactis 10 billion cell capsule 1 ea PO DAILY pt unsure 02/07/17 carvedilol 6.25 mg tablet 6.25 mg PO BID htn #60 tabs 02/08/17 losartan 25 mg tablet 25 mg PO QHS htn #90 tabs 08/03/23 divalproex 500 mg tablet,delayed release 500 mg PO BID seizure 12/25/23 omeprazole 40 mg capsule,delayed release 40 mg PO DAILY gerd 12/25/23 sodium chloride 1,000 mg soluble tablet 1,000 mg PO TID #0 tabs 12/28/23 docusate sodium 100 mg capsule (Colace) 100 mg PO QHS constipation 02/15/24 fluticasone 100 mcg-salmeterol 50 mcg/dose blistr powdr for inhalation (Advair Diskus) 1 inh inhalation BID copd 02/15/24 umeclidinium 62.5 mcg/actuation blister powder for inhalation (Incruse Ellipta) 1 inh inhalation DAILY copd 02/15/24 Hospital Course Operations None Procedures None Summary of Care Provided Minutes Spent on Discharge: 31 Hospital Course: Per HPI: KATIE HOLMAN, is a 73 M with a significant history of hypertension, COPD, BPH with recent prostate surgery, GERD, and hyperlipidemia who was discharged from the [place] [facility] days ago presenting to the emergency department with hypotension. Patient's daughter, Negar, check on patient and found that Patient was unable to stand up and he was falling. Patient's daughter took her blood pressure and patient blood pressure was 65/40. Patient reports that because she missed his blood pressure medication the night before presentation he took extra doses of his hypertension medicine. Of note he took two carvedilol pills instead of one. And even though he supposed to take losartan at night he took losartan in the morning of the day of presentation. At the emergency department patient was orthostatic positive even after fluid boluses. Patient sodium was found to be low. Of note her daughter who was at the bedside reported that patient was recently at the hospital and at that time his sodium was 121. Patient recounts that he was put on sodium tablets but is unsure whether he is still taking sodium tablets. Hospital Course: 1. Weakness and debility with orthostatic hypotension PENELOPE/essential HTN/HLD?[age]-year-old male presents from home with increased weakness and debility, he was recently discharged from a SNF. He was found to have continued chronic hyponatremia and dehydration with an PENELOPE. He was continued on his salt tabs and IV fluids and his sodium improved to 124 on the day of discharge and his renal function was back to baseline on discharge as well. He was evaluated by PT/OT who recommended SNF placement for continued rehab. He did receive pre-CERT and I discussed with him the plan for discharge she expressed understanding of the risk benefits of going back to the [place] [facility] and he would like to go. He does have multiple issues for his hyponatremia, including medications for seizure disorder as well as poor p.o. intake. Continue with the aggressive salt tabs and recommend continued outpatient monitoring of his sodium. 2. Seizure disorder, GERD are all chronic medical conditions which complicate his care. His home medications were continued where appropriate Physical Exam Narrative General: Alert, Oriented x3, Cooperative, No apparent distress, fatigued HEENT: Atraumatic, PERRLA, EOMI, Normocephalic Oral: Moist Mucosa Neck: Supple, No JVD Lungs: Diminished, Normal air movement, No rhonchi, No wheeze, No rales Cardiovascular: Regular rate, Regular Rhythm, Normal S1, Normal S2, No murmurs Abdomen: Soft, Non Tender, Non-Distended, No Hepato-splenomegaly Extremities: No edema, Capillary Refill Less than 3 Seconds Skin: No rashes, No breakdown Musculoskeletal: No Tenderness to Palpation of Joints or Extremities Neurological: No focal neurological deficits, Motor Exam 5/5 strength throughout, Sensory exam intact to light touch and pain Psych/Mental Status: Flat Weight / BMI Weight Weight: 165 lb 4.8 oz Body Mass Index (BMI) 24.0 ABG / Lab / Microbiology Data 02/17/24 07:25 02/17/24 07:25 Meaningful Use Info Meaningful Use Meaningful Use Diagnoses (Choose all that apply): None applicable Ischemic Stroke Statin Dosing Therapy Reference: STATIN DOSE THERAPY REFERENCE: * Patients > 75 years receive moderate or high dose statin therapy. * Patients 75 years or YOUNGER should receive HIGH intensity statin dose unless contraindicated. You will be required to document reason for non-treatment if statin daily dose does not meet guidelines. HIGH DOSE STATIN THERAPY DAILY Atorvastatin > than or = to 40 mg Rosuvastatin > than or = to 20 mg Amlodipine + Atorvastatin > than or = to 2.5/40 mg Ezetimibe + Simvastatin 10/80 mg Simvastatin 80mg Discharge Plan Admission Admit Date/Time: 02/12/24 14:07 Attending Provider: Vicente Dougherty Primary Care Provider: Iris Clancy Consulting Providers: Luís Leslie Discharge Orders/Prescriptions Prescriptions: Continued losartan 25 mg tablet 25 mg PO QHS Qty: 90 3RF atorvastatin 10 MG tablet 10 mg PO QHS tamsulosin 0.4 MG capsule 0.4 mg PO QHS tiotropium bromide [Spiriva with HandiHaler] 1 PUFF inhaler 1 puff inhalation QHS Patient Comments: if I run out of symbicort aspirin 81 MG tablet,chewable 81 mg PO DAILY@0800 cholecalciferol (vitamin D3) [Vitamin D3] 1,000 UNIT tablet 2,000 unit PO DAILY L.acidoph, paracasei,B. lactis 1 EACH capsule 1 ea PO DAILY carvedilol 6.25 MG tablet 6.25 mg PO BID Qty: 60 0RF divalproex 500 mg tablet,delayed release (DR/EC) 500 mg PO BID omeprazole 40 mg capsule,delayed release(DR/EC) 40 mg PO DAILY sodium chloride 1,000 mg Tablet,Soluble 1,000 mg PO TID Qty: 0 0RF Rx Instructions: For 2 weeks fluticasone propion-salmeterol [Advair Diskus] 100-50 mcg/dose blister with device 1 inh inhalation BID Incruse Ellipta 62.5 mcg/actuation blister with device 1 inh inhalation DAILY docusate sodium [Colace] 100 mg capsule 100 mg PO QHS Referrals / Follow Up: Iris Clancy MD [Primary Care Provider] - Disposition Disposition (needs filled in before D/C Order can be placed): [facility] Charges/Coding Visit Charges Inpatient E&M: 83995 Disch Hosp >30min
== END 2024-02-17 13:47 | disposition skilled nursing facility (03) | DRG 312 ==
LOC: ED 14:03 → MS3 14:32
PROVIDERS: Nurse Practitioner; Admitting Provider Hospitalist; Emergency Provider Emergency Medicine; PCP Internal Medicine; Visit Provider Family Medicine
DX: I95.1 Orthostatic hypotension (principal); E87.1 Hypo-osmolality and hyponatremia; N17.9 Acute kidney failure, unspecified; N18.32 Chronic kidney disease, stage 3b; G40.909 Epilepsy, unspecified, not intractable, without status epilepticus; J44.9 Chronic obstructive pulmonary disease, unspecified; I12.9 Hypertensive chronic kidney disease with stage 1 through stage 4 chronic kidney disease, or unspecified chronic kidney disease; E78.5 Hyperlipidemia, unspecified; K21.9 Gastro-esophageal reflux disease without esophagitis; F17.210 Nicotine dependence, cigarettes, uncomplicated; R53.81 Other malaise; N40.0 Benign prostatic hyperplasia without lower urinary tract symptoms; Z79.82 Long term (current) use of aspirin; Z79.899 Other long term (current) drug therapy
CPT/HCPCS: 36415; 71045; 80048; 81001; 84484; 84550; 85025; 93005; 94640; 97116; 97162; 97166; 97530; 97535; 97802; 99284; J7030; A4216; J2405

== ENCOUNTER → 2024-05-15 | Outpatient (CLI) | payer MEDICARE, BC, SELFPAY ==
[2024-05-15 18:00] LABS: Albumin, Serum 2.8 g/dL (3.2-5.0); BUN 19 mg/dL (7-18); BUN/Creat Ratio 17.9 RATIO (10-20); Calcium,Total 9.7 mg/dL (8.5-10.1); Chloride 94 mmol/L (98-107); Creatinine, Serum 1.06 mg/dL (0.70-1.30); EST Glomerular Filtration Rate 72 mL/min (>60); Est Glom Filt Rate - Afr Amer 87 mL/min (>60); Glucose 106 mg/dL (74-106); Phosphorus 3.2 mg/dL (2.5-4.9); Potassium 4.1 mmol/L (3.5-5.1); Sodium Level 126 mmol/L (136-145)
== END | disposition home or self-care (01) ==
LOC: MTLAB 15:17
PROVIDERS: PCP Internal Medicine; Referring Provider Nurse Practitioner Adult Health; Visit Provider Nurse Practitioner Adult Health
DX: N18.31 Chronic kidney disease, stage 3a (principal)
CPT/HCPCS: 36415; 80069

== ENCOUNTER 2024-05-24 17:01 | Emergency (ER) | payer MEDICARE, BC, SELFPAY ==
[2024-05-24 17:03] VITALS: BP 170/89; PULSE 78; RESP 18; TEMP 35.8; O2SAT 100
--- NOTE | 2024-05-24 17:19 | EDS_ITS ---
HPI History of Present Illness Chief Complaint: Complaint Detail of Chief Complaint: Inability to void urine Informant: patient Narrative Narrative: Patient presents to the emergency department complaint of inability to void urine since about noon. Complains of some pressure and lower abdomen discomfort. Patient states that for several weeks has had decreased urine output and has a hard time starting his stream. He is currently seeing a associate medical director. Patient has had history of BPH and takes Flomax. He has had Joya catheters in the past for retention. He has had prior TURP. He sees Dr. Zhao of urology. He denies fevers or recent illness. [facility] Medical History Hyponatremia Wears hearing aid Wears glasses Walker as ambulation aid Wears dentures Indwelling urethral catheter present History of echocardiogram Cardiology follow-up encounter 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 Stage 3b chronic kidney disease (CKD) Third degree heart block BPH (benign prostatic hyperplasia) GERD (gastroesophageal reflux disease) Seizures Cataract Back pain with history of spinal surgery Neuropathy Emphysema lung Smoker Hypertension Home Medications ?Medication ?Instructions ?Recorded ?Last Taken ?Type atorvastatin 10 mg tablet 10 mg PO QHS cholesterol 05/28/16 11/16/23 History tamsulosin 0.4 mg capsule 0.4 mg PO QHS urination 05/28/16 11/16/23 History tiotropium bromide 18 mcg capsule 1 puff inhalation QHS 05/28/16 11/16/23 History with inhalation device (Spiriva with HandiHaler) aspirin 81 mg chewable tablet 81 mg PO DAILY@0800 heart 07/06/16 11/09/23 History cholecalciferol (vitamin D3) 25 2,000 unit PO DAILY supplement 07/06/16 11/16/23 History mcg (1,000 unit) tablet (Vitamin D3) L.acidoph, paracasei,B. lactis 10 1 ea PO DAILY pt unsure 02/07/17 11/16/23 History billion cell capsule carvedilol 6.25 mg tablet 6.25 mg PO BID htn #60 tabs 02/08/17 11/17/23 Rx losartan 25 mg tablet 25 mg PO QHS htn #90 tabs 08/03/23 11/16/23 Rx divalproex 500 mg tablet,delayed 500 mg PO BID seizure 12/25/23 Unknown History release omeprazole 40 mg capsule,delayed 40 mg PO DAILY gerd 12/25/23 Unknown History release sodium chloride 1,000 mg soluble 1,000 mg PO TID #0 tabs 12/28/23 Unknown Rx tablet docusate sodium 100 mg capsule 100 mg PO QHS constipation 02/15/24 Unknown History (Colace) fluticasone 100 mcg-salmeterol 50 1 inh inhalation BID copd 02/15/24 Unknown History mcg/dose blistr powdr for inhalation (Advair Diskus) umeclidinium 62.5 mcg/actuation 1 inh inhalation DAILY copd 02/15/24 Unknown History blister powder for inhalation (Incruse Ellipta) Allergy/AdvReac Type Severity Reaction Status Date / Time ethotoin (From Peganone) Allergy Mild Rash Verified 05/24/24 17:02 Family History Other Cancer Heart disease Osteoporosis Surgical History History of selective injection of anesthetic agent around lumbar nerve root History of colonoscopy History of surgery History of appendectomy History of back surgery Social History Smoking Status: Current some day smoker tobacco type: cigarettes ROS ROS ED Review of Systems ROS Unobtainable: other Constitutional Constitutional ED: Reports lethargy; Denies chills, fever(s), sweats or weight loss Eyes Eyes: Denies blurry vision, change in vision or diplopia ENT ENT ED: Denies rhinorrhea or sore throat Cardiovascular Cardiovascular: Denies chest pain, orthopnea or racing heartbeat Respiratory/Chest Respiratory/Chest: Denies cough, dyspnea, dyspnea on exertion, orthopnea or sputum Gastrointestinal Gastrointestinal: Reports abdominal pain; Denies diarrhea, nausea or vomiting Genitourinary Genitourinary ED: Reports other Details: Urinary retention ; Denies dysuria, hematuria or urinary frequency Musculoskeletal Musculoskeletal: Denies arthralgias, back pain, myalgias or neck pain Integumentary Denies abscess, Abrasions or rash Neurologic Neurologic: Denies headache(s) or weakness Psychiatric Psychiatric: Denies anxiety, depression or suicidal thoughts Endocrine Endocrinology: Denies polydipsia, polyphagia or polyuria Hematologic/Lymphatic Hematologic/Lymphatic: Denies easy bleeding, easy bruising or lymphadenopathy Allergic/Immunologic Allergic/Immunologic ED: Denies mouth swelling, tongue swelling or urticaria EXAM Physical Exam Const Vital Signs: 05/24/24 17:03 Temperature 96.4 F L Temperature Source Temporal Pulse Rate 78 Respiratory Rate 18 Blood Pressure 170/89 H Blood Pressure Mean 116 Pulse Ox 100 Oxygen Delivery Method Room Air Positive well nourished and well developed General Appearance ED: well developed and NAD HEENT Reports TM's clear and moist mucous membranes normocephalic and atraumatic; Negative for trauma or tenderness Tympanic Membrane ED: Yes TM's clear Eyes PERRL and EOMs intact bilaterally General Eye ED: Negative for pale conjunctiva or scleral icterus Neck no lymphadenopathy, supple and no JVD General: Negative for tenderness Chest Wall inspection of chest normal and palpation of chest normal Chest: Negative for tenderness Resp normal respiratory effort and clear to auscultation bilaterally Effort and Inspection: Negative for respiratory distress or pain with movement Auscultation: Negative for rhonchi, wheezes or diminished lung sounds Cardio regular rate, regular rhythm, S1 normal heart sound, S2 normal heart sound and no murmurs Peripheral Pulses: pulses 2+ throughout GI normal to inspection, nondistended, normoactive bowel sounds, soft to palpation, non-tender, non-distended and no masses GI Narrative: Mild suprapubic tenderness on palpation. There is no rebound, rigidity, or peritoneal signs. No mass palpated. Back/Spine no CVA tenderness and no thoracic nor lumbar tenderness Extremity normal to inspection General Extremety ED: Negative for edema General Extremity: Negative for edema Neuro oriented x3, CN's II-XII intact bilaterally, no sensory deficits noted and gait normal Sensorium / Orientation: awake, alert, oriented to person, oriented to place and oriented to time Motor Exam: strength 5/5 throughout and strength abnormal Psych mental status grossly normal Skin no rashes or lesions noted and no wounds MDM MDM MDM Narrative Medical decision making narrative: Patient presents with inability to urinate since around noon. He denies fevers or recent illness. He has had issues with urinary retention in the past. He has worn Joya catheters in the past. Complains of some mild lower abdomen discomfort. IV line established. CBC with differential obtained showed a white count of 7.9 with hemoglobin 10.8 and platelet count of 234. Chemistries unremarkable. Urinalysis without signs of infection. We did place a Joya catheter and obtained approximately 400 cc of urine. Patient felt markedly improved after treatment with Joya catheter. At this point he will be discharged to home with a Joya bag. Will refer to his urologist for follow-up within the next 5 to 7 days. Lab Data Attestation: I reviewed the patient's lab results. Labs: Laboratory Results - last 24 hr 05/24/24 05/24/24 18:03 18:19 WBC 7.9 RBC 4.09 L Hgb 10.8 L Hct 33.2 L MCV 81.2 MCH 26.4 L MCHC 32.5 RDW Std Deviation 43.7 RDW Coeff of Edinson 15.0 H Plt Count 234 MPV 9.1 Immature Gran % (Auto) 1.100 H Neut % (Auto) 57.9 Lymph % (Auto) 22.4 [place] % (Auto) 14.9 H Eos % (Auto) 2.9 Baso % (Auto) 0.8 Absolute Neuts (auto) 4.6 Absolute Lymphs (auto) 1.78 Nucleated RBC % 0 Sodium 128 L Potassium 4.4 Chloride 95 L Carbon Dioxide 28.0 Anion Gap 5 BUN 20 H Creatinine 1.06 Est GFR (MDRD) Af Amer 87 Est GFR (MDRD) Non-Af 72 BUN/Creatinine Ratio 18.9 Glucose 103 Calcium 9.3 Urine Color Straw Urine Clarity Clear Urine pH 6.5 Ur Specific [place] 1.010 Urine Protein 15 H Urine Glucose (UA) 50 H Urine Ketones Negative Urine Occult Blood Negative Urine Nitrite Negative Urine Bilirubin Negative Urine Urobilinogen Normal Ur Leukocyte Esterase Negative Urine RBC 0-5 SEEN Urine WBC 0-5 SEEN Ur Squamous Epith Cells 0-5 SEEN Ur Transition Epith Cell 0-5 SEEN Urine Bacteria 0 SEEN Urine Mucus 0 SEEN Discharge Plan Triage Chief Complaint: Complaint ED Provider: Ambar Contreras Dx/Rx/DC Orders Clinical Impression: Acute urinary retention Instructions: ED Urinary Retention, Male Prescriptions: No Action losartan 25 mg tablet 25 mg PO QHS Qty: 90 3RF atorvastatin 10 MG tablet 10 mg PO QHS tamsulosin 0.4 MG capsule 0.4 mg PO QHS tiotropium bromide [Spiriva with HandiHaler] 1 PUFF inhaler 1 puff inhalation QHS Patient Comments: if I run out of symbicort aspirin 81 MG tablet,chewable 81 mg PO DAILY@0800 cholecalciferol (vitamin D3) [Vitamin D3] 1,000 UNIT tablet 2,000 unit PO DAILY emre Devlin B. lactis 1 EACH capsule 1 ea PO DAILY carvedilol 6.25 MG tablet 6.25 mg PO BID Qty: 60 0RF divalproex 500 mg tablet,delayed release (DR/EC) 500 mg PO BID omeprazole 40 mg capsule,delayed release(DR/EC) 40 mg PO DAILY sodium chloride 1,000 mg Tablet,Soluble 1,000 mg PO TID Qty: 0 0RF Rx Instructions: For 2 weeks fluticasone propion-salmeterol [Advair Diskus] 100-50 mcg/dose blister with device 1 inh inhalation BID Incruse Ellipta 62.5 mcg/actuation blister with device 1 inh inhalation DAILY docusate sodium [Colace] 100 mg capsule 100 mg PO QHS Primary Care Provider: Iris Clancy Referrals: Iris Clancy MD [Primary Care Provider] - 5-7 Days Alex Zhao MD [Med Staff - Active Staff] - 5-7 Days Print Language: Mohawk Disposition Disposition: Home, Self Care
[2024-05-24 18:09] LABS: Absolute Lymphocyte Count 1.78 X10^3/uL (0.83-4.51); Absolute Neutrophil Count 4.6 X10^3/uL (2.0-7.7); Basophil# 0.06 X10^3/uL; Basophil% 0.8 % (0-1); Eosinophil# 0.23 X10^3/uL; Eosinophils% 2.9 % (0-5); Hematocrit 33.2 % (40-54); Hemoglobin 10.8 g/dL (13.0-16.5); Lymphocyte # 1.78 X10^3/ul (0.83-4.51); Lymphocyte % 22.4 % (19-41); Mean Corp Hgb Conc 32.5 g/dL (32-36); Mean Corpuscular Hgb 26.4 pg (27.0-32.0); Mean Corpuscular Volume 81.2 fL (80-94); Mean Platelet Vol. 9.1 fl (6.2-12.0); Monocyte# 1.18 X10^3/uL; Monocyte% 14.9 % (0-10); NRBC Flagged by Analyzer 0 % (0-5); Neutrophil % 57.9 % (47-70); Platelet Count 234 K/mm3 (150-450); RBC Distribution Width SD 43.7 fl (35.1-43.9); Red Blood Count 4.09 M/mm3 (4.6-6.2); White Blood Count 7.9 K/mm3 (4.4-11.0)
[2024-05-24 18:23] LABS: Bacteria 0 SEEN /hpf (None Seen); Mucous, Urine 0 SEEN /hpf (<or=2+)
[2024-05-24 18:25] LABS: Anion Gap 5 (5-15); BUN 20 mg/dL (7-18); BUN/Creat Ratio 18.9 RATIO (10-20); Calcium,Total 9.3 mg/dL (8.5-10.1); Chloride 95 mmol/L (98-107); Creatinine, Serum 1.06 mg/dL (0.70-1.30); EST Glomerular Filtration Rate 72 mL/min (>60); Est Glom Filt Rate - Afr Amer 87 mL/min (>60); Glucose 103 mg/dL (74-106); Potassium 4.4 mmol/L (3.5-5.1); Sodium Level 128 mmol/L (136-145)
[2024-05-24 18:35] LABS: Color, Urine Straw (Yellow); Glucose, Dipstick 50 mg/dl (Normal); Ketone-Dipstick Negative (Negative); Leukocyte Esterase-Dipstick Negative /ul (Negative); Nitrite-Dipstick Negative (Negative); Occult Blood-Urine Negative /ul (Negative); Protein-Dipstick 15 mg/dl (Negative); Urine Bilirubin Dipstick Negative (Negative); Urine Clarity Clear (Clear); Urine Urobilinogen Normal (Normal); Urine pH 6.5 (5.0 - 8.0)
[2024-05-24 19:05] LABS: Transitional Epithelial - Ur 0-5 SEEN /hpf (0-5)
[2024-05-24 19:06] LABS: Red Blood Cells-Urine 0-5 SEEN /hpf (0-5); Squamous Epithelial Cells - UA 0-5 SEEN /hpf (0-5); White Blood Cells 0-5 SEEN /hpf (0-5)
[2024-05-24 19:40] VITALS: BP 167/98; PULSE 69; TEMP 36.9
== END 2024-05-24 19:43 | disposition home or self-care (01) ==
PROVIDERS: Emergency Provider Emergency Medicine; PCP Internal Medicine; Visit Provider Emergency Medicine
DX: R33.9 Retention of urine, unspecified (principal); J43.9 Emphysema, unspecified; I44.2 Atrioventricular block, complete; G40.909 Epilepsy, unspecified, not intractable, without status epilepticus; N18.32 Chronic kidney disease, stage 3b; I12.9 Hypertensive chronic kidney disease with stage 1 through stage 4 chronic kidney disease, or unspecified chronic kidney disease; N40.0 Benign prostatic hyperplasia without lower urinary tract symptoms; K21.9 Gastro-esophageal reflux disease without esophagitis; F17.210 Nicotine dependence, cigarettes, uncomplicated; Z95.0 Presence of cardiac pacemaker; Z79.82 Long term (current) use of aspirin; Z79.899 Other long term (current) drug therapy
CPT/HCPCS: 36415; 51702; 80048; 80069; 81001; 85025; 99284; A4216

== ENCOUNTER → 2024-05-24 | Outpatient (CLI) | payer MEDICARE, BC, SELFPAY ==
[2024-05-24 17:47] LABS: Albumin, Serum 2.7 g/dL (3.2-5.0); BUN 19 mg/dL (7-18); BUN/Creat Ratio 17.3 RATIO (10-20); Calcium,Total 9.3 mg/dL (8.5-10.1); Chloride 96 mmol/L (98-107); EST Glomerular Filtration Rate 69 mL/min (>60); Est Glom Filt Rate - Afr Amer 84 mL/min (>60); Glucose 94 mg/dL (74-106); Phosphorus 2.6 mg/dL (2.5-4.9); Potassium 4.1 mmol/L (3.5-5.1); Sodium Level 128 mmol/L (136-145)
== END | disposition home or self-care (01) ==
LOC: MTLAB 15:53
PROVIDERS: PCP Internal Medicine; Referring Provider Nurse Practitioner Adult Health; Visit Provider Nurse Practitioner Adult Health
DX: N18.31 Chronic kidney disease, stage 3a (principal)
CPT/HCPCS: 36415; 80069

== ENCOUNTER 2024-06-03 21:54 | Emergency (ER) | payer MEDICARE, BC, SELFPAY ==
[2024-06-03 21:55] VITALS: BP 171/90; PULSE 79; RESP 18; TEMP 36.6; O2SAT 98
--- NOTE | 2024-06-03 22:13 | EX.ED.GUMALE ---
HPI History of Present Illness Chief Complaint: Complaint Narrative Narrative: 73-year-old male past medical history of recent urinary retention, was seen in the emergency department 10 days ago, for the same. He had a Joya catheter in place, states that he went to Dr. Zhao and had his Joya catheter removed perhaps Wednesday. Over the last few days he has developed increasing urinary retention to the point where today he was unable to urinate. He states every time he tries to go he only gets a few dribbles out. He is beginning to have suprapubic discomfort. No fevers or chills, no nausea or vomiting. [facility] Medical History Tobacco abuse Hyponatremia Wears hearing aid Wears glasses Walker as ambulation aid Wears dentures Indwelling urethral catheter present History of echocardiogram Cardiology follow-up encounter 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 Stage 3b chronic kidney disease (CKD) Third degree heart block BPH (benign prostatic hyperplasia) GERD (gastroesophageal reflux disease) Seizures Cataract Back pain with history of spinal surgery Neuropathy Emphysema lung Smoker Hypertension Home Medications ?Medication ?Instructions ?Recorded ?Last Taken ?Type atorvastatin 10 mg tablet 10 mg PO QHS cholesterol 05/28/16 11/16/23 History tamsulosin 0.4 mg capsule 0.4 mg PO QHS urination 05/28/16 11/16/23 History tiotropium bromide 18 mcg capsule 1 puff inhalation QHS 05/28/16 11/16/23 History with inhalation device (Spiriva with HandiHaler) aspirin 81 mg chewable tablet 81 mg PO DAILY@0800 heart 07/06/16 11/09/23 History cholecalciferol (vitamin D3) 25 2,000 unit PO DAILY supplement 07/06/16 11/16/23 History mcg (1,000 unit) tablet (Vitamin D3) L.acidoph, paracasei,B. lactis 10 1 ea PO DAILY pt unsure 02/07/17 11/16/23 History billion cell capsule carvedilol 6.25 mg tablet 6.25 mg PO BID htn #60 tabs 02/08/17 11/17/23 Rx losartan 25 mg tablet 25 mg PO QHS htn #90 tabs 08/03/23 11/16/23 Rx divalproex 500 mg tablet,delayed 500 mg PO BID seizure 12/25/23 Unknown History release omeprazole 40 mg capsule,delayed 40 mg PO DAILY gerd 12/25/23 Unknown History release sodium chloride 1,000 mg soluble 1,000 mg PO TID #0 tabs 12/28/23 Unknown Rx tablet docusate sodium 100 mg capsule 100 mg PO QHS constipation 02/15/24 Unknown History (Colace) fluticasone 100 mcg-salmeterol 50 1 inh inhalation BID copd 02/15/24 Unknown History mcg/dose blistr powdr for inhalation (Advair Diskus) umeclidinium 62.5 mcg/actuation 1 inh inhalation DAILY copd 02/15/24 Unknown History blister powder for inhalation (Incruse Ellipta) sulfamethoxazole 800 1 tab PO BID #6 tabs 06/03/24 Unknown Rx mg-trimethoprim 160 mg tablet (Bactrim DS) Allergy/AdvReac Type Severity Reaction Status Date / Time ethotoin (From Peganone) Allergy Mild Rash Verified 06/03/24 21:55 Family History Other Cancer Heart disease Osteoporosis Surgical History History of selective injection of anesthetic agent around lumbar nerve root History of colonoscopy History of surgery History of appendectomy History of back surgery Social History Smoking Status: Current some day smoker tobacco type: cigarettes ROS ROS ED ROS Narrative Focused review of systems positive for urinary retention/unable to urinate. Positive suprapubic discomfort. No fevers or chills, no nausea or vomiting. EXAM Physical Exam Narrative Exam Narrative: Afebrile. Vital signs noted. Regular rate and rhythm. Lungs clear to auscultation bilaterally. Abdomen soft nontender with normal active bowel sounds. There is mild suprapubic discomfort however with slightly distended bladder. Const Vital Signs: 06/03/24 21:55 Temperature 97.8 F Temperature Source Oral Pulse Rate 79 Respiratory Rate 18 Blood Pressure 171/90 H Blood Pressure Mean 117 Pulse Ox 98 Oxygen Delivery Method Room Air MDM MDM MDM Narrative Medical decision making narrative: Differential diagnosis includes but not limited to urinary tract infection versus enlarged prostate causing urinary retention versus neurogenic bladder. I do favor urethral outflow obstruction secondary to enlarged prostate. I reviewed his prior ED visit. He does have a history of BPH and is status post TURP and sees Dr. Zhao as his urologist. He has had episodes of urinary retention in the past as well. He is already on Flomax. I will check a CBC and a BMP to look at his BUN and creatinine, and I ordered a urinalysis after Joya catheter insertion as well. RN reports bladder scan only showed 250 mL, but patient is having dysuria and is unable to void. Joya catheter was placed and is now draining clear urine. I reviewed his laboratory work and he has slightly elevated white count of 11.4 which I think is nonspecific, hemoglobin stable at 11.0, platelet count normal at 192. He has a chronic hyponatremia with a sodium of 126, chloride 92. BUN slightly elevated at 20 with normal creatinine of 0.97. Glucose is appropriate elevated at 96 with a normal anion gap of 8. Urinalysis shows negative ketones, and 5-10 WBCs with 100 leukocyte esterase but negative nitrites. I will put him on Bactrim for 3 days. Upon repeat examination, he feels mildly improved without suprapubic discomfort. I feel he be discharged safely home with follow-up to his urologist. He is already taking Flomax and was started on Bethanechol. Return instructions to the emergency department were reviewed. Disposition is discharged home in stable condition. History & Record Review Discussion w/independent historian: Patient Lab Data Attestation: I reviewed the patient's lab results. Labs: Laboratory Results - last 24 hr 06/03/24 06/03/24 22:30 22:31 WBC 11.4 H RBC 4.22 L Hgb 11.0 L Hct 33.7 L MCV 79.9 L MCH 26.1 L MCHC 32.6 RDW Std Deviation 43.6 RDW Coeff of Edinson 15.1 H Plt Count 192 MPV 8.8 Immature Gran % (Auto) 1.300 H Neut % (Auto) 67.7 Lymph % (Auto) 15.3 L Mccreary % (Auto) 13.8 H Eos % (Auto) 1.5 Baso % (Auto) 0.4 Absolute Neuts (auto) 7.7 Absolute Lymphs (auto) 1.74 Nucleated RBC % 0 Sodium 126 L Potassium 4.3 Chloride 92 L Carbon Dioxide 26.0 Anion Gap 8 BUN 20 H Creatinine 0.97 Est GFR (MDRD) Af Amer 97 Est GFR (MDRD) Non-Af 80 BUN/Creatinine Ratio 20.7 H Glucose 96 Calcium 9.5 Urine Color Straw Urine Clarity Sl. Cloudy Urine pH 7.0 Ur Specific [place] 1.010 Urine Protein 15 H Urine Glucose (UA) Normal Urine Ketones Negative Urine Occult Blood 10 H Urine Nitrite Negative Urine Bilirubin Negative Urine Urobilinogen Normal Ur Leukocyte Esterase 100 H Urine RBC 0-5 SEEN Urine WBC 5-10 SEEN Ur Squamous Epith Cells 0 SEEN Urine Bacteria 0 SEEN Urine Mucus 0 SEEN Discharge Plan Triage Chief Complaint: Complaint ED Provider: Michael King Dx/Rx/DC Orders Clinical Impression: Urinary retention, Dysuria, Chronic hyponatremia Instructions: ED Hyponatremia, ED Urinary Retention, Male Prescriptions: New sulfamethoxazole-trimethoprim [Bactrim DS] 800-160 mg tablet 1 tab PO BID Qty: 6 0RF No Action losartan 25 mg tablet 25 mg PO QHS Qty: 90 3RF atorvastatin 10 MG tablet 10 mg PO QHS tamsulosin 0.4 MG capsule 0.4 mg PO QHS tiotropium bromide [Spiriva with HandiHaler] 1 PUFF inhaler 1 puff inhalation QHS Patient Comments: if I run out of symbicort aspirin 81 MG tablet,chewable 81 mg PO DAILY@0800 cholecalciferol (vitamin D3) [Vitamin D3] 1,000 UNIT tablet 2,000 unit PO DAILY L.acidoph, paracasei,B. lactis 1 EACH capsule 1 ea PO DAILY carvedilol 6.25 MG tablet 6.25 mg PO BID Qty: 60 0RF divalproex 500 mg tablet,delayed release (DR/EC) 500 mg PO BID omeprazole 40 mg capsule,delayed release(DR/EC) 40 mg PO DAILY sodium chloride 1,000 mg Tablet,Soluble 1,000 mg PO TID Qty: 0 0RF Rx Instructions: For 2 weeks fluticasone propion-salmeterol [Advair Diskus] 100-50 mcg/dose blister with device 1 inh inhalation BID Incruse Ellipta 62.5 mcg/actuation blister with device 1 inh inhalation DAILY docusate sodium [Colace] 100 mg capsule 100 mg PO QHS Primary Care Provider: Iris Clancy Referrals: Iris Clancy MD [Primary Care Provider] - Alex Zhao MD [Med Staff - Active Staff] - 3-5 Days Activity Restrictions/Additional Instructions: Do not target Joya catheter. Follow-up with Dr. Zhao for Joya catheter removal. Return with fever, increased pain, new or worsening symptoms. Print Language: Slovak Disposition Disposition: Home, Self Care
[2024-06-03] MEDS: Lidocaine Jelly 2% 20 ML Syringe (URO-JET) 1 APPLIC TOPICAL (22:34)
[2024-06-03 22:41] LABS: Bacteria 0 SEEN /hpf (None Seen); Mucous, Urine 0 SEEN /hpf (<or=2+); Squamous Epithelial Cells - UA 0 SEEN /hpf (0-5)
[2024-06-03 22:43] LABS: Color, Urine Straw (Yellow); Glucose, Dipstick Normal (Normal); Ketone-Dipstick Negative (Negative); Leukocyte Esterase-Dipstick 100 /ul (Negative); Nitrite-Dipstick Negative (Negative); Occult Blood-Urine 10 /ul (Negative); Protein-Dipstick 15 mg/dl (Negative); Urine Bilirubin Dipstick Negative (Negative); Urine Clarity Sl. Cloudy (Clear); Urine Urobilinogen Normal (Normal)
[2024-06-03 22:43] LABS: Absolute Lymphocyte Count 1.74 X10^3/uL (0.83-4.51); Absolute Neutrophil Count 7.7 X10^3/uL (2.0-7.7); Basophil# 0.05 X10^3/uL; Basophil% 0.4 % (0-1); Eosinophil# 0.17 X10^3/uL; Eosinophils% 1.5 % (0-5); Hematocrit 33.7 % (40-54); Lymphocyte # 1.74 X10^3/ul (0.83-4.51); Lymphocyte % 15.3 % (19-41); Mean Corp Hgb Conc 32.6 g/dL (32-36); Mean Corpuscular Hgb 26.1 pg (27.0-32.0); Mean Corpuscular Volume 79.9 fL (80-94); Mean Platelet Vol. 8.8 fl (6.2-12.0); Monocyte# 1.57 X10^3/uL; Monocyte% 13.8 % (0-10); NRBC Flagged by Analyzer 0 % (0-5); Neutrophil # 7.69 X10^3/uL (2.7-7.7); Neutrophil % 67.7 % (47-70); POSITIVE DIFFERENTIAL YES; Platelet Count 192 K/mm3 (150-450); RBC Distribution Width CV 15.1 % (11.6-14.6); RBC Distribution Width SD 43.6 fl (35.1-43.9); Red Blood Count 4.22 M/mm3 (4.6-6.2); White Blood Count 11.4 K/mm3 (4.4-11.0)
[2024-06-03 22:46] LABS: Differential Indicated SCAN CRITERIA MET
[2024-06-03 22:57] LABS: Red Blood Cells-Urine 0-5 SEEN /hpf (0-5); White Blood Cells 5-10 SEEN /hpf (0-5)
[2024-06-03 22:58] LABS: Anion Gap 8 (5-15); BUN 20 mg/dL (7-18); BUN/Creat Ratio 20.7 RATIO (10-20); Calcium,Total 9.5 mg/dL (8.5-10.1); Chloride 92 mmol/L (98-107); Creatinine, Serum 0.97 mg/dL (0.70-1.30); EST Glomerular Filtration Rate 80 mL/min (>60); Est Glom Filt Rate - Afr Amer 97 mL/min (>60); Glucose 96 mg/dL (74-106); Potassium 4.3 mmol/L (3.5-5.1); Sodium Level 126 mmol/L (136-145)
[2024-06-03 23:15] LABS: Anisocytosis RARE; Platelet Estimate ADEQUATE (ADEQ); Red Cell Morphology N CHROM NORMAL (NORM C&C)
[2024-06-03 23:16] LABS: Microcytosis RARE; Ovalocyte RARE
[2024-06-03 23:44] VITALS: BP 172/85; PULSE 72; RESP 18; TEMP 36.1; O2SAT 98
--- NOTE | 2024-06-03 23:45 | ED.RN ---
notified Dr King of BP of 172/85, pt asymptomatic. Okay for patient to go home and take home medications as he normally would.
[2024-06-05 09:32] LABS: Pathologist Review Reviewed
== END 2024-06-03 23:46 | disposition home or self-care (01) ==
PROVIDERS: Emergency Provider Emergency Medicine; PCP Internal Medicine; Referring Provider Emergency Medicine; Visit Provider Emergency Medicine
DX: N40.1 Benign prostatic hyperplasia with lower urinary tract symptoms (principal); J43.9 Emphysema, unspecified; G40.909 Epilepsy, unspecified, not intractable, without status epilepticus; N18.30 Chronic kidney disease, stage 3 unspecified; I12.9 Hypertensive chronic kidney disease with stage 1 through stage 4 chronic kidney disease, or unspecified chronic kidney disease; E87.1 Hypo-osmolality and hyponatremia; R33.8 Other retention of urine; R30.0 Dysuria; K21.9 Gastro-esophageal reflux disease without esophagitis; K59.00 Constipation, unspecified; G62.9 Polyneuropathy, unspecified; F17.210 Nicotine dependence, cigarettes, uncomplicated; Z79.899 Other long term (current) drug therapy; Z79.82 Long term (current) use of aspirin
CPT/HCPCS: 51702; 80048; 81001; 85025; 99283; A4216

== ENCOUNTER → 2024-07-14 | Outpatient (CLI) | payer MEDICARE, BC, SELFPAY ==
[2024-07-14 17:55] LABS: Hematocrit 35.9 % (40-54); Hemoglobin 11.5 g/dL (13.0-16.5); Mean Corpuscular Hgb 26.3 pg (27.0-32.0); Mean Platelet Vol. 9.3 fl (6.2-12.0); Platelet Count 241 K/mm3 (150-450); RBC Distribution Width CV 16.3 % (11.6-14.6); RBC Distribution Width SD 49.1 fl (35.1-43.9); Red Blood Count 4.38 M/mm3 (4.6-6.2); White Blood Count 8.4 K/mm3 (4.4-11.0)
[2024-07-14 18:06] LABS: Protein, Urine (Random) 14.2 mg/dL (<11.9); Protein:Creat Ratio 354 mg/g CRE (0-200); Urine Sodium 79 mmol/L (Not Establ.)
[2024-07-14 18:11] LABS: Albumin, Serum 3.2 g/dL (3.2-5.0); BUN 31 mg/dL (7-18); BUN/Creat Ratio 32.7 RATIO (10-20); Calcium,Total 9.3 mg/dL (8.5-10.1); Chloride 94 mmol/L (98-107); Creatinine, Serum 0.95 mg/dL (0.70-1.30); EST Glomerular Filtration Rate 82 mL/min (>60); Est Glom Filt Rate - Afr Amer 99 mL/min (>60); Glucose 106 mg/dL (74-106); Potassium 3.6 mmol/L (3.5-5.1); Sodium Level 127 mmol/L (136-145); Vitamin D,25 Hydroxy 48.9 ng/mL
[2024-07-14 19:02] LABS: PTHIN 32.5 pg/mL (18.4-80.1)
[2024-07-14 19:23] LABS: Osmolality, Serum 282 mOsm/KG (280-301)
== END | disposition home or self-care (01) ==
LOC: MTLAB 15:53
PROVIDERS: PCP Internal Medicine; Referring Provider Nurse Practitioner Adult Health; Visit Provider Nurse Practitioner Adult Health
DX: N18.31 Chronic kidney disease, stage 3a (principal); E87.1 Hypo-osmolality and hyponatremia
CPT/HCPCS: 36415; 80069; 82306; 82570; 83930; 83970; 84156; 84300; 85027

== ENCOUNTER 2024-10-23 20:55 | Inpatient (IN) | payer MEDICARE, SELFPAY ==
[2024-10-23 21:06] VITALS: BP 158/71; PULSE 97; RESP 22; TEMP 37.1; O2SAT 98; BMI 22.9
[2024-10-23 21:08] VITALS: BP 158/71; PULSE 97; RESP 22; TEMP 37.1; O2SAT 98
--- NOTE | 2024-10-23 21:08 | EKG12_ITS ---
Test Reason : DYSRHYTHMIA Blood Pressure : */* mmHG Vent. Rate : 94 BPM Atrial Rate : 94 BPM P-R Int : 148 ms QRS Dur : 156 ms QT Int : 372 ms P-R-T Axes : 21 8 30 degrees QTcB Int : 465 ms Normal sinus rhythm with Atrial-sensed ventricular-paced rhythm Abnormal ECG Confirmed by Cristian Sosa ([id number]), editor news BIB VUONG ([id number]) on 10/24/2024 11:05:15 AM Referred By: Michael King Confirmed By: Cristian Sosa
--- NOTE | 2024-10-23 21:30 | RAD_ITS ---
PROCEDURE: CHEST 1 VIEW (PORTABLE) REASON FOR EXAM: COUGH TECHNIQUE: Frontal view of the chest. COMPARISON: 02/12/2024 FINDINGS: Stable left-sided ICD. The heart size is normal. Interval development of a 5.9 x 4.5 cm left upper lobe mass, since 2023. No pneumothorax. No pleural effusion. RAD/Chest 1 View (Portable) IMPRESSION: New 5.9 x 4.5 cm left upper lobe mass. Recommend CT of the chest for further e valuation. Reading Location: [facility]
[2024-10-23 21:59] LABS: Mucous, Urine 0 SEEN /hpf (<or=2+); Squamous Epithelial Cells - UA 0 SEEN /hpf (0-5)
[2024-10-23 22:00] VITALS: BP 163/88; PULSE 103; RESP 24; TEMP 37.1; O2SAT 96
[2024-10-23 22:01] LABS: Absolute Lymphocyte Count 1.52 X10^3/uL (0.83-4.51); Absolute Neutrophil Count 15.6 X10^3/uL (2.0-7.7); Basophil# 0.04 X10^3/uL; Basophil% 0.2 % (0-1); Color, Urine Yellow (Yellow); Eosinophil# 0.04 X10^3/uL; Eosinophils% 0.2 % (0-5); Glucose, Dipstick Normal (Normal); Hemoglobin 11.3 g/dL (13.0-16.5); Ketone-Dipstick 5 mg/dl (Negative); Leukocyte Esterase-Dipstick 500 /ul (Negative); Lymphocyte # 1.52 X10^3/ul (0.83-4.51); Lymphocyte % 7.7 % (19-41); Mean Corp Hgb Conc 34.2 g/dL (32-36); Mean Corpuscular Volume 78.9 fL (80-94); Mean Platelet Vol. 9.5 fl (6.2-12.0); Monocyte# 2.34 X10^3/uL; Monocyte% 11.9 % (0-10); NRBC Flagged by Analyzer 0 % (0-5); Neutrophil # 15.59 X10^3/uL (2.7-7.7); Neutrophil % 79.4 % (47-70); Nitrite-Dipstick Negative (Negative); Occult Blood-Urine 25 /ul (Negative); POSITIVE DIFFERENTIAL YES; Platelet Count 243 K/mm3 (150-450); Protein-Dipstick 30 mg/dl (Negative); RBC Distribution Width CV 15.8 % (11.6-14.6); RBC Distribution Width SD 44.8 fl (35.1-43.9); Red Blood Count 4.18 M/mm3 (4.6-6.2); Urine Bilirubin Dipstick Negative (Negative); Urine Clarity Sl. Cloudy (Clear); Urine Urobilinogen 4 mg/dl (Normal); Urine pH 6.5 (5.0 - 8.0); White Blood Count 19.6 K/mm3 (4.4-11.0)
[2024-10-23] MEDS: 0.9% Normal Saline (500mL Bag) 500 ML 1000 ML IV (22:07)
[2024-10-23 22:14] LABS: Differential Indicated SCAN CRITERIA MET
[2024-10-23 22:23] LABS: Bacteria 1+ /hpf (None Seen); Red Blood Cells-Urine 0 SEEN /hpf (0-5); White Blood Cells 25-50 SEEN /hpf (0-5)
--- NOTE | 2024-10-23 22:52 | EX.ED.DYSGE1 ---
HPI History of Present Illness Chief Complaint: Complaint Narrative Narrative: 74-year-old male past medical history of seizure disorder, previous UTI, history of hyponatremia for which he takes oral sodium, presents with UTI symptoms and urinary frequency that has had for the last week. While he lives alone, his daughter visits frequently and thinks that he might have a urinary tract infection. He has been admitted when his sodium has been low 121 and he seems more confused when this happens. However, while he has been confused, has had occasional cough that is nonproductive but no fevers or chills. He states that he has burning with urination and sometimes urinary frequency. [facility] Medical History Tobacco abuse Hyponatremia Wears hearing aid Wears glasses Walker as ambulation aid Wears dentures Indwelling urethral catheter present History of echocardiogram Cardiology follow-up encounter 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 Stage 3b chronic kidney disease (CKD) Third degree heart block BPH (benign prostatic hyperplasia) GERD (gastroesophageal reflux disease) Seizures Cataract Back pain with history of spinal surgery Neuropathy Emphysema lung Smoker Hypertension Home Medications ?Medication ?Instructions ?Recorded ?Last Taken ?Type tamsulosin 0.4 mg capsule 0.4 mg PO QHS urination 05/28/16 11/16/23 History cholecalciferol (vitamin D3) 25 2,000 unit PO DAILY supplement 07/06/16 11/16/23 History mcg (1,000 unit) tablet (Vitamin D3) L.acidoph,paracasei,B.animalis 10 1 ea PO DAILY pt unsure 02/07/17 11/16/23 History billion cell capsule carvedilol 6.25 mg tablet 6.25 mg PO BID htn #60 tabs 02/08/17 11/17/23 Rx divalproex 500 mg tablet,delayed 500 mg PO BID seizure 12/25/23 Unknown History release omeprazole 40 mg capsule,delayed 40 mg PO DAILY gerd 12/25/23 Unknown History release sodium chloride 1,000 mg soluble 1,000 mg PO TID #0 tabs 12/28/23 Unknown Rx tablet docusate sodium 100 mg capsule 100 mg PO QHS constipation 02/15/24 Unknown History (Colace) losartan 25 mg tablet 25 mg PO QHS htn #90 tabs 08/23/24 Unknown Rx Allergy/AdvReac Type Severity Reaction Status Date / Time ethotoin (From Peganone) Allergy Mild Rash Verified 10/23/24 21:05 Family History Other Cancer Heart disease Osteoporosis Surgical History History of selective injection of anesthetic agent around lumbar nerve root History of colonoscopy History of surgery History of appendectomy History of back surgery Social History Smoking Status: Current every day smoker tobacco type: cigarettes ROS ROS ED ROS Narrative Constitutional: No fever, no chills. Occasional generalized weakness. HEENT: No sore throat. No neck pain. . No rhinorrhea. Cardiovascular: No chest pain. No palpitations. No pedal edema. Respiratory: No cough, no shortness of breath. Abdominal: No abdominal pain. No nausea. No vomiting. Genitourinary: Positive burning with urination, mild urinary frequency. No hematuria. Musculoskeletal: No myalgias. No arthralgias. Neurologic: No headaches. No dizziness. No lightheadedness. No confusion. Skin: No rash. No change in color. Psychiatric: No depression. No anxiety. EXAM Physical Exam Narrative Exam Narrative: Afebrile. Vital signs noted. Nontoxic-appearing. Cardiovascular examination reveals a regular rate and rhythm. Lungs clear to auscultation bilaterally except decreased breath sounds bilateral bases. Abdomen soft and nontender without guarding or rebound. Positive bowel sounds. Neurological examination shows him to be awake, alert, nonfocal, nonlateralizing. Const Vital Signs: 10/23/24 21:06 10/23/24 21:08 10/23/24 22:00 Temperature 98.7 F 98.7 F 98.7 F Temperature Source Oral Oral Oral Pulse Rate 97 97 103 H Respiratory Rate 22 H 22 H 24 H Blood Pressure 158/71 H 158/71 H 163/88 H Blood Pressure Mean 100 100 108 Pulse Ox 98 98 96 Oxygen Delivery Method Room Air Room Air Room Air 10/23/24 23:00 10/23/24 23:48 Temperature 99.3 F H Temperature Source Pulse Rate 95 104 H Respiratory Rate 23 H 24 H Blood Pressure 140/63 H 155/78 H Blood Pressure Mean 84 103 Pulse Ox 100 97 Oxygen Delivery Method MDM MDM MDM Narrative Medical decision making narrative: Differential diagnosis includes but not limited to UTI versus dehydration versus other electrolyte abnormality versus pneumonia regarding his generalized weakness. Protocol labs were started. EKG was obtained interpreted by myself independently as an atrial sensed ventricular paced rhythm at 94 bpm without acute ectopy or acute ST changes. No STEMI. I reviewed his laboratory work and he does have a leukocytosis of 19.6 with hemoglobin stable at 11.3, platelet count normal at 243. CMP is currently pending. Urinalysis does show 25-50 WBCs with 0 squamous epithelial cells and 1+ bacteria. This will be sent for culture. He will be started on Rocephin. I did review his CMP and sodium is low at 120. When compared to prior labs, while he has a chronic hyponatremia and hypochloremia, it has never been this low in the recent past. Potassium is normal at 3.7 with chloride also low at 87. BUN slightly elevated 29 with creatinine 1.06, LFTs are normal. On review of his chest x-ray, on my independent interpretation, he does not have a pneumonia or pneumothorax but he does have a left upper lobe lung mass. However, on review of the radiology report, they comment on the left upper lobe lung mass. It appears to be 5.9 x 4.5 cm. At this point in time, given his UTI and profound hyponatremia, and the fact that he lives alone with generalized weakness, plan will be for admission. Hospitalist called away to [facility]. Patient signed out to Dr. Rodrigues to ensure admission and discussed the patient with the hospitalist. Patient is in stable condition. History & Record Review Discussion w/independent historian: Patient and Family Lab Data Attestation: I reviewed the patient's lab results. Labs: Laboratory Results - last 24 hr 10/23/24 21:40 WBC 19.6 H RBC 4.18 L Hgb 11.3 L Hct 33.0 L MCV 78.9 L MCH 27.0 MCHC 34.2 RDW Std Deviation 44.8 H RDW Coeff of Edinson 15.8 H Plt Count 243 MPV 9.5 Immature Gran % (Auto) 0.600 Neut % (Auto) 79.4 H Lymph % (Auto) 7.7 L Talbot % (Auto) 11.9 H Eos % (Auto) 0.2 Baso % (Auto) 0.2 Absolute Neuts (auto) 15.6 H Absolute Lymphs (auto) 1.52 Nucleated RBC % 0 Differential Comment SCANNED Diff Path Review December foll Sodium 120 L Potassium 3.7 Chloride 87 L Carbon Dioxide 21.8 Anion Gap 11 BUN 29 H Creatinine 1.06 Estim Creat Clear Calc 59.12 Est GFR (MDRD) Non-Af 73 BUN/Creatinine Ratio 27.4 H Glucose 135 H Calcium 9.3 Total Bilirubin 0.32 AST 14 ALT 6 Alkaline Phosphatase 84 Total Protein 6.6 Albumin 3.4 Globulin 3.2 Albumin/Globulin Ratio 1.0 Urine Color Yellow Urine Clarity Sl. Cloudy Urine pH 6.5 Ur Specific Townsend 1.010 Urine Protein 30 H Urine Glucose (UA) Normal Urine Ketones 5 H Urine Occult Blood 25 H Urine Nitrite Negative Urine Bilirubin Negative Urine Urobilinogen 4 H Ur Leukocyte Esterase 500 H Urine RBC 0 SEEN Urine WBC 25-50 SEEN Ur Squamous Epith Cells 0 SEEN Urine Bacteria 1+ Urine Mucus 0 SEEN Radiography Chest X-Ray - ED: 1 View, Read by ED Physician, Read by Radiologist and - (Left upper lobe mass) Diagnostic Testing: Clinical Impression(s) from Imaging Studies Chest X-Ray 10/23/24 21:30 IMPRESSION: New 5.9 x 4.5 cm left upper lobe mass. Recommend CT of the chest for further evaluation. Reading Location: [facility] Management Discussion w/another healthcare provider: Hospitalist Discharge Plan Dx/Rx/DC Orders Clinical Impression: UTI (urinary tract infection), Hyponatremia, Generalized weakness, Mass of upper lobe of left lung Disposition Disposition: Acute Care Hospital [facility]
[2024-10-23 22:55] LABS: Differential Comment SCANNED
[2024-10-23 23:00] VITALS: BP 140/63; PULSE 95; RESP 23; O2SAT 100
[2024-10-23 23:30] LABS: AST(SGOT) 14 U/L (<=37); Alanine Aminotransfer ALT/SGPT 6 U/L (<=46); Albumin, Serum 3.4 g/dL (3.4-4.8); Alkaline Phosphatase 84 U/L (40-129); Anion Gap 11 (5-15); BUN 29 mg/dL (4-19); BUN/Creat Ratio 27.4 RATIO (10-20); Calcium,Total 9.3 mg/dL (7.6-11.0); Carbon Dioxide 21.8 mmol/L (21.0-32.0); Chloride 87 mmol/L (98-108); Creatinine, Serum 1.06 mg/dL (0.70-1.20); EST Glomerular Filtration Rate 73 (>60); Estimated Creatinine Clearance 59.12 ml/min (50-250); Globulin 3.2 g/dL (2.2-4.2); Glucose 135 mg/dL (70-99); Potassium 3.7 mmol/L (3.3-5.1); Protein, Total 6.6 g/dL (5.9-8.4); Sodium Level 120 mmol/L (133-145); Total Bilirubin 0.32 mg/dL (0.00-1.30)
[2024-10-23] MEDS: Ceftriaxone 1 GM/50 ML BAG IV (23:40)
[2024-10-23 23:48] VITALS: BP 155/78; PULSE 104; RESP 24; TEMP 37.4; O2SAT 97
[2024-10-24] VITALS (24 sets, daily range): BP systolic 92–153; BP diastolic 43–97; PULSE 84–110; RESP 16–27; TEMP 36.4–37.6; O2SAT 92–98; BMI 28.3; BMI 28.4
[2024-10-24] MEDS: Acetaminophen 325 MG Tablet 650 MG PO ×2 (00:26→21:26)
--- NOTE | 2024-10-24 01:13 | PCM.HP.STD ---
[facility] - General General Date of Admission: 10/24/24 Date of Service: 10/24/24 Chief Complaint: Frequent Urination, Confusion and Generalized Weakness. [facility] Narrative KATIE GOVEA, is a 74 M with a past medical history of essential hypertension; on losartan and carvedilol twice daily, hyperlipidemia; currently not on treatment, history of tobacco abuse; with subsequent COPD, chronic hyponatremia; with baseline sodium of 122-128 mmol/L for which he takes supplemental sodium chloride 1 g 3 times daily, CKD; stage IIIb, history of unstable angina, history of complete heart block; s/p PPM, history of seizure disorder; on divalproex twice daily, neuropathy, BPH; with chronic indwelling urinary catheter due to urinary retention on tamsulosin, GERD; on omeprazole, history of adult jaushrx-ay-xzzveb, OA; with chronic back pain and history of spinal surgery with subsequent chronic debility with patient ambulating with walker at baseline and history of UTIs who presents presents to [facility] ER complaining of frequent urination, confusion and generalized weakness. Mr. Govea reports his symptoms began approximately 1 week prior to admission with increasingly frequent urination with severe dysuria causing a burning sensation with patient suspecting he has a urinary tract infection. He also suspects his sodium is low as he has become more confused when his level reaches approximately 121 mmol/L. There was no report of fever, chills, sore throat, neck pain, runny nose, chest pain, palpitations, lower extremity edema, shortness of breath, cough, abdominal pain, nausea, vomiting or headache. 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 He was then admitted to the ICU for ongoing care for a stay that is expected to extend beyond 2 midnights. [facility] Medical History Tobacco abuse Hyponatremia Wears hearing aid Wears glasses Walker as ambulation aid Wears dentures Indwelling urethral catheter present History of echocardiogram Cardiology follow-up encounter 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 Stage 3b chronic kidney disease (CKD) Third degree heart block BPH (benign prostatic hyperplasia) GERD (gastroesophageal reflux disease) Seizures Cataract Back pain with history of spinal surgery Neuropathy Emphysema lung Smoker Hypertension Home Medications ?Medication ?Instructions ?Recorded ?Last Taken ?Type tamsulosin 0.4 mg capsule 0.4 mg PO QHS urination 05/28/16 11/16/23 History cholecalciferol (vitamin D3) 25 2,000 unit PO DAILY supplement 07/06/16 11/16/23 History mcg (1,000 unit) tablet (Vitamin D3) emre Devlin B.animalis 10 1 ea PO DAILY pt unsure 02/07/17 11/16/23 History billion cell capsule carvedilol 6.25 mg tablet 6.25 mg PO BID htn #60 tabs 02/08/17 11/17/23 Rx divalproex 500 mg tablet,delayed 500 mg PO BID seizure 12/25/23 Unknown History release omeprazole 40 mg capsule,delayed 40 mg PO DAILY gerd 12/25/23 Unknown History release sodium chloride 1,000 mg soluble 1,000 mg PO TID #0 tabs 12/28/23 Unknown Rx tablet docusate sodium 100 mg capsule 100 mg PO QHS constipation 02/15/24 Unknown History (Colace) losartan 25 mg tablet 25 mg PO QHS htn #90 tabs 08/23/24 Unknown Rx Allergy/AdvReac Type Severity Reaction Status Date / Time ethotoin (From Peganone) Allergy Mild Rash Verified 10/23/24 21:05 Family History Other Cancer Heart disease Osteoporosis Surgical History History of selective injection of anesthetic agent around lumbar nerve root History of colonoscopy History of surgery History of appendectomy History of back surgery Social History Smoking Status: Current every day smoker tobacco type: cigarettes ROS ROS Narrative Review of Systems: Constitutional: Patient admits to generalized weakness and mild confusion but he denies fevers or chills. Eyes: Patient denies changes in vision or discharge from eyes. ENT: Patient denies runny nose, sore throat or ear pain. Resp: Patient denies shortness of breath or cough. CV: Patient denies chest pain, palpitations, heart racing or lower extremity edema. GI: Patient denies abdominal pain, nausea, vomiting, diarrhea or constipation. : Patient admits to frequent urination and dysuria/burning with urination as per HPI. He denies hematuria. MSK: Patient denies arthralgias or myalgias. Skin: Patient denies rash, abscess, wounds or jaundice. Psych: Patient admits to mild confusion and lethargy but he denies symptoms of uncontrolled depression or anxiety. Neuro: Patient admits to mild confusion and generalized weakness but he denies headache, paresthesias or focal motor neurologic deficits. Allergy: Patient denies lip swelling, tongue swelling or urticaria. Hematology: Patient denies easy bleeding or easy bruisability. Endocrinology: Patient admits to frequent urination but he denies polydipsia or polyphagia. 14 point ROS otherwise negative save for positives noted above in HPI. Vital Signs Vital Signs Vital Signs: 10/23/24 21:06 10/23/24 21:08 10/23/24 22:00 Temperature 98.7 F 98.7 F 98.7 F Temperature Source Oral Oral Oral Pulse Rate 97 97 103 H Respiratory Rate 22 H 22 H 24 H Blood Pressure 158/71 H 158/71 H 163/88 H Blood Pressure Mean 100 100 108 Pulse Ox 98 98 96 Oxygen Delivery Method Room Air Room Air Room Air 10/23/24 23:00 10/23/24 23:48 10/24/24 00:00 Temperature 99.3 F H Temperature Source Pulse Rate 95 104 H 110 H Respiratory Rate 23 H 24 H 26 H Blood Pressure 140/63 H 155/78 H 124/88 H Blood Pressure Mean 84 103 94 Pulse Ox 100 97 96 Oxygen Delivery Method Weight Weight: 155 lb 6.814 oz Body Mass Index (BMI) 22.9 Physical Exam Const alert, no apparent distress, average body habitus and healthy appearing Constitutional Narrative: Patient mildly confused and lethargic. General Appearance: cooperative Orientation / Consciousness: confused and lethargic HEENT normocephalic, head/scalp atraumatic and hearing grossly normal bilaterally HEENT Narrative: Mucous membranes dry. Eyes PERRL, EOMs intact bilaterally and conjunctivae normal Neck no lymphadenopathy, supple and no JVD Resp normal respiratory effort, no retractions, no use of accessory muscles and clear to auscultation bilaterally Cardio regular rate and regular rhythm GI normal to inspection, nondistended, normoactive bowel sounds, soft to palpation, non-tender and non-distended Extremity normal to inspection, full ROM and no clubbing, cyanosis or edema Skin Skin Narrative: Patient has evidence of rash, abscess, wounds or jaundice. Neuro CN's II-XII intact bilaterally, moves all extremities and no focal motor deficits Sensorium / Orientation: awake, alert, oriented to person and oriented to place Speech: speech normal Psych affect normal Results Medical Records Data Attestation: I reviewed the patient's medical records Lab / Micro Data Attestation: I reviewed the patient's lab results. 10/23/24 21:40 10/24/24 04:30 Labs: Laboratory Results - last 24 hr 10/23/24 21:40: WBC 19.6 H, RBC 4.18 L, Hgb 11.3 L, Hct 33.0 L, MCV 78.9 L, MCH 27.0, MCHC 34.2, RDW Std Deviation 44.8 H, RDW Coeff of Edinson 15.8 H, Plt Count 243, MPV 9.5, Immature Gran % (Auto) 0.600, Neut % (Auto) 79.4 H, Lymph % (Auto) 7.7 L, Rabun % (Auto) 11.9 H, Eos % (Auto) 0.2, Baso % (Auto) 0.2, Absolute Neuts (auto) 15.6 H, Absolute Lymphs (auto) 1.52, Nucleated RBC % 0, Differential Comment SCANNED, Diff Path Review December, Sodium 120 L, Potassium 3.7, Chloride 87 L, Carbon Dioxide 21.8, Anion Gap 11, BUN 29 H, Creatinine 1.06, Estim Creat Clear Calc 59.12, Est GFR (MDRD) Non-Af 73, BUN/Creatinine Ratio 27.4 H, Glucose 135 H, Calcium 9.3, Total Bilirubin 0.32, AST 14, ALT 6, Alkaline Phosphatase 84, Total Protein 6.6, Albumin 3.4, Globulin 3.2, Albumin/Globulin Ratio 1.0, Urine Color Yellow, Urine Clarity Sl. Cloudy, Urine pH 6.5, Ur Specific Loma 1.010, Urine Protein 30 H, Urine Glucose (UA) Normal, Urine Ketones 5 H, Urine Occult Blood 25 H, Urine Nitrite Negative, Urine Bilirubin Negative, Urine Urobilinogen 4 H, Ur Leukocyte Esterase 500 H, Urine RBC 0 SEEN, Urine WBC 25-50 SEEN, Ur Squamous Epith Cells 0 SEEN, Urine Bacteria 1+, Urine Mucus 0 SEEN Micro: Microbiology 10/23/24 21:40 Mucosa - Nose SARS-CoV-2, Influenza & RSV (PCR) - Final Imaging Radiology Impression Chest X-Ray 10/23/24 21:30 IMPRESSION: New 5.9 x 4.5 cm left upper lobe mass. Recommend CT of the chest for further evaluation. Reading Location: [facility] Imaging Services [address] [place] [address] [id number] CTA Chest W/WO Contrast MR#: [id number] Acct: [id number] Name: RIVERKATIE Everton Rep #: [id number] : 1950 M 74 From: Cristian Heaton MD PCP: Dr. Iris Clancy MD Status: ADM IN Study: CTA Chest W/WO Contrast Date of Exam: 10/24/24 Exam# [id number] Ordering Dr: Kai Armstrong DO PROCEDURE: CTA CHEST W/WO CONTRAST REASON FOR EXAM: NEW VICTORINA MASS ON CXR. TECHNIQUE: CTA imaging of the chest with intravenous contrast. 3D reconstructions. CONTRAST: COMPARISON: Chest x-ray performed on October 24, 2019. FINDINGS: The trachea and central bronchial tree are patent. There is no pleural or pericardial effusion. The heart is normal in size. The pulmonary arteries appear normal in size and caliber there is no filling defect to suggest acute pulmonary embolism. There borderline prominent lymph nodes within the mediastinum. For example there is a 1.7 x 0.9 cm prevascular lymph node (image 165/282). A 1.5 x 1.3 cm prevascular lymph node is also identified on image 137/282. No aneurysmal dilatation is seen within the thoracic aorta. Bilateral gynecomastia is present, right greater than left. A 6 x 5.1 x 3.4 cm irregular mass is seen within the left upper lobe (image 173/282), a 4.4 x 2.9 x 2.5 cm mass is seen within the more posterior lateral segment of the left upper lobe (image 173/282). There are older smaller nodular pleural-based masses within the left lung. These findings are worrisome for malignancy. Further oncologic workup and tissue sampling is suggested. The lung parenchyma demonstrates several areas of subpleural honeycombing within the right upper lobe (image 185/282). There are streaky changes at the lung bases. There are suspected areas of pulmonary fibrosis at the lung bases. Please note that evaluation of the lung parenchyma is somewhat limited due to respiratory motion abnormalities. No acute osseous abnormalities identified. Limited examination of the upper abdominal viscera demonstrates bilateral perinephric stranding, which is nonspecific. There are probable splenules within the left upper abdominal quadrant. CT/CTA Chest W/WO Contrast IMPRESSION: 6 cm left upper lobe pulmonary mass. 4.4 cm left posterolateral pole a pulmonary mass. Other nodular masses are seen within the left lobe of the lung, some of which are pleural-based. These findings are worrisome for malignancy. Recommend further oncologic workup and tissue sampling at this time. Mediastinal nodules which may be further assessed on PET imaging. No evidence of pulmonary embolism. Other findings as above. One or more dose reduction techniques were used (e.g., Automated exposure control, adjustment of the mA and/or kV according to patient size, use of iterative reconstruction technique). Reading Location: [id number] CC: Dr. Iris Clancy MD; Dr. Kai Armstrong DO ~ [employer] Helper: Signed Assessment & Plan Assessment/Plan (1) Sepsis: QUALIFIERS: Sepsis acute organ dysfunction status: with acute organ dysfunction Sepsis type: sepsis due to unspecified organism Severe sepsis acute organ dysfunction type: encephalopathy Severe sepsis shock status: without septic shock Qualified Code(s): A41.9 - Sepsis, unspecified organism; R65.20 - Severe sepsis without septic shock; G93.41 - Metabolic encephalopathy (2) Acute cystitis without hematuria: (3) Leukocytosis: QUALIFIERS: Leukocytosis type: unspecified Qualified Code(s): D72.829 - Elevated white blood cell count, unspecified (4) Chronic indwelling Joya catheter: (5) Hyponatremia: (6) Mass of upper lobe of left lung: (7) COPD (chronic obstructive pulmonary disease): QUALIFIERS: COPD type: unspecified COPD Qualified Code(s): J44.9 - Chronic obstructive pulmonary disease, unspecified (8) Metabolic encephalopathy: (9) Generalized weakness: (10) Adult failure to thrive: (11) Folate deficiency: PLAN: Plan 1. Leukocytosis of 19.6 K present on admission with a UA positive for acute cystitis; without hematuria concerning for Sepsis due to Chronic Indwelling Urinary catheter placed for BPH; with chronic urinary retention - Admit to ICU for treatment under sepsis protocol with limited fluid bolus due to #2. Stop IV ceftriaxone begun in ER and begin IV piperacillin-tazobactam and await culture and sensitivity data. Continue probiotic as previous. Give acetaminophen as needed for pain or fever. 2. Severe xcatv-sx-amiwals hyponatremia of 120 mmol/L present on admission complicating #1 - Started normal saline IV fluid at 70 cc/h and checked serum and urine osmolality with serum sodium dropping to 118 mmol/L in spite of this treatment. Therefore, start hypertonic saline and check BMP every 4 hours to ensure rise of no more than 8-10 mmol/L per 24-hour period. Finally, we will consult nephrology to see this patient on rounds in the a.m. for further recommendations with help appreciated in advance. 3. 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 for further recommendations regarding possible bronchoscopy with biopsy this admission to confirm suspicion of malignancy with help appreciated in advance. CTA of chest with IV contrast recommended by radiology also ordered. 4. Acute Metabolic Encephalopathy arising from #1 - #3 - Minimize LEAD ENTERPRISE ARCHITECT-active medications in an effort to allow sensorium to clear. Check TSH, B12 and folate levels to evaluate for possible reversible causes of confusion. 5. Generalized Weakness in the setting of previously known Adult [id number] adding to the medical complexity of #1 - #4 - PT/OT and case management consult and treat on rounds in a.m. for further recommendations without appreciated in advance. 6. Newly diagnosed Folate deficiency of 3.01 ng/mL present on admission adding to the burden of disease outlined from #1 - #5. 7. Essential Hypertension; on losartan and carvedilol twice daily - Hold scheduled antihypertensives in light of #1 - #5. 8. Hyperlipidemia; currently not on treatment - Check Lipid Profile to confirm status. 9. Chronic hyponatremia; with baseline sodium of 122-128 mmol/L for which he takes supplemental sodium chloride 1g 3 times daily - Noted. We will hold oral sodium chloride supplementation in favor of IV replacement. 10. CKD; stage IIIb - Stable. 11. History of unstable angina - Noted with no signs of recurrence at this time. 12. History of complete heart block; s/p PPM - Noted. 13. History of seizure disorder; on divalproex twice daily - Check valproic acid level and then resume this agent as previous if level is in therapeutic range. Give lorazepam IV prn for breakthrough seizure activity. 14. Neuropathy - Stable. 15. GERD; on omeprazole - Maintain PPI. 16. OA; with chronic back pain and history of spinal surgery with subsequent chronic debility with patient ambulating with walker - Give acetaminophen prn. PT/OT and Case Management to consult and treat on-rounds in AM for further recommendations with help appreciated in advance. 17. DVT prophylaxis - SCD's only at this time with possible impending lung biopsy. Total time: Approximately (but not less than) 75 minutes. Sepsis Attestation Sepsis Attestation: Agree w/Sepsis Date exam was performed: 10/24/24 Time exam was performed: 01:45 Possible Source of Sepsis: Implantable device and Genitourinary Sepsis Organ Dysfunction Criteria Present: New/Unexplained change in mental status Fluid Resuscitation Fluid resuscitation indicated?: Yes Fluid Resuscitation ordered: Lesser volume fluid bolus ordered Amount of fluid ordered: 2 Reason for lesser fluid bolus:: Other (Patient has severe hyponatremia of 120 mmol/L present on admission contraindicating rapid fluid administration.) Sepsis Note Date exam was performed: 10/24/24 Time exam was performed: 04:45 Sepsis Attestation: Sepsis re-evaluation was performed Response to fluids: Fluid responsive hypotension Charges/Coding Visit Charges Inpatient E&M: 39424 Init Hosp L3
[2024-10-24] MEDS: 0.9% Normal Saline (1000mL) 1,000 ML 999 ML IV ×2 (02:37→03:44)
[2024-10-24] MEDS: Piperacil/Tazobactam 3.375 GM in 0.9% Normal Saline (50mL MB+) 50 ML IV ×3 (02:37→21:27)
--- NOTE | 2024-10-24 02:47 | CT_ITS ---
PROCEDURE: CTA CHEST W/WO CONTRAST REASON FOR EXAM: NEW VICTORINA MASS ON CXR. TECHNIQUE: CTA imaging of the chest with intravenous contrast. 3D reconstructions. CONTRAST: COMPARISON: Chest x-ray performed on October 24, 2019. FINDINGS: The trachea and central bronchial tree are patent. There is no pleural or pericardial effusion. The heart is normal in size. The pulmonary arteries appear normal in size and caliber there is no filling defect to suggest acute pulmonary embolism. There borderline prominent lymph nodes within the mediastinum. For example there is a 1.7 x 0.9 cm prevascular lymph node (image 165/282). A 1.5 x 1.3 cm prevascular lymph node is also identified on image 137/282. No aneurysmal dilatation is seen within the thoracic aorta. Bilateral gynecomastia is present, right greater than left. A 6 x 5.1 x 3.4 cm irregular mass is seen within the left upper lobe (image 173/282), a 4.4 x 2.9 x 2.5 cm mass is seen within the more posterior lateral segment of the left upper lobe (image 173/282). There are older smaller nodular pleural-based masses within the left lung. These findings are worrisome for malignancy. Further oncologic workup and tissue sampling is suggested. The lung parenchyma demonstrates several areas of subpleural honeycombing within the right upper lobe (image 185/282). There are streaky changes at the lung bases. There are suspected areas of pulmonary fibrosis at the lung bases. Please note that evaluation of the lung parenchyma is somewhat limited due to respiratory motion abnormalities. No acute osseous abnormalities identified. Limited examination of the upper abdominal viscera demonstrates bilateral perinephric stranding, which is nonspecific. There are probable splenules within the left upper abdominal quadrant. CT/CTA Chest W/WO Contrast IMPRESSION: 6 cm left upper lobe pulmonary mass. 4.4 cm left posterolateral pole a pulmona ry mass. Other nodular masses are seen within the left lobe of the lung, some of which are pleural-based. These findings are wor risome for malignancy. Recommend further oncologic workup and tissue sampling at this time. Mediastinal nodules which may be further assessed on PET imaging. No evidence of pulmonary embolism. Other findings as above. One or more dose reduction techniques were used (e.g., Automated exposure contr ol, adjustment of the mA and/or kV according to patient size, use of iterative reconstruction technique). Reading Location: [id number]
[2024-10-24 03:03] LABS: Osmolality, Urine 525 mOsm/KG
[2024-10-24 03:04] LABS: Osmolality, Serum 259 mOsm/KG (280-301)
[2024-10-24 03:07] LABS: Valproic Acid (Depakene) Level 58 ug/mL (50-100)
[2024-10-24 03:23] LABS: Cholesterol 140 mg/dL (<=200); High Density Lipoprotein 46 mg/dL; Low Density Lipoprotein Calc. 67 mg/dL; Triglycerides 136 mg/dL; Very Low Density Lipoprotein 27 mg/dL (5-40); Vitamin B12 890 pg/mL (180-914); cholesterol:hdl ratio screen 3.04
[2024-10-24 03:32] LABS: Lactic Acid < 1.0 mmol/L (0.0-2.0)
[2024-10-24 03:35] LABS: Anion Gap 14 (5-15); BUN 25 mg/dL (4-19); BUN/Creat Ratio 26.1 RATIO (10-20); Calcium,Total 9.6 mg/dL (7.6-11.0); Chloride 86 mmol/L (98-108); Creatinine, Serum 0.94 mg/dL (0.70-1.20); EST Glomerular Filtration Rate 84 (>60); Estimated Creatinine Clearance 57.49 ml/min (50-250); Glucose 119 mg/dL (70-99); Potassium 3.8 mmol/L (3.3-5.1); Sodium Level 119 mmol/L (133-145)
[2024-10-24 03:42] LABS: FOLATES,SERUM (FOLIC ACID) 3.01 ng/mL (4.60-34.80)
[2024-10-24] MEDS: 0.9% Normal Saline (1000mL) 1,000 ML 70 ML IV (04:24)
[2024-10-24 05:11] LABS: Anion Gap 11 (5-15); BUN 23 mg/dL (4-19); BUN/Creat Ratio 28.6 RATIO (10-20); Calcium,Total 8.6 mg/dL (7.6-11.0); Chloride 88 mmol/L (98-108); Creatinine, Serum 0.81 mg/dL (0.70-1.20); EST Glomerular Filtration Rate 91 (>60); Estimated Creatinine Clearance 66.72 ml/min (50-250); Glucose 122 mg/dL (70-99); Potassium 3.3 mmol/L (3.3-5.1); Sodium Level 118 mmol/L (133-145)
--- NOTE | 2024-10-24 06:19 | CON.PCM.CC_ITS ---
Assessment & Plan Assessment/Plan (1) Metabolic encephalopathy: (2) Acute cystitis without hematuria: PLAN: Plan RECOMMENDATIONS: 1. Continue antimicrobials pending culture results. 2. Management of hyponatremia per nephrology. 3. Proceed with CT-guided lung biopsy of lung mass, if feasible. 4. Start as needed bronchodilator therapy. 5. Outpatient pulmonary follow-up after discharge. IMPRESSIONS: 1. Acute cystitis The patient presented to the hospital with increased urinary frequency and generalized weakness, with concern for underlying UTI. There was no evidence of end-organ dysfunction. Agree with continuing empiric antibiotics, pending culture results. The patient is otherwise clinically stable. 2. Acute on chronic hyponatremia Check urine osmolality and sodium. Nephrology has been consulted to assist with medical management. 3. Chronic tobacco dependency/COPD/newly identified lung mass The patient has a known history of mild obstructive lung disease and chronic tobacco dependency. In 2022, the patient was seen in the pulmonary medicine office, at which time, lung cancer screening with low-dose CT scan was discussed. The patient, at that time, declined to undergo testing. He now presents with evidence of a left upper lobe lung mass, concerning for underlying malignancy. I discussed these findings with the patient. Despite his insistence not to undergo testing in the past, he is now agreeable to proceed with biopsy. Accordingly, order for CT-guided lung biopsy has been placed. 4. History of hypertension/hyperlipidemia/chronic kidney disease/history of heart block/seizure disorder/chronic pain Complicates care, management, recovery and prognosis. Continue home medications as indicated. This note was generated with [employer] dictation software. It may contain incorrect words, spelling, and punctuation that were not noted in checking the note before signing. HPI Consult Data Date of Consult: 10/24/24 HPI Narrative Reason for Consultation: Sepsis HPI Narrative: The patient is a 74-year-old male, with a history as outlined below, who presented to the emergency department on October 23 with generalized weakness and increased urinary frequency. The patient has a medical history significant for symptomatic bradycardia with complete heart block requiring pacemaker placement, tobacco dependency, mild obstructive lung disease, BPH with chronic indwelling catheter, chronic kidney disease and chronic back pain. The patient was seen in the pulmonary medicine clinic in October 2022, at which time, the patient was noted to be a candidate for low-dose lung cancer screening. However, the patient declined to undergo the imaging study. On presentation to the emergency department, the patient was documented to be afebrile and hemodynamically stable. Laboratory evaluation was notable for an elevated white blood cell count of 20,000. Hemoglobin and platelet count were stable. Chemistry profile was notable for a sodium of 120, chloride of 87 and creatinine of 1.06. Lactate was within normal limits. Urine analysis was positive for leukocyte esterase and 1+ urine bacteria. CTA chest showed no evidence for pulmonary embolism. However, there was evidence of a large, approximately 6 cm mass in the left upper lobe. The patient received supplemental IV fluid hydration and was started on antimicrobial therapy. He was admitted to the medical intensive care unit for further management. This morning, the patient is resting comfortably in bed. He reports ongoing, chronic back pain. Despite the fact that he declined lung cancer screening in the past, the patient is willing to undergo further workup of the lung mass identified on CT scan at admission. He does report that he does continue to smoke cigarettes daily. [facility] Medical History Tobacco abuse Hyponatremia Wears hearing aid Wears glasses Walker as ambulation aid Wears dentures Indwelling urethral catheter present History of echocardiogram Cardiology follow-up encounter 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 Stage 3b chronic kidney disease (CKD) Third degree heart block BPH (benign prostatic hyperplasia) GERD (gastroesophageal reflux disease) Seizures Cataract Back pain with history of spinal surgery Neuropathy Emphysema lung Smoker Hypertension Home Medications ?Medication ?Instructions ?Recorded ?Last Taken ?Type tamsulosin 0.4 mg capsule 0.4 mg PO QHS urination 05/1611/16/23 History cholecalciferol (vitamin D3) 25 2,000 unit PO DAILY rivera pplement 07/06/16 11/16/23 History mcg (1,000 unit) tablet (Vitamin D3) L.acidoph,paracasei,B.animalis 10 1 ea PO DAILY pt uns ure 02/07/17 11/16/23 History billion cell capsule carvedilol 6.25 mg tablet 6.25 mg PO BID htn #60 tabs 02/08/17 11/17/23 Rx divalproex 500 mg tablet,delayed 500 mg PO BID seizure 12/25/23 Unknown History release omeprazole 40 mg capsule,delayed 40 mg PO DAILY gerd 0 12/25/23 Unknown History release sodium chloride 1,000 mg soluble 1,000 mg PO TID #0 ta bs 12/28/23 Unknown Rx tablet docusate sodium 100 mg capsule 100 mg PO QHS constipat ion 02/15/24 Unknown History (Colace) losartan 25 mg tablet 25 mg PO QHS htn #90 tabs Unknown Rx Allergy/AdvReac Type Severity Reaction Status Date / Time ethotoin (From Peganone) Allergy Mild Rash Verified 10/23/24 21:05 Family History Other Cancer Heart disease Osteoporosis Surgical History History of selective injection of anesthetic agent around lumbar nerve root History of colonoscopy History of surgery History of appendectomy History of back surgery Social History Smoking Status: Current every day smoker tobacco type: cigarettes ROS ROS Narrative 10 systems were reviewed with pertinent positives as noted in the HPI above. Physical Exam Const alert and no apparent distress General Appearance: cooperative HEENT normocephalic and head/scalp atraumatic Eyes PERRL, EOMs intact bilaterally and conjunctivae normal Neck supple General: trachea midline Chest inspection of chest normal Resp normal respiratory effort Auscultation: diminished lung sounds; Negative for rales, rhonchi or wheezes Cardio S1 normal heart sound and S2 normal heart sound Rate: tachycardic GI normal to inspection, nondistended, normoactive bowel sounds Extremity General Extremity: edema; Negative for clubbing Skin no rashes or lesions noted Neuro CN's II-XII intact bilaterally, moves all extremities and no focal motor deficits Psych cooperative and affect normal Lab / Micro Data 10/23/24 21:40 10/24/24 04:30 Labs: Laboratory Results - last 24 hr 10/23/24 21:40: WBC 19.6 H, RBC 4.18 L, Hgb 11.3 L, Hct 33.0 L, MCV 78.9 L, MCH 27.0, MCHC 34.2, RDW Std Deviation 44.8 H, RDW Coeff of Edinson 15.8 H, Plt Count 243, MPV 9.5, Immature Gran % (Auto) 0.600, Neut % (Auto) 79.4 H, Lymph % (Auto) 7.7 L, [place] % (Auto) 11.9 H, Eos % (Auto) 0.2, Baso % (Auto) 0.2, Absolute Neuts (auto) 15.6 H, Absolute Lymphs (auto) 1.52, Nucleated RBC % 0, Differential Comment SCANNED, Diff Path Review December, Sodium 120 L, Potassium 3.7, C hloride 87 L, Carbon Dioxide 21.8, Anion Gap 11, BUN 29 H, Creatinine 1.06, Estim Creat Clear Calc 59.12, Est GFR (MDRD) Non-Af 73, BUN/Creatinine Ratio 27.4 H, Glucose 135 H, Calcium 9.3, Total Bilirubin 0.32, AST 14, ALT 6, Alkaline Phosphatase 84, Total Protein 6.6, Albumin 3.4, Globulin 3.2, Albumin/Globulin Ratio 1.0, Urine Color Yellow, Urine Clarity Sl. Cloudy, Urine pH 6.5, Ur Specific Etters 1.010, Urine Protein 30 H, Urine Glucose (UA) Normal, Urine Ketones 5 H, Urine Occult Blood 25 H, Urine Nitrite Negative, Urine Bilirubin Negative, Urine Urobilinogen 4 H, Ur Leukocyte Esterase 500 H, Urine RBC 0 SEEN, Urine WBC 25-50 SEEN, Ur Squamous Epith Cells 0 SEEN, Urine Bacteria 1+, Urine Mucus 0 SEEN, Urine Osmolality 525 10/24/24 02:20: Lactic Acid < 1.0 10/24/24 02:25: Sodium 119 L*, Potassium 3.8, Chloride 86 L, Carbon Dioxide 19.0 L, Anion Gap 14, BUN 25 H, Creatinine 0.94, Estim Creat Clear Calc 57.49, Est GFR (MDRD) Non-Af 84, BUN/Creatinine Ratio 26.1 H, Glucose 119 H, Serum Osmolality 259 L, Calcium 9.6, Triglycerides 136, Cholesterol 140, LDL Cholesterol, Calc 67, VLDL Cholesterol 27, HDL Cholesterol 46, Cholesterol/HDL Ratio 3.04, Vitamin B12 890, Serum Folate 3.01 L, TSH 1.120, Valproic Acid 58 10/24/24 04:30: Sodium 118 L*, Potassium 3.3, Chloride 88 L, Carbon Dioxide 19.0 L, Anion Gap 11, BUN 23 H, Creatinine 0.81, Estim Creat Clear Calc 66.72, Est GFR (MDRD) Non-Af 91, BUN/Creatinine Ratio 28.6 H, Glucose 122 H, Calcium 8.6 Micro: Microbiology 10/23/24 21:40 Mucosa - Nose SARS-CoV-2, Influenza & RSV (PCR) - Final Imaging Radiology Impression Chest X-Ray 10/23/24 21:30 IMPRESSION: New 5.9 x 4.5 cm left upper lobe mass. Recommend CT of the chest for further evaluation. Reading Location: [facility] Chest CTA 10/24/24 02:47 IMPRESSION: 6 cm left upper lobe pulmonary mass. 4.4 cm left posterolateral pole a pulmonary mass. Other nodular masses are seen within the left lobe of the lung, some of which are pleural-based. These findings are worrisome for malignancy. Recommend further oncologic workup and tissue sampling at this time. Mediastinal nodules which may be further assessed on PET imaging. No evidence of pulmonary embolism. Other findings as above. One or more dose reduction techniques were used (e.g., Automated exposure control, adjustment of the mA and/or kV according to patient size, use of iterative reconstruction technique). Reading Location: [id number] Charges/Coding Visit Charges Inpatient E&M: 77655 Init Hosp L3
[2024-10-24] MEDS: Sodium Cl 3% 500 ML 30 ML IV (06:45)
--- NOTE | 2024-10-24 07:50 | CT_ITS ---
PROCEDURE: BIOPSY/INJ OR NEEDLE PLACEMENT REASON FOR EXAM: LUNG MASS TECHNIQUE: The procedure as well as the benefits and possible complications including infection, bleeding and pneumothorax were explained to the patient. Informed consent was obtained. The patient was in the supine position. The soft tissue mass in the peripheral left upper lobe was localized. The overlying skin was prepped and draped in the usual sterile fashion. Conscious sedation was performed. The patient received 1 mg of Versed and 25 mcg of fentanyl intravenously. Conscious sedation was started at 9:32 a.m. and terminated at 9:52 a.m.. The patient was independently monitored by the department nurse. Utilizing a 20 gauge core biopsy needle, 5 core biopsies were performed. Specimen was presented to the pathologist. The pathologist deemed the specimen adequate. The patient tolerated the procedure well. COMPARISON: Comparison is made with prior chest radiograph dated October 23, 2024. FINDINGS: Pulmonary nodules. CT/Biopsy/Inj or Needle Placement IMPRESSION: Successful CT-guided core biopsies of the peripheral left upper lobe nodule. The patient tolerated the procedure well. No immediate complication seen. One or more dose reduction techniques were used (e.g., Automated exposure contr ol, adjustment of the mA and/or kV according to patient size, use of iterative reconstruction technique). Reading Location: [facility]
[2024-10-24 09:06] LABS: International Normalized Ratio 1.1; Prothrombin Time (Protime)PT. 14.6 SECONDS (11.7-14.9)
[2024-10-24 09:09] LABS: Urine Sodium 121 mmol/L (Not Establ.)
[2024-10-24] MEDS: Midazolam 2 MG/2 ML Syringe (09:33)
[2024-10-24] MEDS: fentaNYL 100 MCG/2 ML Ampul IV (09:34)
[2024-10-24 09:39] LABS: Osmolality, Urine 523 mOsm/KG
[2024-10-24] MEDS: 0.9% Saline Lock 10 ML Syringe IV (09:39)
[2024-10-24] MEDS: Lidocaine 2% (20 ml mdv) 20 ML Vial INFILT (09:45)
--- NOTE | 2024-10-24 09:45 | LUNG_PTH ---
PATIENT: KATIE HOLMAN LOC: [facility] U#:[id number] AGE/SX: 74/M ROOM: [facility] RE10/24/[address]: Dr. Princess Ozuna MD : 1950 BED: 1 DIS: 10/31/2024 SPEC #: [id number] RECD: 10/24/24 10:27 STATUS: SLIME REQ #: [id number] CLAIRE: 10/24/24 09:[address]: Daniel Severino DEPT: SURGICAL PATHOLOGY RECD BY: Ulises Sidhu ENTERED: 10/24/24 10:27 SP TYPE: LUNG BX OTHR DR: MD Dr. Bulmaro Barros MD Alex Reodica, MD Dr. Bruce Arthur, MD Dr. Dana Bonezzi, MD Dr. Derek Brown, DO Dr. David de Lorenzo, DO Dr. David P Myers, MD Dr. Edward Matheis, MD Dr. Gautam Baskaran, MD Dr. Yordanos Habtegebriel, MD Dr. Hemant Dand, MD Dr. Jayaprakas Dasari, MD Dr. Jose Ochoa, MD Dr. Justin Wong, MD Dr. Kimber Foust, MD Dr. Lamia Aljundi, MD Dr. Marisa Magana, MD Dr. Pritam Ghosh, MD Dr. Pavan Irukulla, MD Dr. Saad Farooqi, MD Dr. Sukhdeep Dhesi, DO Dr. Sujoy Gill, MD Dr. Soleyah Groves, MD Dr. Timothy Fernstrom, MD Dr. Daniel Knowles Dr., MD Tissues: Lung, NOS Procedures: Immunohistochemical Stains Surgery Specimen Level IV IHC Stain ADDITIONAL HEADER OPERATION: CT guided lung biopsy PRE-OP DIAGNOSIS: Left upper lung mass TISSUE SUBMITTED: 20 gauge x 6 cores MICROSCOPIC DIAGNOSIS LUNG, LEFT UPPER LOBE, MASS, CORE BIOPSY: * Malignant neoplasm - see note. * Note: IHCs to further classify the tumor cells are PENDING. An addendum report will follow. MICROSCOPIC DESCRIPTION Slides are reviewed. These tests were developed and their performance characteristics determined by [facility]. They may not have been cleared or approved by the U.S. Food and Drug Administration. The FDA has determined that such clearance or approval is not necessary. The above immunohistochemical/dualISH markers are ordered and reviewed by the Pathologist. GROSS DESCRIPTION Received in fixative is one container labeled with the patient's name and designated left lung biopsy. The specimen consists of two extremely thin strands of soft tissue measuring in aggregate 6 x 1 x 1 mm. TE1. eh 10/24/24 CPT: 76303,67762,67365c28 ADDENDUM ADDENDUM ADDENDUM ADDENDUM ADDENDUM ADDENDUM ADDENDUM ADDENDUM ADDENDUM ADDENDUM ADDENDUM ADDENDUM 11/03/2024 10:43 ADDENDUM 11/03/2024 10:43 ADDENDUM 11/03/2024 10:43 ADDENDUM 11/03/2024 10:43 ADDENDUM 11/03/2024 10:43 This addendum is to report the results of the IHCs: Positive: CK7 (weak), p40 (rare cells), Pancytokeratin, MOC31 Negative: CK20, CK5/6, TTF-1, Napsin A, GATA3, PAX8, Calretinin The histologic and IHC findings are compatible with a non-small cell carcinoma of unknown primary (could be lung, could be metastatic), and do NOT suggest squamous carcinoma or mesothelioma. Correlation with clinical and imaging findings is necessary. All matched controls reacted appropriately.
--- NOTE | 2024-10-24 10:00 | RAD_ITS ---
PROCEDURE: CHEST INSP/EXP 2 VIEW REASON FOR EXAM: POST LUNG BIOPSY TECHNIQUE: AP inspiration expiration views were obtained. COMPARISON: Comparison is made with prior study dated October 23, 2024. FINDINGS: Persistent mass lesion in the lateral left upper lobe. No evidence of pneumothorax on the immediate post left lung biopsy radiographs. RAD/Chest Insp/Exp 2 View IMPRESSION: No evidence of pneumothorax on the immediate post left lung biopsy radiographs. Reading Location: [place] [id number]
[2024-10-24 10:51] LABS: Anion Gap 11 (5-15); BUN 21 mg/dL (4-19); BUN/Creat Ratio 24.9 RATIO (10-20); Calcium,Total 8.9 mg/dL (7.6-11.0); Carbon Dioxide 20.3 mmol/L (21.0-32.0); Chloride 90 mmol/L (98-108); Creatinine, Serum 0.85 mg/dL (0.70-1.20); EST Glomerular Filtration Rate 90 (>60); Estimated Creatinine Clearance 63.58 ml/min (50-250); Glucose 109 mg/dL (70-99); Potassium 3.5 mmol/L (3.3-5.1); Sodium Level 122 mmol/L (133-145)
--- NOTE | 2024-10-24 11:19 | PCM.CONS.R ---
Assessment & Plan Assessment/Plan (1) Hyponatremia: (2) Mass of upper lobe of left lung: PLAN: Plan Patient has history of acute on chronic hyponatremia, baseline sodium around mid 120 range. Patient's sodium was 127 in July 2024 when last seen in our office. In outpatient setting patient is on salt tablets 2 g 3 times daily as well as fluid restriction of around 1.5 L daily. 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 Sodium was 120 on admission, patient was started on normal saline, sodium dropped to 118. Normal saline stopped and patient was started on 3% saline. We will stop 3% saline. We will give tolvaptan 15 mg x 1 today and continue to follow sodium trends. Serum osmolality 259, urine Osmo 523, urine sodium 121. TSH normal. Patient does not have any worrisome symptoms from acute hyponatremia. Quite possibly tomorrow we will start patient back on salt tablets. Continue to restrict fluids. Volume status appears to be near euvolemic. Patient had CT guided biopsy of lung mass today. Patient's baseline serum creatinine is less than 1 mg/dL. Blood pressures acceptable. Further orders forthcoming as hospitalization evolves. HPI Consult Data Date of Consult: 10/24/24 HPI Narrative HPI Narrative: KATIE HOLMAN, is a 74 M with past medical history significant for hypertension, COPD, BPH with prostate surgery, GERD, history of seizures who presented to the emergency room with complaints of confusion, weakness and frequent urination. Workup in the emergency room showed sodium of 120, urine suspicious for UTI, patient was admitted for further evaluation and treatment. Patient has a history of chronic hyponatremia felt to be secondary to lung disease. Patient has been seen by Dr. Baron at our office in [place]. He was last seen in July, his sodium was 127. Patient is on salt tablets 2 g 3 times daily. Chest x-ray in the emergency room showed new left upper lobe mass, CT of chest showed 6 cm left upper lobe pulmonary mass, 4.4 cm left posterior lateral pulmonary mass, patient just returned from having lung biopsy, he is drowsy but alert and oriented. Denies any recent nausea or vomiting. [facility] Medical History Tobacco abuse Hyponatremia Wears hearing aid Wears glasses Walker as ambulation aid Wears dentures Indwelling urethral catheter present History of echocardiogram Cardiology follow-up encounter 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 Stage 3b chronic kidney disease (CKD) Third degree heart block BPH (benign prostatic hyperplasia) GERD (gastroesophageal reflux disease) Seizures Cataract Back pain with history of spinal surgery Neuropathy Emphysema lung Smoker Hypertension Home Medications ?Medication ?Instructions ?Recorded ?Last Taken ?Type tamsulosin 0.4 mg capsule 0.4 mg PO QHS urination 05/28/16 11/16/23 History cholecalciferol (vitamin D3) 25 2,000 unit PO DAILY supplement 07/06/16 11/16/23 History mcg (1,000 unit) tablet (Vitamin D3) Brandonacidjoanne,paracviktoriai,B.animalis 10 1 ea PO DAILY pt unsure 02/07/17 11/16/23 History billion cell capsule carvedilol 6.25 mg tablet 6.25 mg PO BID htn #60 tabs 02/08/17 11/17/23 Rx divalproex 500 mg tablet,delayed 500 mg PO BID seizure 12/25/23 Unknown History release omeprazole 40 mg capsule,delayed 40 mg PO DAILY gerd 12/25/23 Unknown History release sodium chloride 1,000 mg soluble 1,000 mg PO TID #0 tabs 12/28/23 Unknown Rx tablet docusate sodium 100 mg capsule 100 mg PO QHS constipation 02/15/24 Unknown History (Colace) losartan 25 mg tablet 25 mg PO QHS htn #90 tabs 08/23/24 Unknown Rx Allergy/AdvReac Type Severity Reaction Status Date / Time ethotoin (From Peganone) Allergy Mild Rash Verified 10/23/24 21:05 Family History Other Cancer Heart disease Osteoporosis Surgical History History of selective injection of anesthetic agent around lumbar nerve root History of colonoscopy History of surgery History of appendectomy History of back surgery Social History Smoking Status: Current every day smoker tobacco type: cigarettes ROS ROS Narrative As in HPI Physical Exam Narrative Alert and oriented x 3, no apparent distress, drowsy S1, S2, RRR Lungs sound clear anteriorly. No rales or rhonchi Abdomen soft, nontender No edema Lab / Micro Data 10/23/24 21:40 10/24/24 10:18 Labs: Laboratory Results - last 24 hr 10/23/24 21:40: WBC 19.6 H, RBC 4.18 L, Hgb 11.3 L, Hct 33.0 L, MCV 78.9 L, MCH 27.0, MCHC 34.2, RDW Std Deviation 44.8 H, RDW Coeff of Edinson 15.8 H, Plt Count 243, MPV 9.5, Immature Gran % (Auto) 0.600, Neut % (Auto) 79.4 H, Lymph % (Auto) 7.7 L, [place] % (Auto) 11.9 H, Eos % (Auto) 0.2, Baso % (Auto) 0.2, Absolute Neuts (auto) 15.6 H, Absolute Lymphs (auto) 1.52, Nucleated RBC % 0, Differential Comment SCANNED, Diff Path Review December, Sodium 120 L, Potassium 3.7, Chloride 87 L, Carbon Dioxide 21.8, Anion Gap 11, BUN 29 H, Creatinine 1.06, Estim Creat Clear Calc 59.12, Est GFR (MDRD) Non-Af 73, BUN/Creatinine Ratio 27.4 H, Glucose 135 H, Calcium 9.3, Total Bilirubin 0.32, AST 14, ALT 6, Alkaline Phosphatase 84, Total Protein 6.6, Albumin 3.4, Globulin 3.2, Albumin/Globulin Ratio 1.0, Urine Color Yellow, Urine Clarity Sl. Cloudy, Urine pH 6.5, Ur Specific [place] 1.010, Urine Protein 30 H, Urine Glucose (UA) Normal, Urine Ketones 5 H, Urine Occult Blood 25 H, Urine Nitrite Negative, Urine Bilirubin Negative, Urine Urobilinogen 4 H, Ur Leukocyte Esterase 500 H, Urine RBC 0 SEEN, Urine WBC 25-50 SEEN, Ur Squamous Epith Cells 0 SEEN, Urine Bacteria 1+, Urine Mucus 0 SEEN, Urine Osmolality 525 10/24/24 02:20: Lactic Acid < 1.0 10/24/24 02:25: Sodium 119 L*, Potassium 3.8, Chloride 86 L, Carbon Dioxide 19.0 L, Anion Gap 14, BUN 25 H, Creatinine 0.94, Estim Creat Clear Calc 57.49, Est GFR (MDRD) Non-Af 84, BUN/Creatinine Ratio 26.1 H, Glucose 119 H, Serum Osmolality 259 L, Calcium 9.6, Triglycerides 136, Cholesterol 140, LDL Cholesterol, Calc 67, VLDL Cholesterol 27, HDL Cholesterol 46, Cholesterol/HDL Ratio 3.04, Vitamin B12 890, Serum Folate 3.01 L, TSH 1.120, Valproic Acid 58 10/24/24 04:30: Sodium 118 L*, Potassium 3.3, Chloride 88 L, Carbon Dioxide 19.0 L, Anion Gap 11, BUN 23 H, Creatinine 0.81, Estim Creat Clear Calc 66.72, Est GFR (MDRD) Non-Af 91, BUN/Creatinine Ratio 28.6 H, Glucose 122 H, Calcium 8.6 10/24/24 08:20: PT 14.6, INR 1.1, APTT 32.0 10/24/24 08:45: Urine Osmolality 523, Ur Random Sodium 121 10/24/24 10:18: Sodium 122 L, Potassium 3.5, Chloride 90 L, Carbon Dioxide 20.3 L, Anion Gap 11, BUN 21 H, Creatinine 0.85, Estim Creat Clear Calc 63.58, Est GFR (MDRD) Non-Af 90, BUN/Creatinine Ratio 24.9 H, Glucose 109 H, Calcium 8.9 Micro: Microbiology 10/23/24 21:40 Mucosa - Nose SARS-CoV-2, Influenza & RSV (PCR) - Final Imaging Radiology Impression Chest X-Ray 10/23/24 21:30 IMPRESSION: New 5.9 x 4.5 cm left upper lobe mass. Recommend CT of the chest for further evaluation. Reading [facility] CTA 10/24/24 02:47 IMPRESSION: 6 cm left upper lobe pulmonary mass. 4.4 cm left posterolateral pole a pulmonary mass. Other nodular masses are seen within the left lobe of the lung, some of which are pleural-based. These findings are worrisome for malignancy. Recommend further oncologic workup and tissue sampling at this time. Mediastinal nodules which may be further assessed on PET imaging. No evidence of pulmonary embolism. Other findings as above. One or more dose reduction techniques were used (e.g., Automated exposure control, adjustment of the mA and/or kV according to patient size, use of iterative reconstruction technique). Reading Location: [id number] Biopsy CT 10/24/24 07:50 IMPRESSION: Successful CT-guided core biopsies of the peripheral left upper lobe nodule. The patient tolerated the procedure well. No immediate complication seen. One or more dose reduction techniques were used (e.g., Automated exposure control, adjustment of the mA and/or kV according to patient size, use of iterative reconstruction technique). Reading Location: [facility] Chest X-Ray 10/24/24 10:00 IMPRESSION: No evidence of pneumothorax on the immediate post left lung biopsy radiographs. Reading Location: [facility]
[2024-10-24] MEDS: Pantoprazole Sodium 40 MG Tablet PO (11:58)
[2024-10-24] MEDS: Lactobacillis Acidophilus 1 CAP PO (11:58)
[2024-10-24] MEDS: Cholecalciferol (VIT D3) 25 MCG TABLET (1,000 UNITS) 50 MCG PO (11:59)
[2024-10-24] MEDS: TOLVAPTAN 15 MG TABLET PO (12:01)
[2024-10-24] MEDS: Divalproex Sodium 250 MG Tablet 500 MG PO ×2 (12:01→21:26)
[2024-10-24] MEDS: Folic Acid 1 MG in 0.9% Normal Saline (50mL Bag) 50 ML 200 MG IV (12:06)
--- NOTE | 2024-10-24 13:47 | CASEMGMT ---
JERRY TRIMBLE Face to Face with patient for initial transition planning/care coordination assessment. JERRY TRIMBLE introduced self and role at [facility]. Patient sitting in chair, alert and oriented, daughter at bedside. Patient willing to participate in assessment and is able to answer all questions appropriately. Care providers, pharmacy, and demographics verified. Strata: 3 PCP: [facility] Specialists: Loraine, nephro; Kwame, rigger up; Hao, director financial analysis; Michael, pain [email or web address]: [facility] Living Will/HPOA: yes, daughter Negar Davis LNOK: Daughter, son, is in memory care at [facility] Living Arrangements: Patient lives alone in a single story home with 3 steps and railing to enter the home. Patient is independent at home, son helps with bathing. Transportation: daughter, son DME/HHC: Patient has shower chair, grab bars, and walker at home. Patient wishes to [facility] for additional therapy, patient declines SNF list. Patient states he has no further needs or concerns at this time. JERRY TRIMBLE update regarding request for [facility]. CM to follow for discharge planning needs that may arise. Disposition Plan: [facility] pending acceptance and precert. Inna OAKLEY, RN, CM
--- NOTE | 2024-10-24 13:56 | CASEMGMT ---
Discharge Planning Referral sent to [facility]. Rosina Rivera DC Planning Asst.
--- NOTE | 2024-10-24 18:48 | PCM.HOSP.N ---
Hospitalist Note Patient was seen and examined today, he is resting quietly, he underwent a needle biopsy of the lung mass today. I talked briefly with pulmonary medicine about his care. I also talked with nephrology about his care, they placed the patient on Samsca today, his labs will be repeated and monitored by nephrology.
[2024-10-24] MEDS: Docusate Sodium 100 MG Capsule PO (21:26)
[2024-10-24] MEDS: Tamsulosin HCl 0.4 MG Capsule PO (21:27)
[2024-10-25] VITALS (8 sets, daily range): BP systolic 101–157; BP diastolic 50–70; PULSE 76–83; RESP 16–18; TEMP 36.1–36.6; O2SAT 93–99; BMI 28.7
[2024-10-25] MEDS: Piperacil/Tazobactam 3.375 GM in 0.9% Normal Saline (50mL MB+) 50 ML IV ×3 (05:04→22:32)
[2024-10-25 06:07] LABS: Anion Gap 11 (5-15); BUN 27 mg/dL (4-19); BUN/Creat Ratio 22.3 RATIO (10-20); Calcium,Total 9.7 mg/dL (7.6-11.0); Carbon Dioxide 21.8 mmol/L (21.0-32.0); Chloride 91 mmol/L (98-108); EST Glomerular Filtration Rate 63 (>60); Estimated Creatinine Clearance 45.39 ml/min (50-250); Glucose 105 mg/dL (70-99); Potassium 4.2 mmol/L (3.3-5.1); Sodium Level 124 mmol/L (133-145)
--- NOTE | 2024-10-25 08:05 | PCM.PN.INT ---
Assessment & Plan Assessment/Plan (1) Metabolic encephalopathy: (2) Acute cystitis without hematuria: PLAN: Plan RECOMMENDATIONS: 1. Continue antimicrobials pending culture results. 2. Management of hyponatremia per nephrology. 3. Await pathology results from CT-guided lung biopsy. 4. Continue as needed bronchodilator therapy. 5. Outpatient pulmonary follow-up after discharge. 6. Will sign off from a pulmonary/critical care perspective. Please call with any additional questions. IMPRESSIONS: 1. Acute cystitis The patient presented to the hospital with increased urinary frequency and generalized weakness, with concern for underlying UTI. There was no evidence of end-organ dysfunction. Agree with continuing empiric antibiotics, pending culture results. The patient is otherwise clinically stable. 2. Acute on chronic hyponatremia Clinical concern for possible SIADH in the setting of lung CA. Nephrology is currently following to assist with medical management. Continue fluid restriction. Will defer ongoing need for tolvaptan. 3. Chronic tobacco dependency/COPD/newly identified lung mass The patient has a known history of mild obstructive lung disease and chronic tobacco dependency. In 2022, the patient was seen in the pulmonary medicine office, at which time, lung cancer screening with low-dose CT scan was discussed. The patient, at that time, declined to undergo testing. He now presents with evidence of a left upper lobe lung mass, concerning for underlying malignancy. The patient underwent CT-guided lung biopsy on October 24, with pathology pending. Continue scheduled bronchodilator therapy. Recommend outpatient pulmonary follow-up to discuss biopsy results. 4. History of hypertension/hyperlipidemia/chronic kidney disease/history of heart block/seizure disorder/chronic pain Complicates care, management, recovery and prognosis. Continue home medications as indicated. This note was generated with [employer] dictation software. It may contain incorrect words, spelling, and punctuation that were not noted in checking the note before signing. Subjective Subjective The patient was seen and examined at the bedside this morning. Events from the last 24 hours have been reviewed. The patient is currently afebrile, hemodynamically stable and maintaining appropriate oxygen saturations on room air. The patient underwent successful CT-guided lung biopsy yesterday with pathology pending. Sodium has improved to 124 this morning. Creatinine is within normal limits. Objective Data Objective Data The patient's most recent lab work, culture data and imaging studies have all been personally reviewed. Blood and urine cultures are pending. Vital Signs: Vital Signs Temp Pulse Resp BP Pulse Ox O2 Del Method 97.9 F 84 16 112/52 L 98 Room Air 10/24/24 21:00 10/24/24 21:00 10/24/24 21:00 10/24/24 21:00 10/25/24 04:30 10/25/24 04:30 Oxygen Delivery Method Room Air Weight: 157 lb 3.033 oz Body Mass Index (BMI) 28.7 Intake & Output: Intake and Output for Last 24 Hours 10/23/24 10/24/24 10/25/24 23:59 23:59 23:59 Intake Total 500 / 500 2411.28 / 2411.28 50 / 50 Output Total 850 / 850 Balance 500 / 500 1561.28 / 1561.28 50 / 50 Lab / Micro Data Attestation: I reviewed the patient's lab results. 10/23/24 21:40 10/25/24 05:17 Labs: Laboratory Results - last 24 hr 10/24/24 08:20: PT 14.6, INR 1.1, APTT 32.0 10/24/24 08:45: Urine Osmolality 523, Ur Random Sodium 121 10/24/24 10:18: Sodium 122 L, Potassium 3.5, Chloride 90 L, Carbon Dioxide 20.3 L, Anion Gap 11, BUN 21 H, Creatinine 0.85, Estim Creat Clear Calc 63.58, Est GFR (MDRD) Non-Af 90, BUN/Creatinine Ratio 24.9 H, Glucose 109 H, Calcium 8.9 10/25/24 05:17: Sodium 124 L, Potassium 4.2, Chloride 91 L, Carbon Dioxide 21.8, Anion Gap 11, BUN 27 H, Creatinine 1.20, Estim Creat Clear Calc 45.39 L, Est GFR (MDRD) Non-Af 63, BUN/Creatinine Ratio 22.3 H, Glucose 105 H, Calcium 9.7 Micro: Microbiology 10/23/24 21:40 Mucosa - Nose SARS-CoV-2, Influenza & RSV (PCR) - Final Radiography Diagnostic Testing: Radiology Impression Biopsy CT 10/24/24 07:50 IMPRESSION: Successful CT-guided core biopsies of the peripheral left upper lobe nodule. The patient tolerated the procedure well. No immediate complication seen. One or more dose reduction techniques were used (e.g., Automated exposure control, adjustment of the mA and/or kV according to patient size, use of iterative reconstruction technique). Reading Location: [facility]-1 Chest X-Ray 10/24/24 10:00 IMPRESSION: No evidence of pneumothorax on the immediate post left lung biopsy radiographs. Reading Location: [facility]- Physical Exam Const alert and no apparent distress General Appearance: cooperative HEENT normocephalic and head/scalp atraumatic Eyes PERRL, EOMs intact bilaterally and conjunctivae normal Neck supple General: trachea midline Chest inspection of chest normal Resp normal respiratory effort Auscultation: diminished lung sounds; Negative for rales, rhonchi or wheezes Cardio regular rate, S1 normal heart sound and S2 normal heart sound GI normal to inspection, nondistended, normoactive bowel sounds Extremity General Extremity: edema; Negative for clubbing Skin no rashes or lesions noted Neuro CN's II-XII intact bilaterally, moves all extremities and no focal motor deficits Psych Mood & Affect: flat affect Charges/Coding Visit Charges Inpatient E&M: 08566 Subs Hosp L2
--- NOTE | 2024-10-25 08:27 | CASEMGMT ---
Discharge Planning Updates sent to [facility] with request to submit for precert. Rosina Rivera DC Planning Asst.
[2024-10-25] MEDS: Folic Acid 1 MG in 0.9% Normal Saline (50mL Bag) 50 ML 200 MG IV (10:04)
[2024-10-25] MEDS: Cholecalciferol (VIT D3) 25 MCG TABLET (1,000 UNITS) 50 MCG PO (10:06)
[2024-10-25] MEDS: Divalproex Sodium 250 MG Tablet 500 MG PO ×2 (10:06→22:31)
[2024-10-25] MEDS: Pantoprazole Sodium 40 MG Tablet PO (10:06)
[2024-10-25] MEDS: Lactobacillis Acidophilus 1 CAP PO (10:06)
--- NOTE | 2024-10-25 13:32 | CASEMGMT ---
Social Work SW attended ICU rounds. SW updated pt that [facility] is able to accept pt and precert will be needed prior to admission. Pt agreeable with discharge plan. Plan: [facility], pending precert CHRIS Page
[2024-10-25] MEDS: TOLVAPTAN 15 MG TABLET PO (14:09)
--- NOTE | 2024-10-25 14:35 | PN.RENAL_ITS ---
Subjective Subjective Resting in bed. No complaints. Objective Data Objective Data Vital Signs: Vital Signs Temp Pulse Resp BP Pulse Ox O2 Del Method 97.0 F L 76 16 116/61 99 Room Air 10/25/24 14:16 10/25/24 14:16 10/25/24 14:16 10/25/24 14:16 10/25/24 14:16 10/25/24 14:16 Oxygen Delivery Method Room Air Weight: 71.3 kg Body Mass Index (BMI) 28.7 Intake & Output: Intake and Output for Last 24 Hours 10/23/24 10/24/24 10/25/24 23:59 23:59 23:59 Intake Total 500 / 500 2411.28 / 2411.28 150.2 / 150.2 Output Total 850 / 850 400 / 400 Balance 500 / 500 1561.28 / 1561.28 -249.8 / -249.8 Lab / Micro Data 10/23/24 21:40 10/25/24 05:17 Labs: Laboratory Results - last 24 hr 10/25/24 05:17: Sodium 124 L, Potassium 4.2, Chloride 91 L, Carbon Dioxide 21.8, Anion Gap 11, BUN 27 H, Creatinine 1.20, Estim Creat Clear Calc 45.39 L, Est GFR (MDRD) Non-Af 63, BUN/Creatinine Ratio 22.3 H, Glucose 105 H, Calcium 9.7 Micro: Microbiology 10/23/24 21:40 Urine, Clean Catch Urine Culture - Preliminary Gram negative mei GNR lactose senior business development analyst 10/23/24 21:40 Mucosa - Nose SARS-CoV-2, Influenza & RSV (PCR) - Final Physical Exam Narrative Alert and oriented x 3, no apparent distress S1, S2, RRR Lungs sound clear anteriorly. No rales or rhonchi Abdomen soft, nontender No edema Assessment & Plan Assessment/Plan (1) Hyponatremia: (2) Mass of upper lobe of left lung: PLAN: Plan - acute on chronic hyponatremia, baseline sodium around mid 120 range. 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 Patient's sodium was 127 in July 2024 when last seen in our office. Sodium 120 on admission--> went to 118 after started on IVF, NS. NS stopped and received few hours of 3% NS. 3%NS was stopped yesterday morning. Received Tolvaptan 15mg x1 and today sodium 124. Will give Tolvaptan 15mg x1 again today and start patient back on sodium chloride tables. In outpatient setting patient is on salt tablets 2 g 3 times daily as well as fluid restriction of around 1.5 L daily. Serum osmolality 259, urine Osmo 523, urine sodium 121. TSH normal. Volume status appears to be near euvolemic. Patient had CT guided biopsy of lung mass.
--- NOTE | 2024-10-25 16:35 | PN.HOSP_ITS ---
Reason for Visit Reason for Visit: Diagnoses Sepsis, unspecified organism (10/24/24) Elevated white blood cell count, unspecified (10/24/24) Deficiency of other specified B group vitamins (10/24/24) Hypo-osmolality and hyponatremia (10/24/24) Metabolic encephalopathy (10/24/24) Chronic obstructive pulmonary disease, unspecified (10/24/24) Acute cystitis without hematuria (10/24/24) Weakness (10/24/24) Adult failure to thrive (10/24/24) Severe sepsis without septic shock (10/24/24) Other nonspecific abnormal finding of lung field (10/24/24) Presence of other specified devices (10/24/24) Subjective Subjective Patient was seen and examined today, his sodium was 124 today, we are awaiting approval for the patient to go to an extended care facility for short-term rehab services. Objective Data Objective Data Vital Signs: Vital Signs Temp Pulse Resp BP Pulse Ox O2 Del Method 97.0 F L 76 16 116/61 99 Room Air 10/25/24 14:16 10/25/24 14:16 10/25/24 14:16 10/25/24 14:16 10/25/24 14:16 10/25/24 14:16 Oxygen Delivery Method Room Air Weight: 71.3 kg Body Mass Index (BMI) 28.7 Intake & Output: Intake and Output for Last 24 Hours 10/23/24 10/24/24 10/25/24 23:59 23:59 23:59 Intake Total 500 / 500 2411.28 / 2411.28 150.2 / 150.2 Output Total 850 / 850 400 / 400 Balance 500 / 500 1561.28 / 1561.28 -249.8 / -249.8 Lab / Micro Data 10/23/24 21:40 10/25/24 05:17 Labs: Laboratory Results - last 24 hr 10/25/24 05:17: Sodium 124 L, Potassium 4.2, Chloride 91 L, Carbon Dioxide 21.8, Anion Gap 11, BUN 27 H, Creatinine 1.20, Estim Creat Clear Calc 45.39 L, Est GFR (MDRD) Non-Af 63, BUN/Creatinine Ratio 22.3 H, Glucose 105 H, Calcium 9.7 Micro: Microbiology 10/23/24 21:40 Urine, Clean Catch Urine Culture - Preliminary Gram negative mei GNR lactose rn digestive 10/23/24 21:40 Mucosa - Nose SARS-CoV-2, Influenza & RSV (PCR) - Final Physical Exam Const alert and no apparent distress Constitutional Narrative: Patient appears older than stated age General Appearance: cooperative and well developed Orientation / Consciousness: awake, oriented to person and oriented to place HEENT normocephalic, head/scalp atraumatic and moist oral mucous membranes Eyes PERRL, EOMs intact bilaterally and conjunctivae normal Neck supple, no JVD, thyroid normal and no carotid bruits General: trachea midline Resp normal respiratory effort, no retractions, no use of accessory muscles and clear to auscultation bilaterally Auscultation: Negative for rales, rhonchi or wheezes Cardio regular rate, regular rhythm, S1 normal heart sound, S2 normal heart sound, no murmurs, no rub and no gallops GI normal to inspection, nondistended, normoactive bowel sounds, soft to palpation, non-tender and non-distended Extremity no clubbing, cyanosis or edema Skin no rashes or lesions noted General Skin Exam: no breakdown Neuro CN's II-XII intact bilaterally, moves all extremities, no focal motor deficits and no sensory deficits noted Sensorium / Orientation: awake, alert, oriented to person and oriented to place Speech: speech normal Psych Psych Narrative: Patient has flat affect Assessment & Plan Assessment/Plan (1) Generalized weakness: PLAN: Plan 1. Acute cystitis-patient remains on antibiotics at this time, we are awaiting final culture result, urine cultures growing out a gram-negative mei and a gram- negative lactose rn digestive. Patient is currently on Zosyn. 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 #5 low folic acid level-patient will be placed on oral folic acid #6 seizure disorder-patient is on valproic acid #7 chronic obstructive pulmonary disease-complicates care, management, recovery, and prognosis, patient is on aerosol treatments Total clinical time spent by myself addressing patient's medical issues, reviewing all of his data, and collaborating with patient's care team: 35 minutes Charges/Coding Visit Charges Inpatient E&M: 39680 Subs Hosp L2
[2024-10-25] MEDS: Docusate Sodium 100 MG Capsule PO (22:31)
[2024-10-25] MEDS: MELATONIN 3 MG TABLET 6 MG PO (22:31)
[2024-10-25] MEDS: Sodium Chloride 1 GM Tablet 2 GM PO (22:32)
[2024-10-25] MEDS: Tamsulosin HCl 0.4 MG Capsule PO (22:32)
[2024-10-26] VITALS (8 sets, daily range): BP systolic 120–183; BP diastolic 58–80; PULSE 68–76; RESP 15–20; TEMP 36.2–36.7; O2SAT 92–99; BMI 29.2
[2024-10-26] MEDS: Sodium Chloride 1 GM Tablet 2 GM PO ×3 (05:42→21:28)
[2024-10-26] MEDS: Piperacil/Tazobactam 3.375 GM in 0.9% Normal Saline (50mL MB+) 50 ML IV ×3 (05:43→21:27)
[2024-10-26] MEDS: Folic Acid 1 MG Tablet PO (08:35)
[2024-10-26] MEDS: Cholecalciferol (VIT D3) 25 MCG TABLET (1,000 UNITS) 50 MCG PO (08:37)
[2024-10-26] MEDS: Lactobacillis Acidophilus 1 CAP PO (08:37)
[2024-10-26] MEDS: Pantoprazole Sodium 40 MG Tablet PO (08:38)
[2024-10-26] MEDS: Divalproex Sodium 250 MG Tablet 500 MG PO ×2 (08:38→21:28)
[2024-10-26 09:12] LABS: Anion Gap 11 (5-15); BUN 24 mg/dL (4-19); BUN/Creat Ratio 21.7 RATIO (10-20); Calcium,Total 9.7 mg/dL (7.6-11.0); Carbon Dioxide 21.8 mmol/L (21.0-32.0); Chloride 97 mmol/L (98-108); Creatinine, Serum 1.09 mg/dL (0.70-1.20); EST Glomerular Filtration Rate 70 (>60); Estimated Creatinine Clearance 50.36 ml/min (50-250); Glucose 104 mg/dL (70-99); Potassium 4.1 mmol/L (3.3-5.1); Sodium Level 129 mmol/L (133-145)
[2024-10-26] MEDS: 0.9% Saline Lock 10 ML Syringe IV (13:03)
--- NOTE | 2024-10-26 14:23 | PCM.PN.REN ---
Subjective Subjective Sitting in chair. Denies any complaints. Objective Data Objective Data Vital Signs: Vital Signs Temp Pulse Resp BP Pulse Ox O2 Del Method 98.1 F 75 15 123/59 H 96 Room Air 10/26/24 07:03 10/26/24 07:03 10/26/24 07:03 10/26/24 07:03 10/26/24 07:24 10/26/24 07:24 Oxygen Delivery Method Room Air Weight: 72.5 kg Body Mass Index (BMI) 29.2 Intake & Output: Intake and Output for Last 24 Hours 10/24/24 10/25/24 10/26/24 23:59 23:59 23:59 Intake Total 2411.28 / 2411.28 200.2 / 400.2 1100 / 1100 Output Total 850 / 850 600 / 1150 1150 / 1150 Balance 1561.28 / 1561.28 -399.8 / -749.8 -50 / -50 Lab / Micro Data 10/23/24 21:40 10/26/24 06:26 Labs: Laboratory Results - last 24 hr 10/26/24 06:26: Sodium 129 L, Potassium 4.1, Chloride 97 L, Carbon Dioxide 21.8, Anion Gap 11, BUN 24 H, Creatinine 1.09, Estim Creat Clear Calc 50.36, Est GFR (MDRD) Non-Af 70, BUN/Creatinine Ratio 21.7 H, Glucose 104 H, Calcium 9.7 Micro: Microbiology 10/23/24 21:40 Urine, Clean Catch Urine Culture - Preliminary Gram negative mei GNR lactose cnc mill programmer 10/24/24 02:25 Blood Culture (Wb) - Anticubital Right Blood Culture - Preliminary No growth in 48 hours. 10/24/24 02:20 Blood Culture (Wb) - Anticubital Right Blood Culture - Preliminary No growth in 48 hours. 10/23/24 21:40 Mucosa - Nose SARS-CoV-2, Influenza & RSV (PCR) - Final Physical Exam Narrative Alert and oriented x 3, no apparent distress S1, S2, RRR Lungs sound clear anteriorly. No rales or rhonchi Abdomen soft, nontender No edema Assessment & Plan Assessment/Plan (1) Hyponatremia: (2) Mass of upper lobe of left lung: PLAN: Plan - acute on chronic hyponatremia, baseline sodium around mid 120 range. 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 Patient's sodium was 127 in July 2024 when last seen in our office. Sodium 120 on admission--> went to 118 after started on IVF, NS. NS stopped and received few hours of 3% NS. Received Tolvaptan 15mg 10/24 and 10/25 and started patient back on sodium chloride tablets 10/25. Sodium is 129 today. In outpatient setting patient is on salt tablets 2 g 3 times daily as well as fluid restriction of around 1.5 L daily. Serum osmolality 259, urine Osmo 523, urine sodium 121. TSH normal. Volume status appears to be near euvolemic. Patient had CT guided biopsy of lung mass, pathology pending. Renal function is stable, at baseline.
--- NOTE | 2024-10-26 15:39 | PN.HOSP_ITS ---
Reason for Visit Reason for Visit: Diagnoses Sepsis, unspecified organism (10/24/24) Elevated white blood cell count, unspecified (10/24/24) Deficiency of other specified B group vitamins (10/24/24) Hypo-osmolality and hyponatremia (10/24/24) Metabolic encephalopathy (10/24/24) Chronic obstructive pulmonary disease, unspecified (10/24/24) Acute cystitis without hematuria (10/24/24) Weakness (10/24/24) Adult failure to thrive (10/24/24) Severe sepsis without septic shock (10/24/24) Other nonspecific abnormal finding of lung field (10/24/24) Presence of other specified devices (10/24/24) Subjective Subjective Patient was seen and examined today, his sodium is 129. Patient appears in no distress Objective Data Objective Data Vital Signs: Vital Signs Temp Pulse Resp BP Pulse Ox O2 Del Method 98.1 F 75 15 123/59 H 96 Room Air 10/26/24 07:03 10/26/24 07:03 10/26/24 07:03 10/26/24 07:03 10/26/24 07:24 10/26/24 07:24 Oxygen Delivery Method Room Air Weight: 72.5 kg Body Mass Index (BMI) 29.2 Intake & Output: Intake and Output for Last 24 Hours 10/24/24 10/25/24 10/26/24 23:59 23:59 23:59 Intake Total 2411.28 / 2411.28 200.2 / 400.2 1100 / 1100 Output Total 850 / 850 600 / 1150 1150 / 1150 Balance 1561.28 / 1561.28 -399.8 / -749.8 -50 / -50 Lab / Micro Data 10/23/24 21:40 10/26/24 06:26 Labs: Laboratory Results - last 24 hr 10/26/24 06:26: Sodium 129 L, Potassium 4.1, Chloride 97 L, Carbon Dioxide 21.8, Anion Gap 11, BUN 24 H, Creatinine 1.09, Estim Creat Clear Calc 50.36, Est GFR (MDRD) Non-Af 70, BUN/Creatinine Ratio 21.7 H, Glucose 104 H, Calcium 9.7 Micro: Microbiology 10/23/24 21:40 Urine, Clean Catch Urine Culture - Preliminary Gram negative mei GNR lactose chief compressor station engineer 10/24/24 02:25 Blood Culture (Wb) - Anticubital Right Blood Culture - Preliminary No growth in 48 hours. 10/24/24 02:20 Blood Culture (Wb) - Anticubital Right Blood Culture - Preliminary No growth in 48 hours. 10/23/24 21:40 Mucosa - Nose SARS-CoV-2, Influenza & RSV (PCR) - Final Physical Exam Narrative alert and no apparent distress Constitutional Narrative: Patient appears older than stated age General Appearance: cooperative and well developed Orientation / Consciousness: awake, oriented to person and oriented to place HEENT normocephalic, head/scalp atraumatic and moist oral mucous membranes Eyes PERRL, EOMs intact bilaterally and conjunctivae normal Neck supple, no JVD, thyroid normal and no carotid bruits General: trachea midline Resp normal respiratory effort, no retractions, no use of accessory muscles and clear to auscultation bilaterally Auscultation: Negative for rales, rhonchi or wheezes Cardio regular rate, regular rhythm, S1 normal heart sound, S2 normal heart sound, no murmurs, no rub and no gallops GI normal to inspection, nondistended, normoactive bowel sounds, soft to palpation, non-tender and non-distended Extremity no clubbing, cyanosis or edema Skin no rashes or lesions noted General Skin Exam: no breakdown Neuro CN's II-XII intact bilaterally, moves all extremities, no focal motor deficits and no sensory deficits noted Sensorium / Orientation: awake, alert, oriented to person and oriented to place Speech: speech normal Psych Psych Narrative: Patient has flat affect Assessment & Plan Assessment/Plan (1) Generalized weakness: PLAN: Plan 1. Acute cystitis-patient remains on antibiotics at this time, we are awaiting final culture result, urine cultures growing out a gram-negative mei and a gram- negative lactose chief compressor station engineer. Patient is currently on Zosyn. 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 #5 low folic acid level-patient will be placed on oral folic acid #6 seizure disorder-patient is on valproic acid #7 chronic obstructive pulmonary disease-complicates care, management, recovery, and prognosis, patient is on aerosol treatments Total clinical time spent by myself addressing patient's medical issues, reviewing all of his data, and collaborating with patient's care team: 35 minutes Charges/Coding Visit Charges Inpatient E&M: 54356 Subs Hosp L2
[2024-10-26] MEDS: Tamsulosin HCl 0.4 MG Capsule PO (21:28)
[2024-10-26] MEDS: Docusate Sodium 100 MG Capsule PO (21:29)
[2024-10-27 03:29] VITALS: BP 143/90; PULSE 76; RESP 15; TEMP 37.1; O2SAT 100
[2024-10-27] MEDS: Sodium Chloride 1 GM Tablet 2 GM PO ×3 (05:07→20:53)
[2024-10-27] MEDS: Piperacil/Tazobactam 3.375 GM in 0.9% Normal Saline (50mL MB+) 50 ML IV ×3 (05:08→21:01)
[2024-10-27 07:30] VITALS: O2SAT 96
[2024-10-27 08:24] LABS: Anion Gap 11 (5-15); BUN 19 mg/dL (4-19); BUN/Creat Ratio 20.6 RATIO (10-20); Calcium,Total 9.8 mg/dL (7.6-11.0); Carbon Dioxide 23.3 mmol/L (21.0-32.0); Chloride 99 mmol/L (98-108); Creatinine, Serum 0.94 mg/dL (0.70-1.20); EST Glomerular Filtration Rate 84 (>60); Glucose 80 mg/dL (70-99); Potassium 4.3 mmol/L (3.3-5.1); Sodium Level 133 mmol/L (133-145)
--- NOTE | 2024-10-27 09:13 | CASEMGMT ---
Discharge Planning Updates sent to [facility] with request for wknd phone/fax. Rosina Rivera DC Planning Asst.
[2024-10-27 09:30] VITALS: BP 155/75; PULSE 86; RESP 18; TEMP 36.3; O2SAT 96
[2024-10-27] MEDS: Divalproex Sodium 250 MG Tablet 500 MG PO ×2 (09:48→20:53)
[2024-10-27] MEDS: Pantoprazole Sodium 40 MG Tablet PO (09:48)
[2024-10-27] MEDS: Cholecalciferol (VIT D3) 25 MCG TABLET (1,000 UNITS) 50 MCG PO (09:48)
[2024-10-27] MEDS: Folic Acid 1 MG Tablet PO (09:49)
[2024-10-27] MEDS: Lactobacillis Acidophilus 1 CAP PO (09:49)
--- NOTE | 2024-10-27 11:52 | CASEMGMT ---
CC asked to call PCU if auth is rec'd after hours/wknd. [employer] and transport form placed on chart. Rosina Rivera DC Planning Asst.
--- NOTE | 2024-10-27 12:35 | PN_ITS ---
Subjective Subjective Patient seen and examined. He had no active complaints. Patient was confused and thought he was at home and was asking for a cigarette. He denied any fever or chills, palpitations or dizziness, nausea vomiting or any other symptoms. Previous times otherwise negative. Objective Data Objective Data Vital Signs: Vital Signs Temp Pulse Resp BP Pulse Ox O2 Del Method 97.4 F L 86 18 155/75 H 96 Room Air 10/27/24 09:30 10/27/24 09:30 10/27/24 09:30 10/27/24 09:30 10/27/24 09:30 10/27/24 09:50 Oxygen Delivery Method Room Air Weight: 159 lb 13.362 oz Body Mass Index (BMI) 29.2 Intake & Output: Intake and Output for Last 24 Hours 10/25/24 10/26/24 10/27/24 23:59 23:59 23:59 Intake Total 200.2 / 400.2 1150 / 1350 500 / 500 Output Total 600 / 1150 1850 / 1850 Balance -399.8 / -749.8 -700 / -500 500 / 500 Lab / Micro Data 10/23/24 21:40 10/27/24 06:39 Labs: Laboratory Results - last 24 hr 10/27/24 06:39: Sodium 133, Potassium 4.3, Chloride 99, Carbon Dioxide 23.3, Anion Gap 11, BUN 19, Creatinine 0.94, Estim Creat Clear Calc 58.40, Est GFR (MDRD) Non-Af 84, BUN/Creatinine Ratio 20.6 H, Glucose 80, Calcium 9.8 Micro: Microbiology 10/23/24 21:40 Urine, Clean Catch Urine Culture - Preliminary Gram negative mei GNR lactose auto body mechanic 10/24/24 02:25 Blood Culture (Wb) - Anticubital Right Blood Culture - Preliminary No growth in 48 hours. 10/24/24 02:20 Blood Culture (Wb) - Anticubital Right Blood Culture - Preliminary No growth in 48 hours. 10/23/24 21:40 Mucosa - Nose SARS-CoV-2, Influenza & RSV (PCR) - Final Physical Exam Const alert and no apparent distress Constitutional Narrative: confused General Appearance: cooperative Orientation / Consciousness: confused HEENT normocephalic, head/scalp atraumatic, moist oral mucous membranes and oropharynx normal Eyes PERRL and EOMs intact bilaterally Neck no lymphadenopathy and supple Lymph Lymphatic: no lymphadenopathy noted and no lymphedema noted Resp normal respiratory effort, normal air movement and clear to auscultation bilaterally Cardio regular rate, regular rhythm, S1 normal heart sound, S2 normal heart sound and no murmurs GI normal to inspection, nondistended, normoactive bowel sounds, soft to palpation, non-tender and non-distended Extremity normal capillary refill, no clubbing, cyanosis or edema and no calf tenderness Skin General Skin Exam: no breakdown Neuro CN's II-XII intact bilaterally and no focal motor deficits Motor Exam: general weakness Psych Psych Narrative: confused Mood & Affect: flat affect Assessment & Plan Assessment/Plan (1) Acute cystitis without hematuria: PLAN: Plan #UTI * Remains on IV Zosyn. Urine culture growing gram-negative mei growing gram- negative lactose auto body mechanic. * Speciation is pending. * Continue IV Zosyn for now * Blood cultures negative. 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 Nephrology on board. * Sodium is 133 today. #Left lung mass * S/p biopsy. Pathology report is pending. Will need follow-up with pulmonology on outpatient basis #Debility and weakness: PT OT on board. 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 Breathing treatments with bronchodilators. #DVT prophylaxis: SCDs Disposition: Awaiting placement * Charges/Coding Visit Charges Inpatient E&M: 33784 Subs Hosp L2
[2024-10-27 13:03] LABS: Absolute Neutrophil Count 7.5 X10^3/uL (2.0-7.7); Basophil# 0.08 X10^3/uL; Basophil% 0.7 % (0-1); Eosinophil# 0.29 X10^3/uL; Eosinophils% 2.7 % (0-5); Hematocrit 31.9 % (40-54); Hemoglobin 10.3 g/dL (13.0-16.5); Lymphocyte % 13.8 % (19-41); Mean Corp Hgb Conc 32.3 g/dL (32-36); Mean Corpuscular Hgb 26.7 pg (27.0-32.0); Mean Corpuscular Volume 82.6 fL (80-94); Monocyte# 1.29 X10^3/uL; Monocyte% 11.9 % (0-10); NRBC Flagged by Analyzer 0 % (0-5); Neutrophil # 7.51 X10^3/uL (2.7-7.7); Neutrophil % 69.2 % (47-70); Platelet Count 299 K/mm3 (150-450); RBC Distribution Width CV 16.3 % (11.6-14.6); RBC Distribution Width SD 49.1 fl (35.1-43.9); Red Blood Count 3.86 M/mm3 (4.6-6.2); White Blood Count 10.9 K/mm3 (4.4-11.0)
[2024-10-27 14:45] VITALS: BP 111/68; PULSE 91; RESP 18; TEMP 36.4; O2SAT 99
--- NOTE | 2024-10-27 16:11 | PCM.PN.REN ---
Subjective Subjective No new events Objective Data Objective Data Vital Signs: Vital Signs Temp Pulse Resp BP Pulse Ox O2 Del Method 97.4 F L 86 18 155/75 H 96 Room Air 10/27/24 09:30 10/27/24 09:30 10/27/24 09:30 10/27/24 09:30 10/27/24 09:30 10/27/24 09:50 Oxygen Delivery Method Room Air Weight: 72.5 kg Body Mass Index (BMI) 29.2 Intake & Output: Intake and Output for Last 24 Hours 10/25/24 10/26/24 10/27/24 23:59 23:59 23:59 Intake Total 200.2 / 400.2 1150 / 1350 500 / 500 Output Total 600 / 1150 1850 / 1850 Balance -399.8 / -749.8 -700 / -500 500 / 500 Lab / Micro Data 10/27/24 06:39 10/27/24 06:39 Labs: Laboratory Results - last 24 hr 10/27/24 06:39: WBC 10.9, RBC 3.86 L, Hgb 10.3 L, Hct 31.9 L, MCV 82.6, MCH 26.7 L, MCHC 32.3 D, RDW Std Deviation 49.1 H, RDW Coeff of Edinson 16.3 H, Plt Count 299, MPV 10.0, Immature Gran % (Auto) 1.700 H, Neut % (Auto) 69.2, Lymph % (Auto) 13.8 L, Jack % (Auto) 11.9 H, Eos % (Auto) 2.7, Baso % (Auto) 0.7, Absolute Neuts (auto) 7.5, Absolute Lymphs (auto) 1.50, Nucleated RBC % 0, Sodium 133, Potassium 4.3, Chloride 99, Carbon Dioxide 23.3, Anion Gap 11, BUN 19, Creatinine 0.94, Estim Creat Clear Calc 58.40, Est GFR (MDRD) Non-Af 84, BUN/Creatinine Ratio 20.6 H, Glucose 80, Calcium 9.8 Micro: Microbiology 10/23/24 21:40 Urine, Clean Catch Urine Culture - Preliminary Gram negative mei GNR 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 10/24/24 02:20 Blood Culture (Wb) - Anticubital Right Blood Culture - Preliminary No growth in 48 hours. 10/23/24 21:40 Mucosa - Nose SARS-CoV-2, Influenza & RSV (PCR) - Final Physical Exam Narrative S1, S2, RRR Lungs sound clear anteriorly. No rales or rhonchi Abdomen soft, nontender No edema Assessment & Plan Assessment/Plan (1) Hyponatremia: (2) Mass of upper lobe of left lung: PLAN: Plan He is known to me from office. Had chronic hyponatremia for at least a year. He did have intermittent hyponatremia for several years now. 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 TSH was okay, cortisol was okay. She had a CT chest few years ago that did not show any mass. He was on Depakote so without Depakote was the causative factor in SIADH. Has been maintained on salt tablets. This admission newly diagnosed lung mass. Status post biopsy. It is possible the lung mass might be contributing to SIADH as well. Sodium is better. Continue salt tablets.
[2024-10-27 20:44] VITALS: BP 149/72; PULSE 84; RESP 18; TEMP 36.2; O2SAT 96
[2024-10-27] MEDS: 0.9% Saline Lock 10 ML Syringe IV (20:51)
[2024-10-27] MEDS: Docusate Sodium 100 MG Capsule PO (20:52)
[2024-10-27] MEDS: Tamsulosin HCl 0.4 MG Capsule PO (20:53)
[2024-10-28 02:47] VITALS: BP 122/52; PULSE 64; RESP 18; TEMP 36.4; O2SAT 94
[2024-10-28 04:41] VITALS: BMI 29.3
[2024-10-28] MEDS: Piperacil/Tazobactam 3.375 GM in 0.9% Normal Saline (50mL MB+) 50 ML IV (05:47)
[2024-10-28] MEDS: Sodium Chloride 1 GM Tablet 2 GM PO ×3 (05:48→21:48)
[2024-10-28 06:09] LABS: Absolute Lymphocyte Count 1.71 X10^3/uL (0.83-4.51); Basophil# 0.11 X10^3/uL; Basophil% 1.1 % (0-1); Eosinophil# 0.33 X10^3/uL; Eosinophils% 3.3 % (0-5); Hematocrit 31.3 % (40-54); Hemoglobin 10.3 g/dL (13.0-16.5); Lymphocyte # 1.71 X10^3/ul (0.83-4.51); Lymphocyte % 17.3 % (19-41); Mean Corp Hgb Conc 32.9 g/dL (32-36); Mean Corpuscular Hgb 26.3 pg (27.0-32.0); Mean Corpuscular Volume 80.1 fL (80-94); Mean Platelet Vol. 9.2 fl (6.2-12.0); Monocyte# 1.26 X10^3/uL; Monocyte% 12.8 % (0-10); NRBC Flagged by Analyzer 0 % (0-5); Neutrophil # 6.01 X10^3/uL (2.7-7.7); Platelet Count 265 K/mm3 (150-450); RBC Distribution Width CV 16.2 % (11.6-14.6); RBC Distribution Width SD 46.9 fl (35.1-43.9); Red Blood Count 3.91 M/mm3 (4.6-6.2); White Blood Count 9.9 K/mm3 (4.4-11.0)
[2024-10-28 06:50] LABS: Anion Gap 11 (5-15); BUN 23 mg/dL (4-19); BUN/Creat Ratio 24.9 RATIO (10-20); Calcium,Total 9.6 mg/dL (7.6-11.0); Carbon Dioxide 23.4 mmol/L (21.0-32.0); Chloride 99 mmol/L (98-108); Creatinine, Serum 0.93 mg/dL (0.70-1.20); EST Glomerular Filtration Rate 85 (>60); Estimated Creatinine Clearance 59.14 ml/min (50-250); Glucose 86 mg/dL (70-99); Potassium 3.9 mmol/L (3.3-5.1); Sodium Level 132 mmol/L (133-145)
[2024-10-28 09:00] VITALS: BP 135/79; PULSE 84; RESP 18; TEMP 36.4; O2SAT 94
[2024-10-28] MEDS: Pantoprazole Sodium 40 MG Tablet PO (09:41)
[2024-10-28] MEDS: Lactobacillis Acidophilus 1 CAP PO (09:42)
[2024-10-28] MEDS: Folic Acid 1 MG Tablet PO (09:42)
[2024-10-28] MEDS: Divalproex Sodium 250 MG Tablet 500 MG PO ×2 (09:42→21:48)
[2024-10-28] MEDS: Cholecalciferol (VIT D3) 25 MCG TABLET (1,000 UNITS) 50 MCG PO (09:42)
--- NOTE | 2024-10-28 13:18 | PCM.PROGNOTE ---
Subjective Subjective Patient seen and examined. He had no complaints. Review of systems is otherwise negative. He has remained hemodynamically stable. Objective Data Objective Data Vital Signs: Vital Signs Temp Pulse Resp BP Pulse Ox O2 Del Method 97.5 F L 84 18 135/79 H 94 Room Air 10/28/24 09:00 10/28/24 09:00 10/28/24 09:00 10/28/24 09:00 10/28/24 09:00 10/28/24 09:00 Oxygen Delivery Method Room Air Weight: 160 lb 7.944 oz Body Mass Index (BMI) 29.3 Intake & Output: Intake and Output for Last 24 Hours 10/26/24 10/27/24 10/28/24 23:59 23:59 23:59 Intake Total 1150 / 1350 1530 / 1530 100 / 100 Output Total 1850 / 1850 800 / 800 350 / 350 Balance -700 / -500 730 / 730 -250 / -250 Lab / Micro Data 10/28/24 05:45 10/28/24 05:45 Labs: Laboratory Results - last 24 hr 10/28/24 05:45: WBC 9.9, RBC 3.91 L, Hgb 10.3 L, Hct 31.3 L, MCV 80.1, MCH 26.3 L, MCHC 32.9, RDW Std Deviation 46.9 H, RDW Coeff of Edinson 16.2 H, Plt Count 265, MPV 9.2, Immature Gran % (Auto) 4.500 H, Neut % (Auto) 61.0, Lymph % (Auto) 17.3 L, [place] % (Auto) 12.8 H, Eos % (Auto) 3.3, Baso % (Auto) 1.1 H, Absolute Neuts (auto) 6.0, Absolute Lymphs (auto) 1.71, Nucleated RBC % 0, Sodium 132 L, Potassium 3.9, Chloride 99, Carbon Dioxide 23.4, Anion Gap 11, BUN 23 H, Creatinine 0.93, Estim Creat Clear Calc 59.14, Est GFR (MDRD) Non-Af 85, BUN/Creatinine Ratio 24.9 H, Glucose 86, Calcium 9.6 Micro: Microbiology 10/23/24 21:40 Urine, Clean Catch Urine Culture - Final Proteus sp. Klebsiella oxytoca 10/24/24 02:25 Blood Culture (Wb) - Anticubital Right Blood Culture - Preliminary No growth in 48 hours. 10/24/24 02:20 Blood Culture (Wb) - Anticubital Right Blood Culture - Preliminary No growth in 48 hours. 10/23/24 21:40 Mucosa - Nose SARS-CoV-2, Influenza & RSV (PCR) - Final Physical Exam Const alert, no apparent distress, average body habitus, healthy appearing and well nourished General Appearance: cooperative and well developed Orientation / Consciousness: awake and oriented to person HEENT normocephalic, head/scalp atraumatic, hearing grossly normal bilaterally, moist oral mucous membranes and oropharynx normal Eyes PERRL, EOMs intact bilaterally and conjunctivae normal Neck no lymphadenopathy, supple, no JVD, thyroid normal and no carotid bruits General: trachea midline Lymph Lymphatic: no lymphadenopathy noted and no lymphedema noted Resp normal respiratory effort, normal air movement, no retractions, no use of accessory muscles and clear to auscultation bilaterally Auscultation: Negative for rales, rhonchi or wheezes Cardio regular rate, regular rhythm, S1 normal heart sound, S2 normal heart sound and no murmurs GI normal to inspection, nondistended, normoactive bowel sounds, soft to palpation, non-tender and non-distended Extremity normal to inspection, full ROM, normal capillary refill, no clubbing, cyanosis or edema and no calf tenderness Skin no rashes or lesions noted General Skin Exam: no breakdown Neuro CN's II-XII intact bilaterally, moves all extremities, no focal motor deficits and no sensory deficits noted Sensorium / Orientation: awake, alert, oriented to person and oriented to place Speech: speech normal Motor Exam: general weakness Psych thought process normal, cooperative and affect normal Mood & Affect: flat affect Assessment & Plan Assessment/Plan (1) Acute cystitis without hematuria: PLAN: Plan #UTI Remains on IV Zosyn. 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 Urine cultures growing Klebsiella oxytoca and Proteus sp both sensitive to bactrim. Will switch to PO Bactrim. Blood cultures negative. #Chronic hyponatremia Thought to be due to SIADH from patient's history of lung mass. Nephrology on board. Sodium is 132 today. #Left lung mass S/p biopsy. Pathology report is pending. Will need follow-up with pulmonology on outpatient basis #Debility and weakness: PT OT on board. 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 Breathing treatments with bronchodilators. #DVT prophylaxis: SCDs Disposition: Awaiting placement Charges/Coding Visit Charges Inpatient E&M: 72303 Subs Hosp L2
[2024-10-28 15:00] VITALS: BP 137/64; PULSE 78; RESP 18; TEMP 36.7; O2SAT 97
[2024-10-28 21:45] VITALS: BP 148/67; PULSE 77; RESP 16; TEMP 36.7; O2SAT 96
[2024-10-28] MEDS: Docusate Sodium 100 MG Capsule PO (21:48)
[2024-10-28] MEDS: Smz/Tmp Ds Tablet 1 TABLET PO (21:48)
[2024-10-28] MEDS: Tamsulosin HCl 0.4 MG Capsule PO (21:48)
[2024-10-29 03:41] VITALS: BMI 29.2
[2024-10-29 03:45] VITALS: BP 148/77; PULSE 82; RESP 16; TEMP 36.8; O2SAT 93
[2024-10-29] MEDS: Acetaminophen 325 MG Tablet 650 MG PO ×2 (03:53→17:11)
[2024-10-29 04:19] LABS: Hematocrit 31.1 % (40-54); Hemoglobin 10.3 g/dL (13.0-16.5); Mean Corp Hgb Conc 33.1 g/dL (32-36); Mean Corpuscular Hgb 26.7 pg (27.0-32.0); Mean Corpuscular Volume 80.6 fL (80-94); Mean Platelet Vol. 9.2 fl (6.2-12.0); NRBC Flagged by Analyzer 0 % (0-5); POSITIVE COUNT YES; POSITIVE DIFFERENTIAL YES; POSITIVE MORPHOLOGY YES; Platelet Count 281 K/mm3 (150-450); RBC Distribution Width CV 16.1 % (11.6-14.6); RBC Distribution Width SD 47.2 fl (35.1-43.9); Red Blood Count 3.86 M/mm3 (4.6-6.2); White Blood Count 11.4 K/mm3 (4.4-11.0)
[2024-10-29 04:42] LABS: Differential Indicated SCAN CRITERIA MET
[2024-10-29 05:00] LABS: Anion Gap 11 (5-15); BUN 23 mg/dL (4-19); BUN/Creat Ratio 27.4 RATIO (10-20); Calcium,Total 9.2 mg/dL (7.6-11.0); Carbon Dioxide 21.8 mmol/L (21.0-32.0); Chloride 99 mmol/L (98-108); Creatinine, Serum 0.85 mg/dL (0.70-1.20); EST Glomerular Filtration Rate 90 (>60); Estimated Creatinine Clearance 64.54 ml/min (50-250); Glucose 102 mg/dL (70-99); Potassium 4.4 mmol/L (3.3-5.1); Sodium Level 131 mmol/L (133-145)
[2024-10-29 05:23] LABS: Eosinophil 5 % (0-5); Lymphocyte 28 % (19-41); Metamyelocyte 1 % (0-1); Monocyte 6 % (0-10); Neutrophil-Band 2 % (0-5); Neutrophil-Segmented 58 % (47-70); Total Cells Counted 100 (MANUAL DIFF)
[2024-10-29 05:26] LABS: Scan Smear per Review Criteria MANUAL DIFF
[2024-10-29 05:28] LABS: Absolute Lymphocyte Count 3.19 X10^3/uL (0.83-4.51); Absolute Neutrophil Count 6.8 X10^3/uL (2.0-7.7)
[2024-10-29 05:29] LABS: Acanthocytes RARE; Anisocytosis 1+; Crenated RBC RARE; Microcytosis 1+; Ovalocyte 1+; Platelet Estimate ADEQUATE (ADEQ); Schistocytes RARE; Tear Drop Cell RARE
[2024-10-29] MEDS: Sodium Chloride 1 GM Tablet 2 GM PO ×3 (06:33→21:06)
[2024-10-29 08:25] VITALS: BP 147/79; PULSE 73; RESP 16; TEMP 36.9; O2SAT 99
[2024-10-29] MEDS: Folic Acid 1 MG Tablet PO (08:28)
[2024-10-29] MEDS: Divalproex Sodium 250 MG Tablet 500 MG PO ×2 (09:20→21:06)
[2024-10-29] MEDS: Cholecalciferol (VIT D3) 25 MCG TABLET (1,000 UNITS) 50 MCG PO (09:21)
[2024-10-29] MEDS: Smz/Tmp Ds Tablet 1 TABLET PO ×2 (09:21→21:05)
[2024-10-29] MEDS: Pantoprazole Sodium 40 MG Tablet PO (09:21)
[2024-10-29] MEDS: Lactobacillis Acidophilus 1 CAP PO (09:22)
--- NOTE | 2024-10-29 10:59 | PN_ITS ---
Subjective Subjective Patient seen and examined. He had no complaints. REview of systems is otherwise negative. He has remained hemodynamically stable. Objective Data Objective Data Vital Signs: Vital Signs Temp Pulse Resp BP Pulse Ox O2 Del Method 98.5 F 73 16 147/79 H 99 Room Air 10/29/24 08:25 10/29/24 08:25 10/29/24 08:25 10/29/24 08:25 10/29/24 08:10/29/24 09:33 Oxygen Delivery Method Room Air Weight: 159 lb 9.835 oz Body Mass Index (BMI) 29.2 Intake & Output: Intake and Output for Last 24 Hours 10/27/24 10/28/24 10/29/24 23:59 23:59 23:59 Intake Total 1530 / 1530 100 / 100 Output Total 800 / 800 950 / 1300 800 / 800 Balance 730 / 730 -850 / -1200 -800 / -800 Lab / Micro Data 10/29/24 04:05 10/29/24 04:05 Labs: Laboratory Results - last 24 hr 10/29/24 04:05: WBC 11.4 H, RBC 3.86 L, Hgb 10.3 L, Hct 31.1 L, MCV 80.6, MCH 26.7 L, MCHC 33.1, RDW Std Deviation 47.2 H, RDW Coeff of Edinson 16.1 H, Plt Count 281, MPV 9.2, Immature Gran % (Auto) RESERVOIR CARETAKER, Neut % (Auto) RESERVOIR CARETAKER, Lymph % (Auto) RESERVOIR CARETAKER, [place] % (Auto) RESERVOIR CARETAKER, Eos % (Auto) RESERVOIR CARETAKER, Baso % (Auto) RESERVOIR CARETAKER, Absolute Neuts (auto) 6.8, Absolute Lymphs (auto) 3.19, Total Counted 100, Neutrophils % (Manual) 58, Band Neutrophils % 2, Lymphocytes % (Manual) 28, Monocytes % (Manual) 6, Eosinophils % (Manual) 5, Metamyelocytes % 1, Nucleated RBC % 0, Diff Path Review May , Platelet Estimate ADEQUATE, Anisocytosis 1+, Microcytosis 1+, Tear Drop Cells RARE, Ovalocytes 1+, Crenated Cell RARE, Acanthocytes (Spur) RARE, Schistocytes RARE, Sodium 131 L, Potassium 4.4, Chloride 99, Carbon Dioxide 21.8, Anion Gap 11, BUN 23 H, Creatinine 0.85, Estim Creat Clear Calc 64.54, Est GFR (MDRD) Non- Af 90, BUN/Creatinine Ratio 27.4 H, Glucose 102 H, Calcium 9.2 Micro: Microbiology 10/24/24 02:20 Blood Culture (Wb) - Anticubital Right Blood Culture - Final No growth in 5 days. 10/24/24 02:25 Blood Culture (Wb) - Anticubital Right Blood Culture - Final No growth in 5 days. 10/23/24 21:40 Urine, Clean Catch Urine Culture - Final Proteus sp. Klebsiella oxytoca 10/23/24 21:40 Mucosa - Nose SARS-CoV-2, Influenza & RSV (PCR) - Final Physical Exam Const alert, no apparent distress, average body habitus, healthy appearing and well nourished General Appearance: cooperative and well developed Orientation / Consciousness: awake, oriented to person, oriented to place, confused and lethargic HEENT normocephalic, head/scalp atraumatic, hearing grossly normal bilaterally, moist oral mucous membranes and oropharynx normal Eyes PERRL, EOMs intact bilaterally and conjunctivae normal Neck no lymphadenopathy, supple, no JVD, thyroid normal and no carotid bruits General: trachea midline Lymph Lymphatic: no lymphadenopathy noted and no lymphedema noted Resp normal respiratory effort, normal air movement, no retractions, no use of accessory muscles and clear to auscultation bilaterally Cardio regular rate, regular rhythm, S1 normal heart sound, S2 normal heart sound, no murmurs, no rub and no gallops GI normal to inspection, nondistended, normoactive bowel sounds, soft to palpation, non-tender and non-distended Extremity normal to inspection, full ROM, normal capillary refill, no clubbing, cyanosis or edema and no calf tenderness Skin no rashes or lesions noted Skin Narrative: Patient has evidence of rash, abscess, wounds or jaundice. General Skin Exam: no breakdown Neuro CN's II-XII intact bilaterally, moves all extremities, no focal motor deficits and no sensory deficits noted Sensorium / Orientation: awake, alert, oriented to person and oriented to place Speech: speech normal Motor Exam: general weakness Psych thought process normal, cooperative and affect normal Psych Narrative: confused Mood & Affect: flat affect Assessment & Plan Assessment/Plan (1) Acute cystitis without hematuria: PLAN: Plan #UTI * Remains on IV Zosyn. 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 * Urine cultures growing Klebsiella oxytoca and Proteus sp both sensitive to bactrim. * Will switch to PO Bactrim. * Blood cultures negative. 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 Nephrology on board. * Sodium is 132 today. #Left lung mass * S/p biopsy. Pathology report is pending. Will need follow-up with pulmonology on outpatient basis #Debility and weakness: PT OT on board. 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 Breathing treatments with bronchodilators. #DVT prophylaxis: SCDs Disposition: Awaiting placement *
[2024-10-29 13:45] VITALS: BP 140/64; PULSE 77; RESP 17; TEMP 36.3; O2SAT 98
[2024-10-29 18:16] VITALS: BP 147/79; PULSE 83; RESP 16; TEMP 36.7; O2SAT 97
[2024-10-29 21:00] VITALS: BP 149/83; PULSE 77; RESP 16; TEMP 36.9; O2SAT 94
[2024-10-29] MEDS: MELATONIN 3 MG TABLET 6 MG PO (21:05)
[2024-10-29] MEDS: Tamsulosin HCl 0.4 MG Capsule PO (21:06)
[2024-10-29] MEDS: Docusate Sodium 100 MG Capsule PO (21:06)
[2024-10-29] MEDS: 0.9% Saline Lock 10 ML Syringe IV (21:06)
[2024-10-30 03:00] VITALS: BP 127/60; PULSE 76; RESP 16; TEMP 37.1; O2SAT 96
[2024-10-30 05:50] VITALS: BMI 28.6
[2024-10-30] MEDS: Sodium Chloride 1 GM Tablet 2 GM PO ×3 (06:04→21:13)
[2024-10-30 06:08] LABS: Hematocrit 31.7 % (40-54); Hemoglobin 10.4 g/dL (13.0-16.5); Mean Corp Hgb Conc 32.8 g/dL (32-36); Mean Corpuscular Hgb 26.6 pg (27.0-32.0); Mean Corpuscular Volume 81.1 fL (80-94); Mean Platelet Vol. 9.5 fl (6.2-12.0); POSITIVE COUNT YES; POSITIVE DIFFERENTIAL YES; POSITIVE MORPHOLOGY YES; Platelet Count 321 K/mm3 (150-450); RBC Distribution Width CV 16.1 % (11.6-14.6); RBC Distribution Width SD 47.3 fl (35.1-43.9); Red Blood Count 3.91 M/mm3 (4.6-6.2); White Blood Count 13.6 K/mm3 (4.4-11.0)
[2024-10-30 06:33] LABS: Anion Gap 10 (5-15); BUN 21 mg/dL (4-19); BUN/Creat Ratio 19.7 RATIO (10-20); Calcium,Total 9.6 mg/dL (7.6-11.0); Carbon Dioxide 21.8 mmol/L (21.0-32.0); Chloride 97 mmol/L (98-108); Creatinine, Serum 1.07 mg/dL (0.70-1.20); EST Glomerular Filtration Rate 72 (>60); Estimated Creatinine Clearance 50.84 ml/min (50-250); Glucose 85 mg/dL (70-99); Sodium Level 129 mmol/L (133-145)
[2024-10-30 06:44] LABS: Differential Indicated MANUAL DIFF
[2024-10-30 07:31] LABS: Eosinophil 5 % (0-5); Lymphocyte 34 % (19-41); Metamyelocyte 1 % (0-1); Monocyte 11 % (0-10); Neutrophil-Segmented 49 % (47-70); Total Cells Counted 100 (MANUAL DIFF)
[2024-10-30 07:32] LABS: Platelet Estimate ADEQUATE (ADEQ); Red Cell Morphology NORM C+C NORMAL (NORM C&C)
[2024-10-30 07:33] LABS: Absolute Lymphocyte Count 4.62 X10^3/uL (0.83-4.51); Absolute Neutrophil Count 6.7 X10^3/uL (2.0-7.7)
[2024-10-30 08:32] VITALS: BP 126/76; PULSE 106; RESP 16; TEMP 37.1; O2SAT 98
[2024-10-30] MEDS: Folic Acid 1 MG Tablet PO (08:37)
[2024-10-30] MEDS: Pantoprazole Sodium 40 MG Tablet PO (08:37)
[2024-10-30] MEDS: Cholecalciferol (VIT D3) 25 MCG TABLET (1,000 UNITS) 50 MCG PO (08:37)
[2024-10-30] MEDS: Lactobacillis Acidophilus 1 CAP PO (08:38)
[2024-10-30] MEDS: Smz/Tmp Ds Tablet 1 TABLET PO ×2 (08:39→21:12)
[2024-10-30] MEDS: Divalproex Sodium 250 MG Tablet 500 MG PO ×2 (08:51→21:13)
[2024-10-30] MEDS: Acetaminophen 325 MG Tablet 650 MG PO ×3 (08:51→21:08)
--- NOTE | 2024-10-30 09:46 | CASEMGMT ---
Discharge Planning Updates sent to [facility] with note asking for status of precert. Rosina Rivera DC Planning Asst.
--- NOTE | 2024-10-30 11:32 | PN_ITS ---
Subjective Subjective Patient seen and examined. Complained of feeling cold and said he felt cold overnight. Review of symptoms otherwise negative. WBC has trended up better today and is 13.6. Was 11.4 yesterday. Objective Data Objective Data Vital Signs: Vital Signs Temp Pulse Resp BP Pulse Ox O2 Del Method 98.8 F 106 H 16 126/76 H 98 Room Air 10/30/24 08:32 10/30/24 08:32 10/30/24 08:32 10/30/24 08:32 10/30/24 08:32 10/30/24 09:06 Oxygen Delivery Method Room Air Weight: 156 lb 11.979 oz Body Mass Index (BMI) 28.6 Intake & Output: Intake and Output for Last 24 Hours 10/28/24 10/29/24 10/30/24 23:59 23:59 23:59 Intake Total 100 / 100 400 / 400 Output Total 950 / 1300 1150 / 2050 900 / 900 Balance -850 / -1200 -750 / -1650 -900 / -900 Lab / Micro Data 10/30/24 05:34 10/30/24 05:34 Labs: Laboratory Results - last 24 hr 10/30/24 05:34: WBC 13.6 H, RBC 3.91 L, Hgb 10.4 L, Hct 31.7 L, MCV 81.1, MCH 26.6 L, MCHC 32.8, RDW Std Deviation 47.3 H, RDW Coeff of Edinson 16.1 H, Plt Count 321, MPV 9.5, Neut % (Auto) Not Reportable, Absolute Neuts (auto) 6.7, Absolute Lymphs (auto) 4.62 H, Total Counted 100, Neutrophils % (Manual) 49, Lymphocytes % (Manual) 34, Monocytes % (Manual) 11 H, Eosinophils % (Manual) 5, Metamyelocytes % 1, Diff Path Review May , Platelet Estimate ADEQUATE, RBC Morphology NORM C+C, Sodium 129 L, Potassium 5.0, Chloride 97 L, Carbon Dioxide 21.8, Anion Gap 10, BUN 21 H, Creatinine 1.07, Estim Creat Clear Calc 50.84, Est GFR (MDRD) Non-Af 72, BUN/Creatinine Ratio 19.7, Glucose 85, Calcium 9.6 Micro: Microbiology 10/24/24 02:20 Blood Culture (Wb) - Anticubital Right Blood Culture - Final No growth in 5 days. 10/24/24 02:25 Blood Culture (Wb) - Anticubital Right Blood Culture - Final No growth in 5 days. 10/23/24 21:40 Urine, Clean Catch Urine Culture - Final Proteus sp. Klebsiella oxytoca 10/23/24 21:40 Mucosa - Nose SARS-CoV-2, Influenza & RSV (PCR) - Final Physical Exam Const alert, no apparent distress, average body habitus, healthy appearing and well nourished Constitutional Narrative: confused General Appearance: cooperative Orientation / Consciousness: awake HEENT normocephalic, head/scalp atraumatic and hearing grossly normal bilaterally Eyes PERRL, EOMs intact bilaterally and conjunctivae normal Neck no lymphadenopathy, supple, no JVD, thyroid normal and no carotid bruits General: trachea midline Lymph Lymphatic: no lymphadenopathy noted and no lymphedema noted Resp normal respiratory effort, normal air movement, no retractions, no use of accessory muscles and clear to auscultation bilaterally Auscultation: Negative for rales, rhonchi or wheezes Cardio regular rate, regular rhythm, S1 normal heart sound, S2 normal heart sound, no murmurs, no rub and no gallops GI normal to inspection, nondistended, normoactive bowel sounds, soft to palpation, non-tender and non-distended Extremity normal to inspection, full ROM, normal capillary refill, no clubbing, cyanosis or edema and no calf tenderness Skin no rashes or lesions noted Skin Narrative: Patient has evidence of rash, abscess, wounds or jaundice. 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 * Urine cultures growing Klebsiella oxytoca and Proteus sp both sensitive to bactrim. * IV zosyn dc'd and now on PO bactrim. * Blood cultures negative. #Leukocytosis: * WBC has gone up to 13.6 today. * No clear evidence of any infection above from the UTI. * Patient was coughing during review today so we will order respiratory panel. 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 Nephrology on board. * Sodium is down to 129 today from 131 yesterday. #Left lung mass * S/p biopsy. * Pathology report is pending. Will need follow-up with pulmonology on outpatient basis #Debility and weakness: PT OT on board. 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 Breathing treatments with bronchodilators. #DVT prophylaxis: SCDs Disposition: Awaiting placement * Charges/Coding Visit Charges Inpatient E&M: 63014 Subs Hosp L2
--- NOTE | 2024-10-30 11:35 | PCM.PN.REN ---
Subjective Subjective No new events, hoping to be discharged to ECF today. Objective Data Objective Data Vital Signs: Vital Signs Temp Pulse Resp BP Pulse Ox O2 Del Method 98.8 F 106 H 16 126/76 H 98 Room Air 10/30/24 08:32 10/30/24 08:32 10/30/24 08:32 10/30/24 08:32 10/30/24 08:32 10/30/24 09:06 Oxygen Delivery Method Room Air Weight: 71.1 kg Body Mass Index (BMI) 28.6 Intake & Output: Intake and Output for Last 24 Hours 10/28/24 10/29/24 10/30/24 23:59 23:59 23:59 Intake Total 100 / 100 400 / 400 Output Total 950 / 1300 1150 / 2050 900 / 900 Balance -850 / -1200 -750 / -1650 -900 / -900 Lab / Micro Data 10/30/24 05:34 10/30/24 05:34 Labs: Laboratory Results - last 24 hr 10/30/24 05:34: WBC 13.6 H, RBC 3.91 L, Hgb 10.4 L, Hct 31.7 L, MCV 81.1, MCH 26.6 L, MCHC 32.8, RDW Std Deviation 47.3 H, RDW Coeff of Edinson 16.1 H, Plt Count 321, MPV 9.5, Neut % (Auto) Not Reportable, Absolute Neuts (auto) 6.7, Absolute Lymphs (auto) 4.62 H, Total Counted 100, Neutrophils % (Manual) 49, Lymphocytes % (Manual) 34, Monocytes % (Manual) 11 H, Eosinophils % (Manual) 5, Metamyelocytes % 1, Diff Path Review May foll, Platelet Estimate ADEQUATE, RBC Morphology NORM C+C, Sodium 129 L, Potassium 5.0, Chloride 97 L, Carbon Dioxide 21.8, Anion Gap 10, BUN 21 H, Creatinine 1.07, Estim Creat Clear Calc 50.84, Est GFR (MDRD) Non-Af 72, BUN/Creatinine Ratio 19.7, Glucose 85, Calcium 9.6 Micro: Microbiology 10/24/24 02:20 Blood Culture (Wb) - Anticubital Right Blood Culture - Final No growth in 5 days. 10/24/24 02:25 Blood Culture (Wb) - Anticubital Right Blood Culture - Final No growth in 5 days. 10/23/24 21:40 Urine, Clean Catch Urine Culture - Final Proteus sp. Klebsiella oxytoca 10/23/24 21:40 Mucosa - Nose SARS-CoV-2, Influenza & RSV (PCR) - Final Physical Exam Narrative A&Ox3 S1, S2, RRR Lungs sound clear anteriorly. No rales or rhonchi Abdomen soft, nontender No edema Assessment & Plan Assessment/Plan (1) Hyponatremia: (2) Mass of upper lobe of left lung: PLAN: Plan history of chronic hyponatremia for at least a year. He did have intermittent hyponatremia for several years now. 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 TSH was okay, cortisol was okay. Had a CT chest few years ago that did not show any mass. He has been on Depakote for many years. Has been maintained on salt tablets. This admission newly diagnosed lung mass. Status post biopsy. It is possible the lung mass might be contributing to SIADH as well. Sodium improved to 129 and near patient's baseline. Continue salt tablets in hospital and at discharge; also continue fluid restriction. Reviewed this with patient also.
[2024-10-30 14:31] VITALS: BP 131/60; PULSE 77; RESP 16; TEMP 36.6; O2SAT 97
[2024-10-30] MEDS: 0.9% Saline Lock 10 ML Syringe IV (14:41)
[2024-10-30 17:30] VITALS: BP 134/71; PULSE 85; RESP 16; TEMP 36.7; O2SAT 95
[2024-10-30 21:06] VITALS: BP 151/96; PULSE 77; RESP 15; TEMP 36.7; O2SAT 95
[2024-10-30] MEDS: Docusate Sodium 100 MG Capsule PO (21:13)
[2024-10-30] MEDS: Tamsulosin HCl 0.4 MG Capsule PO (21:13)
[2024-10-30] MEDS: Losartan Potassium 25 MG Tablet PO (22:16)
[2024-10-31 03:00] VITALS: BP 140/63; PULSE 75; RESP 16; TEMP 36.2; O2SAT 95
[2024-10-31 04:17] VITALS: BMI 29.2
[2024-10-31] MEDS: Sodium Chloride 1 GM Tablet 2 GM PO ×2 (05:17→14:19)
[2024-10-31] MEDS: Acetaminophen 325 MG Tablet 650 MG PO (05:23)
[2024-10-31 07:36] LABS: Hematocrit 31.9 % (40-54); Hemoglobin 10.6 g/dL (13.0-16.5); Mean Corp Hgb Conc 33.2 g/dL (32-36); Mean Corpuscular Hgb 26.8 pg (27.0-32.0); Mean Corpuscular Volume 80.6 fL (80-94); Mean Platelet Vol. 9.5 fl (6.2-12.0); POSITIVE COUNT YES; POSITIVE DIFFERENTIAL YES; POSITIVE MORPHOLOGY YES; Platelet Count 297 K/mm3 (150-450); RBC Distribution Width CV 16.1 % (11.6-14.6); RBC Distribution Width SD 47.3 fl (35.1-43.9); Red Blood Count 3.96 M/mm3 (4.6-6.2); White Blood Count 12.6 K/mm3 (4.4-11.0)
[2024-10-31 07:45] LABS: Differential Indicated MANUAL DIFF
[2024-10-31 08:10] LABS: Anion Gap 11 (5-15); BUN 19 mg/dL (4-19); BUN/Creat Ratio 16.2 RATIO (10-20); Calcium,Total 9.5 mg/dL (7.6-11.0); Carbon Dioxide 20.8 mmol/L (21.0-32.0); Chloride 96 mmol/L (98-108); Creatinine, Serum 1.17 mg/dL (0.70-1.20); EST Glomerular Filtration Rate 65 (>60); Estimated Creatinine Clearance 46.89 ml/min (50-250); Glucose 80 mg/dL (70-99); Sodium Level 128 mmol/L (133-145)
[2024-10-31 08:42] VITALS: BP 146/71; PULSE 76; RESP 16; TEMP 36.3; O2SAT 96
[2024-10-31] MEDS: Folic Acid 1 MG Tablet PO (08:48)
[2024-10-31] MEDS: Cholecalciferol (VIT D3) 25 MCG TABLET (1,000 UNITS) 50 MCG PO (08:48)
[2024-10-31] MEDS: Pantoprazole Sodium 40 MG Tablet PO (08:48)
[2024-10-31] MEDS: Smz/Tmp Ds Tablet 1 TABLET PO (08:48)
[2024-10-31] MEDS: Divalproex Sodium 250 MG Tablet 500 MG PO (08:48)
[2024-10-31] MEDS: Lactobacillis Acidophilus 1 CAP PO (08:48)
[2024-10-31] MEDS: Carvedilol 6.25 MG Tablet PO (08:48)
--- NOTE | 2024-10-31 09:00 | CASEMGMT ---
[facility] has obtained auth to admit. Rosina Rivera DC Planning Asst.
[2024-10-31 09:20] LABS: Basophil 1 % (0-1); Eosinophil 2 % (0-5); Lymphocyte 20 % (19-41); Monocyte 9 % (0-10); Myelocyte 1 % (0-0); Neutrophil-Band 3 % (0-5); Neutrophil-Segmented 60 % (47-70); Plasma Cell 1 %; Platelet Estimate ADEQUATE (ADEQ); Promyelocyte 3 % (0-0); Red Cell Morphology NORM C+C NORMAL (NORM C&C); Total Cells Counted 100 (MANUAL DIFF)
[2024-10-31 09:21] LABS: Absolute Neutrophil Count 7.9 X10^3/uL (2.0-7.7)
--- NOTE | 2024-10-31 11:06 | PN.RENAL_ITS ---
Subjective Subjective Patient sitting in chair. Probable discharge to [facility] today. No complaints. Objective Data Objective Data Vital Signs: Vital Signs Temp Pulse Resp BP Pulse Ox O2 Del Method FiO2 97.3 F L 76 16 146/71 H 96 Room Air 95 10/31/24 08:42 10/31/24 08:42 10/31/24 08:42 10/31/24 08:42 10/31/24 08:42 10/31/24 08:42 10/31/24 03:25 Oxygen Delivery Method Room Air Weight: 72.4 kg Body Mass Index (BMI) 29.2 Intake & Output: Intake and Output for Last 24 Hours 10/29/24 10/30/24 10/31/24 23:59 23:59 23:59 Intake Total 400 / 400 940 / 940 Output Total 1150 / 2050 2200 / 2200 400 / 400 Balance -750 / -1650 -1260 / -1260 -400 / -400 Lab / Micro Data 10/31/24 06:55 10/31/24 06:55 Labs: Laboratory Results - last 24 hr 10/31/24 06:55: WBC 12.6 H, RBC 3.96 L, Hgb 10.6 L, Hct 31.9 L, MCV 80.6, MCH 26.8 L, MCHC 33.2, RDW Std Deviation 47.3 H, RDW Coeff of Edinson 16.1 H, Plt Count 297, MPV 9.5, Neut % (Auto) Not Reportable, Absolute Neuts (auto) 7.9 H, Absolute Lymphs (auto) 2.50, Total Counted 100, Neutrophils % (Manual) 60, Band Neutrophils % 3, Lymphocytes % (Manual) 20, Monocytes % (Manual) 9, Eosinophils % (Manual) 2, Basophils % (Manual) 1, Myelocytes % 1 H, Promyelocytes % 3 H, Plasma Cell % (Manual) 1, Diff Path Review December, Platelet Estimate ADEQUATE, RBC Morphology NORM C+C, Sodium 128 L, Potassium 5.0, Chloride 96 L, Carbon Dioxide 20.8 L, Anion Gap 11, BUN 19, Creatinine 1.17, Estim Creat Clear Calc 46.89 L, Est GFR (MDRD) Non-Af 65, BUN/Creatinine Ratio 16.2, Glucose 80, Calcium 9.5 Micro: Microbiology 10/30/24 11:10 Mucosa - Nasopharyngeal Respiratory Panel (PCR) - Final 10/24/24 02:20 Blood Culture (Wb) - Anticubital Right Blood Culture - Final No growth in 5 days. 10/24/24 02:25 Blood Culture (Wb) - Anticubital Right Blood Culture - Final No growth in 5 days. 10/23/24 21:40 Urine, Clean Catch Urine Culture - Final Proteus sp. Klebsiella oxytoca 10/23/24 21:40 Mucosa - Nose SARS-CoV-2, Influenza & RSV (PCR) - Final Physical Exam Narrative A&Ox3 S1, S2, RRR Lungs sound clear anteriorly. No wheezes, rales or rhonchi Abdomen soft, nontender No edema Assessment & Plan Assessment/Plan (1) Hyponatremia: (2) Mass of upper lobe of left lung: PLAN: Plan History of chronic hyponatremia for at least a year. 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 TSH and cortisol okay. Had a CT chest few years ago that did not show any mass. He has been on Depakote for many years. Has been maintained on salt tablets. This admission newly diagnosed lung mass. Status post biopsy. It is possible the lung mass might be contributing to SIADH as well. Sodium improved up to 132 and today at 128, remains near patient's baseline. Continue salt tablets in hospital and at discharge; also continue fluid restriction at ECF. Encouraged increase protein/solute intake, reviewed all of this with patient also. Okay for discharge per renal. Will arrange for hospital follow-up. Assessment and plan reviewed with Dr. Baron
--- NOTE | 2024-10-31 11:51 | TREXTCAR_ITS ---
Diet Diet Order/Speech Therapy: 10/24/24 11:55 Diet: Regular - General Food consistency:: Regular Liquid Consistency:: Regular/Thin Type of Dietary Supplement:: Magic Cup Dessert Fluid restriction:: 1500 mL Diet Comments: chocolate magic cup w/ lunch and dinner tray Routine Orders/Code Status Enema Type: Fleetz Enema Frequency: Daily PRN Suppository Type: Dulcolax 10mg Suppository Frequency: Daily PRN DC O2, CPAP, BIPAP needs Home O2 Discharge instructions: No Wound(s) l upper chest: Wound Type: Puncture Therapies Weight Bearing: Weight bearing as tolerated Physical Therapy: Eval and Treat Occupational Therapy: Eval and Treat Problem/Diagnosis (1) Hyponatremia: Status: Acute Code(s): E87.1 - Hypo-osmolality and hyponatremia (2) Mass of upper lobe of left lung: Status: Acute Code(s): R91.8 - Other nonspecific abnormal finding of lung field Plan #UTI * Urine culture growing gram-negative mei growing 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 * Urine cultures growing Klebsiella oxytoca and Proteus sp both sensitive to bactrim. * IV zosyn dc'd and now on PO bactrim. * Blood cultures negative. #Leukocytosis: * WBC has gone up to 13.6 today. * No clear evidence of any infection above from the UTI. * Patient was coughing during review today so we will order respiratory panel. 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 Nephrology on board. * Sodium is down to 129 today from 131 yesterday. #Left lung mass * S/p biopsy. * Pathology report is pending. Will need follow-up with pulmonology on outpatient basis #Debility and weakness: PT OT on board. 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 Breathing treatments with bronchodilators. #DVT prophylaxis: SCDs Disposition: Awaiting placement * Allergies/Procedures Done in Hospital Allergies ethotoin (From Peganone) Allergy (Mild, Verified 10/23/24 21:05) Rash Procedures: None Type of Care/Length of Stay Estimated LOS: Convalescent Care Less Than 30 days Type of Care Needed: Skilled Rehab Potential: Fair Prognosis: Fair Additional Orders/Day of Discharge Day of Discharge: 10/31/24 Dietary and Speech Recommendations Dietitian Recommendations/Changes: Continue Regular diet with 1500mL/day fluid restriction per physician to manage medical conditions. Will adjust chocolate magic cup to twice per day with lunch and dinner. Trend weights as available: up ~1 Kg sine admit but, down ~1 Kg since last review; overall stable x past 1-2 months. 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 Needle Biopsy: Lung, RAD RN Procedural Sedation Discharge Orders/Prescriptions Prescriptions: New sulfamethoxazole-trimethoprim 800-160 mg Tablet 1 tab PO BID Qty: 5 0RF sodium chloride 1,000 mg Tablet,Soluble 2,000 mg PO TID 30 Days Qty: 180 1RF Continued tamsulosin 0.4 MG capsule 0.4 mg PO QHS cholecalciferol (vitamin D3) [Vitamin D3] 1,000 UNIT tablet 2,000 unit PO DAILY L.acidoph,paracasei,B.animalis 1 EACH capsule 1 ea PO DAILY carvedilol 6.25 MG tablet 6.25 mg PO BID Qty: 60 0RF divalproex 500 mg tablet,delayed release (DR/EC) 500 mg PO BID omeprazole 40 mg capsule,delayed release(DR/EC) 40 mg PO DAILY docusate sodium [Colace] 100 mg capsule 100 mg PO QHS losartan 25 mg tablet 25 mg PO QHS Qty: 90 3RF Discontinued sodium chloride 1,000 mg Tablet,Soluble 1,000 mg PO TID Qty: 0 0RF Rx Instructions: For 2 weeks Referrals / Follow Up: Iris Clancy MD [Primary Care Provider] - Within 1 Week Disposition Disposition (needs filled in before D/C Order can be placed): [facility]
--- NOTE | 2024-10-31 11:52 | DS.PCM_ITS ---
Providers Date of Admission: 10/24/24 Date of Discharge: 10/31/24 Primary Care Physician: Dr. Iris Clancy MD Consultations 10/24/24 02:04 Consult: Sign Language Translator / Pulmonary Medicine Routine Consulting Provider: Intensivists/Pulmonary Med Reason for Consult: New VICTORINA Mass with Hypnatremia of 120 POA. EMERGENT Consult: No Notified: Yes Date Notified: 10/24/24 Time Notified: 03:31 Method of Notification: Text Consult: Nephrology Routine Consulting Provider: Jered Baron Reason for Consult: Hyponatremia of 120 POA. 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 * Urine cultures growing Klebsiella oxytoca and Proteus sp both sensitive to bactrim. * IV zosyn dc'd and now on PO bactrim. * Blood cultures negative. #Leukocytosis: * WBC has gone up to 13.6 today. * No clear evidence of any infection above from the UTI. * Patient was coughing during review today so we will order respiratory panel. 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 Nephrology on board. * Sodium is down to 129 today from 131 yesterday. #Left lung mass * S/p biopsy. * Pathology report is pending. Will need follow-up with pulmonology on outpatient basis #Debility and weakness: PT OT on board. 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 Breathing treatments with bronchodilators. #DVT prophylaxis: SCDs Disposition: Awaiting placement * Medications at Discharge Home Medications tamsulosin 0.4 mg capsule 0.4 mg PO QHS urination 05/28/16 cholecalciferol (vitamin D3) 25 mcg (1,000 unit) tablet (Vitamin D3) 2,000 unit PO DAILY supplement 07/06/16 L.acidoph,paracasei,B.animalis 10 billion cell capsule 1 ea PO DAILY pt unsure 02/07/17 carvedilol 6.25 mg tablet 6.25 mg PO BID htn #60 tabs 02/08/17 divalproex 500 mg tablet,delayed release 500 mg PO BID seizure 12/25/23 omeprazole 40 mg capsule,delayed release 40 mg PO DAILY gerd 12/25/23 docusate sodium 100 mg capsule (Colace) 100 mg PO QHS constipation 02/15/24 losartan 25 mg tablet 25 mg PO QHS htn #90 tabs 08/23/24 sodium chloride 1,000 mg soluble tablet 2,000 mg (2 x 1,000 mg) PO TID 30 days #180 tabs 10/31/24 sulfamethoxazole 800 mg-trimethoprim 160 mg tablet 1 tab PO BID #5 tabs 10/31/24 Hospital Course Operations None Procedures None Summary of Care Provided Minutes Spent on Discharge: 45 Hospital Course: Patient is a 74 year old male with a PMH as outlined who was admitted via the ED on 10/24/2024 with a complaint of confusion, frequent urination and generalised weakness for one week prior to admission. He was concerned about a UTI and also suspected his sodium was running low. He had no other symptoms. In the ED, urinalysis showed evidnece of UTI. Sodium was 120. Chest x-ray showed evidence of 5.9 x 4.5 cm left upper lobe mass likely due to lung cancer. He was initially admitted to the ICU. Sign Language Translator was consulted. He was hydrated with IV fluids. Patient stated that he continued to smoke. He was started on IV Zosyn. He had lung biopsy done results of which were still pending at time of discharge. Urine cultures grew Klebsiella oxytoca and Proteus which were both sensitive Bactrim. Patient was therefore switched to Bactrim and Zosyn discontinued. His oral sodium tablets were increased by nephrology on account of the hyponatremia. Patient worked with therapy and was deemed as needing skilled care. He was therefore discharged to [facility] on 10/31/2024 on p.o. Bactrim to complete a 5-day course. He is follow-up with his PCP and pulmonology on outpatient basis for results of the biopsy which is stated was still pending. Patient seen and examined prior to discharge. He felt well and had no complaints. He had an uneventful night. Review of symptoms otherwise negative. Labs and vitals reviewed. Home medication reviewed and reconciled. Physical Exam Const alert, no apparent distress, average body habitus, healthy appearing and well nourished Constitutional Narrative: episodic confusion General Appearance: cooperative and well developed Orientation / Consciousness: awake, oriented to person, oriented to place, confused and lethargic Exam Limitations: no limitations HEENT normocephalic, head/scalp atraumatic, hearing grossly normal bilaterally, moist oral mucous membranes and oropharynx normal Mouth: oral and palatal mucosa normal Eyes PERRL, EOMs intact bilaterally and conjunctivae normal Neck no lymphadenopathy, supple, no JVD, thyroid normal and no carotid bruits General: trachea midline Lymph Lymphatic: no lymphadenopathy noted and no lymphedema noted Resp normal respiratory effort, normal air movement, no retractions, no use of accessory muscles and clear to auscultation bilaterally Auscultation: Negative for rales, rhonchi or wheezes Cardio regular rate, regular rhythm, S1 normal heart sound, S2 normal heart sound, no murmurs, no rub and no gallops GI normal to inspection, nondistended, normoactive bowel sounds, soft to palpation, non-tender and non-distended Extremity normal to inspection, full ROM, normal capillary refill, no clubbing, cyanosis or edema and no calf tenderness Skin no rashes or lesions noted General Skin Exam: no breakdown Neuro CN's II-XII intact bilaterally, moves all extremities, no focal motor deficits and no sensory deficits noted Sensorium / Orientation: awake, alert, oriented to person and oriented to place Speech: speech normal Motor Exam: general weakness Psych thought process normal, cooperative and affect normal Psych Narrative: confused Mood & Affect: flat affect Weight / BMI Weight Weight: 159 lb 9.835 oz Body Mass Index (BMI) 29.2 ABG / Lab / Microbiology Data 10/31/24 06:55 10/31/24 06:55 Laboratory: Laboratory Results - last 24 hr 10/31/24 06:55: WBC 12.6 H, RBC 3.96 L, Hgb 10.6 L, Hct 31.9 L, MCV 80.6, MCH 26.8 L, MCHC 33.2, RDW Std Deviation 47.3 H, RDW Coeff of Edinson 16.1 H, Plt Count 297, MPV 9.5, Neut % (Auto) Not Reportable, Absolute Neuts (auto) 7.9 H, Absolute Lymphs (auto) 2.50, Total Counted 100, Neutrophils % (Manual) 60, Band Neutrophils % 3, Lymphocytes % (Manual) 20, Monocytes % (Manual) 9, Eosinophils % (Manual) 2, Basophils % (Manual) 1, Myelocytes % 1 H, Promyelocytes % 3 H, Plasma Cell % (Manual) 1, Diff Path Review December, Platelet Estimate ADEQUATE, RBC Morphology NORM C+C, Sodium 128 L, Potassium 5.0, Chloride 96 L, Carbon Dioxide 20.8 L, Anion Gap 11, BUN 19, Creatinine 1.17, Estim Creat Clear Calc 46.89 L, Est GFR (MDRD) Non-Af 65, BUN/Creatinine Ratio 16.2, Glucose 80, Calcium 9.5 Microbiology: Microbiology 10/30/24 11:10 Mucosa - Nasopharyngeal Respiratory Panel (PCR) - Final 10/24/24 02:20 Blood Culture (Wb) - Anticubital Right Blood Culture - Final No growth in 5 days. 10/24/24 02:25 Blood Culture (Wb) - Anticubital Right Blood Culture - Final No growth in 5 days. 10/23/24 21:40 Urine, Clean Catch Urine Culture - Final Proteus sp. Klebsiella oxytoca 10/23/24 21:40 Mucosa - Nose SARS-CoV-2, Influenza & RSV (PCR) - Final D/C Instructions Discharge Diet: Low fat / Low cholesterol Discharge Activity: Return to Normal Activity Weight Bearing Status: Weight bearing as tolerated Call your doctor if you observe: Fever of 101 or Higher, Shortness of breath, Dizziness, Swelling in the ankles and Chest pain DC O2, CPAP, BIPAP Needs PSN CPAP & BiPAP: BiPAP & CPAP Settings per PSN Fraction of Inspired Oxygen ( 95 10/31/24 03:25 FIO2) Home O2 Discharge instructions: No Meaningful Use Info Meaningful Use Meaningful Use Diagnoses (Choose all that apply): None applicable Ischemic Stroke Statin Dosing Therapy Reference: STATIN DOSE THERAPY REFERENCE: * Patients > 75 years receive moderate or high dose statin therapy. * Patients 75 years or YOUNGER should receive HIGH intensity statin dose unless contraindicated. You will be required to document reason for non-treatment if statin daily dose does not meet guidelines. 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 Needle Biopsy: Lung, RAD RN Procedural Sedation Discharge Orders/Prescriptions Prescriptions: New sulfamethoxazole-trimethoprim 800-160 mg Tablet 1 tab PO BID Qty: 5 0RF sodium chloride 1,000 mg Tablet,Soluble 2,000 mg PO TID 30 Days Qty: 180 1RF Continued tamsulosin 0.4 MG capsule 0.4 mg PO QHS cholecalciferol (vitamin D3) [Vitamin D3] 1,000 UNIT tablet 2,000 unit PO DAILY L.acidoph,paracasei,B.animalis 1 EACH capsule 1 ea PO DAILY carvedilol 6.25 MG tablet 6.25 mg PO BID Qty: 60 0RF divalproex 500 mg tablet,delayed release (DR/EC) 500 mg PO BID omeprazole 40 mg capsule,delayed release(DR/EC) 40 mg PO DAILY docusate sodium [Colace] 100 mg capsule 100 mg PO QHS losartan 25 mg tablet 25 mg PO QHS Qty: 90 3RF Discontinued sodium chloride 1,000 mg Tablet,Soluble 1,000 mg PO TID Qty: 0 0RF Rx Instructions: For 2 weeks Referrals / Follow Up: Iris Clancy MD [Primary Care Provider] - Within 1 Week Jesus Larwence DO [Med Staff - Active Staff] - Within 2 Weeks Disposition Disposition (needs filled in before D/C Order can be placed): [facility] Charges/Coding Visit Charges Inpatient E&M: 42757 Disch Hosp >30min
--- NOTE | 2024-10-31 12:19 | PHA.DC.MR.R ---
Pharmacy [place] Med Reconciliation Pharmacy Service has performed discharge medication reconciliation for this patient. The patient's discharge medication list was reviewed for discrepancies and discrepancies were resolved. Medications at Discharge Home Medications tamsulosin 0.4 mg capsule 0.4 mg PO QHS urination 05/28/16 cholecalciferol (vitamin D3) 25 mcg (1,000 unit) tablet (Vitamin D3) 2,000 unit PO DAILY supplement 07/06/16 L.acidoph,paracasei,B.animalis 10 billion cell capsule 1 ea PO DAILY pt unsure 02/07/17 carvedilol 6.25 mg tablet 6.25 mg PO BID htn #60 tabs 02/08/17 divalproex 500 mg tablet,delayed release 500 mg PO BID seizure 12/25/23 omeprazole 40 mg capsule,delayed release 40 mg PO DAILY gerd 12/25/23 docusate sodium 100 mg capsule (Colace) 100 mg PO QHS constipation 02/15/24 losartan 25 mg tablet 25 mg PO QHS htn #90 tabs 08/23/24 sodium chloride 1,000 mg soluble tablet 2,000 mg (2 x 1,000 mg) PO TID 30 days #180 tabs 10/31/24 sulfamethoxazole 800 mg-trimethoprim 160 mg tablet 1 tab PO BID #5 tabs 10/31/24
--- NOTE | 2024-10-31 12:44 | CASEMGMT ---
Discharge Planning Discharge orders, signed med list, and transport time sent to [facility]. Physicians will transport pt by wheelchair at 3p. Nursing, SW, pt, and his daughter (Negar) updated. Rosina Rivera DC Planning Asst.
[2024-10-31 14:08] VITALS: BP 129/64; PULSE 64; RESP 16; TEMP 36.4
--- NOTE | 2024-10-31 15:28 | NURSING ---
Report called to Doretha at [facility].
[2024-11-27 16:21] LABS: Pathologist Review Reviewed
[2024-11-30 14:17] LABS: Pathologist Review Reviewed
[2024-11-30 14:17] LABS: Pathologist Review Reviewed
== END 2024-10-31 16:45 | disposition skilled nursing facility (03) | DRG 699 ==
LOC: ED 10-24 00:14 → ICU 10-24 01:35 → MS2 10-26 07:13 → PCU 10-26 17:20
PROVIDERS: Internal Medicine; Internal Medicine Critical Care Medicine; Nurse Practitioner Adult Health; Radiology Diagnostic Radiology; Admitting Provider Internal Medicine; Emergency Provider Emergency Medicine; PCP Internal Medicine; Referring Provider Emergency Medicine; Visit Provider Student in an Organized Health Care Education/Training Program
DX: T83.511A Infection and inflammatory reaction due to indwelling urethral catheter, initial encounter (principal); E22.2 Syndrome of inappropriate secretion of antidiuretic hormone; I44.2 Atrioventricular block, complete; C34.92 Malignant neoplasm of unspecified part of left bronchus or lung; N30.00 Acute cystitis without hematuria; R62.7 Adult failure to thrive; D72.829 Elevated white blood cell count, unspecified; B96.1 Klebsiella pneumoniae [K. pneumoniae] as the cause of diseases classified elsewhere; B96.89 Other specified bacterial agents as the cause of diseases classified elsewhere; J43.9 Emphysema, unspecified; N18.32 Chronic kidney disease, stage 3b; G40.909 Epilepsy, unspecified, not intractable, without status epilepticus; I12.9 Hypertensive chronic kidney disease with stage 1 through stage 4 chronic kidney disease, or unspecified chronic kidney disease; E53.8 Deficiency of other specified B group vitamins; E78.5 Hyperlipidemia, unspecified; G62.9 Polyneuropathy, unspecified; F17.210 Nicotine dependence, cigarettes, uncomplicated; K21.9 Gastro-esophageal reflux disease without esophagitis; M19.90 Unspecified osteoarthritis, unspecified site; N39.0 Urinary tract infection, site not specified; R35.0 Frequency of micturition; R53.81 Other malaise; Z87.440 Personal history of urinary (tract) infections; Z88.8 Allergy status to other drugs, medicaments and biological substances; Z79.899 Other long term (current) drug therapy; Z68.22 Body mass index [BMI] 22.0-22.9, adult; Z99.89 Dependence on other enabling machines and devices; Z96.0 Presence of urogenital implants; N40.1 Benign prostatic hyperplasia with lower urinary tract symptoms; Z98.890 Other specified postprocedural states; Z11.52 Encounter for screening for COVID-19
CPT/HCPCS: 36415; 71045; 71046; 71275; 77012; 80048; 80053; 80061; 80164; 81001; 82607; 82746; 83605; 83930; 83935; 84300; 84443; 85025; 85610; 85730; 87040; 87077; 87086; 87088; 87186; 87631; 87633; 88305; 88341; 88342; 93005; 97116; 97162; 97166; 97530; 97535; 97803; 99156; 99285; 99406; Q9967; A4216; C2613

== ENCOUNTER → 2024-11-13 | Outpatient (CLI) | payer MEDICARE, SELFPAY ==
--- NOTE | 2024-11-13 15:55 | CT_ITS ---
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 TECHNIQUE: Abdomen and pelvis CT with intravenous contrast. Coronal and Sagittal reconstruction series were provided. PATIENT PREPARATION: Per protocol ORAL CONTRAST TYPE: None. CONTRAST: Isovue-370 VOLUME: 100mL One or more dose reduction techniques were used (e.g., Automated exposure control, adjustment of the mA and/or kV according to patient size, use of iterative reconstruction technique. RADIATION DOSE SUMMARY: CTDlvol: 30 mGy DLP: 900 mGycm COMPARISON: CTA chest 10/24/2024 FINDINGS: Visualization is slightly limited by motion artifact. Lung bases: Bibasilar pulmonary fibrosis. Trace left pleural effusion. Liver: Normal in size without focal hepatic mass. The major portal veins are patent. No biliary ductal dilation. Gallbladder: No radiopaque stones within the gallbladder. Spleen: Unremarkable. Pancreas: Dystrophic calcification in the body of the pancreas. Otherwise unremarkable. Adrenals: Unremarkable. Kidneys: Bilateral renal cysts and additional hypodensities. Left lower pole renal calculus. No hydronephrosis. Bladder: Distended and unremarkable. Reproductive Organs: Moderately enlarged prostate. Bowel: Oral contrast material within the stomach and small bowel. The bowel loops are normal in caliber. No ascites or pneumoperitoneum. No inflammatory mass in the expected region of the appendix. Lymph nodes: Prominent central mesenteric nodes. Vasculature: Severe mixed calcific plaque of the aortoiliac vessels. Bones: Severe thoracolumbar spondylosis with moderate T10 vertebral body compression fracture deformity. Prior posterior instrumentation and fixation of the lower lumbar vertebrae and laminectomy with grade 2 anterolisthesis of L5 onto S1. CT/Abdomen/Pelvis WITH Contrast IMPRESSION: 1. No evidence of abdominopelvic metastatic disease. 2. Moderately enlarged prostate. Correlation with PSA recommended. 3. Prominent central mesenteric nodes of indeterminate etiology. These may be reactive in nature. Continued attention on follow-up imaging recommended. Reading Location: [facility]
== END | disposition home or self-care (01) ==
PROVIDERS: PCP Internal Medicine; Referring Provider Internal Medicine; Visit Provider Internal Medicine
DX: C34.92 Malignant neoplasm of unspecified part of left bronchus or lung (principal)
CPT/HCPCS: 74177; Q9967

== ENCOUNTER → 2024-11-15 | Outpatient (REF) | payer MEDICARE, SELFPAY ==
[2024-11-15 09:33] LABS: Hematocrit 29.3 % (40-54); Hemoglobin 9.8 g/dL (13.0-16.5); Mean Corp Hgb Conc 33.4 g/dL (32-36); Mean Corpuscular Hgb 26.6 pg (27.0-32.0); Mean Corpuscular Volume 79.4 fL (80-94); Mean Platelet Vol. 9.4 fl (6.2-12.0); Platelet Count 271 K/mm3 (150-450); RBC Distribution Width CV 16.1 % (11.6-14.6); RBC Distribution Width SD 46.4 fl (35.1-43.9); Red Blood Count 3.69 M/mm3 (4.6-6.2); White Blood Count 7.8 K/mm3 (4.4-11.0)
[2024-11-15 09:57] LABS: Anion Gap 10 (5-15); BUN 18 mg/dL (4-19); BUN/Creat Ratio 21.1 RATIO (10-20); Calcium,Total 9.4 mg/dL (7.6-11.0); Carbon Dioxide 21.9 mmol/L (21.0-32.0); Chloride 93 mmol/L (98-108); Creatinine, Serum 0.86 mg/dL (0.70-1.20); EST Glomerular Filtration Rate 90 (>60); Glucose 86 mg/dL (70-99); Magnesium 1.7 mg/dL (1.5-2.2); Potassium 4.7 mmol/L (3.3-5.1); Sodium Level 124 mmol/L (133-145)
== END ==
LOC: OLS.SW 05:00
PROVIDERS: PCP Internal Medicine; Visit Provider Internal Medicine
DX: J44.9 Chronic obstructive pulmonary disease, unspecified (principal); N18.9 Chronic kidney disease, unspecified; I12.9 Hypertensive chronic kidney disease with stage 1 through stage 4 chronic kidney disease, or unspecified chronic kidney disease
CPT/HCPCS: 36415; 80048; 83735; 84443; 85027

== ENCOUNTER → 2024-11-22 | Outpatient (REF) | payer MEDICARE, SELFPAY ==
[2024-11-22 08:38] LABS: Hematocrit 28.6 % (40-54); Hemoglobin 9.5 g/dL (13.0-16.5); Mean Corp Hgb Conc 33.2 g/dL (32-36); Mean Corpuscular Hgb 26.2 pg (27.0-32.0); Mean Platelet Vol. 9.5 fl (6.2-12.0); Platelet Count 258 K/mm3 (150-450); RBC Distribution Width CV 15.7 % (11.6-14.6); RBC Distribution Width SD 45.1 fl (35.1-43.9); Red Blood Count 3.62 M/mm3 (4.6-6.2); White Blood Count 7.8 K/mm3 (4.4-11.0)
[2024-11-22 09:22] LABS: Anion Gap 11 (5-15); BUN 23 mg/dL (4-19); BUN/Creat Ratio 24.1 RATIO (10-20); Calcium,Total 9.4 mg/dL (7.6-11.0); Carbon Dioxide 21.4 mmol/L (21.0-32.0); Chloride 91 mmol/L (98-108); Creatinine, Serum 0.95 mg/dL (0.70-1.20); EST Glomerular Filtration Rate 83 (>60); Glucose 77 mg/dL (70-99); Magnesium 1.9 mg/dL (1.5-2.2); Potassium 4.3 mmol/L (3.3-5.1); Sodium Level 123 mmol/L (133-145)
== END ==
LOC: OLS.SW 05:00
PROVIDERS: PCP Internal Medicine; Visit Provider Internal Medicine
DX: J44.9 Chronic obstructive pulmonary disease, unspecified (principal); G93.41 Metabolic encephalopathy; D52.9 Folate deficiency anemia, unspecified
CPT/HCPCS: 36415; 80048; 83735; 85027

== ENCOUNTER → 2024-12-07 | Outpatient (REF) | payer MEDICARE, SELFPAY ==
[2024-12-07 08:43] LABS: Valproic Acid (Depakene) Level 54 ug/mL (50-100)
== END ==
LOC: OLS.SW 06:15
PROVIDERS: PCP Internal Medicine; Visit Provider Internal Medicine
DX: A41.9 Sepsis, unspecified organism (principal); G93.41 Metabolic encephalopathy
CPT/HCPCS: 36415; 80164

== ENCOUNTER → 2024-12-12 | Outpatient (REF) | payer MEDICARE, SELFPAY ==
[2024-12-12 08:35] LABS: Hematocrit 27.4 % (40-54); Mean Corp Hgb Conc 32.8 g/dL (32-36); Mean Corpuscular Hgb 26.3 pg (27.0-32.0); Mean Corpuscular Volume 80.1 fL (80-94); Mean Platelet Vol. 9.5 fl (6.2-12.0); Platelet Count 293 K/mm3 (150-450); RBC Distribution Width CV 15.6 % (11.6-14.6); Red Blood Count 3.42 M/mm3 (4.6-6.2); White Blood Count 9.6 K/mm3 (4.4-11.0)
[2024-12-12 08:58] LABS: Anion Gap 10 (5-15); BUN 24 mg/dL (4-19); BUN/Creat Ratio 26.1 RATIO (10-20); Calcium,Total 9.4 mg/dL (7.6-11.0); Carbon Dioxide 22.3 mmol/L (21.0-32.0); Chloride 94 mmol/L (98-108); Creatinine, Serum 0.91 mg/dL (0.70-1.20); EST Glomerular Filtration Rate 87 (>60); Glucose 83 mg/dL (70-99); Potassium 4.5 mmol/L (3.3-5.1); Sodium Level 126 mmol/L (133-145)
== END ==
LOC: OLS.SW 05:00
PROVIDERS: PCP Internal Medicine; Visit Provider Internal Medicine
DX: G93.41 Metabolic encephalopathy (principal); J44.9 Chronic obstructive pulmonary disease, unspecified
CPT/HCPCS: 36415; 80048; 85027

== ENCOUNTER → 2024-12-18 | Outpatient (CLI) | payer MEDICARE, SELFPAY ==
[2024-12-18] VITALS (20 sets, daily range): BP systolic 100–163; BP diastolic 46–90; PULSE 64–75; RESP 14–72; TEMP 36; O2SAT 17–100; BMI 22.8
[2024-12-18 09:13] LABS: Absolute Lymphocyte Count 1.53 X10^3/uL (0.83-4.51); Absolute Neutrophil Count 7.8 X10^3/uL (2.0-7.7); Basophil# 0.05 X10^3/uL; Basophil% 0.4 % (0-1); Eosinophils% 2.7 % (0-5); Hematocrit 32.4 % (40-54); Hemoglobin 10.8 g/dL (13.0-16.5); Lymphocyte # 1.53 X10^3/ul (0.83-4.51); Lymphocyte % 13.6 % (19-41); Mean Corp Hgb Conc 33.3 g/dL (32-36); Mean Corpuscular Hgb 26.3 pg (27.0-32.0); Mean Corpuscular Volume 78.8 fL (80-94); Mean Platelet Vol. 9.4 fl (6.2-12.0); Monocyte# 1.52 X10^3/uL; Monocyte% 13.5 % (0-10); NRBC Flagged by Analyzer 0 % (0-5); Neutrophil # 7.75 X10^3/uL (2.7-7.7); Neutrophil % 69.1 % (47-70); POSITIVE DIFFERENTIAL YES; Platelet Count 309 K/mm3 (150-450); RBC Distribution Width CV 15.5 % (11.6-14.6); Red Blood Count 4.11 M/mm3 (4.6-6.2); White Blood Count 11.2 K/mm3 (4.4-11.0)
--- NOTE | 2024-12-18 09:13 | CT_ITS ---
PROCEDURE: BIOPSY/INJ OR NEEDLE PLACEMENT 12/18/2024 REASON FOR EXAM: LUNG CA-MOLECULAR MARKERS TECHNIQUE: Medications: 1 mg Versed IV, 25 mcg fentanyl IV. Procedure: Following informed consent and using standard sterile technique, a CT-guided biopsy of a peripheral left lung hypermetabolic mass was obtained. 2% lidocaine local anesthesia was followed by placement a 20 gauge 10 cm CorVocet biopsy system into the hypermetabolic mass via CT guidance. A total of five 25 mm core specimens were obtained, and given to pathology at the time of acquisition. Postprocedure imaging demonstrates no pneumothorax. No complication was encountered, and the patient left the department in good condition without significant complaint. One or more dose reduction techniques were used (e.g., Automated exposure control, adjustment of the mA and/or kV according to patient size, use of iterative reconstruction technique). RADIATION DOSE SUMMARY: CTDlvol: 9.95 mGy DLP: 768.57 mGycm COMPARISON: PET-CT of 11/28/[address] angiogram of 10/24/2024. CT/Biopsy/Inj or Needle Placement IMPRESSION: Successful core biopsy of left lung hypermetabolic mass, without complication. Pathology results pending. Reading Location: [place] [id number]
[2024-12-18 09:15] LABS: Differential Indicated SCAN CRITERIA MET
[2024-12-18 09:30] LABS: Prothrombin Time (Protime)PT. 13.3 SECONDS (11.7-14.9)
[2024-12-18 09:31] LABS: Partial Thromboplast Time 32.8 Seconds (24.1-36.2)
[2024-12-18] MEDS: Midazolam 2 MG/2 ML Syringe IV (10:18)
[2024-12-18] MEDS: 0.9% Normal Saline (250mL Bag) 250 ML 15 ML IV (10:18)
[2024-12-18] MEDS: fentaNYL 100 MCG/2 ML Ampul IV (10:21)
[2024-12-18 10:26] LABS: Ovalocyte 1+; Platelet Estimate A (ADEQ)
[2024-12-18] MEDS: Lidocaine 2% (20 ml mdv) 20 ML Vial INFILT (10:40)
--- NOTE | 2024-12-18 10:45 | ASPIGT_PTH ---
PATIENT: KATIE HOLMAN LOC: CT U#:[id number] AGE/SX: 74/M ROOM: RE12/18/[address]: Dr. Luís Cruz MD : [id number] BED: DIS: 12/18/2024 SPEC #: [id number] RECD: 12/18/24 11:00 STATUS: SLIME DAVID #: [id number] CLAIRE: 12/18/24 10:[address]: Luís Cruz DEPT: SURGICAL PATHOLOGY RECD BY: Ulises Sidhu ENTERED: 12/18/24 11:42 SP TYPE: ASP RAD OTHR DR: Dr. Iris Clancy MD Tissues: A - Lung, NOS Procedures: FNA Specimen Adequacy Special Stain Group II Surgery Specimen Level IV Imprint (control) HEADER OPERATION: CT guided lung biopsy PRE-OP DIAGNOSIS: Left lung mass TISSUE SUBMITTED: A- Lung biopsy- 20 gauge x 5cores MICROSCOPIC DIAGNOSIS A. Left lung, mass, biopsy: * Malignant neoplasm. * The tissue block will be submitted to [facility] for molecular testing as requested; a separate report(s) will follow. Note: This is a corrected report due to a clerical error (regarding the destination of the block for molecular testing). COMMENT The specimen is evaluated at the time of biopsy by Dr. Orlando. Immediate Evaluation = 1- Adequate, malignant. 2- Adequate, malignant. MICROSCOPIC DESCRIPTION Slides are reviewed. All matched controls reacted appropriately. These tests were developed and their performance characteristics determined by [facility]. They may not have been cleared or approved by the U.S. Food and Drug Administration. The FDA has determined that such clearance or approval is not necessary.? The above immunohistochemical/dualISH?markers are ordered and reviewed by the Pathologist. GROSS DESCRIPTION A. Received in formalin in a container labeled with the patient's name, date of , and lung biopsy left are multiple white-pink, friable fragments of wispy soft tissue measuring 0.6 x 0.5 x 0.2 cm in aggregate. Submitted in toto in A1. SMB 12-18-2024 CPT:77817 ADDENDUM ADDENDUM ADDENDUM ADDENDUM ADDENDUM ADDENDUM ADDENDUM ADDENDUM ADDENDUM ADDENDUM ADDENDUM 12/22/2024 09:54 ADDENDUM 12/22/2024 09:54 ADDENDUM 12/22/2024 09:54 ADDENDUM 01/01/2025 09:28 ADDENDUM 12/22/2024 09:54 ADDENDUM 12/22/2024 09:54 This addendum is added to incorporate an outside pathology consultation report. The case was examined at [facility] by Dr. Roman (#[id number]) and the following diagnosis was rendered. A. Left lung, mass, biopsy: HER2 IHC (4B5) result: Negative (1+) PD-L1 IHC 22C3 pharmDx result: Positive, TPS:60% Please see complete above mentioned consultation report in EMR This addendum is added to incorporate an outside pathology consultation report. The case was examined at [facility] by Dr. Roman (#[id number]) and the following diagnosis was rendered. 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 No currently targetable variants noted. This mutation profile is not entirely specific but is compatible with a poorly differentiated lung tumor. FISH, lung panel: Left lung, mass, biopsy: ALK Rearrangement: Negative MET amplification: Not detected MET/CEP7 ratio: 1.0 / copy number: 2.6 ROS1 Rearrangement: Negative MICROSATELLITE INSTABILITY (MSI) ANALYSIS, TUMOR: MSI by PCR result: CHAZ. Tumor is microsatellite stable. NTRK fusion panel: NTRK fusion result: Not detected Please see complete above mentioned consultation report in EMR
--- NOTE | 2024-12-18 10:45 | ASPIGT_PTH ---
PATIENT: KATIE HOLMAN LOC: CT U#:[id number] AGE/SX: 74/M ROOM: RE12/18/[address]: Dr. Luís Cruz MD : [id number] BED: DIS: 12/18/2024 SPEC #: [id number] RECD: 12/18/24 11:00 STATUS: SLIME DAVID #: [id number] CLAIRE: 12/18/24 10:[address]: Luís Cruz DEPT: SURGICAL PATHOLOGY RECD BY: Ulises Sidhu ENTERED: 12/18/24 11:42 SP TYPE: ASP RAD OTHR DR: Dr. Iris Clancy MD Tissues: A - Lung, NOS Procedures: FNA Specimen Adequacy Special Stain Group II Surgery Specimen Level IV Imprint (control) HEADER OPERATION: CT guided lung biopsy PRE-OP DIAGNOSIS: Left lung mass TISSUE SUBMITTED: A- Lung biopsy- 20 gauge x 5cores MICROSCOPIC DIAGNOSIS A. Left lung, mass, biopsy: * Malignant neoplasm. * The tissue block will be submitted for [employer] molecular testing as requested; a separate report will follow. COMMENT The specimen is evaluated at the time of biopsy by Dr. Orlando. Immediate Evaluation = 1- Adequate, malignant. 2- Adequate, malignant. MICROSCOPIC DESCRIPTION Slides are reviewed. All matched controls reacted appropriately. These tests were developed and their performance characteristics determined by [facility]. They may not have been cleared or approved by the [place]. Food and Drug Administration. The FDA has determined that such clearance or approval is not necessary.? The above immunohistochemical/dualISH?markers are ordered and reviewed by the Pathologist. GROSS DESCRIPTION A. Received in formalin in a container labeled with the patient's name, date of , and lung biopsy left are multiple white-pink, friable fragments of wispy soft tissue measuring 0.6 x 0.5 x 0.2 cm in aggregate. Submitted in toto in A1. [facility] 12-18-2024 CPT:14026
--- NOTE | 2024-12-18 12:15 | RAD_ITS ---
PROCEDURE: CHEST INSP/EXP 2 VIEW (RADCXRINSPEXP), 12/18/2024 REASON FOR EXAM: POST LUNG BIOPSY TECHNIQUE: A single portable AP view of the chest was obtained in inspiration and expiration. COMPARISON: 11/28/2024 FINDINGS: Heart: Similar LEFT chest wall dual lead pacer. Mediastinum: Atherosclerosis Lungs/pleura: A mass in the LEFT chest has enlarged from 10/24/2024 better evaluated on recent PET/CT 11/28/2024. Additional pleural-based nodular lesions also better evaluated previously.. No sizeable pleural effusion or visible pneumothorax. Grossly similar mild reticulation. Bones: Demineralization.. Lines and support devices: None. Other: None. RAD/Chest Insp/Exp 2 View IMPRESSION: 1. No visible pneumothorax. 2. Additional description as above. Reading Location: [id number]
--- NOTE | 2024-12-18 13:53 | RAD_ITS ---
EXAM: Two-view AP portable upright inspiratory and expiratory chest CLINICAL HISTORY: Status post left lung biopsy. 3 hour post biopsy film. COMPARISON: Chest x-ray of the proximally 2 hours earlier (1 hour post biopsy). TECHNIQUE: Two-view AP portable upright inspiratory and expiratory chest. RAD/Chest Insp/Exp 2 View IMPRESSION: No pneumothorax is seen. No significant pleural fluid collection is noted. Multiple left lung masses are again noted. No evidence of pulmonary edema. The cardiomediastinal silhouette is stable, without evidence of cardiomegaly. Reading Location: [place] [id number]
--- NOTE | 2024-12-18 16:36 | NURSING ---
Verbal report called to [facility] at [facility] at 1415. Discharge instructions sent back to [facility] with patient.
== END | disposition home or self-care (01) ==
PROVIDERS: Radiology Diagnostic Radiology; PCP Internal Medicine; Referring Provider Internal Medicine Medical Oncology; Visit Provider Internal Medicine Medical Oncology
DX: C34.92 Malignant neoplasm of unspecified part of left bronchus or lung (principal)
CPT/HCPCS: 32408; 36415; 71046; 77012; 85025; 85610; 85730; 88172; 88305; 88313; 99156; 99157; A4216

== ENCOUNTER → 2024-12-25 05:00 | Outpatient (REF) | payer MEDICARE, SELFPAY ==
[2024-12-25 10:26] LABS: Anion Gap 9 (5-15); BUN 21 mg/dL (4-19); BUN/Creat Ratio 23.7 RATIO (10-20); Calcium,Total 9.6 mg/dL (7.6-11.0); Carbon Dioxide 22.8 mmol/L (21.0-32.0); Chloride 92 mmol/L (98-108); Creatinine, Serum 0.87 mg/dL (0.70-1.20); EST Glomerular Filtration Rate 89 (>60); Glucose 68 mg/dL (70-99); Potassium 4.6 mmol/L (3.3-5.1); Sodium Level 123 mmol/L (133-145)
== END ==
LOC: OLS.SW 05:00
PROVIDERS: PCP Internal Medicine; Visit Provider Internal Medicine
DX: J44.9 Chronic obstructive pulmonary disease, unspecified (principal)
CPT/HCPCS: 36415; 80048

== ENCOUNTER → 2025-01-01 05:00 | Outpatient (REF) | payer MEDICARE, SELFPAY ==
[2025-01-01 09:59] LABS: Osmolality, Serum 255 mOsm/KG (280-301)
== END ==
LOC: OLS.SW 05:00
PROVIDERS: PCP Internal Medicine; Visit Provider Internal Medicine
DX: E87.1 Hypo-osmolality and hyponatremia (principal)
CPT/HCPCS: 36415; 83930